=== PATIENT | male | born 1965 | race Caucasian/White ===

== ENCOUNTER 2022-03-09 11:46 | Emergency (ER) | payer OTHER, SELFPAY ==
[2022-03-09 12:13] VITALS: PULSE 97; RESP 16; TEMP 36.4; O2SAT 97; BMI 22.4
--- NOTE | 2022-03-09 12:18 | CRLHL7_ITS ---
For Patients: As a result of the Cures Act, medical imaging exams and procedure reports are released immediately into your electronic medical record. You may view this report before your referring provider. If you have questions, please contact your health care provider. Indication: Injury and pain Technique: Right wrist 3 view Comparison: None Impression: Subtle lucency through the scaphoid waist may represent nondisplaced fracture or artifact. Recommend correlation with direct tenderness and consider follow-up radiographs in 7-10 days to assess for fracture increased conspicuity if present. No other evidence of fracture or dislocation. Dictated by Hector Bush MD @ 03/09/2022 1:20:36 PM (Electronically Signed)
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
== END 2022-03-09 14:10 | disposition home or self-care (01) ==
PROVIDERS: Emergency Provider Family Medicine; PCP Family Medicine
DX: S63.501A Unspecified sprain of right wrist, initial encounter (principal); V19.9XXA Pedal cyclist (driver) (passenger) injured in unspecified traffic accident, initial encounter
CPT/HCPCS: 73110; 99283; 99284

== ENCOUNTER 2023-01-29 11:24 | Emergency (ER) | payer MEDICARE, SELFPAY ==
[2023-01-29 11:43] VITALS: BP 127/78; PULSE 90; RESP 18; TEMP 36.5; O2SAT 99; BMI 23.0
--- NOTE | 2023-01-29 12:09 | CRLHL7_ITS ---
For Patients: As a result of the Cures Act, medical imaging exams and procedure reports are released immediately into your electronic medical record. You may view this report before your referring provider. If you have questions, please contact your health care provider. INDICATION: Fell; hit right eye; hematoma above the right eye. TECHNIQUE: CT facial bones without intravenous contrast; coronal and sagittal reformats. FINDINGS: Comminuted fracture lateral wall right maxilla with fluid and hemorrhage identified within the right maxillary antrum. Nondisplaced fractures lateral wall right orbit. Undisplaced fracture right zygomatic arch. Fracture involving the anterior right maxilla. Nondisplaced fractures involving the nasal bones bilateral. IMPRESSION: Fractures involving the lateral and anterior wall of the right maxillary antrum, lateral wall of the right orbit and the right zygomatic arch with opacification right maxillary antrum. Please note that all CT scans at this facility use dose modulation, iterative reconstruction, and/or weight-based dosing when appropriate to reduce radiation dose to as low as reasonably achievable. Dictated by Anitha Kelly MD @ 01/29/2023 1:57:51 PM (Electronically Signed)
--- NOTE | 2023-01-29 12:10 | CRLHL7_ITS ---
For Patients: As a result of the Century Cures Act, medical imaging exams and procedure reports are released immediately into your electronic medical record. You may view this report before your referring provider. If you have questions, please contact your health care provider. INDICATION: Trauma. TECHNIQUE: CT head without intravenous contrast; coronal and sagittal reformats. FINDINGS: No evidence of intracranial hemorrhage. No mass lesions. No evidence of shift of the midline structures. Fractures involving the lateral wall of the right maxilla as well as the zygomatic arch and lateral wall of the right orbit with opacification of the right maxillary sinus. IMPRESSION: 1. No intracranial hemorrhage or mass lesions. 2. Fractures involving the right orbit, right maxilla and right zygomatic arch. Please note that all CT scans at this facility use dose modulation, iterative reconstruction, and/or weight-based dosing when appropriate to reduce radiation dose to as low as reasonably achievable. Dictated by Anitha Kelly MD @ 01/29/2023 1:49:52 PM (Electronically Signed)
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
[2023-01-29] MEDS: MORPHINE 4 MG/ML INJ IVP (13:17)
[2023-01-29 13:20] VITALS: BP 121/82
[2023-01-29 13:23] LABS: Basophils Absolute Auto 0.07 K/uL (0.00-0.30); Basophils Percent Auto 0.7 % (0.0-3.0); Eosinophils Absolute Auto 0.08 K/uL (0.00-0.50); Eosinophils Percent Auto 0.8 % (0.0-7.0); Hematocrit 36.2 % (37.0-53.0); Hemoglobin* 12.3 gm/dL (13.5-17.5); Immature Granulocytes Abs Auto 0.15 K/uL (0.00-0.30); Immature Granulocytes Pct Auto 1.6 %; Lymphocytes Percent Auto 15.3 % (20-44); Mean Corpuscular HGB Conc 34 gm/dL (32-36); Mean Corpuscular Hemoglobin 32 pg (26-34); Mean Corpuscular Volume 95 fL (80-100); Monocytes Percent Auto 6.5 % (0.0-11.0); Neutrophils Percent Auto 75.1 % (42.0-72.0); Platelet Count* 215 K/uL (140-440); RDW Coefficient of Variation % 13.8 % (11.5-15.5); Red Blood Count 3.83 m/uL (4.30-5.90); White Blood Count* 9.57 K/uL (4.50-11.00)
[2023-01-29 13:33] LABS: Slide Review Reflex No
[2023-01-29 13:36] LABS: Chloride* 100 mmol/L (96-114); Potassium* 4.6 mmol/L (3.6-5.1); Sodium* 134 mmol/L (135-149)
[2023-01-29 13:39] LABS: Anion Gap 7 mEq/L (7-15); Blood Urea Nitrogen* 2 mg/dL (7-30); Calcium* 8.9 mg/dL (8.4-10.6); Carbon Dioxide* 27 mmol/L (20-32); Creatinine* 0.6 mg/dL (0.5-1.5); Est. Creatinine Clearance* 139.44; Estimated Glomerular Filt Rate 113 ml/min; Glucose* 115 mg/dL (60-115)
[2023-01-29 13:40] LABS: Magnesium* 1.7 mg/dL (1.5-2.6)
--- NOTE | 2023-01-29 14:04 | ED.NURSE ---
Pt ambulated to the restroom independently.
[2023-01-29 14:50] VITALS: PULSE 99; O2SAT 97
[2023-01-29 15:41] VITALS: BP 132/88; PULSE 98; RESP 16; O2SAT 100
== END 2023-01-29 15:50 | disposition home or self-care (01) ==
PROVIDERS: Emergency Provider Student in an Organized Health Care Education/Training Program
DX: S01.111A Laceration without foreign body of right eyelid and periocular area, initial encounter (principal); S02.841A Fracture of lateral orbital wall, right side, initial encounter for closed fracture; S02.40EA Zygomatic fracture, right side, initial encounter for closed fracture
CPT/HCPCS: 12011; 36415; 70450; 70486; 72125; 80048; 81025; 83735; 85025; 93005; 96374; 99283; 99284; J2270

== ENCOUNTER 2023-05-18 15:57 | Emergency (ER) | payer MEDICARE, SELFPAY ==
[2023-05-18 16:21] VITALS: BP 130/80; PULSE 88; RESP 18; TEMP 36.2; O2SAT 100; BMI 17.2
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
--- NOTE | 2023-05-18 17:26 | CRLHL7_ITS ---
For Patients: As a result of the Century Cures Act, medical imaging exams and procedure reports are released immediately into your electronic medical record. You may view this report before your referring provider. If you have questions, please contact your health care provider. INDICATION: Bloating. Pain. TECHNIQUE: CT abdomen and pelvis acquired with 64 cc Isovue 370 IV contrast. COMPARISON: None. FINDINGS: Lower chest: Scattered atelectasis. Liver: Mild hepatomegaly. No suspicious masses. Gallbladder and bile ducts: Cholelithiasis. Pancreas: Unremarkable. No mass or inflammation. Spleen: Unremarkable. Normal in size. No masses. Adrenal glands: Unremarkable. No nodules. Kidneys: Focal 2.4 centimeter right superior pole heterogeneous lesion. Tiny hypodensities both kidneys, too small to characterize. No stones, or hydronephrosis. GI tract: Postsurgical changes about the GE junction. Mild proximal colonic wall thickening. Normal in caliber. No sign of mass or inflammation. Normal appendix. Vasculature: Abdominal aorta is normal in caliber. Mesenteric arteries are patent. Lymph nodes: No lymphadenopathy. Peritoneum/Abdominal Wall: Small volume ascites. No free intraperitoneal air. Pelvis: Unremarkable. Bones: Unremarkable for age. IMPRESSION: 1. Mild hepatomegaly. 2. Small volume ascites. 3. Mild colonic wall thickening, possibly colitis in the appropriate clinical setting. 4. Cholelithiasis without cholecystitis. 5. Indeterminate 2.4 centimeter right superior pole heterogeneous lesion. Recommend correlation with prior imaging if available. If not consider outpatient nonemergent MRI for further characterization. Please note that all CT scans at this facility use dose modulation, iterative reconstruction, and/or weight-based dosing when appropriate to reduce radiation dose to as low as reasonably achievable. Dictated by Jimi Vasquez MD @ 05/18/2023 7:59:56 PM (Electronically Signed)
[2023-05-18 18:02] LABS: Appearance Urine Clear (Clear); Bilirubin Urine Negative (Negative); Blood Urine Negative (Negative); Color Urine Yellow (Yellow); Glucose Urine Negative (Negative); Ketones Urine Negative (Negative); Leukocyte Esterase Urine Negative (Negative); Nitrite Urine Negative (Negative); Protein Urine Negative (Negative); Urobilinogen Urine 0.2 (0.2-1.0); pH Urine 6.5 (5.0-8.5)
[2023-05-18 18:05] LABS: Basophils Percent Auto 1.1 % (0.0-3.0); Eosinophils Percent Auto 1.6 % (0.0-7.0); Hematocrit 37.9 % (37.0-53.0); Hemoglobin* 12.4 gm/dL (13.5-17.5); Immature Granulocytes Pct Auto 0.3 %; Lymphocytes Percent Auto 29.6 % (20-44); Mean Corpuscular HGB Conc 33 gm/dL (32-36); Mean Corpuscular Hemoglobin 32 pg (26-34); Mean Corpuscular Volume 98 fL (80-100); Monocytes Percent Auto 8.9 % (0.0-11.0); Neutrophils Percent Auto 58.5 % (42.0-72.0); Platelet Count* 373 K/uL (140-440); RDW Coefficient of Variation % 13.3 % (11.5-15.5); Red Blood Count 3.86 m/uL (4.30-5.90); White Blood Count* 12.87 K/uL (4.50-11.00)
[2023-05-18 18:09] LABS: Slide Review Reflex No
[2023-05-18 18:10] LABS: RBC Urine 0-2 (0-2); Squamous Epithelial Cell Urine Few (None-Few); WBC Urine 0-2 (0-5)
[2023-05-18 18:21] LABS: INR 1.07 (0.91-1.10); Prothrombin Time 14.6 Seconds
[2023-05-18 18:22] LABS: Partial Thromboplastin Time* 33 Seconds (23-33)
[2023-05-18 18:30] LABS: Albumin* 4.1 g/dL (3.3-5.0); Chloride* 104 mmol/L (96-114)
[2023-05-18 18:31] LABS: Sodium* 136 mmol/L (135-149)
[2023-05-18 18:33] LABS: Creatinine* 0.5 mg/dL (0.5-1.5); Est. Creatinine Clearance* 134.31; Estimated Glomerular Filt Rate 118 ml/min
[2023-05-18 18:34] LABS: Alanine Aminotransferase* 32 U/L (4-50); Alkaline Phosphatase* 207 U/L (40-150); Anion Gap 9 mEq/L (7-15); Aspartate Amino Transferase* 82 U/L (12-35); Bilirubin Direct* 0.5 mg/dL (0.0-0.5); Bilirubin Total* 1.1 mg/dL (0.1-1.5); Calcium* 8.8 mg/dL (8.4-10.6); Carbon Dioxide* 23 mmol/L (20-32); Glucose* 73 mg/dL (60-115); Lipase* 147 U/L (23-300); Total Protein* 8.3 g/dL (6.0-8.3)
[2023-05-18 18:35] LABS: Ethanol* 0.07 % (0.01-0.03)
[2023-05-18 18:36] LABS: C Reactive Protein* 1.4 mg/dL (0.5-1.0)
[2023-05-18 18:37] LABS: Blood Urea Nitrogen* < 2 mg/dL (7-30)
[2023-05-18 20:04] VITALS: PULSE 88; O2SAT 99
== END 2023-05-18 21:25 | disposition home or self-care (01) ==
PROVIDERS: Emergency Provider Family Medicine
DX: K80.50 Calculus of bile duct without cholangitis or cholecystitis without obstruction (principal); D64.9 Anemia, unspecified; R18.8 Other ascites
CPT/HCPCS: 36415; 74177; 80053; 81001; 82077; 82140; 82248; 83690; 85025; 85610; 85730; 86140; 99284; Q9967

== ENCOUNTER 2023-06-07 11:39 | Outpatient (CLI) | payer OTHER, SELFPAY | END 2023-06-07 11:40 | disposition home or self-care (01) | LOC: NFLDREF 11:46 | PROVIDERS: PCP Internal Medicine; Visit Provider Internal Medicine | DX: K70.31 Alcoholic cirrhosis of liver with ascites (principal); F10.20 Alcohol dependence, uncomplicated | CPT/HCPCS: 80048 ==

== ENCOUNTER 2023-06-19 01:44 | Outpatient (CLI) | payer OTHER, SELFPAY | END 2023-06-19 01:45 | disposition home or self-care (01) | LOC: AMB 06-20 10:27 | PROVIDERS: PCP Internal Medicine; Visit Provider Family Medicine | DX: R06.09 Other forms of dyspnea (principal) | CPT/HCPCS: A0998 ==

== ENCOUNTER 2023-06-27 09:57 | Outpatient (CLI) | payer OTHER, SELFPAY | END 2023-06-27 09:58 | disposition home or self-care (01) | LOC: RAD 10:02 | PROVIDERS: PCP Internal Medicine; Visit Provider Internal Medicine | DX: R01.1 Cardiac murmur, unspecified (principal); I34.0 Nonrheumatic mitral (valve) insufficiency; I34.1 Nonrheumatic mitral (valve) prolapse | CPT/HCPCS: 93306 ==

== ENCOUNTER 2023-07-19 14:18 | Outpatient (CLI) | payer OTHER, SELFPAY | END 2023-07-19 14:19 | disposition home or self-care (01) | PROVIDERS: PCP Internal Medicine; Visit Provider Internal Medicine | DX: E78.5 Hyperlipidemia, unspecified (principal) | CPT/HCPCS: 80053 ==

== ENCOUNTER 2024-11-01 13:16 | Outpatient (CLI) | payer OTHER, SELFPAY | END 2024-11-01 13:17 | disposition home or self-care (01) | PROVIDERS: PCP Internal Medicine; Visit Provider Internal Medicine | DX: K70.31 Alcoholic cirrhosis of liver with ascites (principal); Z12.5 Encounter for screening for malignant neoplasm of prostate | CPT/HCPCS: 80053; 85610; G0103 ==

== ENCOUNTER 2024-12-28 13:14 | Outpatient (CLI) | payer OTHER, SELFPAY ==
--- NOTE | 2024-12-28 13:00 | CRLHL7_ITS ---
For Patients: As a result of the Century Cures Act, medical imaging exams and procedure reports are released immediately into your electronic medical record. You may view this report before your referring provider. If you have questions, please contact your health care provider. INDICATION: Renal lesion. COMPARISON: CT scan of the abdomen and pelvis dated 18 May 2023. TECHNIQUE: Abdominal MRI with T1 in- and out of phase, T2, diffusion weighted, and progressively delayed post-contrast images. Intravenous gadolinium administered. FINDINGS: Moderate nodular fatty infiltration of the liver. Nodularity of the representing cirrhosis. No focal abnormalities identified in the visualized portions of the liver, spleen, pancreas, and adrenal glands. 2.2 cm cyst containing hemorrhagic debris in the superior pole of the right kidney is unchanged. A few other small bilateral renal cysts. The kidneys are otherwise unremarkable. No hydronephrosis. Small amount of ascites. No adenopathy. Gallstones and sludge filling the gallbladder. No bile duct dilation. 1.4 cm enhancing lesion in the medial aspect of the right iliac bone best seen on image 64 of series 17. Impression : 1. 2.2 cm cyst containing hemorrhagic debris in the superior pole of the right kidney is unchanged. 2. No suspicious enhancing renal lesions. 3. Cirrhosis. Nodular fatty infiltration of the liver. 4. Gallstones and sludge filling the gallbladder. 5. Small amount of ascites. 6. 1.4 cm enhancing lesion in the medial aspect of the right iliac bone has nonspecific imaging characteristics but may represent a metastasis. Consider tissue diagnosis. Dictated by Glenn Banegas MD @ 12/31/2024 2:43:11 PM (Electronically Signed)
== END 2024-12-28 13:15 | disposition home or self-care (01) ==
PROVIDERS: PCP Internal Medicine; Visit Provider Internal Medicine
DX: N28.9 Disorder of kidney and ureter, unspecified (principal); N28.1 Cyst of kidney, acquired; K74.60 Unspecified cirrhosis of liver; K80.20 Calculus of gallbladder without cholecystitis without obstruction; R18.8 Other ascites; M89.9 Disorder of bone, unspecified
CPT/HCPCS: 74183; A9575

== ENCOUNTER 2025-01-05 01:05 | Outpatient (CLI) | payer OTHER, SELFPAY | END 2025-01-05 01:06 | disposition home or self-care (01) | LOC: AMB 01-07 12:52 | PROVIDERS: PCP Internal Medicine; Visit Provider Internal Medicine | DX: R19.7 Diarrhea, unspecified (principal) | CPT/HCPCS: A0425; A0427 ==

== ENCOUNTER 2025-01-05 01:52 | Emergency (ER) | payer OTHER, SELFPAY ==
[2025-01-05] VITALS (61 sets, daily range): BP systolic 68–120; BP diastolic 44–79; PULSE 98–130; RESP 10–34; TEMP 37.1–37.6; O2SAT 87–100; BMI 16.5
--- OUTSIDE RECORDS SUMMARY | 2025-01-05 01:54 | XMS_ITS | Clinical Summary ---
Author Organization [facility] Address [address] [place] [address] Care Team Providers Care Cnc Programmer Name Role Phone Gabe Zheng MD Primary Care Provider [phone] Source Comments You are receiving this document as you are listed as the primary care provider,follow-up provider, or the patient has been referred to you for consultation.This is in compliance with the Medicare and[facility] E[facility] Incentive Program,which states Providers who transition their patient to another setting of careor provider of care or refers their patient to another provider of care shouldprovide summary care record for each transition of care or referral. [employer] Allergies Active Allergy Reactions Criticality Noted Date Comments Penicillins Hives,Rash Medium 04/24/2008 Medications multivitamin (THERAGRAN) tablet Take 1 Tablet by mouth daily. Active omega-3 fatty acids (MAXEPA,FISHOIL ) 1000 MG capsule Take 1 Capsule (1,000 mg) by mouth daily. Active nicotine (NICOTROL) 10 MG inhaler 1 cartridge by freq cont puffing for about 20min.Use 6-16 cartridges/day for12 wks.Reduce gradually 12 more wks if needed. 168 Each 12 8 Active CREATINE OR as needed. Active Protein as needed. Active vortioxetine (TRINTELLIX) 5 MG tablet Take 5 mg by mouth daily. Active magnesium 250 MG oral tablet TK 1 TO 2 TS PO HS PRF KEYBOARD INSTRUMENT REPAIRER 3 9 Active Melatonin [address] 1 T UNDER THE TONGUE HS 3 9 Active nicotine (NICODERMCQ) 7 MG/24HR patch JOEY 1 PA EXT TO THE SKIN QD 6 9 Active thiamine 100 MG tablet Take 1 Tablet by mouth daily. 90 Tablet 3 9 Active metroNIDAZOLE (METROCREAM) 0.75 % cream APPLY TO AFFECTED AREA TWICE A DAY 45 g 12 1 Active mirtazapine (REMERON) 15 MG tablet Take 1 Tablet (15 mg) by mouth daily at bedtime. 90 Tablet 3 2 Active tiZANidine (ZANAFLEX) 4 MG tablet Take 1 Tablet (4 mg) by mouth every 8 hours as needed. 15 Tablet 3 Active ketorolac (ACULAR) 0.5 % eye drop solution PLACE ONE DROP IN BOTH EYES 3 TIMES PER DAY NEEDED 5 mL 1 5 Active gabapentin (NEURONTIN) 300 MG capsule Take 1 Capsule (300 mg) by mouth three times a day. Start with 1 po qhs for 3 days, then 1 po bid for 3 days, then 1 po tid. 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 Alcohol intoxication in alco holism with blood level over 0.3 11/08/2015 Elevated liver enzymes 11/08/2015 Underweight 06/06/2014 S/P exploratory laparotomy 05/30/2014 Overview (01/12/2017): S/P exploratory laparotomy, lysis of adhesions Small bowel obstruction 05/28/2014 Diverticulosis 04/03/2013 Tinnitus, bilateral 06/07/2012 Heart murmur 02/18/2012 Cirrhosis of liver 02/18/2012 Malnutrition of moderate degree 01/17/2012 Hepatitis 01/15/2012 Tobacco abuse 01/15/2012 Alcohol dependence, continuous 09/07/2008 Overview (01/12/2017): Alcohol Dependence Resolved Problems Problem Noted Date Diagnosed Date Resolved Date Pneumonia 11/05/2016 05/06/2017 Suicidal behavior 11/08/2015 11/11/2015 Acute alcohol intoxication 02/04/2015 0 11/08/2015 Clostridium difficile diarrhea 01/17/2012 04/07/2015 Ascites 01/15/2012 10/15/2014 Hypoalbuminemia 01/15/2012 07/31/2014 Encounters Date Type Department Care Team Description 12/20/2024 Telephone [facility] [address] Op[address]mology [address] [facility] [address] Trevon Troncoso MD Scheduling Question from Last 3 Months Immunizations Immunization Administration Dates Next Due Hdcv - Rabies Vaccine 03/21/2002, 002,02/26/2002,2001 HepB Adult (Engerix-B, 20+ y rs, 3 dose series) 06/27/2013,01/16/2013,12/08/2012 Influenza (Flucelvax), Prese rv Free QIV 02/20/2020 Influenza IIV4 (Quadrivalent ) 0.5mL (90601) 04/02/2021 Moderna Monovalent 12+ 12/12/2020,10/07/2020 TB Skin Test (PPD) 12/08/2012 TDAP (BOOSTRIX) 02/18/2012 Td 02/19/2002,12/24/1998 Td (7+ yrs) 03/15/2006 Family History Medical History Relation Name Comments Cerebrovascular Disease Father braglenn n aneurysm and deceaed at the age of 49 Coronary Artery Disease Paternal Grandfather Asthma Paternal Grandmother Diabetes Paternal Grandmother Diabetes, Type II Paternal Grandmother Heart Disease Paternal Grandmother High Blood Pressure Paternal Grandmother Hypertension Paternal Grandmother Cataract Negative Family History Glaucoma Negative Family History Macular Degeneration Negative Family History Retinal Detachment Negative Family History Relation Name Status Comments Father Paternal Grandfather Paternal Grandmother Social History Tobacco Use Types Packs/Day Years Used Date Smoking Tobacco: Every Day Cigarettes 1 43 Started: 12/26/1981 Smokeless Tobacco: Never Comments:Smoking History Pac ks/day: Alcohol Use Standard Drinks/Week Comments Yes 210 (1 standard drink = 0.6 oz p ure alcohol) 12 PACK A DAY PHQ-2 Answer Date Recorded PHQ-2 Score 4 12/05/2020 Sex and Gender Information Value Date Recorded Sex Assigned at Not on file Legal Sex Male 4:25 AM CDT Gender Identity Not on file Sexual Orientation Not on file Last Filed Vital Signs Vital Sign Reading Time Taken Comments Blood Pressure 127/78 12/03/2022 3:47 PM CDT Pulse 107 12/03/2022 3:47 PM CDT Temperature 36.8 C (98.2 F) 12/03/2022 3:47 PM CDT Respiratory Rate 16 11/05/2021 2:30 PM CDT Oxygen Saturation 99% 11/05/2021 2:30 PM CDT Inhaled Oxygen Concentration - - Weight 54.9 kg (121 lb) 12/18/2024 1:33 PM CDT Height 182.9 cm (6') 12/18/2024 1:33 PM CDT Body Mass Index 16.41 12/18/2024 1:33 PM CDT Plan of Treatment Scheduled Procedures Name Priority Associated Diagnoses Date/Ti me REPAIR ECTROPION 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, right Health Maintenance Due Date Last Done Comments HepA Vaccine (1 of 2 - Risk 2-dose series) 1984 Pneumococcal Vaccine 50+ Yrs (1 of 2 - PCV) 1984 Zoster/Shingles Vaccine (1 of 2) 2015 PSA Screening Discussion 09/26/2019 019, 12/26/2017, 02/18/2012 Colonoscopy 03/19/2023 03/19/2013 (Completed) Cholesterol 09/26/2023 09/25/2018, 12/2017, 12/26/2017, Additional history exists COVID-19 Vaccine ( season) 2024 06/07/2023, 12/12/2020, 10/07/2020 Medicare Annual Wellness Visit 05/23/2024 Influenza Vaccine (#1) 2025 4, 04/02/2021, 02/20/2020 DTaP/Tdap/Td Vaccine (3 - Tdap) 06/07/2033 06/07/2023, 02/18/2012, 02/18/2012 (Completed), Additional history exists HIV Screening (Preventive Services) Completed 05/08/2010, 03/15/2006 Hep C Screening (Preventive Services) Completed 05/08/2010, 03/15/2006 Hib Vaccine Aged Out No longer eligi ble based on patient's age to complete this topic IPV (Polio) Vaccine Aged Out No longe r eligible based on patient's age to complete this topic MCV4 Vaccine Aged Out No longer eligi ble based on patient's age to complete this topic Meningococcal B Vaccine Aged Out No l onger eligible based on patient's age to complete this topic Procedures Procedure Name Priority Date/Time Associated Diagnosis Comments PROSTATIC SPECIFIC ANTIGEN(SCREEN) Routine 09/25/2018 4:02 PM CDT Screening for prostate cancer LIPID PANEL & DIRECT LDL (IF NEEDED) Routine 09/25/2018 4:02 PM CDT Hyperlipidemia, unspecified hyperlipidemia type HIV ANTIBODY Routine 05/08/2010 11:35 AM RELAY SHOP SUPERVISOR HEPATITIS C ANTIBODY, WITH REFLEX (ANTI-HCV) Routine 05/08/2010 11:35 AM RELAY SHOP SUPERVISOR from Last 3 Months or Most Recently Relevant to Health Maintenance Results * Lipid Panel and Direct LDL(If Needed) (09/25/2018 4:02 PM CDT) Cholesterol 147 0 - 199 mg/dL 09/25/2018 4:34 PM CDT [facility] [address] [facility] Triglyceride 59 <=149 mg/dL 09/25/2018 4:34 PM CDT [facility] [facility] HDL Cholesterol 43 >=40 mg/dL 9 4:34 PM CDT [facility] [address] [facility] LDL, Calculated 92 <130 mg/dL 9 4:34 PM CDT [facility] [address] [facility] Non HDL Chol, Calculated 104 <=159 mg/dL 09/25/2018 4:34 PM CDT [facility] [facility] Cholesterol/HDL Ratio 3.4 09/25/2018 4:34 PM CDT [facility] [address] [facility] Blood Venipuncture / Unknown 09/25/2018 4:02 PM CDT 09/25/2018 4:02 PM CDT us Gabe Zheng MD LAB_1 Final Result Performing Organization Address [facility] de Phone Number [facility] [address] [facility] [place] [address], [facility] [phone] * Prostatic Specific Antigen (Screen) (09/25/2018 4:02 PM CDT) Prostatic Specific Antigen 0.3 0.0 - 4.0 ng/mL 09/25/2018 7:24 PM CDT [facility] Blood Venipuncture / Unknown 09/25/2018 4:02 PM CDT 09/25/2018 4:02 PM CDT Narrative [facility] - 09/25/2018 7:24 PM CDT The [employer] PSA Chemiluminescent immunoassay is used. Results obtained with different test methods or kits cannot be used interchangeably. us Gabe Zheng MD LAB_1 Final Result Performing Organization Address [facility] de Phone Number [facility] [address] [place], [place] [address] * HIV ANTIBODY (05/08/2010 11:35 AM RELAY SHOP SUPERVISOR) HIV 1/HIV 2 Non-React No normal range HP CONVERSION 05/08/2010 11:3 5 AM RELAY SHOP SUPERVISOR us Gabe Zheng MD LAB_1 Final Result Performing Organization Address [facility] de Phone Number HP CONVERSION * Hepatitis C Antibody, with Reflex (05/08/2010 11:35 AM RELAY SHOP SUPERVISOR) Hepatitis C Antibody Non-React No normal range HP CONVERSION 05/08/2010 11:3 5 AM RELAY SHOP SUPERVISOR Gabe Zheng MD LAB_1 Final Result HP CONVERSION from Last 3 Months or Most Recently Relevant to Health Maintenance Insurance [facility] [employer] [facility] MEDICARE Advance Directives * Full Code (Latest Code Status on File) Date Activated Date Inactivated Comments 11/05/2016 9:16 PM 11/08/2016 1:51 PM * Full Code Date Activated Date Inactivated Comments 11/08/2015 7:49 AM 11/08/2015 5:49 PM * Full Code Date Activated Date Inactivated Comments 04/07/2015 11:37 PM 04/08/2015 3:03 PM * Full Code Date Activated Date Inactivated Comments 2015 9:48 AM 2015 1:35 PM * Full Code Date Activated Date Inactivated Comments 02/05/2015 2:04 AM 02/06/2015 1:21 PM Care Teams Cnc Programmer Relationship Specialty Start Date End Date Gabe Zheng MD [address] [place] [address] PCP - General 01/28/12
--- OUTSIDE RECORDS SUMMARY | 2025-01-05 01:55 | XMS_ITS | Encounter Summary ---
Author Organization [facility] Address [address] [place] [address] Care Team Providers Care Hostel Parent Name Role Phone Gabe Zheng MD Primary Care Provider [phone] Reason for Visit * Reason Comments Scheduling Question Encounter Details Date Type Department Care Team (Late st Contact Info) Description 12/20/[address] [facility] [address] Ophthalmology [address] [facility] [place] [address] Trevon Troncoso MD [address] [place] [address] Scheduling Question Social History Tobacco Use Types Packs/Day Years [...] on file Sexual Orientation Not on file documented as of this encounter Nursing Notes * Feli Aguilar - 12/25/2024 1:[address] Troncoso is declining to reschedule surgery and would like to discharge pt in general from his clinic or any further appointments with him. * Feli Aguilar - 12/21/2024 8:09 AM CDT I called pt to let him know that was declining to reschedule his surgery due to him nos showing his surgery yesterday. Pt states his medical cab did not show up. He also reports he [facility] (around 750 am) that his cab did not show up. I told the pt I would talk with the call educational resource center teacher and have her look to see if we have a call recorded around this time as our calls are recorded, and if this is the case, I would let Dr. Troncoso know. Pt was fine with this. * Sadiq Gorman - 12/20/2024 4:31 PM CDT Sebastian calling to try to schedule surgery with Dr Troncoso. Sebastian states that his appointment this morning was cancelled and someone was supposed to call him back today. [facility] so I am forwarding this request to them. 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
--- OUTSIDE RECORDS SUMMARY | 2025-01-05 01:55 | XMS_ITS | Encounter Summary ---
Author Organization [facility] Address [address] [place] [address] Care Team Providers Care Freight Shipping Agent Name Role Phone Gabe Zheng MD Primary Care Provider [phone] Encounter Details Date Type Department Care Team (Late st Contact Info) Description 06/04/2013 [facility] [address] [place], [place] [id number] Kelvin Hayes MD PRE PLACEMENT EXAM Social History Tobacco Use Types Packs/Day Years Used Date Smoking Tobacco: Every Day Cigarettes 1 23 Alcohol Use Standard Drinks/Week Comments Yes 0 (1 standard drink = 0.6 oz pur e alcohol) daily Sex and Gender Information Value Date Recorded Sex Assigned at Not on file Legal Sex Male 4:25 AM CDT Gender Identity Not on file Sexual Orientation Not on file documented as of this encounter Plan of Treatment Scheduled Procedures Name Priority Associated Diagnoses Date/Ti me REPAIR ECTROPION 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
--- NOTE | 2025-01-05 01:57 | ED_ITS ---
HPI - General Adult General Chief complaint: Weakness Stated complaint: alcohol withdrawal Time Seen by Provider: 01/05/25 02:00 History of Present Illness HPI narrative: Patient is a 59-year-old gentleman with well-known history of alcoholism who presents 2:00 a.m. in the morning after being found in his apartment covered in stool unable to ambulate. It is not clear whether the patient had a fall. Patient speaks nonsense and appears to be confused. He had a friend called EMS EMS found him in the above-mentioned condition and brought him to the emergency room patient had also apparently been bleeding from his penis as a risk chance blood present in the patient's underwear upon arrival. The patient states his last drink was 7 days ago. He has had no fevers no chills no night sweats although very little further history is available. Per chart review patient has cirrhosis alcoholism nicotine dependence polyneuropathy and ascites. Related Data Home Medications ?Medication ?Instructions ?Recorded ?Confirmed gabapentin 300 mg capsule 600 mg PO QDAY PRN 06/07/23 01/05/25 magnesium citrate,mag oxide 60 mg PO DAILY 06/07/23 metronidazole topical DAILY 06/07/2311/01 Previous Rx's ?Medication ?Instructions ?Recorded tizanidine 4 mg tablet 4 mg PO 3XD PRN muscle cramp s #20 06/24/23 tabs Allergies Allergy/AdvReac Type Severity Reaction Status Date / Time Penicillins Allergy Mild Hives Verified 12/17/24 13:31 Review of Systems Status of ROS: Reports: unobtainable due to medical condition PFSH PFS Medical History History of facial fracture ?Z87.81 - Personal history of (healed) traumatic fracture (ICD-10) History of renal calculi ?Z87.442 - Personal history of urinary calculi (ICD-10) Surgical History History of eye surgery ?Z98.890 - Other specified postprocedural states (ICD-10) History of partial gastrectomy (1992) ?Z90.3 - Acquired absence of stomach [part of] (ICD-10) History of colonoscopy (03/19/13) ?Z98.890 - Other specified postprocedural states (ICD-10) History of resection of small bowel ?Z90.49 - Acquired absence of other specified parts of digestive tract (ICD- 10) Family History Grandmother Heart disease Diabetes Father Stroke, Onset Age: 49 Mother Breast cancer, Onset Age: 74 Uncle Diabetes Social History What is your current living situation?: I presently have a place to live Problems where you live: no known problems Problems where you live details: They haven't repairs yet In the past 12 months, utilities in danger of being shut off: no In past 12 months, lack of transportation kept you from medical appts, meetings, work, or getting things needed for daily living: yes In the past 12 mos, have been you worried that your food would run out before you had money to buy more?: never true In the past 12 mos, the food you bought just didn't last and you didn't have money to buy more?: never true Smoking Status: Current every day smoker What tobacco products do you use: cigarettes Smoking packs per day: 0.5 Smoking cigarettes per day: 10.0 Years smoked: 41 Smoking pack-years: 20.50 Do you use any of these nicotine containing products: None Second hand tobacco smoke exposure: No How often do you have a drink containing alcohol: 4 or more times a week How many standard drinks containing alcohol do you have on a typical day: 10 or more How often do you have six or more drinks on one occasion: Daily or almost daily AUDIT-C Alcohol total score: 12 Non-prescribed substance use: marijuana (any form) How often does anyone, including family, friends and others, physically hurt you : never How often does anyone, including family, friends and others, insult or talk down to you: frequently How often does anyone, including family, friends and others, threaten you with harm: never How often does anyone, including family, friends and others, scream or curse at you: sometimes Health Related Social Needs: transportation insecurity (Z59.82) and Other personal risk factors, not elsewhere classified (Z91.89) Exam Narrative: Exam Narrative: EXAM GENERAL: Patient appears disheveled and confused. EYES: No scleral icterus. Head no signs of recent trauma LYMPH: No supraclavicular or cervical lymphadenopathy. SKIN: Visible skin seen during exam normal or with benign process only. EXT: No dependent lower extremity pedal edema. HEART: Regular rate and rhythm with no murmurs, rubs, or gallops. LUNGS: Clear to auscultation bilaterally with no crackles or wheezes. ABD: Soft, non tender, non distended. PSYCH: Patient appears very confused. Const: Vital Signs, click to edit/add: Vital Signs - 24 hr 01/05/25 02:07 01/05/25 02:59 Temperature 99.3 F 99.6 F Pulse Rate [Pulse Oximeter] 130 H Respiratory Rate 18 Blood Pressure [Ri t Upper Arm] 87/64 L Pulse Oximetry 100 Oxygen Delivery Me thod Room Air Course Course ED Course: Patient seen examined. CT head neck CBC ETOH salicylate acetaminophen comprehensive metabolic panel urinary toxicology screen pending. Vital Signs Vital signs: Initial Vital Signs Temperature 99.3 F 01/05/25 02:07 Temperature Source Temporal Artery Scan 01/05/25 02:07 Pulse Rate 130 H 01/05/25 02:07 Respiratory Rate 18 01/05/25 02:07 Blood Pressure 87/64 L 01/05/25 02:07 Blood Pressure Mean 71 01/05/25 02:07 Blood Pressure Position Semi-Fowlers 01/05/25 02:07 Pulse Oximetry 100 01/05/25 02:07 Oxygen Delivery Method Room Air 01/05/25 02:07 Vital Signs Temperature 99.3 F 01/05/25 02:07 Pulse Rate 130 H 01/05/25 02:07 Respiratory Rate 18 01/05/25 02:07 Blood Pressure 87/64 L 01/05/25 02:07 Pulse Oximetry 100 01/05/25 02:07 Oxygen Delivery Method Room Air 01/05/25 02:07 Temperature 99.6 F 01/05/25 02:59 Pulse Rate 130 H 01/05/25 02:07 Respiratory Rate 18 01/05/25 02:07 Blood Pressure 87/64 L 01/05/25 02:07 Pulse Oximetry 100 01/05/25 02:07 Oxygen Delivery Method Room Air 01/05/25 02:07 Medications Administered Medications: Generic Name Dose Route Start Last Admin Trade Name Freq PRN Reason Stop Dose Admin Sodium Chloride 1,000 mls @ 1,000 mls/hr 01/05/25 02:24 01/05/25 02:16 0.9 % Sodium Chloride 1000 Ml IV 01/05/25 03:23 1,000 mls/hr .Q1H DAQUAN Administration Medical Decision Making MDM Narrative Medical decision making narrative: Patient is a 59-year-old gentleman who has history of alcohol abuse. He was found covered in stool and with his penis covered in blood tonight and his apartment. Patient states he has not had any alcohol for 7 days. I presents to the emergency room via EMS and a is afebrile but hypotensive and tachycardic. We did aggressively hydrate him. We collected appropriate labs and blood cultures. Urine shows obvious infection. IA I did do a head CT which showed no acute abnormalities. Lactate came back impressively elevated at 12. Again we did aggressively hydrate placed on broad-spectrum antibiotics. He is also noted to be hypoglycemic and was given an amp of D50. This time patient requires inpatient hospitalization. He was admitted to the hospitalist service for further evaluation and treatment. Lab Data Labs: Lab Results 01/05/25 01/05/25 01/05/25 Range/Units 01:56 02:53 02:57 WBC 5.61 (4.50-11.00) K/uL RBC 3.03 L (4.30-5.90) m/uL Hgb 9.8 L (13.5-17.5) gm/dL Hct 29.4 L (37.0-53.0) % MCV 97 (80-100) fL MCH 32 (26-34) pg MCHC 33 (32-36) gm/dL RDW Coeff of Lucian 17.0 H (11.5-15.5) % Plt Count 194 (140-440) K/uL Neut % (Auto) 93.5 H (42.0-72.0) % Lymph % (Auto) 3.7 L (20-44) % [place] % (Auto) 1.2 (0.0-11.0) % Eos % (Auto) 0.4 (0.0-7.0) % Baso % (Auto) 0.7 (0.0-3.0) % Neut # (Auto) 5.20 (1.7-7.0) K/uL Lymph # (Auto) 0.20 L (0.90-2.90) K/uL [place] # (Auto) 0.10 (0.00-0.90) K/UL Eos # (Auto) 0.02 (0.00-0.50) K/uL Baso # (Auto) 0.04 (0.00-0.30) K/uL Abs Immat Gran (auto) 0.03 (0.00-0.30) K/uL Imm/Tot Granulo (auto) 0.5 % Lactate 12.4 H* (0.5-1.9) mmol/L Urine Color Red A (Yellow) Urine Appearance Turbid A (Clear) Urine pH >= 9.0 H (5.0-8.5) Ur Specific [place] 1.010 (1.000-1.030) Urine Protein 3+ A (Negative) Urine Glucose (UA) Trace A (Negative) Urine Ketones 2+ A (Negative) Urine Blood 3+ A (Negative) Urine Nitrite Negative (Negative) Urine Bilirubin 3+ A (Negative) Urine Urobilinogen >=8.0 A (0.2-1.0) Ur Leukocyte Esterase 3+ A (Negative) Urine RBC >100 A (0-2) Urine WBC 50-100 A (0-5) Ur Squamous Epith Cells Moderate A (None-Few) Amorphous Sediment Moderate A (None) Urine Bacteria Many A (None) Fine Granular Casts Moderate A (None) Urine Opiates Screen Negative (Negative) Ur Buprenorphine Scrn Negative (Negative) Ur Oxycodone Screen Negative (Negative) Urine Methadone Screen Negative (Negative) Ur Barbiturates Screen Negative (Negative) U Tricyclic Antidepress Negative (Negative) Ur Phencyclidine Scrn Negative (Negative) Ur Amphetamines Screen Negative (Negative) U Methamphetamines Scrn Negative (Negative) U Benzodiazepines Scrn Negative (Negative) Urine Cocaine Screen Negative (Negative) U Marijuana (THC) Screen POSITIVE A (Negative) Ur Drug Screen Comment See Note Discharge Plan Discharge Clinical Impression: Acute UTI Activity Level: Other Discharge Diet: Other Prescriptions: No Action metronidazole topical DAILY gabapentin 300 mg capsule 600 mg PO QDAY PRN magnesium citrate,mag oxide 60 mg PO DAILY tizanidine 4 mg tablet 4 mg PO 3XD PRN (Reason: muscle cramps) Qty: 20 0RF Follow Up/Referrals: Maggie Fierro MD [Primary Care Provider, Internal Medicine]
--- NOTE | 2025-01-05 01:57 | CRLHL7_ITS ---
For Patients: As a result of the Century Cures Act, medical imaging exams and procedure reports are released immediately into your electronic medical record. You may view this report before your referring provider. If you have questions, please contact your health care provider. INDICATION: Fall and weakness. TECHNIQUE: CT head without contrast. COMPARISON: CT head 01/29/2023. FINDINGS: No acute intracranial hemorrhage. No CT evidence of acute territorial infarct. No hydrocephalus or midline shift. Stable parenchymal volume loss. Chronic microvascular ischemic disease, grossly unchanged. Visualized paranasal sinuses and mastoid air cells are well ventilated. No acute calvarial fracture. IMPRESSION: No acute intracranial abnormality. Please note that all CT scans at this facility use dose modulation, iterative reconstruction, and/or weight-based dosing when appropriate to reduce radiation dose to as low as reasonably achievable. Dictated by Yovanny Noland MD @ 01/05/2025 2:40:18 AM (Electronically Signed)
[2025-01-05 02:24] LABS: Appearance Urine Turbid (Clear)
[2025-01-05 02:31] LABS: Cannabinoid Screen Urine POSITIVE (Negative); Methamphetamines Screen Urine Negative (Negative); Tricyclic Antidepressant Urine Negative (Negative)
--- OUTSIDE RECORDS SUMMARY | 2025-01-05 02:54 | XMS_ITS | CCD ---
Author Organization Unknown Care Team Providers Care Spectacle Truer Name Role Phone Behavioral Geneticist, [place] Primary Care Provider Unava ilable Unavailable Chronic Care Management Unavaila ble Summary Purpose DataExchange Insurance Providers Payer name Policy type / Coverage type Covered libertarian ID Effective Begin Date Effective End Date [facility] Commercial Insurance [id number] Unknown Unkn own Family History Family History data not found Medication Administered No Medication Administered data Reason For Visit No Reason For Visit data
--- OUTSIDE RECORDS SUMMARY | 2025-01-05 02:55 | XMS_ITS | CCD ---
Author Organization Unknown Care Team Providers Care Pulmonologist Intensivist Name Role Phone Home Care Nurse, [place] Primary Care Provider Unava ilable Unavailable Chronic Care Management Unavaila ble Summary Purpose DataExchange Insurance Providers Payer name Policy type / Coverage type Covered republican ID Effective Begin Date Effective End Date [facility] Commercial Insurance [id number] Unknown Unkn own Family History Family History data not found Medication Administered No Medication Administered data Reason For Visit No Reason For Visit data
[2025-01-05 03:07] LABS: Hematocrit 29.4 % (37.0-53.0); Hemoglobin* 9.8 gm/dL (13.5-17.5); Immature Granulocytes Abs Auto 0.03 K/uL (0.00-0.30); Immature Granulocytes Pct Auto 0.5 %; Lymphocytes Absolute Auto 0.20 K/uL (0.90-2.90); Mean Corpuscular HGB Conc 33 gm/dL (32-36); Mean Corpuscular Hemoglobin 32 pg (26-34); Mean Corpuscular Volume 97 fL (80-100); RDW Coefficient of Variation % 17.0 % (11.5-15.5); Red Blood Count 3.03 m/uL (4.30-5.90); Slide Review Reflex Yes; White Blood Count* 5.61 K/uL (4.50-11.00)
[2025-01-05 03:10] LABS: Lactate Sepsis w/Reflex* 12.4 mmol/L (0.5-1.9)
[2025-01-05 03:20] LABS: Chloride* 96 mmol/L (96-114)
[2025-01-05] MEDS: DEXTROSE 50 % SYRINGE IVP (03:20)
--- NOTE | 2025-01-05 03:20 | CRLHL7_ITS ---
For Patients: As a result of the Cures Act, medical imaging exams and procedure reports are released immediately into your electronic medical record. You may view this report before your referring provider. If you have questions, please contact your health care provider. Indication: Sepsis. Technique: Chest 1 view. Comparison: None. Findings/Impression: The heart is not abnormally enlarged. Mediastinal contours are grossly within normal limits. Mild patchy left lower lung zone airspace opacification may reflect developing infectious process in the appropriate clinical context. No pleural effusion or pneumothorax. No acute osseous abnormality. Dictated by Yovanny Noland MD @ 01/05/2025 3:48:25 AM (Electronically Signed)
[2025-01-05 03:21] LABS: Albumin* 2.8 g/dL (3.3-5.0); Sodium* 126 mmol/L (135-149)
[2025-01-05 03:22] LABS: Potassium* 3.1 mmol/L (3.6-5.1)
--- NOTE | 2025-01-05 03:23 | CRLHL7_ITS ---
For Patients: As a result of the Century Cures Act, medical imaging exams and procedure reports are released immediately into your electronic medical record. You may view this report before your referring provider. If you have questions, please contact your health care provider. INDICATION: Sepsis. TECHNIQUE: CT abdomen and pelvis acquired with 62 cc Isovue 370 IV contrast. COMPARISON: CT abdomen and pelvis May 18, 2023. And MRI abdomen December 28, 2024 FINDINGS: Lower chest: Mild bibasilar atelectasis. Liver: Minimal surface nodularity of the liver with heterogeneous parenchyma, concerning for chronic hepatic disease/fibrosis. Hepatomegaly measuring 18.4 cm. Gallbladder and bile ducts: Cholelithiasis. Pancreas: No mass or inflammation. Spleen: Normal in size. No masses. Adrenal glands: No suspicious mass. Kidneys: Bilateral kidneys are normal in size and attenuation. Abnormal hypoattenuating lesion measuring 2.9 x 2.2 centimeter at the upper pole of right kidney similar to previous CT. Most likely complex cyst. Few other hypoattenuating foci too small to characterize. No hydronephrosis or nephrolithiasis. GI tract: Nonspecific mild edematous wall thickening of the small bowel loops. No abnormal distention.. Normal appendix. Postsurgical changes of bowel loops NG junction. Colonic diverticulosis. Vasculature: Abdominal aorta is normal in caliber. Moderate to advanced atherosclerosis. Lymph nodes: No lymphadenopathy. Peritoneum/Abdominal Wall: Small volume of free fluid in the pelvis. No free intraperitoneal air. Pelvis: Decompressed urinary bladder. Bones: Abnormal lesion involving the medial aspect of right ilium is better assessed on previous MRI. No aggressive or lytic bony lesion. Degenerative changes of the spine. IMPRESSION: 1. Hepatomegaly and cirrhotic liver morphology. Small volume of ascites. 2. Cholelithiasis. 3. Unchanged hypodense right upper pole renal lesion, similar to previous CT, likely complex cyst. 4. Nonspecific edematous wall thickening of the bowel loops, predominantly small bowel loops and proximal ascending colon, could relate to enterocolitis in the appropriate clinical setting. 5. Abnormal lesion involving medial aspect of right ilium, better assessed on previous MRI. Please note that all CT scans at this facility use dose modulation, iterative reconstruction, and/or weight-based dosing when appropriate to reduce radiation dose to as low as reasonably achievable. Dictated by Mamadou Liu MD @ 01/05/2025 4:42:19 AM (Electronically Signed)
[2025-01-05 03:24] LABS: Alanine Aminotransferase* 46 U/L (4-50); Alkaline Phosphatase* 213 U/L (40-150); Anion Gap 19 mEq/L (7-15); Bilirubin Total* 4.8 mg/dL (0.1-1.5); Blood Urea Nitrogen* 6 mg/dL (7-30); Calcium* 8.8 mg/dL (8.4-10.6); Carbon Dioxide* 11 mmol/L (20-32); Creatinine* 1.0 mg/dL (0.5-1.5); Est. Creatinine Clearance* 63.79; Estimated Glomerular Filt Rate 87 ml/min; Total Protein* 6.1 g/dL (6.0-8.3)
[2025-01-05] MEDS: PIPERACILLIN/TAZOBACTAM 3.375 GM in 0.9 % SODIUM CHLORIDE Mini-bag 100 ML IVPB (03:30)
--- NOTE | 2025-01-05 03:30 | ED.GENADULT ---
HPI - General Adult General Chief complaint: Weakness Stated complaint: alcohol withdrawal Time Seen by Provider: 01/05/25 02:00 Related Data Home Medications ?Medication ?Instructions ?Recorded ?Confirmed gabapentin 300 mg capsule 600 mg PO QDAY PRN 06/07/23 01/05/25 magnesium citrate,mag oxide 60 mg PO DAILY 06/07/23 11/01/24 metronidazole topical DAILY 06/07/23 11/01/24 Previous Rx's ?Medication ?Instructions ?Recorded tizanidine 4 mg tablet 4 mg PO 3XD PRN muscle cramps #20 06/24/23 tabs Allergies Allergy/AdvReac Type Severity Reaction Status Date / Time Penicillins Allergy Mild Hives Verified 01/05/25 04:17 [facility] Medical History History of facial fracture ?Z87.81 - Personal history of (healed) traumatic fracture (ICD-10) History of renal calculi ?Z87.442 - Personal history of urinary calculi (ICD-10) Surgical History History of eye surgery ?Z98.890 - Other specified postprocedural states (ICD-10) History of partial gastrectomy (1992) ?Z90.3 - Acquired absence of stomach [part of] (ICD-10) History of colonoscopy (03/19/13) ?Z98.890 - Other specified postprocedural states (ICD-10) History of resection of small bowel ?Z90.49 - Acquired absence of other specified parts of digestive tract (ICD-10) Family History Grandmother Heart disease Diabetes Father Stroke, Onset Age: 49 Mother Breast cancer, Onset Age: 74 Uncle Diabetes Social History What is your current living situation?: I presently have a place to live Problems where you live: no known problems Problems where you live details: They haven't repairs yet In the past 12 months, utilities in danger of being shut off: no In past 12 months, lack of transportation kept you from medical appts, meetings, work, or getting things needed for daily living: yes In the past 12 mos, have been you worried that your food would run out before you had money to buy more?: never true In the past 12 mos, the food you bought just didn't last and you didn't have money to buy more?: never true Smoking Status: Current every day smoker What tobacco products do you use: cigarettes Smoking packs per day: 0.5 Smoking cigarettes per day: 10.0 Years smoked: 41 Smoking pack-years: 20.50 Do you use any of these nicotine containing products: None Second hand tobacco smoke exposure: No How often do you have a drink containing alcohol: 4 or more times a week How many standard drinks containing alcohol do you have on a typical day: 10 or more How often do you have six or more drinks on one occasion: Daily or almost daily AUDIT-C Alcohol total score: 12 Non-prescribed substance use: marijuana (any form) How often does anyone, including family, friends and others, physically hurt you: never How often does anyone, including family, friends and others, insult or talk down to you: frequently How often does anyone, including family, friends and others, threaten you with harm: never How often does anyone, including family, friends and others, scream or curse at you: sometimes Health Related Social Needs: transportation insecurity (Z59.82) and Other personal risk factors, not elsewhere classified (Z91.89) Exam Const: Vital Signs, click to edit/add: Vital Signs - 24 hr 01/05/25 02:07 01/05/25 02:49 01/05/25 02:50 Temperature 99.3 F Pulse Rate 111 H Pulse Rate [Pulse Oximeter] 130 H Respiratory Rate 18 16 18 Blood Pressure Blood Pressure [Ri ght Upper Arm] 87/64 L Pulse Oximetry 100 100 99 Oxygen Delivery Me thod Room Air 01/05/25 02:54 01/05/25 02:59 01/05/25 03:00 Temperature 99.6 F Pulse Rate 111 H Pulse Rate [Pulse Oximeter] Respiratory Rate 18 18 Blood Pressure 81/61 L Blood Pressure [Ri ght Upper Arm] Pulse Oximetry 100 Oxygen Delivery Me thod 01/05/25 03:03 01/05/25 03:10 01/05/25 03:12 Temperature Pulse Rate 113 H 111 H Pulse Rate [Pulse Oximeter] Respiratory Rate 18 15 12 Blood Pressure 88/58 L 93/61 Blood Pressure [Ri ght Upper Arm] Pulse Oximetry 100 100 100 Oxygen Delivery Me thod 01/05/25 03:15 01/05/25 03:16 01/05/25 03:20 Temperature Pulse Rate 111 H 110 H Pulse Rate [Pulse Oximeter] Respiratory Rate 14 15 18 Blood Pressure 94/59 L Blood Pressure [Ri ght Upper Arm] Pulse Oximetry 100 100 100 Oxygen Delivery Me thod 01/05/25 03:30 01/05/25 03:31 01/05/25 03:32 Temperature Pulse Rate 111 H 112 H 110 H Pulse Rate [Pulse Oximeter] Respiratory Rate 16 18 20 Blood Pressure 97/64 Blood Pressure [Ri ght Upper Arm] Pulse Oximetry 100 98 99 Oxygen Delivery Wv thod 01/05/25 03:40 01/05/25 03:41 01/05/25 03:45 Temperature 98.8 F Pulse Rate 107 H Pulse Rate [Pulse Oximeter] Respiratory Rate 20 16 Blood Pressure Blood Pressure [Ri ght Upper Arm] Pulse Oximetry 96 Oxygen Delivery Wv thod 01/05/25 03:46 01/05/25 03:49 01/05/25 03:50 Temperature Pulse Rate Pulse Rate [Pulse Oximeter] Respiratory Rate 16 18 15 Blood Pressure Blood Pressure [Ri ght Upper Arm] Pulse Oximetry 98 100 100 Oxygen Delivery Wv thod 01/05/25 04:08 01/05/25 04:10 01/05/25 04:12 Temperature Pulse Rate Pulse Rate [Pulse Oximeter] Respiratory Rate 18 20 Blood Pressure Blood Pressure [Ri ght Upper Arm] Pulse Oximetry 100 100 100 Oxygen Delivery Wv thod 01/05/25 04:14 01/05/25 04:15 01/05/25 04:17 Temperature Pulse Rate 101 H Pulse Rate [Pulse Oximeter] Respiratory Rate 14 16 15 Blood Pressure Blood Pressure [Ri ght Upper Arm] Pulse Oximetry 96 97 96 Oxygen Delivery Wv thod 01/05/25 04:20 01/05/25 04:25 01/05/25 04:30 Temperature Pulse Rate Pulse Rate [Pulse Oximeter] Respiratory Rate 18 16 15 Blood Pressure Blood Pressure [Ri ght Upper Arm] Pulse Oximetry 97 99 98 Oxygen Delivery Wv thod 01/05/25 04:31 01/05/25 04:35 01/05/25 04:40 Temperature Pulse Rate Pulse Rate [Pulse Oximeter] Respiratory Rate 15 16 10 L Blood Pressure Blood Pressure [Ri ght Upper Arm] Pulse Oximetry 98 98 99 Oxygen Delivery Me thod 01/05/25 04:44 01/05/25 04:45 01/05/25 04:46 Temperature Pulse Rate 102 H 100 Pulse Rate [Pulse Oximeter] Respiratory Rate 20 16 10 L Blood Pressure 75/53 L Blood Pressure [Ri ght Upper Arm] Pulse Oximetry 95 100 100 Oxygen Delivery Wv thod 01/05/25 04:47 01/05/25 04:51 01/05/25 04:56 Temperature Pulse Rate 102 H 104 H 103 H Pulse Rate [Pulse Oximeter] Respiratory Rate 19 19 Blood Pressure 68/51 L 71/44 L Blood Pressure [Ri ght Upper Arm] Pulse Oximetry 98 100 92 Oxygen Delivery Wv thod 01/05/25 04:59 01/05/25 05:00 01/05/25 05:01 Temperature Pulse Rate 103 H 105 H Pulse Rate [Pulse Oximeter] Respiratory Rate 18 17 15 Blood Pressure 82/52 L 87/57 L 88/57 L Blood Pressure [Ri ght Upper Arm] Pulse Oximetry 100 100 Oxygen Delivery Wv thod 01/05/25 05:02 01/05/25 05:05 01/05/25 05:06 Temperature Pulse Rate 106 H 105 H 108 H Pulse Rate [Pulse Oximeter] Respiratory Rate 22 13 18 Blood Pressure 105/60 110/63 Blood Pressure [Ri ght Upper Arm] Pulse Oximetry 98 97 95 Oxygen Delivery Wv thod 01/05/25 05:07 01/05/25 05:11 01/05/25 05:15 Temperature Pulse Rate 116 H 103 H 106 H Pulse Rate [Pulse Oximeter] Respiratory Rate 15 18 18 Blood Pressure 108/57 L Blood Pressure [Ri ght Upper Arm] Pulse Oximetry 95 100 92 Oxygen Delivery Wv thod 01/05/25 05:16 01/05/25 05:21 01/05/25 05:26 Temperature Pulse Rate 108 H 115 H 109 H Pulse Rate [Pulse Oximeter] Respiratory Rate 17 34 H 17 Blood Pressure 118/60 120/60 85/49 L Blood Pressure [Ri ght Upper Arm] Pulse Oximetry 95 100 87 L Oxygen Delivery Wv thod 01/05/25 05:30 01/05/25 05:34 01/05/25 05:37 Temperature Pulse Rate 108 H 108 H 107 H Pulse Rate [Pulse Oximeter] Respiratory Rate 19 25 H 19 Blood Pressure 78/60 L 84/57 L Blood Pressure [Ri ght Upper Arm] Pulse Oximetry 97 100 100 Oxygen Delivery Me thod 01/05/25 05:41 01/05/25 05:45 01/05/25 05:46 Temperature Pulse Rate 108 H 103 H 102 H Pulse Rate [Pulse Oximeter] Respiratory Rate 17 20 20 Blood Pressure 80/62 L 88/63 L 93/70 Blood Pressure [Ri ght Upper Arm] Pulse Oximetry 95 100 100 Oxygen Delivery Me thod 01/05/25 05:47 01/05/25 05:48 01/05/25 05:49 Temperature Pulse Rate 100 98 100 Pulse Rate [Pulse Oximeter] Respiratory Rate 20 20 19 Blood Pressure 104/75 105/79 Blood Pressure [Ri ght Upper Arm] Pulse Oximetry 100 100 99 Oxygen Delivery Me thod 01/05/25 05:51 Temperature Pulse Rate 103 H Pulse Rate [Pulse Oximeter] Respiratory Rate 18 Blood Pressure 119/79 Blood Pressure [Ri ght Upper Arm] Pulse Oximetry 99 Oxygen Delivery Me thod Course Vital Signs Vital signs: Initial Vital Signs Temperature 99.3 F 01/05/25 02:07 Temperature Source Temporal Artery Scan 01/05/25 02:07 Pulse Rate 130 H 01/05/25 02:07 Respiratory Rate 18 01/05/25 02:07 Blood Pressure 87/64 L 01/05/25 02:07 Blood Pressure Mean 71 01/05/25 02:07 Blood Pressure Position Semi-Fowlers 01/05/25 02:07 Pulse Oximetry 100 01/05/25 02:07 Oxygen Delivery Method Room Air 01/05/25 02:07 Vital Signs Temperature 99.3 F 01/05/25 02:07 Pulse Rate 130 H 01/05/25 02:07 Respiratory Rate 18 01/05/25 02:07 Blood Pressure 87/64 L 01/05/25 02:07 Pulse Oximetry 100 01/05/25 02:07 Oxygen Delivery Method Room Air 01/05/25 02:07 Temperature 98.8 F 01/05/25 03:41 Pulse Rate 103 H 01/05/25 05:51 Respiratory Rate 18 01/05/25 05:51 Blood Pressure 119/79 01/05/25 05:51 Pulse Oximetry 99 01/05/25 05:51 Oxygen Delivery Method Room Air 01/05/25 02:07 Medications Administered Medications: Discontinued Medications Generic Name Dose Route Start Last Admin Trade Name Barby PRN Reason Stop Dose Admin Dextrose 25 gm 01/05/25 03:15 01/05/25 03:20 Dextrose 50 % Syringe IVP 01/05/25 03:16 25 gm ONCE ONE Administration Sodium Chloride 1,000 mls @ 1,000 mls/hr 01/05/25 02:24 01/05/25 03:21 0.9 % Sodium Chloride 1000 Ml IV 01/05/25 03:23 Infused .Q1H DAQUAN Infusion Piperacillin Sod/Tazobactam 100 mls @ 200 mls/hr 01/05/25 03:15 01/05/25 04:29 Sod 3.375 gm/ Sodium Chloride IVPB 01/05/25 03:16 Infused ONCE ONE Infusion Sodium Chloride 1,000 mls @ 1,000 mls/hr 01/05/25 03:16 01/05/25 04:30 0.9 % Sodium Chloride 1000 Ml IV 01/05/25 04:15 Infused .Q1H DAQUAN Infusion Sodium Chloride 1,000 mls @ 1,000 mls/hr 01/05/25 04:26 01/05/25 05:46 0.9 % Sodium Chloride 1000 Ml IV 01/05/25 05:25 Infused .Q1H DAQUAN Infusion Vancomycin/PEG/NADA/Lysine/Water 1.5 gm in 300 mls @ 200 mls/hr 01/05/25 04:45 01/05/25 05:31 Vancomycin 1.5 Gm/300 Ml IVPB 01/05/25 06:14 200 mls/hr ONCE ONE Administration Protocol Dopamine HCl/Dextrose 400 mg in 250 mls @ 10.631 mls/hr 01/05/25 04:50 01/05/25 05:18 Dopamine 1600 Mcg/Ml Infusion IVPB 0 mcg/kg/min .TITRATE DAQUAN 0 mls/hr 5 MCG/KG/MIN Infusion Norepinephrine/Dextrose 4,000 mcg in 250 mls @ 21.262 mls/hr 01/05/25 05:11 01/05/25 06:04 Norepinephrine Infusion IVPB 0.4 mcg/kg/min CONT DAQUAN 85.05 mls/hr Protocol Titration 0.1 MCG/KG/MIN Vasopressin 20 unit/ Sodium 101 mls @ 3 mls/hr 01/05/25 06:07 01/05/25 06:18 Chloride IVPB 3 mls/hr CONT DAQUAN Administration Protocol Medical Decision Making Lab Data Labs: Lab Results 01/05/25 01/05/25 01/05/25 Range/Units 01:56 02:53 02:57 WBC 5.61 (4.50-11.00) K/uL RBC 3.03 L (4.30-5.90) m/uL Hgb 9.8 L (13.5-17.5) gm/dL Hct 29.4 L (37.0-53.0) % MCV 97 (80-100) fL MCH 32 (26-34) pg MCHC 33 (32-36) gm/dL RDW Coeff of Lucian 17.0 H (11.5-15.5) % Plt Count 194 (140-440) K/uL Neut % (Auto) 93.5 H (42.0-72.0) % Lymph % (Auto) 3.7 L (20-44) % [place] % (Auto) 1.2 (0.0-11.0) % Eos % (Auto) 0.4 (0.0-7.0) % Baso % (Auto) 0.7 (0.0-3.0) % Neut # (Auto) 5.20 (1.7-7.0) K/uL Lymph # (Auto) 0.20 L (0.90-2.90) K/uL [place] # (Auto) 0.10 (0.00-0.90) K/UL Eos # (Auto) 0.02 (0.00-0.50) K/uL Baso # (Auto) 0.04 (0.00-0.30) K/uL Abs Immat Gran (auto) 0.03 (0.00-0.30) K/uL Imm/Tot Granulo (auto) 0.5 % Diff Slide Review Acceptable Review (Acceptable) Sodium 126 L (135-149) mmol/L Potassium 3.1 L (3.6-5.1) mmol/L Chloride 96 (96-114) mmol/L Carbon Dioxide 11 L (20-32) mmol/L Anion Gap 19 H (7-15) mEq/L BUN 6 L (7-30) mg/dL Creatinine 1.0 (0.5-1.5) mg/dL Estimated Creat Clear 63.79 Estimated GFR 87 ml/min Glucose 46 L* (60-115) mg/dL Lactate 12.4 H* (0.5-1.9) mmol/L Calcium 8.8 (8.4-10.6) mg/dL Magnesium 1.4 L (1.5-2.6) mg/dL Total Bilirubin 4.8 H (0.1-1.5) mg/dL AST 104 H (12-35) U/L ALT 46 (4-50) U/L Alkaline Phosphatase 213 H (40-150) U/L Troponin I (0.01-0.04) ng/mL Total Protein 6.1 (6.0-8.3) g/dL Albumin 2.8 L (3.3-5.0) g/dL Urine Color Red A (Yellow) Urine Appearance Turbid A (Clear) Urine pH >= 9.0 H (5.0-8.5) Ur Specific [place] 1.010 (1.000-1.030) Urine Protein 3+ A (Negative) Urine Glucose (UA) Trace A (Negative) Urine Ketones 2+ A (Negative) Urine Blood 3+ A (Negative) Urine Nitrite Negative (Negative) Urine Bilirubin 3+ A (Negative) Urine Urobilinogen >=8.0 A (0.2-1.0) Ur Leukocyte Esterase 3+ A (Negative) Urine RBC >100 A (0-2) Urine WBC 50-100 A (0-5) Ur Squamous Epith Cells Moderate A (None-Few) Amorphous Sediment Moderate A (None) Urine Bacteria Many A (None) Fine Granular Casts Moderate A (None) Salicylates < 1.0 L (1.0-10) mg/dL Urine Opiates Screen Negative (Negative) Ur Buprenorphine Scrn Negative (Negative) Ur Oxycodone Screen Negative (Negative) Urine Methadone Screen Negative (Negative) Acetaminophen < 10.0 (10.0-30.0) ug/mL Ur Barbiturates Screen Negative (Negative) U Tricyclic Antidepress Negative (Negative) Ur Phencyclidine Scrn Negative (Negative) Ur Amphetamines Screen Negative (Negative) U Methamphetamines Scrn Negative (Negative) U Benzodiazepines Scrn Negative (Negative) Urine Cocaine Screen Negative (Negative) U Marijuana (THC) Screen POSITIVE A (Negative) Ur Drug Screen Comment See Note Ethyl Alcohol < 0.01 (0.01-0.03) % 01/05/25 Range/Units 04:48 WBC (4.50-11.00) K/uL RBC (4.30-5.90) m/uL Hgb (13.5-17.5) gm/dL Hct (37.0-53.0) % MCV (80-100) fL MCH (26-34) pg MCHC (32-36) gm/dL RDW Coeff of Lucian (11.5-15.5) % Plt Count (140-440) K/uL Neut % (Auto) (42.0-72.0) % Lymph % (Auto) (20-44) % [place] % (Auto) (0.0-11.0) % Eos % (Auto) (0.0-7.0) % Baso % (Auto) (0.0-3.0) % Neut # (Auto) (1.7-7.0) K/uL Lymph # (Auto) (0.90-2.90) K/uL [place] # (Auto) (0.00-0.90) K/UL Eos # (Auto) (0.00-0.50) K/uL Baso # (Auto) (0.00-0.30) K/uL Abs Immat Gran (auto) (0.00-0.30) K/uL Imm/Tot Granulo (auto) % Diff Slide Review (Acceptable) Sodium (135-149) mmol/L Potassium (3.6-5.1) mmol/L Chloride (96-114) mmol/L Carbon Dioxide (20-32) mmol/L Anion Gap (7-15) mEq/L BUN (7-30) mg/dL Creatinine (0.5-1.5) mg/dL Estimated Creat Clear Estimated GFR ml/min Glucose (60-115) mg/dL Lactate 9.2 H* (0.5-1.9) mmol/L Calcium (8.4-10.6) mg/dL Magnesium (1.5-2.6) mg/dL Total Bilirubin (0.1-1.5) mg/dL AST (12-35) U/L ALT (4-50) U/L Alkaline Phosphatase (40-150) U/L Troponin I 0.02 (0.01-0.04) ng/mL Total Protein (6.0-8.3) g/dL Albumin (3.3-5.0) g/dL Urine Color (Yellow) Urine Appearance (Clear) Urine pH (5.0-8.5) Ur Specific [place] (1.000-1.030) Urine Protein (Negative) Urine Glucose (UA) (Negative) Urine Ketones (Negative) Urine Blood (Negative) Urine Nitrite (Negative) Urine Bilirubin (Negative) Urine Urobilinogen (0.2-1.0) Ur Leukocyte Esterase (Negative) Urine RBC (0-2) Urine WBC (0-5) Ur Squamous Epith Cells (None-Few) Amorphous Sediment (None) Urine Bacteria (None) Fine Granular Casts (None) Salicylates (1.0-10) mg/dL Urine Opiates Screen (Negative) Ur Buprenorphine Scrn (Negative) Ur Oxycodone Screen (Negative) Urine Methadone Screen (Negative) Acetaminophen (10.0-30.0) ug/mL Ur Barbiturates Screen (Negative) U Tricyclic Antidepress (Negative) Ur Phencyclidine Scrn (Negative) Ur Amphetamines Screen (Negative) U Methamphetamines Scrn (Negative) U Benzodiazepines Scrn (Negative) Urine Cocaine Screen (Negative) U Marijuana (THC) Screen (Negative) Ur Drug Screen Comment Ethyl Alcohol (0.01-0.03) % Discharge Plan Discharge Clinical Impression: Acute UTI Activity Level: Other Discharge Diet: Other Prescriptions: No Action metronidazole topical DAILY gabapentin 300 mg capsule 600 mg PO QDAY PRN magnesium citrate,mag oxide 60 mg PO DAILY tizanidine 4 mg tablet 4 mg PO 3XD PRN (Reason: muscle cramps) Qty: 20 0RF Follow Up/Referrals: Maggie Fierro MD [Primary Care Provider, Internal Medicine]
[2025-01-05 03:31] LABS: Aspartate Amino Transferase* 104 U/L (12-35)
[2025-01-05 03:33] LABS: Acetaminophen* < 10.0 ug/mL (10.0-30.0); Ethanol* < 0.01 % (0.01-0.03); Glucose* 46 mg/dL (60-115); Salicylate* < 1.0 mg/dL (1.0-10)
[2025-01-05 03:55] LABS: Slide Review Acceptable Review (Acceptable)
--- OUTSIDE RECORDS SUMMARY | 2025-01-05 04:08 | XMS_ITS | CCD ---
Author Organization Unknown Care Team Providers Care Tire Care Manager Name Role Phone Credit Officer, [place] Primary Care Provider Unava ilable Unavailable Chronic Care Management Unavaila ble Summary Purpose DataExchange Insurance Providers Payer name Policy type / Coverage type Covered constitution party ID Effective Begin Date Effective End Date [facility] Commercial Insurance [id number] Unknown Unkn own Family History Family History data not found Medication Administered No Medication Administered data Reason For Visit No Reason For Visit data
--- OUTSIDE RECORDS SUMMARY | 2025-01-05 04:08 | XMS_ITS | CCD ---
Author Organization Unknown Care Team Providers Care Card Maker Name Role Phone Magazine Editor, [place] Primary Care Provider Unava ilable Unavailable Chronic Care Management Unavaila ble Summary Purpose DataExchange Insurance Providers Payer name Policy type / Coverage type Covered libertarian ID Effective Begin Date Effective End Date [facility] Commercial Insurance [id number] Unknown Unkn own Family History Family History data not found Medication Administered No Medication Administered data Reason For Visit No Reason For Visit data
[2025-01-05] MEDS: DOPAMINE 1600 mcg/ml infusion 400 MG/250 ML SOLUTION 10.63 MG IVPB (04:50)
[2025-01-05 04:52] LABS: Lactate Sepsis 2 Hour 9.2 mmol/L (0.5-1.9)
[2025-01-05] MEDS: NORepinephrine INFUSION 4,000 MCG/250 ML PLAST..BAG 21.22 MCG IVPB (05:26)
[2025-01-05] MEDS: VANCOMYCIN 1.5 GM/300 ML 1.5 GM/300 ML PIGGYBACK IVPB (05:31)
[2025-01-05] MEDS: VASOPRESSIN IVPB (06:18)
[2025-01-05] MEDS: SODIUM CHLORIDE 0.9% IVPB (06:18)
== END 2025-01-05 06:22 | disposition short-term general hospital (02) ==
PROVIDERS: Emergency Provider Internal Medicine; PCP Internal Medicine
DX: N39.0 Urinary tract infection, site not specified (principal); A41.9 Sepsis, unspecified organism
CPT/HCPCS: 36415; 70450; 71045; 74177; 80053; 80143; 80179; 80306; 81001; 81003; 82077; 82962; 83605; 83735; 84484; 85025; 87040; 87086; 87186; 93005; 96365; 96366; 99284; 99291; 99292; J1265; J2543; J3375; J7030; Q9967

== ENCOUNTER 2025-01-05 06:05 | Outpatient (CLI) | payer OTHER, SELFPAY | END 2025-01-05 06:06 | disposition home or self-care (01) | LOC: AMB 01-07 12:58 | PROVIDERS: PCP Internal Medicine; Visit Provider Internal Medicine | DX: N39.0 Urinary tract infection, site not specified (principal) | CPT/HCPCS: A0425; A0434 ==

== ENCOUNTER 2025-01-17 02:22 | Outpatient (CLI) | payer OTHER, SELFPAY | END 2025-01-17 02:23 | disposition home or self-care (01) | LOC: AMB 01-22 10:07 | PROVIDERS: PCP Internal Medicine; Visit Provider Family Medicine | DX: M62.838 Other muscle spasm (principal) | CPT/HCPCS: A0998 ==

== ENCOUNTER 2025-01-23 13:41 | Emergency (ER) | payer MEDICARE, MEDICAID, SELFPAY ==
--- OUTSIDE RECORDS SUMMARY | 2025-01-21 23:30 | XMS_ITS | Continuity of Care Document ---
Author Organization [facility] Address [address] [address] [place] [address] Phone Care Team Providers Care Telegraph Installer Name Role Phone No Information Unavailable Unavailable Advance Directives Directive Yes / No Effective Date File Name No Information Encounters Encounter Description Practice Location Reason(s) For Visit Diagnoses Date Provider Providers Copied on Encounter [facility], [address] [address], [place], [place], [id number], [place] tel:[phone] No Information No Information Family History Family Member Type Diagnosis Age At Onset No Information Payers Payer name Insurance type Covered green party ID Authoriza tion(s) No Information Social History Type Description Quantity Date Captured Comments Sex Male Smoking Status No Information Chief Complaint And Reason For Visit No Information Reason For Referral Reason For Referral No Information History Of Present Illness Encounter Date Complaint History Of Prese nt Illness No Information Functional Status Date Functional Assessmen t No Information Instructions Date Instruction Additional Infor mation No Information Assessments Type Assessment Date No Information Patient Care Teams Name Effective Dates (start - stop) Status Members No Information
--- OUTSIDE RECORDS SUMMARY | 2025-01-23 13:43 | XMS_ITS | Encounter Summary ---
Author Organization [employer] Address [address] [place] [address] Care Team Providers Care Drill Press Operator Name Role Phone Gabe Zheng MD Primary Care Provider [phone] Encounter Details Date Type Department Care Team (Late st Contact Info) Description 06/04/2013 Correspondence [facility] [address] [place], [place] [address] Kelvin Hayes MD PRE PLACEMENT EXAM Social [...] on filedocumented in this encounter Care Teams Drill Press Operator Relationship Specialty Start Date End Date Gabe Zheng MD [address] [place] [address] PCP - General Family Practice 01/16/25 documented as of this encounter
--- OUTSIDE RECORDS SUMMARY | 2025-01-23 13:43 | XMS_ITS | Encounter Summary ---
Author Organization [employer] Address [address] [place] [address] Care Team Providers Care Windows Systems Administrator Name Role Phone Gabe Zheng MD Primary Care Provider [phone] Reason for Visit * Reason Comments UPDATE Encounter Details Date Type Department Care Team (Late st Contact Info) Description 01/14/2025 Telephone [place] [id number] Family Medicine [facility] [place] [address] Gabe Zheng MD [address] [place] [address] UPDATE Social History Tobacco Use Types Packs/Day Years Used Date Smoking Tobacco: Every Day Cigarettes 1 43.1 Started: [birth year]/26/1981 Smokeless Tobacco: Never Comments:Smoking History [...] as of this encounter Nursing Notes * Lianna Fabian RN - 01/17/2025 11:16 AM CDT Diane special needs child caregiver calling back [phone]. Patient does not need a f/u with Norm, he is seeing Dr Fierro at [facility] for follow up. * Kala Baxter RN - 01/17/2025 10:10 AM CDT Attempted to reach Diane. Left message to call back at [phone] (Need more clarity- does patient have discharge appt scheduled with [facility] or should one be scheduled with Dr Zheng?) * Meri Merida RN - 01/16/2025 9:19 AM CDT Left message with Diane special needs child caregiver again- is pt having a discharge appointment with [facility] or does he need one with Dr. Zheng? * Aileen Clay RN - 01/16/2025 8:55 AM CDT Diane, special needs child caregiver with [facility] calling back. Diane confirms that the patient is enrolled with [facility]. Contact information for Diane: [phone] * Aileen Hancock RN - 01/15/2025 5:01 PM CDT Called Diane. Left message to call back to [phone]. Please inquire if patient is enrolled with [facility]. * Anne Serrano RN - 01/14/2025 4:30 PM CDT Attempted to call Diane- care coordination with [facility], no answer, generic voicemail left to call back nurse line [phone] * Shannon Farrell - 01/14/2025 4:26 PM CDT Other Questions/Concerns/FYI Is this a symptom? No What is your question or concern? Would like pcp to now pt has been discharged from [facility] 01/13/25 Have you recently been seen for this? No Preferred communication method: Phone Call. Is it okay to leave a detailed message on your voicemail? Yes Is there anything else I can help you with today? 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
--- OUTSIDE RECORDS SUMMARY | 2025-01-23 13:43 | XMS_ITS | Encounter Summary ---
Author Organization [employer] Address [address] [place] [address] Care Team Providers Care Plasma Center Technician Name Role Phone Gabe Zheng MD Primary Care Provider [phone] Reason for Visit * Reason Comments Scheduling Question Encounter Details Date Type Department Care Team (Late st Contact Info) Description 12/20/2024 Telephone [facility] [address] [facility] [address] [facility] [place] [address] Trevon Troncoso MD [address] [place] [address] Scheduling Question Social History Tobacco [...] pt I would talk with the call family centered specialist and have her look to see if [...] today. [facility] so I am forwarding this request to them. 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
--- OUTSIDE RECORDS SUMMARY | 2025-01-23 13:43 | XMS_ITS | Clinical Summary ---
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 01/31/20 21 Active tiZANidine (ZANAFLEX) 4 mg tablet Take 4 mg by mouth every 8 hours if needed. 09/29/19 21 Active ondansetron (ZOFRAN ODT) 4 mg disintegrating tabletIndications :Vomiting, intractability of vomiting not specified, presence of nausea not specified, unspecified vomiting type Place 1 tablet (4 mg) on the tongue every 8 hours if needed for Nausea/Vomit ing. 30 Tablet 1 2:42 PM STORE KEEPER 04/02/20 21 Active pantoprazole (PROTONIX) 40 mg delayed-release tablet Take 40 mg by mouth once daily if needed for GI Upset. Active fish oil-omega-3 fatty acids (Fish OiL) 1,200-360 mg cap Take 1 Capsule by mouth once daily. One capsule is 1200 mg-360 mg Active MAGNESIUM ORAL Take 1 Tablet by mouth once daily. Active folic acid 1 mg tabletIndications :Alcohol abuse Take 1 Tablet (1 mg) by mouth once daily. 30 Tablet 5 2:22 PM CDT 01/15/20 25 Active multivitamin,ther and minerals (multivitamin with minerals) tabletIndications :Malnutrition of moderate degree (HC) Take 1 Tablet by mouth once daily. 30 Tablet 5 2:22 PM CDT 01/15/20 25 Active thiamine (VITAMIN B1) 100 mg tabletIndications :Alcohol abuse Take 1 Tablet (100 mg) by mouth once daily. 30 Tablet 5 2:22 PM CDT 01/15/20 25 Active furosemide (LASIX) 20 mg tabletIndications :Cirrhosis of liver with ascites, unspecified hepatic cirrhosis type (HC) Take 1 Tablet (20 mg) by mouth once daily in the morning. 30 Tablet 5 2:22 PM CDT 01/15/20 25 Active spironolactone (ALDACTONE) 50 mg tabletIndications :Cirrhosis of liver with ascites, unspecified hepatic cirrhosis type (HC) Take 1 Tablet (50 mg) by mouth once daily in the morning. 30 Tablet 5 2:22 PM CDT 01/15/20 25 Active WalkerIndications :Cirrhosis of liver with ascites, unspecified hepatic cirrhosis type (HC),Bacteremia due to Enterococcus Walker with front wheels for home use. 1 Each 01/14/20 25 Active ondansetron (ZOFRAN ODT) 8 mg disintegrating tabletIndications :Vomiting, intractability of vomiting not specified, presence of nausea not specified, unspecified vomiting type Place 1 Tablet (8 mg) on the tongue 2 times daily. 15 Tablet 04/01/20 21 2024 Discontinued(P harmacist change per medication history (E-cancel not sent)) mirtazapine (REMERON) 15 mg tablet Take 15 mg by mouth at bedtime if needed. 2024 Discontinued(P harmacist change per medication history (E-cancel not sent)) multivitamin folic acid 0.4 mgIndications:Alc ohol withdrawal syndrome with complication (HC) Take 1 tablet by mouth once daily. 30 Tablet 1 2:42 PM STORE KEEPER 04/03/20 21 2024 Discontinued(P harmacist change per medication history (E-cancel not sent)) thiamine mononitrate, vit B1, (VITAMIN B1) 100 mg tabletIndications :Alcohol withdrawal syndrome with complication (HC) Take 1 tablet (100 mg) by mouth once daily. 30 Tablet 1 2:42 PM STORE KEEPER 04/03/20 21 2024 Discontinued(P harmacist change per medication history (E-cancel not sent)) pantoprazole (PROTONIX) 40 mg delayed-release tabletIndications :Vomiting, intractability of vomiting not specified, presence of nausea not specified, unspecified vomiting type Take 1 tablet (40 mg) by mouth once daily. May use formulary equivalent. 60 Tablet 1 2:42 PM STORE KEEPER 04/02/20 21 2024 Discontinued(P harmacist change per medication history (E-cancel not sent)) amoxicillin 500 mg capsuleIndication s:urinary tract infection Take 2 Capsules (1,000 mg) by mouth three times daily for 22 doses. 44 Capsule 5 2:22 PM CDT 01/14/20 25 2024 WalkerIndications :Cirrhosis of liver with ascites, unspecified hepatic cirrhosis type (HC),Bacteremia due to Enterococcus Walker with front wheels for home use. 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 S/P exploratory laparotomy 05/30/2014 Overview (01/06/2025): S/P exploratory laparotomy, lysis of adhesions Cirrhosis of liver 02/18/2012 Malnutrition of moderate degree 01/17/2012 Hepatitis 01/15/2012 Resolved Problems Problem Noted Date Diagnosed Date Resolved Date Septic shock 01/06/2025 01/06/2025 Small bowel obstruction 05/28/201412/21 Encounters Date Type Department Care Team Description 01/22/2025 Home Care Visit [facility] [address] [place] [address] Bev Sherman, SARAN CARE COORDINATION 01/21/2025 Plan of Care Documentation [facility] [address] [place] [address] 01/19/2025 12:00 PM CDT Home Care Visit [facility] [address] [place] [address], [place] [address] Bev Sherman, SARAN SN - OASIS START OF CARE 01/18/2025 Home Care Visit [facility] [address] [place] [address], [place] [address] Heide Lowery RN CARE COORDINATION 01/15/2025 Home Care Visit [facility] [address] [place] [address], [place] [phone] Meg Stack RN CARE COORDINATION 01/10/2025 Travel 01/05/2025 7:26 AM CDT - 01/13/2025 4:23 PM CDT Hospital Encounter [facility] [address] [place] [address] Abiodun Cummins MD [place], Dinorah Cardona MD Residents, [facility], Dick De La Fuente MD [facility], [facility] Hospitalists Sony, MD Rosalinda Powell Rajesh Babu, MBBS [facility], Danica Davis MD Alcohol abuse (Primary Dx); Malnutrition of moderate degree (HC); Hepatic cirrhosis, unspecified hepatic cirrhosis type, unspecified whether ascites present (HC); Cirrhosis of liver with ascites, unspecified hepatic cirrhosis type (HC); Bacteremia due to Enterococcus Discharge Disposition: Home Health from Last 3 Months Immunizations Immunization Administration Dates Next Due Influenza, IIV4 04/02/2021 Social History Tobacco Use Types Packs/Day Years Used Date Smoking Tobacco: Every Day Cigarettes 1 24 Alcohol Use Standard Drinks/Week Comments Yes 0 (1 standard drink = 0.6 oz pur e alcohol) alot of everything Social Connections Answer Date Recorded Do you often feel lonely or isolated from those around you? 4 01/10/2025 Financial Resource Strain Answer Date R ecorded Difficulty of Paying Living Expenses 3 01/10/2025 Difficulty of Paying Living Expenses Not on file 01/10/2025 Food Insecurity Answer Date Recorded Do you worry your food will run out before you are able to buy more? 1 01/10/2025 Transportation Needs Answer Date Record ed Does lack of transportation keep you from medica l appointments? 1 01/10/2025 Does lack of transportation keep you from work, meetings or getting things that you need? 1 01/10/2025 Housing Stability Answer Date Recorded What is your housing situation today? 1 01/10/2025 Interpersonal Safety Answer Date Record ed Are you being hit, kicked, p ushed or yelled at (see row info)? No 01/10/2025 Interpersonal Safety Abuse 12 - 18 Not on file 01/10/2025 Interpersonal Safety Ambulatory Vulnerability No t on file 01/10/2025 Utilities Answer Date Recorded Do you have trouble paying f or utilities (for example, heat, electricity, water, phone)? 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 KEEPER Gender Identity Not on file Sexual Orientation Not on file Obstetrics History Last Filed Vital Signs Vital Sign Reading Time Taken Comments Blood Pressure 114/73 01/19/2025 1:13 PM CDT Pulse 98 01/19/2025 1:11 PM CDT Temperature 36.3 C (97.4 F) 01/19/2025 1:11 PM CDT Respiratory Rate 16 01/19/2025 1:11 PM CDT Oxygen Saturation 99% 01/19/2025 1:11 PM CDT Inhaled Oxygen Concentration - - Weight 64.4 kg (141 lb 15.6 oz) 01/08/2025 4:00 AM CDT Height 185.4 cm (6' 1) 01/05/2025 7:34 AM CDT Body Mass Index 18.73 01/05/2025 7:34 AM CDT Plan of Treatment Health Maintenance Due Date Last Done Comments Tetanus booster 1976 Depression screening for age 12+ 1977 HIV for age 15-65 1980 BMI (ht and wt on same day) for age 18+ 1983 Hepatitis B series for 19+ ( 1 of 3 - 19+ 3-dose series) 1984 Pneumococcal series for age 50+ (1 of 2 - PCV) 1984 Colonoscopy through age 75 2010 Lipids for age 45-75 2010 Zoster (shingles) series for age 50+ (1 of 2) 2015 Influenza Vaccine (#1) 2025 04/02/2021 RSV vaccine for adults or (1 - 1-dose 75+ series) 2040 COVID-19 vaccine series Completed 11/02/19, 06/07/2023, 12/12/2020, Additional history exists Hepatitis C screening for ag e - Completed 01/11/2025 Procedures Procedure Name Priority Date/Time Associated Diagnosis Comments POTASSIUM Early AM 01/13/2025 10:04 AM CDT SODIUM Early AM 01/13/2025 5:51 AM CDT CREATININE Early AM 01/13/2025 5:51 AM CDT PROTIME-INR Early AM 01/12/2025 5:52 AM CDT HEPATIC FUNCTION PANEL Early AM 5:52 AM CDT SODIUM Early AM 01/12/2025 5:52 AM CDT CREATININE Early AM 01/12/2025 5:52 AM CDT POTASSIUM Early AM 01/12/2025 5:52 AM CDT MAGNESIUM Early AM 01/12/2025 5:52 AM CDT MAGNESIUM Timed 01/11/2025 5:37 AM CDT ANTI HCV Early AM 01/11/2025 5:37 AM CDT HBSAG (HBS) Early AM 01/11/2025 5:37 AM CDT POTASSIUM Early AM 01/11/2025 5:37 AM CDT SCAN CORRESP-EKG RESULTS 01/10/2025 12:26 PM CDT SCAN CORRESP-LABORATORY RESULTS 01/10/2025 12:[address] ABDOMEN PELVIS UROGRAM WWO Routine 01/10/2025 9:43 AM CDT POTASSIUM Early AM 01/10/2025 7:04 AM CDT MAGNESIUM Early AM 01/10/2025 7:04 AM CDT BLOOD CULTURE Today 01/10/2025 7:04 AM CDT US THORACENTESIS RIGHT Routine 1:49 PM CDT XR CHEST 1 VIEW PA OR AP STAT 01/09/2025 1:44 PM CDT AMYLASE,BODY FLUID Today 01/09/2025 1: 18 PM CDT PH,BODY FLUID Today 01/09/2025 1:18 PM CDT LD,BODY FLUID Today 01/09/2025 1:18 PM CDT PROTEIN,BODY FLUID Today 01/09/2025 1: 18 PM CDT GLUCOSE,BODY FLUID Today 01/09/2025 1: 18 PM CDT ANAEROBIC CULTURE Today 01/09/2025 1:1 8 PM CDT BODY FLUID CULTURE,STAIN (AEROBIC) Today 01/09/2025 1:18 PM CDT BODY FLUID CELL COUNT/DIF Today 01/09/2025 1:18 PM CDT MAGNESIUM Early AM 01/09/2025 6:38 AM CDT PHOSPHORUS Early AM 01/09/2025 6:38 AM CDT CBC W PLT NO DIFF Early AM 01/09/2025 6:3 8 AM CDT BASIC METABOLIC PANEL Early AM 01/09/2025 6:38 AM CDT BLOOD CULTURE Today 01/09/2025 5:02 AM CDT ECHO TTE COMPLETE WO CONTRAST SHANIA 01/08/2025 3:07 PM CDT BLOOD CULTURE Today 01/08/2025 1:18 PM CDT LD,TOTAL Add On 01/08/2025 5:10 AM CDT PROTIME-INR Early AM 01/08/2025 5:10 AM CDT HEPATIC FUNCTION PANEL Early AM 5:10 AM CDT HEMOGLOBIN A1C Early AM 01/08/2025 5:10 AM CDT TSH Early AM 01/08/2025 5:10 AM CDT PHOSPHORUS Timed 01/08/2025 5:10 AM CDT VITAMIN B12 Early AM 01/08/2025 5:10 AM CDT MAGNESIUM Early AM 01/08/2025 5:10 AM CDT CBC W PLT NO DIFF Early AM 01/08/2025 5:1 0 AM CDT BASIC METABOLIC PANEL Early AM 01/08/2025 5:10 AM CDT PHOSPHORUS Timed 01/07/2025 11:31 PM CDT GLUCOSE METER Timed 01/07/2025 9:32 PM CDT SCAN-CARDIAC STRIP 01/07/2025 7: 15 PM CDT RESPIRATORY PANEL MULTIPLEX PCR Today 01/07/2025 5:22 PM CDT PHOSPHORUS Timed 01/07/2025 5:22 PM CDT GLUCOSE METER Timed 01/07/2025 2:57 PM CDT US PARACENTESIS WITH IMAGING Routine 01/07/2025 12:30 PM CDT ANAEROBIC CULTURE Today 01/07/2025 12: 17 PM CDT LD,BODY FLUID Today 01/07/2025 12:17 PM CDT GLUCOSE,BODY FLUID Today 01/07/2025 12 :17 PM CDT BODY FLUID CULTURE,STAIN (AEROBIC) Today 01/07/2025 12:17 PM CDT ALBUMIN BODY FLUID Today 01/07/2025 12 :17 PM CDT PROTEIN,BODY FLUID Today 01/07/2025 12 :17 PM CDT BODY FLUID CELL COUNT/DIF Today 01/07/2025 12:17 PM CDT PHOSPHORUS Timed 01/07/2025 11:36 AM CDT POTASSIUM Timed 01/07/2025 11:36 AM CDT GLUCOSE METER Timed 01/07/2025 10:41 AM CDT GLUCOSE METER Timed 01/07/2025 3:52 AM CDT PHOSPHORUS Early AM 01/07/2025 3:52 AM CDT LACTATE ARTERIAL Early AM 01/07/2025 3:52 AM CDT PROTIME-INR Early AM 01/07/2025 3:52 AM CDT HEPATIC FUNCTION PANEL Early AM 3:52 AM CDT CBC W PLT NO DIFF Early AM 01/07/2025 3:5 2 AM CDT BASIC METABOLIC PANEL Early AM 01/07/2025 3:52 AM CDT MAGNESIUM Early AM 01/07/2025 3:52 AM CDT CALCIUM IONIZED HOSPITAL DRAW ONLY Early AM 01/07/2025 3:52 AM CDT VANCOMYCIN Early AM 01/07/2025 3:52 AM CDT SCAN-CARDIAC STRIP 01/06/2025 11 :25 PM CDT GLUCOSE METER Timed 01/06/2025 9:08 PM CDT LACTATE VENOUS Timed 01/06/2025 9:[address] CHEST ABDOMEN PELVIS WO Routine 01/06/2025 6:43 PM CDT PANCREATIC ELASTASE FECAL Today 01/06/2025 4:40 PM CDT GLUCOSE METER Timed 01/06/2025 4:21 PM CDT LACTATE VENOUS Timed 01/06/2025 2:14 PM CDT XR CHEST 1 VIEW PORTABLE Routine 01/06/2025 1:45 PM CDT GLUCOSE METER Timed 01/06/2025 12:25 PM CDT ALBUMIN Today 01/06/2025 11:52 AM CDT LD,TOTAL Today 01/06/2025 11:52 AM CDT PROTIME-INR Today 01/06/2025 11:52 AM CDT CBC W PLT NO DIFF Today 01/06/2025 11: 52 AM CDT LACTATE VENOUS Timed 01/06/2025 11:52 AM CDT GLUCOSE METER Timed 01/06/2025 8:45 AM CDT SCAN-CARDIAC STRIP 01/06/2025 8: 00 AM CDT LACTATE VENOUS Timed 01/06/2025 7:45 AM CDT CREATININE SHANIA 01/06/2025 5:29 AM CDT SODIUM SHANIA 01/06/2025 5:29 AM CDT PHOSPHORUS SHANIA 01/06/2025 5:29 AM CDT POTASSIUM Early AM 01/06/2025 5:29 AM CDT [facility]ED [facility] DRAW ONLY Timed 01/06/2025 5:29 AM CDT MAGNESIUM Early AM 01/06/2025 5:29 AM CDT GLUCOSE METER Timed 01/06/2025 5:28 AM CDT LACTATE VENOUS Timed 01/06/2025 2:21 AM CDT POTASSIUM Timed 01/06/2025 2:21 AM CDT LACTATE VENOUS Timed 01/06/2025 12:16 AM CDT GLUCOSE METER Timed 01/06/2025 12:10 AM CDT SODIUM SHANIA 01/05/2025 7:41 PM CDT MAGNESIUM Timed 01/05/2025 7:41 PM CDT LACTATE VENOUS Timed 01/05/2025 7:41 PM CDT [facility] DRAW ONLY SHANIA 01/05/2025 7:41 PM CDT SCAN-CARDIAC STRIP 01/05/2025 7: 15 PM CDT GLUCOSE METER Timed 01/05/2025 6:53 PM CDT LACTATE VENOUS Timed 01/05/2025 4:45 PM CDT MAGNESIUM Timed 01/05/2025 4:44 PM CDT POTASSIUM Today 01/05/2025 4:44 PM CDT LACTATE VENOUS Timed 01/05/2025 2:40 PM CDT LACTATE VENOUS Timed 01/05/2025 10:54 AM CDT BLOOD CULTURE SHANIA 01/05/2025 9:15 AM CDT RETICULOCYTES STAT 01/05/2025 9:02 AM CDT LACTATE VENOUS Timed 01/05/2025 9:02 AM CDT BLOOD GAS,VENOUS STAT 01/05/2025 9:02 AM CDT BLOOD CULTURE MULTIPLEX PCR SHANIA 01/05/2025 9:01 AM CDT CBC WITH AUTO DIFFERENTIAL STAT 01/05/2025 9:01 AM CDT MAGNESIUM STAT 01/05/2025 9:01 AM CDT CK TOTAL STAT 01/05/2025 9:01 AM CDT FERRITIN STAT 01/05/2025 9:01 AM CDT IRON PLUS IRON BINDING CAP STAT 01/05/2025 9:01 AM CDT BLOOD CULTURE SHANIA 01/05/2025 9:01 AM CDT PROTIME-INR STAT 01/05/2025 9:01 AM CDT TROPONIN T (HS) ONE TIME STAT 01/05/2025 9:01 AM CDT HEPATIC FUNCTION PANEL STAT 9:01 AM CDT BASIC METABOLIC PANEL STAT 01/05/2025 9:01 AM CDT CBC WITH AUTO DIFFERENTIAL STAT 01/05/2025 9:01 AM CDT GLUCOSE METER Timed 01/05/2025 8:05 AM CDT SCAN-CARDIAC STRIP 01/05/2025 8: 04 AM CDT EKG 12 LEAD STAT 01/05/2025 7:52 AM CDT URINALYSIS MICROSCOPIC Timed 7:48 AM CDT MRSA/SA PCR Today 01/05/2025 7:48 AM CDT UA W/ SEDIMENT EXAM REFLEXED PER CRITERIA Today 01/05/2025 7:48 AM CDT DRUG SCREEN RAPID URINE INHOUSE Today 01/05/2025 7:48 AM CDT from Last 3 Months Results * POTASSIUM (01/13/2025 10:04 AM CDT) Only the most recent of8 resultswithin the time period is included. POTASSIUM 4.4 3.5 - 5.1 mmol/L 01/13/2025 11:30 AM CDT [facility] Blood BLOOD SPECIMEN / Unknown Venipuncture / Unknown 01/13/2025 10:04 AM CDT 01/13/2025 10:18 AM CDT Danica Cornejo MD CHEMISTRY F inal Result Performing Organization Address City/[facility]/ZIP Co de Phone Number [facility] [address] [place] [address], * (ABNORMAL) SODIUM (01/13/2025 5:51 AM CDT) Only the most recent of4 resultswithin the time period is included. SODIUM 128(L) 136 - 145 mmol/L 01/13/2025 6:32 AM CDT [facility] Blood BLOOD SPECIMEN / Unknown Butterfly / Unknown 01/13/2025 5:51 AM CDT 01/13/2025 6:08 AM CDT Danica Cornejo MD CHEMISTRY F inal Result Performing Organization Address City/[facility] Co de Phone Number [facility] [address] [place] [address], [place] * CREATININE (01/13/2025 5:51 AM CDT) Only the most recent of3 resultswithin the time period is included. eGFR >90 >90 mL/min/1.7 3m2 01/13/2025 6:31 AM CDT [facility] Comment:As of 2021, eG FR is calculated by the CKD-EPI creatinine equation without race adjustment. eGFR can be influenced by muscle mass, exercise, and diet. The reported eGFR is an estimation only and is only applicable if the renal function is stable. CREATININE 0.74 0.70 - 1.20 mg/dL 01/13/2025 6:31 AM CDT [facility] Blood BLOOD SPECIMEN / Unknown Butterfly / Unknown 01/13/2025 5:51 AM CDT 01/13/2025 6:08 AM CDT Danica Cornejo MD CHEMISTRY F inal Result Performing Organization Address [facility] de Phone Number [facility] [address] [place] [address], [place] * (ABNORMAL) INR AM (01/12/2025 5:52 AM CDT) Only the most recent of5 resultswithin the time period is included. INR 1.3(H) <1.3 01/12/2025 6:21 AM CDT [facility] PROTIME 14.5(H) 10.6 - 12.4 sec 01/12/2025 6:21 AM CDT [facility] Blood BLOOD SPECIMEN / Unknown Venipuncture / Unknown 01/12/2025 5:52 AM CDT 01/12/2025 6:09 AM CDT Narrative [facility] - 01/12/2025 6:21 AM CDT Therapeutic Range 2.0-3.0 for most anticoagulated patients 2.5-3.5 or 4.0 for high risk patients The INR is only used for patients on stable oral anticoagulant therapy. It makes no significant contribution to the diagnosis or treatment of patients whose Protime is prolonged for other reasons. INR results are increased when heparin levels exceed 1.0 U/mL, which corresponds to an aPTT >125 seconds if the patient is on UFH. Danica Cornejo MD HEMATOLOGY F inal Result Performing Organization Address [facility] Co de Phone Number [facility] [address] [place] [address], [place] * MAGNESIUM (01/12/2025 5:52 AM CDT) Only the most recent of10 resultswithin the time period is included. MAGNESIUM 1.6 1.6 - 2.6 mg/dL 01/12/2025 6:34 AM CDT [facility] Blood BLOOD SPECIMEN / Unknown Venipuncture / Unknown 01/12/2025 5:52 AM CDT 01/12/2025 6:09 AM CDT Doni ORELLANA CHEMISTRY Shanna l Result [facility] [address] [place] [address], [place] * (ABNORMAL) Hepatic function panel AM (01/12/2025 5:52 AM CDT) Only the most recent of4 resultswithin the time period is included. ALBUMIN 2.5(L) 4.0 - 4.9 g/dL 01/12/2025 6:34 AM CDT [facility] PROTEIN,TOTAL 5.5(L) 6.0 - 8.0 g/dL 01/12/2025 6:34 AM CDT [facility] BILIRUBIN,TOTAL 1.9(H) 0.0 - 1.2 mg/dL 01/12/2025 6:34 AM CDT [facility] BILIRUBIN,DIRECT 1.3(H) 0.0 - 0.2 mg/dL 01/12/2025 6:34 AM CDT [facility] BILIRUBIN,INDIRE CT 0.6 0.2 - 0.8 mg/dL 01/12/2025 6:34 AM CDT [facility] ALK PHOSPHATASE 286(H) 40 - 129 IU/L 01/12/2025 6:34 AM CDT [facility] ALT (SGPT) 42 10 - 50 IU/L 01/12/2025 6:34 AM CDT [facility] AST (SGOT) 85(H) 10 - 50 IU/L 01/12/2025 6:34 AM CDT [facility] Blood BLOOD SPECIMEN / Unknown Venipuncture / Unknown 01/12/2025 5:52 AM CDT 01/12/2025 6:09 AM CDT Danica Cornejo MD CHEMISTRY F inal Result Performing Organization Address City/[facility]/ZIP Co de Phone Number [facility] [address] [place] [address], [place] * HBSAG (HBS) (01/11/2025 5:37 AM CDT) Pathologist [facility] HBSAG Nonreactive Nonreactive 01/11/2025 6:26 AM CDT [facility] Blood BLOOD SPECIMEN / Unknown Venipuncture / Unknown 01/11/2025 5:37 AM CDT 01/11/2025 5:52 AM CDT Kirill Pandya MD SEND OUTS Final Result Performing Organization Address [facility] Phone Number [facility] [address] [place] [address], [place] * ANTI HCV (01/11/2025 5:37 AM CDT) Pathologist [facility] HEPATITIS C ANTIBODY Non-Reacti ve Non-React dylan 01/11/2025 6:32 AM CDT [facility] Comment:Please note, per www .CDC.gov: If a patient is known to be at high risk of HCV infection, or is symptomatic, and the physician's suspicion of HCV infection is high, HCV RNA testing is often employed and is of diagnostic value, even after an initial negative anti-HCV test result. Blood BLOOD SPECIMEN / Unknown Venipuncture / Unknown 01/11/2025 5:37 AM CDT 01/11/2025 5:52 AM CDT Kirill Pandya MD SEND OUTS Final Result Performing Organization Address City/[facility] Co de Phone Number [facility] [address] [place] [id number], [place] * SCAN CORRESP-LABORATORY RESULTS (01/10/2025 12:26 PM CDT) Narrative 01/10/2025 12:26 PM CDT Ordered by an unspecified provider. Other Clinical Staff OTHER Final Resul t * SCAN CORRESP-EKG RESULTS (01/10/2025 12:26 PM CDT) Narrative 01/10/2025 12:26 PM CDT Ordered by an unspecified provider. us Other Clinical Staff OTHER Final Resul t * CT ABDOMEN PELVIS UROGRAM WWO (01/10/2025 9:43 AM CDT) Anatomical Region Laterality Modality Abdomen, Pelvis, KIDNEYS, BLADDER Computed Tomography 01/10/2025 10:0 0 AM CDT Impressions 01/10/2025 10:00 AM CDT 1. Bibasilar atelectasis, [id number]-right. Patchy opacities anterior to the atelectasis probably inflammatory. Effusions, [id number]-right. The right effusion has improved since the prior study. 2. Mildly enlarged heterogeneous liver without focal mass or biliary ductal dilation. 3. Cholelithiasis. No definite acute cholecystitis or common duct obstruction. Fluid around the gallbladder is probably due to ascites rather than cholecystitis. Focal thickening of the gallbladder fundus probably due to the focal form of gallbladder adenomyosis. 4. Hyperdense nonenhancing lesion right kidney likely a hyperdense cyst. No findings suspicious for a solid right renal cortical mass. No filling defects identified within the upper tracts, ureters or bladder as opacified. 5. Bladder wall thickening which could be due to cystitis. Correlate with urinalysis. No focal mass the bladder is not entirely opacified. 6. Moderate diffuse ascites unchanged. Please note that all CT scans at this facility use dose modulation, iterative reconstruction, and/or weight-based dosing when appropriate to reduce radiation dose to as low as reasonably achievable. Dictated by Sebastian Onofre MD @ 01/10/2025 10:00:21 AM (Electronically Signed) Narrative 01/10/2025 10:00 AM CDT For Patients: As a result of the Cures Act, medical imaging exams and procedure reports are released immediately into your electronic medical record. You may view this report before your referring provider. If you have questions, please contact your health care provider. INDICATION: Gross hematuria COMPARISON: January 06, 2025 TECHNIQUE: CT examination of the abdomen and pelvis was performed before and after the uneventful intravenous administration of 100 cc of Omnipaque 350. Thin section axial images were obtained from the lung bases through the pubic symphysis. Oral contrast was not administered. The study was performed as per urogram protocol. Noncontrast study was performed as well as the delayed series. Please note that all CT scans at this facility use dose modulation, iterative reconstruction, and/or weight-based dosing when appropriate to reduce radiation dose to as low as reasonably achievable. FINDINGS: LUNG BASES: The heart size is top-normal at the lung bases. Small hiatal hernia. Bilateral effusions, left greater than right. The left effusion appears similar to the prior study. The right effusion is smaller.Bibasilar opacities probably partly due to atelectasis though there is airspace disease that could be inflammatory more anterior to the effusions. LIVER/BILIARY SYSTEM:Mildly enlarged heterogeneous liver. No focal mass. No intra or extrahepatic biliary ductal dilation. There is cholelithiasis. There is fluid around the gallbladder though this is probably due to ascites. Mild wall thickening of the fundus of the gallbladder focally probably the focal form of adenomyosis. No visible choledocholithiasis. ADRENALS: Normal KIDNEYS, URETERS and BLADDER:No calcified calculus. Right midpole hyperdense lesion, nonenhancing measuring 2.6 centimeters consistent with a hyperdense cyst. No significant renal cortical mass. No hydronephrosis or hydroureter. The bladder is only partially opacified with contrast. As visualized, there are no discrete filling defects. There is bladder wall thickening diffusely which may be due to cystitis. Correlate with urinalysis and follow-up clinically. SPLEEN:Normal appearance. PANCREAS: Appears normal. RETROPERITONEUM and MESENTERY: There is no mass, adenopathy or aortic aneurysm. GASTROINTESTINAL SYSTEM: There is no evidence of diverticulitis, colitis, mechanical obstruction, or appendicitis. The small bowel as visualized appears normal.Fecal retention. Diverticulosis PELVIS: No visible mass or adenopathy. OSSEOUS STRUCTURES and ABDOMINAL WALL: There is an age-appropriate appearance of the osseous structures.No significant abdominal wall defect. OTHER: Moderate diffuse ascites Procedure Note Sebastian Onofre MD - 01/10/2025 For Patients: As a result of the 21st Century Cures Act, medical imagingexams and procedure reports are released immediately into your electronicmedical record. You may view this report before your referring provider.If you have questions, please contact your health care provider. INDICATION: Gross hematuria COMPARISON: January 06, 2025 TECHNIQUE: CT examination of the abdomen and pelvis was performed before and afterthe uneventful intravenous administration of 100 cc of Omnipaque 350. Thinsection axial images were obtained from the lung bases through the pubicsymphysis. Oral contrast was not administered. The study was performed asper urogram protocol. Noncontrast study was performed as well as thedelayed series. Please note that all CT scans at this facility use dose modulation,iterative reconstruction, and/or weight-based dosing when appropriate toreduce radiation dose to as low as reasonably achievable. FINDINGS: LUNG BASES: The heart size is top-normal at the lung bases. Small hiatalhernia. Bilateral effusions, left greater than right. The left effusionappears similar to the prior study. The right effusion issmaller.Bibasilar opacities probably partly due to atelectasis thoughthere is airspace disease that could be inflammatory more anterior to theeffusions. LIVER/BILIARY SYSTEM:Mildly enlarged heterogeneous liver. No focal mass.No intra or extrahepatic biliary ductal dilation. There is cholelithiasis.There is fluid around the gallbladder though this is probably due toascites. Mild wall thickening of the fundus of the gallbladder focallyprobably the focal form of adenomyosis. No visible choledocholithiasis. ADRENALS: Normal KIDNEYS, URETERS and BLADDER:No calcified calculus. Right midpolehyperdense lesion, nonenhancing measuring 2.6 centimeters consistent witha hyperdense cyst. No significant renal cortical mass. No hydronephrosisor hydroureter. The bladder is only partially opacified with contrast. Asvisualized, there are no discrete filling defects. There is bladder wallthickening diffusely which may be due to cystitis. Correlate withurinalysis and follow-up clinically. SPLEEN:Normal appearance. PANCREAS: Appears normal. RETROPERITONEUM and MESENTERY: There is no mass, adenopathy or aorticaneurysm. GASTROINTESTINAL SYSTEM: There is no evidence of diverticulitis, colitis,mechanical obstruction, or appendicitis. The small bowel as visualizedappears normal.Fecal retention. Diverticulosis PELVIS: No visible mass or adenopathy. OSSEOUS STRUCTURES and ABDOMINAL WALL: There is an age-appropriateappearance of the osseous structures.No significant abdominal walldefect. OTHER: Moderate diffuse ascites IMPRESSION: 1. Bibasilar atelectasis, [id number]-[id number]-right. Patchy opacitiesanterior to the atelectasis probably inflammatory. Effusions,kemp-[id number]-[id number]-right. The right effusion has improved since the priorstudy. 2. Mildly enlarged heterogeneous liver without focal mass or biliaryductal dilation. 3. Cholelithiasis. No definite acute cholecystitis or common ductobstruction. Fluid around the gallbladder is probably due to ascitesrather than cholecystitis. Focal thickening of the gallbladder fundusprobably due to the focal form of gallbladder adenomyosis. 4. Hyperdense nonenhancing lesion right kidney likely a hyperdense cyst.No findings suspicious for a solid right renal cortical mass. No fillingdefects identified within the upper tracts, ureters or bladder asopacified. 5. Bladder wall thickening which could be due to cystitis. Correlate withurinalysis. No focal mass the bladder is not entirely opacified. 6. Moderate diffuse ascites unchanged. Please note that all CT scans at this facility use dose modulation,iterative reconstruction, and/or weight-based dosing when appropriate toreduce radiation dose to as low as reasonably achievable. Dictated by Sebastian Onofre MD @ 01/10/2025 10:00:21 AM (Electronically Signed) Ilana LI CT Fi nal Result * Blood culture DAILY (01/10/2025 7:04 AM CDT) Only the most recent of3 resultswithin the time period is included. CULTURE No Growth. 01/15/2025 8:11 AM CDT [facility] Blood BLOOD SPECIMEN / Unknown Butterfly / Unknown 01/10/2025 7:04 AM CDT 01/10/2025 7:12 AM CDT [facility] - 01/15/2025 8:11 AM CDT Low volume blood culture received; possible false negative culture. us Maurisio Arreola MD MICROBIOLOGY Final Result [facility] [address] [place] [address], [place] * US THORACENTESIS INCl IMAGE GUIDE RIGHT (01/09/2025 1:49 PM CDT) Anatomical Region Laterality Modality CHEST, THORAX Ultrasound Impressions 01/09/2025 2:17 PM CDT Successful ultrasound guided therapeutic and diagnostic thoracentesis, with removal of 990 mLs of fluid from the Right pleural space. Shannon Barragan PA-C [facility] Interventional Radiology Ben Bolt Protocol A. Pre-procedure verification complete yes 1-relevant information / documentation available, reviewed and properly matched to the patient; 2-consent accurate and complete, 3-equipment and supplies available B. Site marking complete Yes Site marked if not in continuous attendance with patient C. TIME OUT completed yes Time Out was conducted just prior to starting procedure to verify the eight required elements: 1-patient identity, 2-consent accurate and complete, 3-position, 4-correct side/site marked (if applicable), 5-procedure, 6-relevant images / results properly labeled and displayed (if applicable), 7-antibiotics / irrigation fluids (if applicable), 8-safety precautions. Narrative 01/09/2025 2:17 PM CDT RADIOLOGY IMMEDIATE POST PROCEDURE NOTE 01/09/2025 Sebastiankobe Howell Quan [id number] INFORMED CONSENT: In my discussion, prior to the signing of the consent, I reviewed the procedure, benefits, risks, and how the procedure will meet the treatment goal with the patient and/or family. The patient was given ample time to ask questions. All questions were answered. PROCEDURE: Ultrasound-guided Thoracentesis of the Right chest INDICATION: Pleural effusion COMPARISON: None PROCEDURALIST: Shannon Barragan PA-C FINDINGS: Informed consent with risks, benefits, and alternatives was discussed and signed with patient. A focused ultrasound examination was performed of the posterior Right chest demonstrating a pleural effusion and a lower intercostal space was chosen for access. 1% lidocaine was used to anesthetize the subcutaneous soft tissues. Then, a 5-portuguese Yueh needle with a one-way valve was advanced into the pleural space. 990 mLs of serous pleural fluid was removed. Fluid sample was sent to the lab for analysis. No immediate complications. Patient tolerated the procedure well. Doni Tellez [facility] Shanna gonzáles Result * XR CHEST 1 VIEW PA OR AP (01/09/2025 1:44 PM CDT) Anatomical Region Laterality Modality CHEST, THORAX, Lung, HEART Digit al Radiography 01/09/2025 1:58 PM CDT Impressions 01/09/2025 1:58 PM CDT 1. Slight increase in a small left pleural effusion with atelectasis compared to 01/06/2025. 2. No significant residual right pleural effusion. No pneumothorax is seen. 3. Central airspace opacities correspond to ground-glass seen on CT. Please refer to the prior CT report. Dictated by Clark Calhoun MD @ 01/09/2025 1:58:25 PM (Electronically Signed) Narrative 01/09/2025 1:58 PM CDT For Patients: As a result of the Cures Act, medical imaging exams and procedure reports are released immediately into your electronic medical record. You may view this report before your referring provider. If you have questions, please contact your health care provider. INDICATION: Status post right thoracentesis TECHNIQUE: Chest 1 views. COMPARISON: 01/06/2025. FINDINGS: No significant right pleural effusion. Slight increase in a small left pleural effusion with atelectasis. Mild central airspace and interstitial opacities are seen and better evaluated on CT. No pneumothorax. Heart size and mediastinum are stable. Procedure Note Clark Calhoun MD - 01/09/2025 For Patients: As a result of the Cures Act, medical imagingexams and procedure reports are released immediately into your electronicmedical record. You may view this report before your referring provider.If you have questions, please contact your health care provider. INDICATION: Status post right thoracentesis TECHNIQUE: Chest 1 views. COMPARISON: 01/06/2025. FINDINGS: No significant right pleural effusion. Slight increase in a small leftpleural effusion with atelectasis. Mild central airspace and interstitialopacities are seen and better evaluated on CT. No pneumothorax. Heart size and mediastinum are stable. IMPRESSION: 1. Slight increase in a small left pleural effusion with atelectasiscompared to 01/06/2025. 2. No significant residual right pleural effusion. No pneumothorax isseen. 3. Central airspace opacities correspond to ground-glass seen on CT.Please refer to the prior CT report. Dictated by Clark Calhoun MD @ 01/09/2025 1:58:25 PM (Electronically Signed) Doni [facility] Shanna l Result * BODY FLUID CULTURE, STAIN (01/09/2025 1:18 PM CDT) Only the most recent of2 resultswithin the time period is included. CULTURE No Growth. 01/15/2025 10:30 AM CDT [facility] GRAM STAIN No Epithelial cells 01/15/2025 10:30 AM CDT [facility] GRAM STAIN No RBCs 01/15/2025 10:30 AM CDT [facility] GRAM STAIN No PMNs 01/15/2025 10:30 AM CDT [facility] GRAM STAIN No organisms seen 01/15/2025 10:30 AM CDT [facility] Body Fluid (Pleural) Non-Blood / Unknown 01/09/2025 1:18 PM CDT 01/09/2025 1:44 PM CDT Dnoi ORELLANA MICROBIOLOGY Shanna l Result [facility] [address] [place] [address], * BODY FLUID CELL COUNT/DIF (01/09/2025 1:18 PM CDT) Only the most recent of2 resultswithin the time period is included. BODY FLUID SOURCE Pleural Fluid 01/09/2025 5:32 PM CDT [facility] Comment:Right BODY FLUID COLOR Yellow 01/09/2025 5:32 PM CDT [facility] BODY FLUID CLARITY Clear 01/09/2025 5:32 PM CDT [facility] TOTAL NUCLEATED CELLS, BF 219 /cu mm 01/09/2025 5:32 PM CDT [facility] RED BLOOD COUNT, BODY FLUID <2,000 /cu mm 01/09/2025 5:32 PM CDT [facility] % NEUTROPHILS, BODY FLUID 85 % 01/09/2025 5:32 PM CDT [facility] % LYMPHOCYTES, BODY FLUID 11 % 01/09/2025 5:32 PM CDT [facility] % MONO/MACRO, BODY FLUID 3 % 01/09/2025 5:32 PM CDT [facility] % MESOTHELIAL CELLS, BODY FLUID 1 % 01/09/2025 5:32 PM CDT [facility] Body Fluid PLEURAL FLUID SPECIMEN / Unknown Non-Blood / Unknown 01/09/2025 1:18 PM CDT 01/09/2025 1:44 PM CDT us Doni NOELBS BODY FLUID Shanna l Result [facility] [address] [place] [address], [place] * PROTEIN,BODY FLUID (01/09/2025 1:18 PM CDT) Only the most recent of2 resultswithin the time period is included. SPECIMEN SOURCE Right Pleural Fluid 01/09/2025 3:16 PM CDT [facility] PROTEIN,BODY FLUID 1.6 g/dL 01/09/2025 3:16 PM CDT [facility] Comment:No Reference Range D efined. Body Fluid PLEURAL FLUID SPECIMEN / Unknown Non-Blood / Unknown 01/09/2025 1:18 PM CDT 01/09/2025 1:44 PM CDT Narrative [facility] - 01/09/2025 3:16 PM CDT Pleural: Pleural fluid transudate total protein to serum total protein ratio typically </=0.5. Pleural fluid exudate total protein to serum total protein ratio typically >0.5. Peritoneal: Ascitic fluid total protein is a reflection of serum protein concentration. May be useful in differentiating secondary bacterial peritonitis from spontaneous bacterial peritonitis when at least two of the three criteria are met in ascetic fluid: Total Protein > 1.0 g/dL Glucose < 50 mg/dL LDH > Upper reference limit for serum Ascitic fluid total protein may be elevated > 2.5 g/dL in patients with high albumin gradient ascites caused by heart failure. Test developed & performance characteristics determined by [place] consistent with CLIA requirements. Not cleared or approved by [place] FDA. [facility] Elizabeth Tellez [facility] [place] Shanna l Result Performing Organization Address City/[facility]/ZIP Co de Phone Number [facility] [address] [place] [id number], [place] * PH,BODY FLUID (01/09/2025 1:18 PM CDT) PH,BODY FLUID 7.57 01/09/2025 3:20 PM CDT [facility]SpotF[facility] Specimen Source Pleural 01/09/2025 3:20 PM CDT [facility] Natanael [facility] Body Fluid PLEURAL FLUID SPECIMEN / Unknown Non-Blood / Unknown 01/09/2025 1:18 PM CDT 01/09/2025 1:44 PM CDT [facility] Elizabeth Tellez [facility] [place]UID Shanna l Result [facility]est[facility]12 [facility] [address] [place] [address], [place] * LD,BODY FLUID (01/09/2025 1:18 PM CDT) Only the most recent of2 resultswithin the time period is included. SPECIMEN SOURCE Right Pleural Fluid 01/09/2025 3:29 PM CDT [facility]SpotFodo[facility] LD,BODY FLUID 128 IU/L 01/09/2025 3:29 PM CDT [facility] Body Fluid PLEURAL FLUID SPECIMEN / Unknown Non-Blood / Unknown 01/09/2025 1:18 PM CDT 01/09/2025 1:44 PM CDT Narrative [facility] - 01/09/2025 3:29 PM CDT Pleural: Pleural fluid LDH to serum LDH ratio <= 0.6 or less than 2/3 the upper limit of normal serum LDH consistent with transudative effusions, while pleural fluid LDH to serum LDH ratio > 0.6 is consistent with exudative effusions. Peritoneal: Ascitic fluid LDH may be useful in differentiating secondary bacterial peritonitis from spontaneous bacterial peritonitis when at least two of the three criteria are met in ascites Fluid: Total protein >1.0 g/dL Glucose <50 mg/dL LDH > upper reference limit for serum Test developed & performance characteristics determined by [place], [place] consistent with CLIA requirements. Not cleared or approved by [place] FDA. Doni NOEL BODY FLUID Shanna l Result [facility] [address] [place] [address], [place] * GLUCOSE,BODY FLUID (01/09/2025 1:18 PM CDT) Only the most recent of2 resultswithin the time period is included. SPECIMEN SOURCE Right Pleural Fluid 01/09/2025 3:16 PM CDT [facility] GLUCOSE,BODY FLUID 90 mg/dL 01/09/2025 3:16 PM CDT [facility] Comment:No Reference Range D efined. Body Fluid PLEURAL FLUID SPECIMEN / Unknown Non-Blood / Unknown 01/09/2025 1:18 PM CDT 01/09/2025 1:44 PM CDT Narrative [facility] - 01/09/2025 3:16 PM CDT Pleural: Transudative pleural fluid glucose concentrations similar to serum glucose concentrations, while exudates have glucose concentrations less than serum glucose Glucose <60 mg/dL typically associated with low fluid pH Pericardial: Pericardial fluid glucose to serum glucose ratio <1.0 may be useful in differentiating exudate from transudate and infective from parainfective effusions Test developed & performance characteristics determined by [place] consistent with CLIA requirements. Not cleared or approved by [place] FDA. Doni Delgadoy [facility] [place] Shanna l Result Performing Organization Address [facility]/ZIP Co de Phone Number [facility] [address] [place] [phone], [place] * AMYLASE,BODY FLUID (01/09/2025 1:18 PM CDT) SPECIMEN SOURCE Right Pleural Fluid 01/09/2025 3:16 PM CDT [facility] D[facility] AMYLASE,BODY FLUID 34 IU/L 01/09/2025 3:16 PM CDT [facility] D[facility] Comment:No Reference Range D efined. Body Fluid PLEURAL FLUID SPECIMEN / Unknown Non-Blood / Unknown 01/09/2025 1:18 PM CDT 01/09/2025 1:44 PM CDT Narrative [facility] - 01/09/2025 3:16 PM CDT Peritoneal: Amylase activity in non-pancreatic peritoneal fluid is approximately equal to the serum amylase activity. Ascites associated with pancreatitis typically has amylase activity at least 5- fold greater than serum. Pleural: Amylase activity in pleural fluid is typically less than the upper limit of normal serumm amylase with fluid to serum amylase ratio <1.0 Test developed & performance characteristics determined by [place] consistent with CLIA requirements. Not cleared or approved by [place] FDA. Doni Ramirezddy [facility] [place]UID Shanna l Result Performing Organization Address City/[facility]/ZIP Co de Phone Number [facility]ITALSmartestK12 [facility] [address] [place] [id number], [place] * ANAEROBIC CULTURE (01/09/2025 1:18 PM CDT) Only the most recent of2 resultswithin the time period is included. CULTURE No anaerobes isolated 01/14/2025 11:43 AM CDT [facility] Other PLEURAL FLUID SPECIMEN / Unknown Non-Blood / Unknown 01/09/2025 1:18 PM CDT 01/09/2025 1:44 PM CDT us Doni ORELLANA MICROBIOLOGY Shanna l Result [facility] [address] [place] [address], [place] * (ABNORMAL) CBC no diff AM (01/09/2025 6:38 AM CDT) Only the most recent of4 resultswithin the time period is included. WHITE BLOOD COUNT 10.3 4.5 - 11.0 thou/cu mm 01/09/2025 7:08 AM CDT [facility] RED BLOOD COUNT 2.92(L) 4.30 - 5.90 mil/cu mm 01/09/2025 7:08 AM CDT [facility] HEMOGLOBIN 9.2(L) 13.5 - 17.5 g/dL 01/09/2025 7:08 AM T [facility] HEMATOCRIT 27.8(L) 37.0 - 53.0 % 01/09/2025 7:08 AM CDT [facility] MCV 95 80 - 100 fL 01/09/2025 7:08 AM CDT [facility] MCH 31.5 26.0 - 34.0 pg 01/09/2025 7:08 AM CDT [facility] MCHC 33.1 32.0 - 36.0 g/dL 01/09/2025 7:08 AM T [facility] RDW 17.1(H) 11.5 - 15.5 % 01/09/2025 7:08 AM T [facility] PLATELET COUNT 270 140 - 440 thou/cu mm 01/09/2025 7:08 AM T [facility] MPV 11.1(H) 6.5 - 11.0 fL 01/09/2025 7:08 AM CDT [facility] NRBC 0.0 % 01/09/2025 7:08 AM CDT [facility] ABS NRBC 0.0 thou /cu mm 01/09/2025 7:08 AM CDT [facility] Blood BLOOD SPECIMEN / Unknown Venipuncture / Unknown 01/09/2025 6:38 AM CDT 01/09/2025 6:46 AM CDT us Rafi Gallegos MD HEMATOLOGY Final Result Performing Organization Address City/[facility]/ZIP Co de Phone Number [facility] [address] [place] [address], * (ABNORMAL) PHOSPHORUS (01/09/2025 6:38 AM CDT) Only the most recent of7 resultswithin the time period is included. PHOSPHORUS 2.2(L) 2.5 - 4.5 mg/dL 01/09/2025 7:19 AM CDT [facility] Blood BLOOD SPECIMEN / Unknown Venipuncture / Unknown 01/09/2025 6:38 AM CDT 01/09/2025 6:46 AM CDT Stormy Aguilar MD CHEMISTRY Final Resu lt Performing Organization Address City/[facility]/ZIP Co de Phone Number [facility] [address] [place] [address], [place] * (ABNORMAL) Basic metabolic panel TODAY (01/09/2025 6:38 AM CDT) Only the most recent of4 resultswithin the time period is included. SODIUM 135(L) 136 - 145 mmol/L 01/09/2025 7:19 AM CDT [facility] POTASSIUM 3.3(L) 3.5 - 5.1 mmol/L 01/09/2025 7:19 AM CDT [facility] CHLORIDE 105 98 - 107 mmol/L 01/09/2025 7:19 AM CDT [facility] CO2,TOTAL 19(L) 22 - 29 mmol/L 01/09/2025 7:19 AM CDT [facility] ANION GAP 11 5 - 18 01/09/2025 7:19 AM CDT [facility] GLUCOSE 87 70 - 99 mg/dL 01/09/2025 7:19 AM CDT [facility] CALCIUM 8.0(L) 8.8 - 10.4 mg/dL 01/09/2025 7:19 AM CDT [facility] Comment: Reference ranges for this test were updated on 2024 to reflect our healthy population more accurately. Reference range changes are not retroactively applied to results, but previous results using the same methodology can be interpreted in the context of the new reference range. BUN 6 6 - 20 mg/dL 01/09/2025 7:19 AM CDT [facility] CREATININE 0.59(L) 0.70 - 1.20 mg/dL 01/09/2025 7:19 AM CDT [facility] BUN/CREAT RATIO 10 10 - 20 7:19 AM CDT [facility] eGFR >90 >90 mL/min/1. 73m2 01/09/2025 7:19 AM CDT [facility] Comment:As of 2021, eG FR is calculated by the CKD-EPI creatinine equation without race adjustment. eGFR can be influenced by muscle mass, exercise, and diet. The reported eGFR is an estimation only and is only applicable if the renal function is stable. Blood BLOOD SPECIMEN / Unknown Venipuncture / Unknown 01/09/2025 6:38 AM CDT 01/09/2025 6:46 AM CDT us Rafi Gallegos MD CHEMISTRY Final Result [facility] [address] [place] [address], [place] * ECHO TTE COMPLETE WO CONTRAST (01/08/2025 3:07 PM CDT) AORTIC VALVE MEAN PG 2 mmHg EJECTION FRACTION 48 % LVEDD 5.1 cm EJECTION FRACTION 50 - 55% Anatomical Region Laterality Modality Ultrasound 01/08/2025 1:34 PM CDT Narrative 01/08/2025 4:17 PM CDT ECHOCARDIOGRAM SEBASTIAN GLASS : 1965 59 years Study Date: 01/08/2025 1:34:35 PM Gender: M BP: 109/71 mmHg Height: 185.00 cm BSA: 1.85 m Weight: 64.00 kg Tech: MBL/ARG Referring MD: MAURISIO ARREOLA Site: [facility] Reading Location: [facility]W Patient Location: Inpatient. Procedure: 2D, Color Doppler and Spectral Doppler. Indication for study: Endocarditis Cardiac Rhythm: Normal sinus.Study quality: Fair. Final Impressions: 1. Normal LV size, normal wall thickness, low normal global systolic function with an estimated EF of 50 - 55%. 2. Right ventricular cavity size is normal, global systolic RV function is normal. 3. The aortic valve is trileaflet and sclerotic, no stenosis and no regurgitation. Focal calcification at the posterior annular area. 4. The mitral valve is myxomatous, moderate to severe mitral regurgitation, with a centrally-directed jet of turbulent color flow. 5. Mild to moderate holosystolic posterior mitral valve prolapse. 6. No definite valvular vegetations are suggested on this transthoracic echocardiogram. Chamber Sizes and Function Normal left ventricular size, normal wall thickness, low normal global systolic function with an estimated EF of 50 - 55%. LV ejection fraction by 3D calculation is 48 %. No resting regional wall motion abnormality visualized. Left atrial size is normal. Left atrial pressure is normal. Right ventricular cavity size is normal, global systolic RV function is normal. RV wall thickness is normal. The right atrium is normal. Right atrial volume index is 27 ml/m . Right atrial area is 17 cm . The pulmonary artery is of normal size and origin. The sinus of Valsalva is normal sized. The ascending aorta is normal sized. Valves, RV Pressures and Diastolic Function The aortic valve is trileaflet and sclerotic, no stenosis and no regurgitation. The mitral valve is myxomatous, moderate to severe mitral regurgitation, with a centrally-directed jet of turbulent color flow. There is mild holosystolic prolapse of posterior leaflet of the mitral valve. Normal diastolic function for age. The tricuspid valve is normal in structure, trace tricuspid regurgitation. Unable to assess right ventricular systolic pressure. The pulmonic valve is normal. Trace pulmonary regurgitation. Pulmonary veins show a normal flow pattern. Masses, Effusion, Shunts There is no pericardial effusion. The inferior vena cava is normal sized, respiratory size variation greater than 50%. No left to right shunting was detected by limited color flow Doppler interrogation of the interatrial septum. MEASUREMENTS AND CALCULATIONS 2-D Measurements and LV Function: LVID (d) 5.1 cm 3D EF 48 % LVID (s) 3.9 cm LV FS% (2D) 24 % IVS (d) 0.9 cm LVOT diameter 2.3 cm LVPW (d) 0.8 cm HR 79 bpm Ao Sinus 3.5 cm LA Vol index 25 ml/m2 Ao Sinus ULN 4.0 cm RA Vol index 27 ml/m2 Asc Ao 3.2 cm RA area 17 cm Asc Ao ULN 4.0 cm RV Basal Diam 3.6 cm Diastology: Mitral Tissue Doppler E Peak 0.4 m/s e', Septum 0.08 m/s A Peak 0.3 m/s e', Lateral 0.11 m/s E/A 1.1 E/e' Average 3.86 DT 229 msec Aortic Valve: Vmax 1.1 m/s ALYX (V) 3.45 cm VTI 0.21 m ALYX (I) 3.30 cm LVOT V max 0.9 m/s Max PG 4 mmHg LVOT VTI 0.17 m Mean PG 2 mmHg SV 69 ml Dim Index 0.79 SV index 37 ml/m CO 5.4 l/min CI 2.9 l/min/m Mitral Valve: MVA 3.3 cm MV P 1/2 66 msec Tricuspid Valve and estimated PA pressures: TAPSE 2.2 cm . This study was interpreted by an [facility] accredited facility. Final Procedure Note Deann Coon MD - 01/08/2025 ECHOCARDIOGRAM SEBASTIAN GLASS : 1965 59 years Study Date: 01/08/2025 1:34:35 PM Gender: M BP: 109/71 mmHg Height: 185.00 cm BSA: 1.85 m Weight: 64.00 kg Tech: MBL/ARG Referring MD: MAURISIO ARREOLA Site: [facility] Reading Location: ANW IP Patient Location: Inpatient. Procedure: 2D, Color Doppler and Spectral Doppler. Indication for study: Endocarditis Cardiac Rhythm: Normal sinus.Study quality: Fair. Final Impressions: 1. Normal LV size, normal wall thickness, low normal global systolicfunction with an estimated EF of 50 - 55%. 2. Right ventricular cavity size is normal, global systolic RV functionis normal. 3. The aortic valve is trileaflet and sclerotic, no stenosis and noregurgitation. Focal calcification at the posterior annular area. 4. The mitral valve is myxomatous, moderate to severe mitralregurgitation, with a centrally-directed jet of turbulent color flow. 5. Mild to moderate holosystolic posterior mitral valve prolapse. 6. No definite valvular vegetations are suggested on this transthoracicechocardiogram. Chamber Sizes and Function Normal left ventricular size, normal wall thickness, low normal globalsystolic function with an estimated EF of 50 - 55%. LV ejection fractionby 3D calculation is 48 %. No resting regional wall motion abnormalityvisualized. Left atrial size is normal. Left atrial pressure is normal.Right ventricular cavity size is normal, global systolic RV function isnormal. RV wall thickness is normal. The right atrium is normal. Rightatrial volume index is 27 ml/m . Right atrial area is 17 cm . Thepulmonary artery is of normal size and origin. The sinus of Valsalva isnormal sized. The ascending aorta is normal sized. Valves, RV Pressures and Diastolic Function The aortic valve is trileaflet and sclerotic, no stenosis and noregurgitation. The mitral valve is myxomatous, moderate to severe mitralregurgitation, with a centrally-directed jet of turbulent color flow.There is mild holosystolic prolapse of posterior leaflet of the mitralvalve. Normal diastolic function for age. The tricuspid valve is normal instructure, trace tricuspid regurgitation. Unable to assess rightventricular systolic pressure. The pulmonic valve is normal. Tracepulmonary regurgitation. Pulmonary veins show a normal flow pattern. Masses, Effusion, Shunts There is no pericardial effusion. The inferior vena cava is normal sized,respiratory size variation greater than 50%. No left to right shunting wasdetected by limited color flow Doppler interrogation of the interatrialseptum. MEASUREMENTS AND CALCULATIONS 2-D Measurements and LV Function: LVID (d) 5.1 cm 3D EF 48 % LVID (s) 3.9 cm LV FS% (2D) 24 % IVS (d) 0.9 cm LVOT diameter 2.3 cm LVPW (d) 0.8 cm HR 79 bpm Ao Sinus 3.5 cm LA Vol index 25 ml/m2 Ao Sinus ULN 4.0 cm RA Vol index 27 ml/m2 Asc Ao 3.2 cm RA area 17 cm Asc Ao ULN 4.0 cm RV Basal Diam 3.6 cm Diastology: Mitral Tissue Doppler E Peak 0.4 m/s e', Septum 0.08 m/s A Peak 0.3 m/s e', Lateral 0.11 m/s E/A 1.1 E/e' Average 3.86 DT 229 msec Aortic Valve: Vmax 1.1 m/s ALYX (V) 3.45 cm VTI 0.21 m ALYX (I) 3.30 cm LVOT V max 0.9 m/s Max PG 4 mmHg LVOT VTI 0.17 m Mean PG 2 mmHg SV 69 ml Dim Index 0.79 SV index 37 ml/m CO 5.4 l/min CI 2.9 l/min/m Mitral Valve: MVA 3.3 cm MV P 1/2 66 msec Tricuspid Valve and estimated PA pressures: TAPSE 2.2 cm . This study was interpreted by an [facility] accredited facility. Final us Maurisio Arreola MD ECHO ORD Final Result * HEMOGLOBIN A1C (01/08/2025 5:10 AM CDT) HEMOGLOBIN A1C SCREENING <4.0 <=6.4 % 01/08/2025 7:13 PM CDT [facility] Blood BLOOD SPECIMEN / Unknown Non-Lab Venipuncture / Unknown 01/08/2025 5:10 AM CDT 01/08/2025 5:29 AM CDT Narrative [facility] - 01/08/2025 7:13 PM CDT (<5.7%) Normal (5.7% to 6.4%) Indicates prediabetes (>=6.5%) Confirms diabetes Falsely low levels may be seen with: Recent Transfusion, Recent Significant Blood Loss, Hemolytic Diseases, or Falsely elevated levels may be seen with: Untreated Anemias, Splenectomy Stormy Cardoza MD CHEMISTRY Final Result [facility] [address] [place] [id number], [place] * TSH AM (01/08/2025 5:10 AM CDT) TSH 2.73 0.27 - 4.20 uIU/mL 01/08/2025 6:04 AM CDT [facility] Blood BLOOD SPECIMEN / Unknown Non-Lab Venipuncture / Unknown 01/08/2025 5:10 AM CDT 01/08/2025 5:29 AM CDT Narrative [facility] - 01/08/2025 6:04 AM CDT In Adults, TSH values between 5.00 and 10.00 uIU/ml do not necessarily indicate the presence of Hypothyroidism. Correlation with clinical findings such as presence of goiter and/or Thyroperoxidase (TPO) Antibody may be helpful. For more information please refer to CALIN 2004; 291: 228-238. Stormy Cardoza MD CHEMISTRY Final Result [facility] [address] [place] [id number], [place] * LD serum (ADD ON) (01/08/2025 5:10 AM CDT) Only the most recent of2 resultswithin the time period is included. LD,TOTAL 195 135 - 225 IU/L 01/10/2025 7:41 PM CDT [facility] Blood BLOOD SPECIMEN / Unknown Non-Lab Venipuncture / Unknown 01/08/2025 5:10 AM CDT 01/08/2025 5:29 AM CDT Doni NOEL CHEMISTRY Shanna l Result Performing Organization Address [facility]/ZIP Co de Phone Number [facility] [address] [address], [place] * Vitamin B12 level AM (01/08/2025 5:10 AM CDT) VITAMIN B12 470 232 - 1,245 pg/mL 01/08/2025 6:34 AM CDT [facility] Blood BLOOD SPECIMEN / Unknown Non-Lab Venipuncture / Unknown 01/08/2025 5:10 AM CDT 01/08/2025 5:29 AM CDT Narrative [facility] - 01/08/2025 6:34 AM CDT Biotin supplements may cause clinically significant interference for this test assay. If interference is suspected, it is strongly recommended that biotin is discontinued for at least one week prior to retesting. Stormy Cardoza MD CHEMISTRY Final Result Performing Organization Address [facility] Co de Phone Number [facility] [address] [address], [place] * GLUCOSE METER (01/07/2025 9:32 PM CDT) Only the most recent of12 resultswithin the time period is included. GLUCOSE METER 82 65 - 100 mg/dL 01/07/2025 11:11 PM CDT [facility] Blood BLOOD SPECIMEN / Unknown 01/07/2025 9:32 PM CDT 01/07/2025 11:11 PM CDT Dick Romero MD CHEMISTRY Final Result Performing Organization Address City/[facility]/ZIP Co de Phone Number [facility] [address] [place] [address], [place] * SCAN-CARDIAC STRIP (01/07/2025 7:15 PM CDT) us Scanner OTHER Final Result * RESPIRATORY PANEL MULTIPLEX PCR (01/07/2025 5:22 PM CDT) Adenovirus NOT Detected 01/07/2025 6:[address] [facility] Coronavirus 229E NOT Detected 01/07/2025 6:40 PM CDT [facility] Coronavirus HKU1 NOT Detected 01/07/2025 6:40 PM CDT [facility] Coronavirus NL63 NOT Detected 01/07/2025 6:40 PM CDT [facility] Coronavirus OC43 NOT Detected 01/07/2025 6:40 PM CDT [facility] Human Metapneumovirus NOT Detected 01/07/2025 6:[address] [facility] Human Rhinovirus/Enterovi gary NOT Detected 01/07/2025 6:[address] [facility] Influenza A NOT Detected 01/07/2025 6:[address] [facility] Influenza B NOT Detected 01/07/2025 6:40 PM CDT [facility] Parainfluenza Virus 1 NOT Detected 01/07/2025 6:[address] [facility] Parainfluenza Virus 2 NOT Detected 01/07/2025 6:[address] [facility] Parainfluenza Virus 3 NOT Detected 01/07/2025 6:40 PM CDT [facility] Parainfluenza Virus 4 NOT Detected 01/07/2025 6:40 PM CDT [facility] Respiratory Syncytial Virus NOT Detected 01/07/2025 6:40 PM CDT [facility] SARS-Cov-2 NOT Detected 01/07/2025 6:40 PM CDT [facility] Bordetella pertussis NOT Detected 01/07/2025 6:40 PM CDT [facility] Bordetella Parapertussis NOT Detected 01/07/2025 6:40 PM CDT [facility] Chlamydophila pneumoniae NOT Detected 01/07/2025 6:40 PM CDT [facility] Mycoplasma pneumoniae NOT Detected 01/07/2025 6:40 PM CDT [facility] Nasopharyngeal NASOPHARYNGEAL SWAB / Unknown Non-Blood / Unknown 01/07/2025 5:22 PM CDT 01/07/2025 5:33 PM CDT Narrative [facility] - 01/07/2025 6:40 PM CDT All PCR tests are subject to false negative results due to variability in viral/bacterial load and collection technique. This test does NOT detect MERS ( Respiratory Syndrome) or SARS-1 (Severe Acute Respiratory Syndrome). Rafi Gallegos MD MICROBIOLOGY Final Result [facility] [address] [place] [address], [place] * US PARACENTESIS W IMAGING (01/07/2025 12:30 PM CDT) Anatomical Region Laterality Modality CHEST, Lung, THORAX Ultrasound Narrative 01/07/2025 12:38 PM CDT RADIOLOGY IMMEDIATE POST PROCEDURE NOTE 01/07/2025 Sebastian Glass [id number] 1965 INFORMED CONSENT: In my discussion, prior to the signing of the consent, I reviewed the procedure, benefits, risks, and how the procedure will meet the treatment goal with the patient and/or family. The patient was given ample time to ask questions. All questions were answered. Procedure: Paracentesis with ultrasound guidance. Indication: Ascites Comparison: None Proceduralist: Jami Perdue PA-C Findings: Focused ultrasound was completed, location for safe access into ascites was chosen and marked. Site was prepped with Chloraprep and covered with a sterile drape. Soft tissues were anesthetized with 1% lidocaine. A 5-Kyrgyz Yueh needle was placed into the ascites under ultrasound guidance in the Right abdomen. 200 mLs of serous fluid was removed. Sample was sent to lab for analysis. No immediate complications. Estimated blood loss none. Patient tolerated the procedure well. Impression: Successful diagnostic ultrasound guided paracentesis with removal of 200 mLs of fluid. Jami Perdue PA-C [facility] Interventional Radiology [place]olt Protocol A. Pre-procedure verification complete yes 1-relevant information / documentation available, reviewed and properly matched to the patient; 2-consent accurate and complete, 3-equipment and supplies available B. Site marking complete Yes Site marked if not in continuous attendance with patient C. TIME OUT completed yes Time Out was conducted just prior to starting procedure to verify the eight required elements: 1-patient identity, 2-consent accurate and complete, 3-position, 4-correct side/site marked (if applicable), 5-procedure, 6-relevant images / results properly labeled and displayed (if applicable), 7-antibiotics / irrigation fluids (if applicable), 8-safety precautions. Rafi Gallegos MD US Final Result * Albumin ascitic fluid (01/07/2025 12:17 PM CDT) SPECIMEN SOURCE ascites 01/07/2025 1:50 PM CDT [facility] ALBUMIN,BODY FLUID 0.6 g/dL 01/07/2025 1:50 PM CDT [facility] Comment:No Reference Range D efined. Body Fluid ASCITIC FLUID SPECIMEN / Unknown Non-Blood / Unknown 01/07/2025 12:17 PM CDT 01/07/2025 12:35 PM CDT Narrative [facility] - 01/07/2025 1:50 PM CDT Peritoneal: SAAG >/= 1.1 g/dL indicates portal Hypertension. Pleural: SEAG > 1.2 g/dL is consistent with a transudative process and may be more accurate in patients receiving diuretic therapy. Test developed & performance characteristics determined by [employer], [place], [place] consistent with CLIA requirements. Not cleared or approved by [place] FDA. Rafi Gallegos MD BODY FLUID Final Result [facility] [address] [place] [address], [place] * (ABNORMAL) LACTATE ARTERIAL (01/07/2025 3:52 AM CDT) LACTATE,ARTERI AL 2.2(HH) 0.5 - 1.6 mmol/L 01/07/2025 4:19 AM CDT [facility] Blood BLOOD SPECIMEN / Unknown Non-Lab Venipuncture / Unknown 01/07/2025 3:52 AM CDT 01/07/2025 3:59 AM CDT Abiodun Cummins MD CHEMISTRY Final Resu lt Performing Organization Address [facility] de Phone Number [facility] [address] [place] [address], [place] * VANCOMYCIN (01/07/2025 3:52 AM CDT) Pathologist [facility] VANCOMYCIN 16.3 ug/mL 01/07/2025 4:24 AM CDT [facility] Comment:No Reference Range D efined. DATE OF LAST DOSE,RANDOM 01/06/2025 01/07/2025 4:24 AM CDT [facility] TIME OF LAST DOSE,RANDOM 5:26 PM 01/07/2025 4:24 AM CDT [facility] Blood BLOOD SPECIMEN / Unknown Non-Lab Venipuncture / Unknown 01/07/2025 3:52 AM CDT 01/07/2025 3:59 AM CDT Dinorah Raymundo MD CHEMISTRY F inal Result Performing Organization Address [facility] Co de Phone Number [facility] [address] [place] [address], [place] * CALCIUM IONIZED HOSPITAL DRAW ONLY (01/07/2025 3:52 AM CDT) Only the most recent of3 resultswithin the time period is included. Pathologist [facility] CALCIUM,IONIZE D 1.23 1.15 - 1.27 mmol/L 01/07/2025 4:05 AM CDT [facility] Blood BLOOD SPECIMEN / Unknown Non-Lab Venipuncture / Unknown 01/07/2025 3:52 AM CDT 01/07/2025 4:00 AM CDT Abiodun Cummins MD CHEMISTRY Final Resu lt Performing Organization Address [facility] Co de Phone Number [facility] [address] [place] [address], [place] * SCAN-CARDIAC STRIP (01/06/2025 11:25 PM CDT) Scanner OTHER Final Result * LACTATE VENOUS (01/06/2025 9:06 PM CDT) Only the most recent of11 resultswithin the time period is included. LACTATE,VENOUS 2.0 0.5 - 2.0 mmol/L 01/06/2025 9:50 PM CDT [facility] Blood BLOOD SPECIMEN / Unknown Line/Port / Unknown 01/06/2025 9:06 PM CDT 01/06/2025 9:23 PM CDT Abiodun Cummins MD CHEMISTRY Final Resu lt Performing Organization Address [facility] Co de Phone Number [facility] [address] [place] [address], [place] * CT CHEST ABDOMEN PELVIS WO (01/06/2025 6:43 PM CDT) Anatomical Region Laterality Modality Abdomen, Pelvis, AORTA, LIVER, SPLEEN, CHEST Computed Tomography 01/07/2025 9:24 AM CDT Impressions 01/07/2025 9:24 AM CDT 1. Moderate to large bilateral pleural effusions with associated passive atelectasis for which superimposed infection is considered in the differential. Perihilar ground-glass airspace opacities. Constellation of findings may reflect pulmonary edema. Recommend unenhanced chest CT in 3 months to document resolution and assess underlying malignant potential. 2. Moderate volume free fluid in the pelvis. 3. No obstruction. Colonic diverticulosis without diverticulitis. Cholelithiasis without imaging findings of acute cholecystitis. Please note that all CT scans at this facility use dose modulation, iterative reconstruction, and/or weight-based dosing when appropriate to reduce radiation dose to as low as reasonably achievable. Dictated by Nav oCyne MD @ 01/07/2025 9:24:12 AM (Electronically Signed) Narrative 01/07/2025 9:24 AM CDT For Patients: As a result of the Cures Act, medical imaging exams and procedure reports are released immediately into your electronic medical record. You may view this report before your referring provider. If you have questions, please contact your health care provider. INDICATION: Sepsis TECHNIQUE: CT chest, abdomen and pelvis acquired without contrast. COMPARISON: None. FINDINGS: CHEST: Lungs and Airways: Bilateral dependent passive atelectasis. Emphysema. Central/perihilar ground-glass opacities.. No endoluminal lesion. Heart and Mediastinum: The visualized portions of the thyroid are normal. No axillary or supraclavicular lymphadenopathy. No mediastinal, hilar or retrocrural lymphadenopathy. Normal heart size. Normal caliber aorta. Atherosclerotic and coronary artery calcifications. Pleura: Moderate to large bilateral pleural effusions. ABDOMEN: Liver: Normal attenuation. Gallbladder and biliary: Cholelithiasis. Normal caliber bile ducts. Spleen: Normal size and attenuation. Pancreas: Normal attenuation without peripancreatic inflammatory changes or ductal dilatation. Adrenal glands: Normal adrenal glands. Kidneys and ureters: Punctate nonobstructing right renal stone. Upper pole right renal high attenuation nodular focus measuring 2.6 cm. Favoring a proteinaceous/hemorrhagic cyst however incompletely characterized on this exam. Solid versus cystic nature could be confirmed with nonemergent renal ultrasound. No hydroureteronephrosis. GI tract: Surgical clips at the gastroesophageal junction. Stomach is relatively decompressed. Changes partial small bowel resections and anastomosis. Normal caliber small and large bowel loops. Appendix is not definitively visualized. Colonic diverticulosis without diverticulitis. Vascular structures: Normal caliber aorta with atherosclerotic calcifications. Lymph nodes: No lymphadenopathy in the abdomen or pelvis by size criteria. Peritoneum: Moderate volume free fluid. No free air. PELVIS: Genitourinary system: Urinary bladder is relatively decompressed. SKELETAL STRUCTURES AND SOFT TISSUES: Lumbar spondylosis. Thoracic spondylosis. Procedure Note Nav Coyne MD - 01/07/2025 For Patients: As a result of the 21st Century Cures Act, medical imagingexams and procedure reports are released immediately into your electronicmedical record. You may view this report before your referring provider.If you have questions, please contact your health care provider. INDICATION: Sepsis TECHNIQUE: CT chest, abdomen and pelvis acquired without contrast. COMPARISON: None. FINDINGS: CHEST: Lungs and Airways: Bilateral dependent passive atelectasis. Emphysema.Central/perihilar ground-glass opacities.. No endoluminal lesion. Heart and Mediastinum: The visualized portions of the thyroid are normal.No axillary or supraclavicular lymphadenopathy. No mediastinal, hilar orretrocrural lymphadenopathy. Normal heart size. Normal caliber aorta.Atherosclerotic and coronary artery calcifications. Pleura: Moderate to large bilateral pleural effusions. ABDOMEN: Liver: Normal attenuation. Gallbladder and biliary: Cholelithiasis. Normal caliber bile ducts. Spleen: Normal size and attenuation. Pancreas: Normal attenuation without peripancreatic inflammatory changesor ductal dilatation. Adrenal glands: Normal adrenal glands. Kidneys and ureters: Punctate nonobstructing right renal stone. Upper poleright renal high attenuation nodular focus measuring 2.6 cm. Favoring aproteinaceous/hemorrhagic cyst however incompletely characterized on thisexam. Solid versus cystic nature could be confirmed with nonemergent renalultrasound. No hydroureteronephrosis. GI tract: Surgical clips at the gastroesophageal junction. Stomach isrelatively decompressed. Changes partial small bowel resections andanastomosis. Normal caliber small and large bowel loops. Appendix is notdefinitively visualized. Colonic diverticulosis without diverticulitis. Vascular structures: Normal caliber aorta with atheroscleroticcalcifications. Lymph nodes: No lymphadenopathy in the abdomen or pelvis by sizecriteria. Peritoneum: Moderate volume free fluid. No free air. PELVIS: Genitourinary system: Urinary bladder is relatively decompressed. SKELETAL STRUCTURES AND SOFT TISSUES: Lumbar spondylosis. Thoracicspondylosis. IMPRESSION: 1. Moderate to large bilateral pleural effusions with associated passiveatelectasis for which superimposed infection is considered in thedifferential. Perihilar ground-glass airspace opacities. Constellation offindings may reflect pulmonary edema. Recommend unenhanced chest CT in 3months to document resolution and assess underlying malignant potential. 2. Moderate volume free fluid in the pelvis. 3. No obstruction. Colonic diverticulosis without diverticulitis.Cholelithiasis without imaging findings of acute cholecystitis. Please note that all CT scans at this facility use dose modulation,iterative reconstruction, and/or weight-based dosing when appropriate toreduce radiation dose to as low as reasonably achievable. Dictated by Nav Coyne MD @ 01/07/2025 9:24:12 AM (Electronically Signed) us Rafi Gallegos MD CT Final Result * PANCREATIC ELASTASE FECAL (01/06/2025 4:40 PM CDT) Pancreatic Elast Fecal 222 >200 ug Elast./g 01/09/2025 2:07 AM CDT [facility] ([facility]) Comment: Severe Pancreatic Insufficiency: <100 Moderate Pancreatic Insufficiency: 100 - 200 Normal: >200 Stool STOOL SPECIMEN / Unknown Non-Blood / Unknown 01/06/2025 4:40 PM CDT 01/06/2025 4:48 PM CDT Narrative [facility] ([facility]) - 01/09/2025 2:07 AM CDT Performed at: [facility] [employer] [address] [id number] Ambulance Officer: Tashi Vigil MD, Phone: [phone] us Rafi Gallegos MD MICROBIOLOGY Final Result [facility] ([facility]) [address] [place] [id number], * XR Chest 1 view portable (01/06/2025 1:45 PM CDT) Anatomical Region Laterality Modality HEART, THORAX, CHEST Digital Rad iography Narrative 01/06/2025 3:47 PM CDT Indication: Shortness of breath. Findings: 2 rotated portable chest x-rays show normal cardiac silhouette. The lungs show mild atelectasis in the mid and lower lungs. No pneumothorax. Impression: Mild atelectasis in the mid and lower lungs. No pneumothorax. us Rafi Gallegos MD GENERAL IMAGING Final Result * (ABNORMAL) Albumin AM (01/06/2025 11:52 AM CDT) ALBUMIN 3.0(L) 4.0 - 4.9 g/dL 01/06/2025 12:33 PM CDT [facility] Blood BLOOD SPECIMEN / Unknown Non-Lab Venipuncture / Unknown 01/06/2025 11:52 AM CDT 01/06/2025 11:59 AM CDT Rafi Gallegos MD CHEMISTRY Final Result Performing Organization Address [facility] Co de Phone Number [facility] [address] [place] [id number], [place] * SCAN-CARDIAC STRIP (01/06/2025 8:00 AM CDT) us Scanner OTHER Final Result * SCAN-CARDIAC STRIP (01/05/2025 7:15 PM CDT) us Scanner OTHER Final Result * (ABNORMAL) BLOOD CULTURE (01/05/2025 9:15 AM CDT) Only the most recent of2 resultswithin the time period is included. CULTURE RESULT(AA) 01/10/2025 12:[address] [facility] ENTRAL LABORATORY CULTURE Aerobic Bottle growing Enterococcus faecalis 01/10/2025 12:[address] [facility]-C ENTRAL LABORATORY Comment:See susceptibility o n other culture. Blood BLOOD SPECIMEN / Unknown Venipuncture / Unknown 01/05/2025 9:15 AM CDT 01/05/2025 9:24 AM CDT Abiodun Cummins MD MICROBIOLOGY Final Resu lt Performing Organization Address City/[facility]/ZIP Co de Phone Number [facility] [address] [place] [id number], [place] * (ABNORMAL) BLOOD GAS,VENOUS (01/05/2025 9:02 AM CDT) PH, VENOUS 7.32 7.32 - 7.43 01/05/2025 9:13 AM CDT [facility] PCO2, VENOUS 29(L) 41 - 51 mmHg 01/05/2025 9:13 AM CDT [facility] PO2, VENOUS 36 35 - 40 mmHg 01/05/2025 9:13 AM CDT [facility] HCO3,VENOUS 15(L) 22 - 29 mmol/L 01/05/2025 9:13 AM CDT [facility] BASE EXCESS, VENOUS, POCT -9.8(L) -2.0 - 3.0 01/05/2025 9:13 AM CDT [facility] O2 SATURATION, VENOUS 59(L) 70 - 75 % 01/05/2025 9:13 AM CDT [facility] PATIENT TEMPERATURE 37.0 Degrees C 01/05/2025 9:13 AM T [facility] Blood VENOUS BLOOD SPECIMEN / Unknown Venipuncture / Unknown 01/05/2025 9:02 AM CDT 01/05/2025 9:10 AM CDT us Abiodun Cummins MD CHEMISTRY Final Resu lt [facility] [address] [place] [id number], [place] * (ABNORMAL) RETICULOCYTES (01/05/2025 9:02 AM CDT) RETIC% 5.9(H) 0.5 - 1.5 % 01/05/2025 9:20 AM CDT [facility] RETIC (ABSOLUTE) 0.16(H) 0.03 - 0.08 mil/cu mm 01/05/2025 9:20 AM CDT [facility] Blood BLOOD SPECIMEN / Unknown Venipuncture / Unknown 01/05/2025 9:02 AM CDT 01/05/2025 9:10 AM CDT us Abiodun Cummins MD HEMATOLOGY Final Resu lt [facility] [address] [place] [address], * (ABNORMAL) BLOOD CULTURE MULTIPLEX PCR (01/05/2025 9:01 AM CDT) Organism(s) Detected Enterococcus faecalis(AA) No organism targets detected., Invalid 01/07/2025 5:33 AM CDT [facility] Resistance Gene(s) None detected None detected 01/07/2025 5:33 AM CDT [facility] CTX-M (ESBL-resistance gene) N/A 01/07/2025 5:33 AM CDT [facility] IMP (carbapenem-resistan ce gene) N/A NOT Detected, N/A 01/07/2025 5:33 AM CDT [facility] KPC (carbapenem-resistan ce gene) N/A NOT Detected, N/A 01/07/2025 5:33 AM CDT [facility] mcr-1 (colistin-resistance gene) N/A 01/07/2025 5:33 AM CDT [facility] mecA/C (methicillin-resista nce gene) N/A 01/07/2025 5:33 AM CDT [facility] mecA/C and MREJ (methicillin-resista nce gene) N/A 01/07/2025 5:33 AM CDT [facility] NDM (carbapenem-resistan ce gene) N/A NOT Detected, N/A 01/07/2025 5:33 AM CDT [facility] OXA-48 like (carbapenem-resistan ce gene) N/A NOT Detected, N/A 01/07/2025 5:33 AM CDT [facility] van A/B (vancomycin-resistan ce genes) NOT Detected 01/07/2025 5:33 AM CDT [facility] VIM (carbapenem-resistan ce gene) N/A NOT Detected, N/A 01/07/2025 5:33 AM CDT [facility] Enterococcus faecalis Detected 01/07/2025 5:33 AM CDT [facility] Enterococcus faecium NOT Detected 5:33 AM CDT [facility] Listeria monocytogenes NOT Detected 01/07/2025 5:33 AM CDT [facility] Staphylococcus NOT Detected 01/08/20 5:33 AM CDT [facility] Staphlococcus aureus NOT Detected 5:33 AM CDT [facility] Staphylococcus epidermidis NOT Detected 01/07/2025 5:33 AM CDT [facility] Staphylococcus lugdunensis NOT Detected 01/07/2025 5:33 AM CDT [facility] Streptococcus NOT Detected 5:33 AM CDT [facility] Streptococcus agalactiae (Group B) NOT Detected 01/07/2025 5:33 AM CDT [facility] Streptococcus pneumoniae NOT Detected 01/07/2025 5:33 AM CDT [facility] Streptococcus pyogenes (Group A) NOT Detected 01/07/2025 5:33 AM CDT [facility] Acinetobacter calcoaceticus-mayra jasmina complex NOT Detected 01/07/2025 5:33 AM CDT [facility] Enterobacteriaceae NOT Detected 12/21 5:33 AM CDT [facility] Enterobacter cloacae complex NOT Detected 01/07/2025 5:33 AM CDT [facility] Escherichia coli NOT Detected 2024 5:33 AM CDT [facility] Klebsiella oxytoca NOT Detected 12/21 5:33 AM CDT [facility] Klebsiella pneumoniae group NOT Detected 01/07/2025 5:33 AM CDT [facility] Proteus NOT Detected 01/07/2025 5:33 AM CDT [facility] Serratia marcescens NOT Detected 5:33 AM CDT [facility] Haemophilus influenzae NOT Detected 01/07/2025 5:33 AM CDT [facility] Neisseria meningitidis NOT Detected 01/07/2025 5:33 AM CDT [facility] Pseudomonas aeruginosa NOT Detected 01/07/2025 5:33 AM CDT [facility] Melinda albicans NOT Detected 2024 5:33 AM CDT [facility] Melinda glabrata NOT Detected 2024 5:33 AM CDT [facility] Melinda krusei NOT Detected 01/08/20 5:33 AM CDT [facility] Melinda parapsilosis NOT Detected 5:33 AM CDT [facility] Melinda tropicalis NOT Detected 12/21 5:33 AM CDT [facility] Bacteroides fragilis group NOT Detected 01/07/2025 5:33 AM CDT [facility] Klebsiella aerogenes NOT Detected 5:33 AM CDT [facility] Salmonella NOT Detected 01/07/2025 5:33 AM CDT [facility] Stenotrophomonas maltophilia NOT Detected 01/07/2025 5:33 AM CDT [facility] Melinda auris NOT Detected 5:33 AM CDT [facility] Cryptococcus neoformans/gattii NOT Detected 01/07/2025 5:33 AM CDT [facility] Blood BLOOD SPECIMEN / Unknown Venipuncture / Unknown 01/05/2025 9:01 AM CDT 01/05/2025 9:24 AM CDT [facility] - 01/07/2025 5:33 AM CDT Note: Antimicrobial resistance can occur via multiple mechanisms. A Not Detected result for antimicrobial resistance gene(s) does not indicate antimicrobial susceptibility. Subculturing is required for species identification and susceptibility testing of isolates. Note: All BIOFIRE BCID2 Panel results are intended to be interpreted in conjunction with Gram stain results. In some cases, the Gram stain result and the BIOFIRE BCID2 Panel result may be discrepant. In these cases, the BIOFIRE BCID2 Panel results should be confirmed, e.g., by culture or other laboratory, epidemiological, or clinical findings. Blood culture media may contain non-viable organisms and/or nucleic acids that may lead to false positive BIOFIRE BCID2 Panel results. Typically, these false positives present with more than one positive result from the BIOFIRE BCID2 Panel. Abiodun Cummins MD MICROBIOLOGY Final Resu lt [facility] [address] [place] [address], [place] * (ABNORMAL) TROPONIN T (HS) ONE TIME (01/05/2025 9:01 AM CDT) Pathologist [facility] TROPONIN T HS 22(H) 6-15 ng/L ng/L 01/05/2025 9:55 AM CDT [facility] Blood BLOOD SPECIMEN / Unknown Venipuncture / Unknown 01/05/2025 9:01 AM CDT 01/05/2025 9:11 AM CDT Narrative [facility] - 01/05/2025 9:55 AM CDT hs-cTnT (Elecsys Troponin T Gen 5) concentration (s) above the sex-specific 99th percentile (16 ng/L or greater for males or 11 ng/L or greater for females) are indicative of myocardial injury. If initial hs-cTnT <=100 ng/L at presentation, a 0h/2h ABSOLUTE (ng/L) delta change (rising or falling) of >=10 ng/L suggests a significant change, whereas a 0h/2h delta change <=3 ng/L suggests no significant change. If initial hs-cTnT >100 ng/L at presentation, a 0h/2h/ RELATIVE (percent, %) delta change of 20% is suggested to distinguish patients with acute vs. chronic myocardial injury. There are multiple etiologies that can cause hs-cTnT increases above the 99th percentile (myocardial injury) other than acute myocardial infarction. Clinical context and careful clinical evaluation are critical for diagnosis and risk-stratification. The diagnosis of acute myocardial infarction requires a rising and/or falling pattern in hs-cTnT concentrations with at least one value above the sex-specific 99th percentile PLUS at least one of the following clinical criteria: ischemic symptoms, new or presumed new significant ST-T wave changes or new LBBB, development of pathological Q waves, imaging evidence of new loss of viable myocardium or new regional wall motion abnormality, or identification of intracoronary atherothrombosis or an acute angiographic culprit on coronary angiography. In appropriate low-risk patients with a non-ischemic electrocardiogram without active chest pain with a symptom onset >3-hours without recurrence, a single initial hs-cTnT<6 ng/L identifies patient with a very low risk in emergency department patient population. us Abiodun Cummins MD CHEMISTRY Final Resu lt [facility] [address] [place] [address], * (ABNORMAL) CBC WITH AUTO DIFFERENTIAL (01/05/2025 9:01 AM CDT) Pathologist [facility] WHITE BLOOD COUNT 26.8(H) 4.5 - 11.0 thou/cu mm 01/05/2025 9:21 AM CDT [facility] RED BLOOD COUNT 2.82(L) 4.30 - 5.90 mil/cu mm 01/05/2025 9:21 AM CDT [facility] HEMOGLOBIN 8.9(L) 13.5 - 17.5 g/dL 01/05/2025 9:21 AM T [facility] HEMATOCRIT 27.3(L) 37.0 - 53.0 % 01/05/2025 9:21 AM CDT [facility] MCV 97 80 - 100 fL 01/05/2025 9:21 AM CDT [facility] MCH 31.6 26.0 - 34.0 pg 01/05/2025 9:21 AM CDT [facility] MCHC 32.6 32.0 - 36.0 g/dL 01/05/2025 9:21 AM T [facility] RDW 17.4(H) 11.5 - 15.5 % 01/05/2025 9:21 AM [facility] PLATELET COUNT 173 140 - 440 thou/cu mm 01/05/2025 9:21 AM [facility] MPV 10.6 6.5 - 11.0 fL 01/05/2025 9:21 AM [facility] NRBC 0.0 % 01/05/2025 9:21 AM [facility] ABS NRBC 0.0 thou /cu mm 01/05/2025 9:21 AM [facility] % NEUT 90.8 % 01/05/2025 9:21 AM [facility] % LYMPH 1.9 % 01/05/2025 9:21 AM [facility] % MONO 5.1 % 01/05/2025 9:21 AM [facility] % EOS 0.3 % 01/05/2025 9:21 AM [facility] % BASO 0.3 % 01/05/2025 9:21 AM [facility] % IMMATURE GRAN (METAS,MYELOS,CO OS) 1.6 % 01/05/2025 9:21 AM [facility] ABSOLUTE NEUTROPHILS 24.3(H) 1.7 - 7.0 thou/cu mm 01/05/2025 9:21 AM [facility] ABSOLUTE LYMPHOCYTES 0.5(L) 0.9 - 2.9 thou/cu mm 01/05/2025 9:21 AM [facility] ABSOLUTE MONOCYTES 1.4(H) <0.9 thou/cu mm 01/05/2025 9:21 AM [facility] ABSOLUTE EOSINOPHILS 0.1 <0.5 thou/cu mm 01/05/2025 9:21 AM [facility] ABSOLUTE BASOPHILS 0.1 <0.3 thou/cu mm 01/05/2025 9:21 AM CDT [facility] ABSOLUTE IMMATURE GRANULOCYTES(MET ,MYELOS,PROS) 0.4(H) <0.3 thou/cu mm 01/05/2025 9:21 AM CDT [facility] Blood BLOOD SPECIMEN / Unknown Venipuncture / Unknown 01/05/2025 9:01 AM CDT 01/05/2025 9:10 AM CDT Abiodun Cummins MD HEMATOLOGY Final Resu lt [facility] [address] [place], [place] [id number], [place] * (ABNORMAL) IRON PLUS IRON BINDING CAP (01/05/2025 9:01 AM CDT) IRON 61 61 - 157 ug/dL 01/05/2025 9:49 AM CDT [facility] UIBC (UNSATURATED) 54(L) 112 - 347 ug/dL 01/05/2025 9:49 AM CDT [facility] IRON BINDING CAPACITY 115(L) 250 - 400 ug/dL 01/05/2025 9:49 AM CDT [facility] IRON,% SATURATION 53(H) 14 - 50 % 01/05/2025 9:49 AM CDT [facility] Blood BLOOD SPECIMEN / Unknown Venipuncture / Unknown 01/05/2025 9:01 AM CDT 01/05/2025 9:11 AM CDT Abiodun Cummins MD CHEMISTRY Final Resu lt [facility] [address] [place] [id number], [place] * FERRITIN (01/05/2025 9:01 AM CDT) FERRITIN 264.0 30.0 - 400.0 ng/mL 01/05/2025 11:51 AM CDT [facility] Blood BLOOD SPECIMEN / Unknown Venipuncture / Unknown 01/05/2025 9:01 AM CDT 01/05/2025 9:11 AM CDT Abiodun Cummins MD CHEMISTRY Final Resu lt Performing Organization Address [facility]/ZIP Co de Phone Number [facility] [address] [place] [address], * (ABNORMAL) CK TOTAL (01/05/2025 9:01 AM CDT) Pathologist [facility] CK,TOTAL 389(H) 39 - 308 IU/L 01/05/2025 9:55 AM CDT [facility] Blood BLOOD SPECIMEN / Unknown Venipuncture / Unknown 01/05/2025 9:01 AM CDT 01/05/2025 9:11 AM CDT Abiodun Cummins MD CHEMISTRY Final Resu Performing Organization Address [facility] Co de Phone Number [facility] [address] [place] [address], * SCAN-CARDIAC STRIP (01/05/2025 8:04 AM CDT) Scanner OTHER Final Result * EKG 12 LEAD (01/05/2025 7:52 AM CDT) [facility] Interpretation Sinus rhythm with 1st degree A-V block Left axis deviation ST & T wave abnormality, consider inferior ischemia ST & T wave abnormality, consider anterolateral ischemia Abnormal ECG When compared with ECG of 01-Apr-2021 13:54, Significant changes have occurred BEYOND NOW Ventricular Rate 97 BPM BEYOND NOW Atrial Rate 97 BPM BEYOND NOW P-R Interval 270 ms BEYOND NOW QRS Duration 88 ms BEYOND NOW QT 338 ms BEYOND NOW QTc 429 ms BEYOND NOW P [place] 37 degrees BEYOND NOW R [place] -32 degrees BEYOND NOW T [place] 202 degrees BEYOND NOW 01/05/2025 7:52 AM CDT 01/06/2025 2:28 PM CDT Abiodun Cummins MD EKG ORD Final Resu lt BEYOND NOW [place] * MRSA/SA PCR (01/05/2025 7:48 AM CDT) MRSA DNA PCR Negative Negative 01/05/2025 11:10 AM CDT [facility] STAPHYLOCOCCUS AUREUS PCR Negative Negative 01/05/2025 11:10 AM CDT [facility] Other SPECIMEN FROM INTERNAL NOSE / Unknown Non-Blood / Unknown 01/05/2025 7:48 AM CDT 01/05/2025 7:55 AM CDT Narrative [facility] - 01/05/2025 11:10 AM CDT Test result does not preclude MRSA or SA nasal colonization. Abiodun Cummins MD MICROBIOLOGY Final Resu lt Performing Organization Address City/[facility]/ZIP Co de Phone Number [facility] [address] [place] [address], * (ABNORMAL) DRUG SCREEN RAPID URINE INHOUSE (01/05/2025 7:48 AM CDT) THC METABOLITES,FLACO L Non-negative , consider further testing if indicated(A) Not Detected 01/05/2025 8:14 AM CDT [facility] PCP,QUAL Not Detected Not Detected 01/05/2025 8:14 AM CDT [facility] COCAINE,QUAL Not Detected Not Detected 01/05/2025 8:14 AM CDT [facility] METHAMPHETAMINE , QUALITATIVE Not Detected Not Detected 01/05/2025 8:14 AM CDT [facility] OPIATES,QUAL Not Detected Not Detected 01/05/2025 8:14 AM CDT [facility] AMPHETAMINE, QUALITATIVE Not Detected Not Detected 01/05/2025 8:14 AM CDT [facility] BENZODIAZEPINES ,QUAL Not Detected Not Detected 01/05/2025 8:14 AM CDT [facility] TRICYCLICS,QUAL Not Detected Not Detected 01/05/2025 8:14 AM CDT [facility] METHADONE, QUALITATIVE Not Detected Not Detected 01/05/2025 8:14 AM CDT [facility] BARBITURATES,QU AL Not Detected Not Detected 01/05/2025 8:14 AM CDT [facility] OXYCODONE, QUALITATIVE Not Detected Not Detected 01/05/2025 8:14 AM CDT [facility] BUPRENORPHINE, QUALITATIVE Not Detected Not Detected 01/05/2025 8:14 AM CDT [facility] Urine URINE SPECIMEN / Unknown Non-Blood / Unknown 01/05/2025 7:48 AM CDT 01/05/2025 7:55 AM CDT Narrative [facility] - 01/05/2025 8:14 AM CDT Please Note: This is a screening test only, all results are unconfirmed and should be used for medical purposes only. Unconfirmed results must not be used for non-medical purposes (e.g., employment testing, legal testing). Suggest analyte specific confirmation for all non-negative results. Specimens will be held for 24 hours if additional testing is needed. The following threshold concentrations are used for this analysis: Drug Screening Threshold Buprenorphine 10 ng/mL PCP 25 ng/mL THC Metabolites 50 ng/mL *Opiates 100 ng/mL Oxycodone 100 ng/mL Cocaine 150 ng/mL Benzodiazepines 150 ng/mL Methadone 200 ng/mL Barbiturates 200 ng/mL Tricyclic Antidepressants 300 ng/mL Amphetamines 500 ng/mL Methamphetamines 500 ng/mL *Includes related compounds: Codeine 50 ng/mL Heroin 100 ng/mL Morphine 100 ng/mL Hydrocodone 400 ng/mL Hydromorphone 800 ng/mL Venlafaxine (Effexor) is a known cross reactant in the PCP assay. If clinically indicated, order PCP confirmation. us Abiodun Cummins MD URINE Final Resu lt [facility] [address] [place] [address], [place] * (ABNORMAL) URINALYSIS MICROSCOPIC (01/05/2025 7:48 AM CDT) RBC >100(A) 0-2, None Seen /HPF 01/05/2025 8:05 AM CDT [facility] WBC 11-25(A) 0-2, 3-5, None Seen /HPF 01/05/2025 8:05 AM CDT [facility] BACTERIA None Seen None Seen, Rare, Few Bacteria/ HPF 01/05/2025 8:05 AM CDT [facility] EPITHELIAL CELLS None Seen None Seen, Few Epi/HPF 01/05/2025 8:05 AM CDT [facility] HYALINE CASTS 0-2 0-2, 3-5 /LPF 01/05/2025 8:05 AM CDT [facility] Urine URINE SPECIMEN / Unknown Non-Blood / Unknown 01/05/2025 7:48 AM CDT 01/05/2025 7:55 AM CDT us Abiodun Cummins MD URINE Final Resu lt [facility] [address] [place] [address], [place] * (ABNORMAL) UA W/ SEDIMENT EXAM REFLEXED PER CRITERIA (01/05/2025 7:48 AM CDT) COLOR Yellow Yellow Color 01/05/2025 8:05 AM CDT [facility] CLARITY Clear Clear Clarity 01/05/2025 8:05 AM CDT [facility] SPECIFIC GRAVITY,URINE >=1.030(A) 1.010, 1.015, 1.020, 1.025 01/05/2025 8:05 AM CDT [facility] PH,URINE 5.5 6.0, 7.0, 8.0, 5.5, 6.5, 7.5, 8.5 01/05/2025 8:05 AM CDT [facility] UROBILINOGEN,QU ALITATIVE Normal Normal EU/dl 01/05/2025 8:05 AM CDT [facility] PROTEIN, URINE 30(A) Negative mg/dL 01/05/2025 8:05 AM CDT [facility] GLUCOSE, URINE Negative Negative mg/dL 01/05/2025 8:05 AM CDT [facility] KETONES,URINE Negative Negative mg/dL 01/05/2025 8:05 AM CDT [facility] BILIRUBIN,URINE Abnormal(A) Negative 01/06/20 25 8:05 AM CDT [facility] Comment:A variety of metabol ites and/or medications may result in a positive bilirubin result. Clinical correlation is recommended. OCCULT BLOOD,URINE Large(A) Negative 01/05/2025 8:05 AM CDT [facility] NITRITE Negative Negative 01/05/2025 8:05 AM CDT [facility] LEUKOCYTE ESTERASE Moderate(A) Negative 01/05/2025 8:05 AM CDT [facility] Urine URINE SPECIMEN / Unknown Non-Blood / Unknown 01/05/2025 7:48 AM CDT 01/05/2025 7:55 AM CDT us Abiodun Cummins MD URINE Final Resu lt [facility] [address] [place] [address], from Last 3 Months Insurance [facility] MEDICARE PART A HB ONLY HC MEDICARE PPS [facility] HC UCARE MEDICARE PDGM Advance Directives * Full Code (Latest Code Status on File) Date Activated Date Inactivated Comments 01/06/2025 12:35 PM 01/13/2025 6:34 PM reviewed w/ patient 01/06 Question Answer Comments Code Status Discussion: Reviewed Preferences * Full Code Date Activated Date Inactivated Comments 01/05/2025 7:25 AM 01/06/2025 12:35 PM Question Answer Comments Code Status Discussion: Unable to Assess Preferences, Provider to review later * Full Code Date Activated Date Inactivated Comments 04/01/2021 7:43 PM 04/02/2021 5:19 PM Question Answer Comments Code Status Discussion: Other Care Teams Warehouse Shift Supervisor Relationship Specialty Start Date End Date Maggie Fierro MD [address] [place] [id number] PCP - General Internal Medicine 01/08/[address] [address] 01/13/25 Becki Santos(?) AXIS Care Coord [facility] Connect+ 01/01/25
--- OUTSIDE RECORDS SUMMARY | 2025-01-23 13:43 | XMS_ITS | Clinical Summary ---
Author Organization [facility] Address [address] [place] [address] Care Team Providers Care Grade Foreman Name Role Phone Gabe Zheng MD Primary Care Provider [phone] Source Comments You are receiving this document as you are listed as the primary care provider,follow-up provider, or the patient has been referred to you for consultation.This is in compliance with the Medicare and[facility] EHR Incentive Program,which states Providers who transition their patient to another setting of careor provider of care or refers their patient to another provider of care shouldprovide summary care record for each transition of care or referral. 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 [address] Gabe Zheng MD UPDATE 12/20/2024 Telephone [facility] [address] Ophthalmology [address] [place] [address] Trevon Troncoso MD Scheduling Question from Last 3 Months Immunizations Immunization Administration Dates Next Due Hdcv - Rabies Vaccine 03/21/2002, 002,02/26/2002,2001 HepB Adult (Engerix-B, 20+ y rs, 3 dose series) 06/27/2013,01/16/2013,12/08/2012 Influenza (Flucelvax), Prese rv Free QIV 02/20/2020 Influenza IIV4 (Quadrivalent ) 0.5mL (00474) 04/02/2021 Moderna Monovalent 12+ 12/12/2020,10/07/2020 TB Skin [...] Colonoscopy 03/19/2023 03/19/2013 (Completed) Cholesterol 09/26/2023 09/25/2018, 1012/2017, 12/26/2017, Additional history exists Medicare Annual Wellness Visit 05/23/2024 COVID-19 Vaccine ( season) 2025 06/07/2023, 12/12/2020, 10/07/2020 Influenza Vaccine (#1) 2025 , 04/02/2021, 02/20/2020 DTaP/Tdap/Td Vaccine (3 - Tdap) [...] type HIV ANTIBODY Routine 05/08/2010 11:35 AM MICROARRAY SPECIALIST HEPATITIS C ANTIBODY, WITH REFLEX (ANTI-HCV) Routine 05/08/2010 11:35 AM MICROARRAY SPECIALIST from Last 3 Months or Most Recently Relevant to Health Maintenance Results * Lipid Panel and Direct LDL(If Needed) (09/25/2018 4:02 PM CDT) Cholesterol 147 0 - 199 mg/dL 09/25/2018 4:34 PM CDT [facility] 3850 LABORATORY Triglyceride 59 <=149 mg/dL 09/25/2018 4:34 PM CDT [facility] 3850 LABORATORY HDL Cholesterol 43 >=40 mg/dL 9 4:34 PM CDT [facility] 3850 LABORATORY LDL, Calculated 92 <130 mg/dL 9 4:34 PM CDT [place] [address] LABORATORY Non HDL Chol, Calculated 104 <=159 mg/dL 09/25/2018 4:34 PM CDT [place] [address] [facility]ORY Cholesterol/HDL Ratio 3.4 09/25/2018 4:34 PM CDT [facility] 385 LABORATORY Blood Venipuncture / Unknown 09/25/2018 4:02 PM CDT 09/25/2018 4:02 PM CDT Gabe Zheng MD LAB_1 Final Result Performing Organization Address [facility] de Phone Number [place] [address] LABORATORY [address] [place] [address], [facility] [phone] * Prostatic Specific Antigen (Screen) (09/25/2018 4:02 PM CDT) Prostatic Specific Antigen 0.3 0.0 - 4.0 ng/mL 09/25/2018 7:24 PM CDT [facility] Blood Venipuncture / Unknown 09/25/2018 4:02 PM CDT 09/25/2018 4:02 PM CDT Narrative [facility] - 09/25/2018 7:24 PM CDT The Ruiz PSA Chemiluminescent immunoassay is used. Results obtained with different test methods or kits cannot be used interchangeably. Gabe Zheng MD LAB_1 Final Result Performing Organization Address [facility] de Phone Number [facility] [address] [place], [place] [address] * HIV ANTIBODY (05/08/2010 11:35 AM MICROARRAY SPECIALIST) HIV 1/HIV 2 Non-React No normal range HP CONVERSION 05/08/2010 11:3 5 AM MICROARRAY SPECIALIST us Gabe Zheng MD LAB_1 Final Result Performing Organization Address [facility] de Phone Number HP CONVERSION * Hepatitis C Antibody, with Reflex (05/08/2010 11:35 AM MICROARRAY SPECIALIST) Hepatitis C Antibody Non-React No normal range HP CONVERSION 05/08/2010 11:3 5 AM MICROARRAY SPECIALIST Gabe Zheng MD LAB_1 Final Result HP CONVERSION from Last 3 Months or Most Recently Relevant to Health Maintenance Insurance [facility] MEDICARE Advance Directives * Full Code (Latest [...] 2:04 AM 02/06/2015 1:21 PM Care Teams Grade Foreman Relationship Specialty Start Date End Date Gabe Zheng MD [address] [place] [address] PCP - General Family Practice 01/16/25
[2025-01-23 13:45] VITALS: BP 113/78; PULSE 108; RESP 16; TEMP 36.5; O2SAT 100; BMI 17.9
--- OUTSIDE RECORDS SUMMARY | 2025-01-23 14:43 | XMS_ITS | CCD ---
Author Organization Unknown Care Team Providers Care Crime Scene Analyst Name Role Phone Assignment Agent, [place] Primary Care Provider Unava ilable Unavailable Chronic Care Management Unavaila ble Summary Purpose DataExchange Insurance Providers Payer name Policy type / Coverage type Covered libertarian ID Effective Begin Date Effective End Date [facility] Commercial Insurance [id number] Unknown Unkn own Family History Family History data not found Medication Administered No Medication Administered data Reason For Visit No Reason For Visit data
[2025-01-23 15:30] LABS: Hematocrit* 30.6 % (37.0-53.0); Hemoglobin* 10.3 gm/dL (13.5-17.5); Immature Granulocytes Pct Auto 0.7 %; Mean Corpuscular HGB Conc 34 gm/dL (32-36); Mean Corpuscular Hemoglobin 32 pg (26-34); Mean Corpuscular Volume 95 fL (80-100); RDW Coefficient of Variation % 15.3 % (11.5-15.5); Red Blood Count* 3.21 m/uL (4.30-5.90); White Blood Count* 12.84 K/uL (4.50-11.00)
[2025-01-23 15:33] LABS: Immature Granulocytes Abs Auto 0.10 K/uL (0.00-0.30); Lymphocytes Absolute Auto 1.90 K/uL (0.90-2.90); Slide Review Reflex No
[2025-01-23 15:36] LABS: Chloride* 99 mmol/L (96-114); Potassium* 4.0 mmol/L (3.6-5.1); Sodium* 132 mmol/L (135-149)
[2025-01-23 15:39] LABS: Anion Gap 6 mEq/L (7-15); Blood Urea Nitrogen* 7 mg/dL (7-30); Calcium* 8.4 mg/dL (8.4-10.6); Carbon Dioxide* 27 mmol/L (20-32); Creatinine* 0.8 mg/dL (0.5-1.5); Est. Creatinine Clearance* 86.75; Estimated Glomerular Filt Rate 102 ml/min; Glucose* 108 mg/dL (60-115)
[2025-01-23 15:49] VITALS: BP 120/85; PULSE 96; RESP 18; O2SAT 96
--- NOTE | 2025-01-23 15:53 | ED.GENADULT ---
HPI - General Adult General Date Seen: 01/23/25 Chief complaint: Extremity Pain/Injury, Lower Stated complaint: infection on legs Time Seen by Provider: 01/23/25 13:42 Source: patient Mode of arrival: ambulatory Limitations: no limitations History of Present Illness HPI narrative: Patient is a 59-year-old male presenting to the emergency department for wounds on his lower extremities. He states he was hospitalized at [place] in discharged 01/13 for septic shock from a UTI. In the hospital he required pressor support and was started on antibiotics. He was growing Enterococcus and eventually discharged on amoxicillin. States he had swollen legs after that and was started on spur lactose to help with his fluid overload. While he was having the swollen legs though he would wear tight jeans and his legs would rub against the addendum causing blisters to form. States he had multiple blisters worse on his left than the right. Swelling has gone down significantly since then but states his home health nurse evaluated his legs today and told him to come in for possible cellulitis. There is erythema noted to the left leg that is tender to palpation. Right leg has a couple blisters that have broken open but the left leg has 4 to 5 larger ones. Denies fevers, chills, lightheadedness, weakness, dizziness, numbness, abdominal pain, headache, vision changes. No other concerns noted at this time. Related Data Home Medications ?Medication ?Instructions ?Recorded ?Confirmed magnesium citrate,mag oxide 60 mg PO DAILY 06/07/23 11/01/24 metronidazole topical DAILY 06/07/23 11/01/24 folic acid 1 mg tablet 1 mg PO QDAY 01/22/25 furosemide 20 mg tablet 20 mg PO QDAY 01/22/25 gabapentin 300 mg capsule 300 mg PO TID 01/22/25 [id number]-omj-psnlp acid 0.4 1 tab PO QDAY 01/22/25 mg-lycopene 300 mcg-lutein 250 mcg tablet (CertaVite Senior) ondansetron 4 mg disintegrating 4 mg PO Q8H PRN 01/22/25 tablet pantoprazole 40 mg tablet,delayed 40 mg PO QDAY 01/22/25 release spironolactone 50 mg tablet 50 mg PO QDAY 01/22/25 thiamine HCl (vitamin B1) 100 mg 100 mg PO QDAY 01/22/25 tablet amoxicillin .ROUTE 01/23/25 Previous Rx's ?Medication ?Instructions ?Recorded tizanidine 4 mg tablet 4 mg PO 3XD PRN muscle cramps #20 06/24/23 tabs clindamycin HCl 150 mg capsule 450 mg (3 x 150 mg) PO TID 5 days 01/23/25 #45 caps Allergies Allergy/AdvReac Type Severity Reaction Status Date / Time No Known Drug Allergies Allergy Verified 01/14/25 13:08 Review of Systems Status of ROS: Reports: 10 or more systems reviewed and unremarkable except as noted in History and below [facility] Medical History History of facial fracture ?Z87.81 - Personal history of (healed) traumatic fracture (ICD-10) History of renal calculi ?Z87.442 - Personal history of urinary calculi (ICD-10) Surgical History History of eye surgery ?Z98.890 - Other specified postprocedural states (ICD-10) History of partial gastrectomy (1992) ?Z90.3 - Acquired absence of stomach [part of] (ICD-10) History of colonoscopy (03/19/13) ?Z98.890 - Other specified postprocedural states (ICD-10) History of resection of small bowel ?Z90.49 - Acquired absence of other specified parts of digestive tract (ICD-10) Family History Grandmother Heart disease Diabetes Father Stroke, Onset Age: 49 Mother Breast cancer, Onset Age: 74 Uncle Diabetes Social History What is your current living situation?: I presently have a place to live Problems where you live: no known problems Problems where you live details: They haven't repairs yet In the past 12 months, utilities in danger of being shut off: no In past 12 months, lack of transportation kept you from medical appts, meetings, work, or getting things needed for daily living: yes In the past 12 mos, have been you worried that your food would run out before you had money to buy more?: never true In the past 12 mos, the food you bought just didn't last and you didn't have money to buy more?: never true Smoking Status: Former smoker What tobacco products do you use: cigarettes Smoking packs per day: 0.5 Smoking cigarettes per day: 10.0 Years smoked: 41 Smoking pack-years: 20.50 Do you use any of these nicotine containing products: None Second hand tobacco smoke exposure: No How often do you have a drink containing alcohol: never How many standard drinks containing alcohol do you have on a typical day: 10 or more How often do you have six or more drinks on one occasion: Never AUDIT-C Alcohol total score: 4 Non-prescribed substance use: marijuana (any form) How often does anyone, including family, friends and others, physically hurt you: never How often does anyone, including family, friends and others, insult or talk down to you: frequently How often does anyone, including family, friends and others, threaten you with harm: never How often does anyone, including family, friends and others, scream or curse at you: sometimes Health Related Social Needs: transportation insecurity (Z59.82) and Other personal risk factors, not elsewhere classified (Z91.89) Exam Narrative: Exam Narrative: Const: Well-nourished, Well-developed, in mild distress Eyes: PERRL, no conjunctival injection, and symmetrical lids HENT: Atraumatic external nose and ears. Moist mucous membranes. Neck: Symmetric, trachea midline, No thyromegaly. CVS: RRR, No murmurs or gallops. Peripheral pulses 2+ and equal in all extremities, +1 edema noted in the ankles bilaterally RESP: Unlabored respiratory effort. Clear to auscultation bilaterally. GI: Nontender/Nondistended, No rebound or guarding. MSK:Extremities w/o deformity, Normal Active ROM Skin: Warm, Dry. Multiple open blisters on his legs with a couple on the anterior portion of the right leg measuring about 2 cm and multiple on the left leg anterior portion measuring 4-5 cm. There is erythema tenderness palpation noted to the left lower extremity around these blisters Neuro: Normal Muscle tone, No focal neurological deficits. Psych: Awake, Alert, & Oriented x3. Appropriate mood and affect. Const: Vital Signs, click to edit/add: Vital Signs - 24 hr 01/23/25 13:45 01/23/25 15:49 Temperature 97.7 F Pulse Rate [Pulse Oximeter] 108 H 96 Respiratory Rate 16 18 Blood Pressure [Ri t Upper Arm] 113/78 120/85 Pulse Oximetry 100 96 Oxygen Delivery Me thod Room Air Course Vital Signs Vital signs: Initial Vital Signs Temperature 97.7 F 01/23/25 13:45 Temperature Source Temporal Artery Scan 01/23/25 13:45 Pulse Rate 108 H 01/23/25 13:45 Respiratory Rate 16 01/23/25 13:45 Blood Pressure 113/78 01/23/25 13:45 Blood Pressure Mean 89 01/23/25 13:45 Blood Pressure Position Sitting 01/23/25 13:45 Pulse Oximetry 100 01/23/25 13:45 Oxygen Delivery Method Room Air 01/23/25 13:45 Vital Signs Temperature 97.7 F 01/23/25 13:45 Pulse Rate 108 H 01/23/25 13:45 Respiratory Rate 16 01/23/25 13:45 Blood Pressure 113/78 01/23/25 13:45 Pulse Oximetry 100 01/23/25 13:45 Oxygen Delivery Method Room Air 01/23/25 13:45 Temperature 97.7 F 01/23/25 13:45 Pulse Rate 96 01/23/25 15:49 Respiratory Rate 18 01/23/25 15:49 Blood Pressure 120/85 01/23/25 15:49 Pulse Oximetry 96 01/23/25 15:49 Oxygen Delivery Method Room Air 01/23/25 13:45 Medical Decision Making [facility] Narrative Medical decision making narrative: Patient is a 59-year-old male concern for infection of his left lower extremity. The left lower extremity does have some mild warmth and obvious erythema and tenderness noted around the multiple open blisters. The right leg has a couple small blisters but no signs of cellulitis. With his recent history I do want to repeat his CBC and BMP. CBC came back elevated at 12.84. When he was discharged from the hospital 2 weeks ago it was around 10 per [facility] chart review. He does meet SIRS criteria so will do a lactate. His heart rate did improved to 96 and he is not hypotensive. Does not appear to be in septic shock. Lactate will and blood cultures were ordered. Lactate got delayed due to issues with the machine but eventually returned and was 1.7. He is not appear to be septic at this time and I do not believe fluids are necessary. I will add clindamycin to his antibiotics along with the current amoxicillin he is taking. I will also refer him for wound care. He is agreeable to this plan. Lab Data Labs: Lab Results 01/23/25 01/23/25 Range/Units 14:45 16:45 WBC 12.84 H (4.50-11.00) K/uL RBC 3.21 L (4.30-5.90) m/uL Hgb 10.3 L (13.5-17.5) gm/dL Hct 30.6 L (37.0-53.0) % MCV 95 (80-100) fL MCH 32 (26-34) pg MCHC 34 (32-36) gm/dL RDW Coeff of Lucian 15.3 (11.5-15.5) % Plt Count 462 H (140-440) K/uL Neut % (Auto) 72.1 H (42.0-72.0) % Lymph % (Auto) 14.7 L (20-44) % Fleming % (Auto) 10.5 (0.0-11.0) % Eos % (Auto) 1.5 (0.0-7.0) % Baso % (Auto) 0.5 (0.0-3.0) % Neut # (Auto) 9.30 H (1.7-7.0) K/uL Lymph # (Auto) 1.90 (0.90-2.90) K/uL Fleming # (Auto) 1.30 H (0.00-0.90) K/UL Eos # (Auto) 0.20 (0.00-0.50) K/uL Baso # (Auto) 0.10 (0.00-0.30) K/uL Abs Immat Gran (auto) 0.10 (0.00-0.30) K/uL Imm/Tot Granulo (auto) 0.7 % Sodium 132 L (135-149) mmol/L Potassium 4.0 (3.6-5.1) mmol/L Chloride 99 (96-114) mmol/L Carbon Dioxide 27 (20-32) mmol/L Anion Gap 6 L (7-15) mEq/L BUN 7 (7-30) mg/dL Creatinine 0.8 (0.5-1.5) mg/dL Estimated Creat Clear 86.75 Estimated GFR 102 ml/min Glucose 108 (60-115) mg/dL Lactate 1.7 (0.5-1.9) mmol/L Calcium 8.4 (8.4-10.6) mg/dL Discharge Plan Discharge Clinical Impression: Cellulitis Qualifiers: Site of cellulitis: extremity Site of cellulitis of extremity: lower extremity Laterality: left Qualified Code(s): L03.116 - Cellulitis of left lower limb Patient Disposition: Home, Self-Care Condition: Stable Instructions: Cellulitis (ED) Additional Instructions: You will receive a call by early next week to schedule an appointment with the wound center. If you haven't received a call, please call [phone]. Continue taking your amoxicillin but also start taking the prescribed clindamycin. Return for new or worsening symptoms. Please follow up with your primary care provider. Prescriptions: New clindamycin HCl 150 mg capsule 450 mg PO TID 5 Days Qty: 45 0RF No Action metronidazole topical DAILY magnesium citrate,mag oxide 60 mg PO DAILY amoxicillin .ROUTE tizanidine 4 mg tablet 4 mg PO 3XD PRN (Reason: muscle cramps) Qty: 20 0RF furosemide 20 mg tablet 20 mg PO QDAY folic acid 1 mg tablet 1 mg PO QDAY CertaVite Senior 0.4 mg-300 mcg- 250 mcg tablet 1 tab PO QDAY thiamine HCl (vitamin B1) 100 mg tablet 100 mg PO QDAY pantoprazole 40 mg tablet,delayed release (DR/EC) 40 mg PO QDAY spironolactone 50 mg tablet 50 mg PO QDAY gabapentin 300 mg capsule 300 mg PO TID ondansetron 4 mg tablet,disintegrating 4 mg PO Q8H PRN Follow Up/Referrals: Maggie Fierro MD [Primary Care Provider, Internal Medicine] Stand Alone Forms: [employer] Info Instructions
--- OUTSIDE RECORDS SUMMARY | 2025-01-23 16:28 | XMS_ITS | CCD ---
Author Organization Unknown Care Team Providers Care R D Internship Name Role Phone [place], [place] Primary Care Provider Unava ilable Unavailable Chronic Care Management Unavaila ble Summary Purpose DataExchange Insurance Providers Payer name Policy type / Coverage type Covered green party ID Effective Begin Date Effective End Date [facility] Commercial Insurance [id number] Unknown Unkn own Family History Family History data not found Medication Administered No Medication Administered data Reason For Visit No Reason For Visit data
--- OUTSIDE RECORDS SUMMARY | 2025-01-23 16:28 | XMS_ITS | CCD ---
Author Organization Unknown Care Team Providers Care Senior Java Data Architect Name Role Phone Grid Inspector, [place] Primary Care Provider Unava ilable Unavailable Chronic Care Management Unavaila ble Summary Purpose DataExchange Insurance Providers Payer name Policy type / Coverage type Covered republican ID Effective Begin Date Effective End Date [facility] Commercial Insurance [id number] Unknown Unkn own Family History Family History data not found Medication Administered No Medication Administered data Reason For Visit No Reason For Visit data
[2025-01-23 18:15] LABS: Lactate Sepsis w/Reflex* 1.7 mmol/L (0.5-1.9)
== END 2025-01-23 18:32 | disposition home or self-care (01) ==
PROVIDERS: Emergency Provider Student in an Organized Health Care Education/Training Program; PCP Internal Medicine
DX: L03.116 Cellulitis of left lower limb (principal)
CPT/HCPCS: 36415; 80048; 83605; 85025; 87040; 99283; 99284

== ENCOUNTER 2025-01-28 12:43 | Outpatient (CLI) | payer MEDICARE, SELFPAY | END 2025-01-28 12:44 | disposition home or self-care (01) | LOC: WOUND 13:18 | PROVIDERS: PCP Internal Medicine; Visit Provider Physician Assistant Surgical | DX: S80.821A Blister (nonthermal), right lower leg, initial encounter (principal); S80.822A Blister (nonthermal), left lower leg, initial encounter; I34.0 Nonrheumatic mitral (valve) insufficiency; K70.31 Alcoholic cirrhosis of liver with ascites; F17.200 Nicotine dependence, unspecified, uncomplicated; F10.20 Alcohol dependence, uncomplicated | CPT/HCPCS: G0463 ==

== ENCOUNTER 2025-01-28 14:15 | Emergency (ER) | payer MEDICARE, MEDICAID, SELFPAY ==
--- OUTSIDE RECORDS SUMMARY | 2025-01-28 14:18 | XMS_ITS | Clinical Summary ---
Author Organization [facility] Address [facility] [place] [address] Care Team Providers Care Director Of Maintenance Name Role Phone Maggie Fierro MD Primary Care Provider [phone] [facility], [place] Unavailable Allergies No known active allergies Medications [...] Nausea/Vomit ing. 30 Tablet 1 2:42 PM EDI COORDINATOR 04/02/20 21 Active pantoprazole (PROTONIX) 40 mg [...] once daily. 30 Tablet 1 2:42 PM EDI COORDINATOR 04/03/20 21 2024 Discontinued(P harmacist change per medication history (E-cancel not sent)) thiamine mononitrate, vit B1, (VITAMIN B1) 100 mg tabletIndications :Alcohol withdrawal syndrome with complication (HC) Take 1 tablet (100 mg) by mouth once daily. 30 Tablet 1 2:42 PM EDI COORDINATOR 04/03/20 21 2024 Discontinued(P harmacist change per medication history (E-cancel not sent)) pantoprazole (PROTONIX) 40 mg delayed-release tabletIndications :Vomiting, intractability of vomiting not specified, presence of nausea not specified, unspecified vomiting type Take 1 tablet (40 mg) by mouth once daily. May use formulary equivalent. 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 S/P exploratory laparotomy 05/30/2014 Overview (01/06/2025): S/P exploratory laparotomy, lysis of adhesions Cirrhosis of liver 02/18/2012 Malnutrition of moderate degree 01/17/2012 Hepatitis 01/15/2012 Resolved Problems Problem Noted Date Diagnosed Date Resolved Date Septic shock 01/06/2025 01/06/2025 Small bowel obstruction 05/28/201412/21 Encounters Date Type Department Care Team Description 01/24/2025 12:30 PM CDT Home Care Visit [facility] [address] [place] [address], [place] [phone] Nav Amin, PT PT - INITIAL ASSESSMENT 01/23/2025 11:00 AM CDT Home Care Visit [facility] [address] [place] [address], [place] [address] Vania Castillo, SARAN SN - HOME VISIT 01/22/2025 Home Care Visit [facility] [address] [place] [address], [place] [address] Bev Sherman, SARAN CARE COORDINATION 01/21/2025 Plan of Care Documentation [address] [place] [address] 01/19/2025 12:00 PM CDT Home Care Visit [facility] [address] [place] [address], [place] [address] Bev Sherman, SARAN SN - OASIS START OF CARE 01/18/2025 Home Care Visit [facility] [address] [place] [address], [place] [address] Heide Lowery, RN CARE COORDINATION 01/15/2025 Home Care Visit [facility] [address] [place] [phone] Meg Stack, SARAN CARE COORDINATION 01/10/2025 Travel 01/05/2025 7:26 AM CDT - 01/13/2025 4:23 PM CDT Hospital Encounter [facility] [address] [place] [address] Abiodun Cummins MD [place], Dinorah Cardona MD Residents, [facility], Dick De La Fuente MD [facility], [facility], MD Rosalinda Powell, ESTEBAN [facility], Danica Davis MD Alcohol abuse (Primary Dx); [...] on file Legal Sex Male 6:42 AM EDI COORDINATOR Gender Identity Not on file Sexual Orientation Not on file Obstetrics History Last Filed Vital Signs Vital Sign Reading Time Taken Comments Blood Pressure 94/68 01/24/2025 12:50 PM CDT Pulse 62 01/24/2025 12:50 PM CDT Temperature 36.2 C (97.1 F) 01/24/2025 12:50 PM CDT Respiratory Rate 16 01/24/2025 12:5 0 PM CDT Oxygen Saturation 100% 01/24/2025 12: 50 PM CDT Inhaled Oxygen Concentration - - Weight 64.4 kg (141 lb 15.6 oz) 01/08/2025 4:00 AM CDT Height 185.4 cm (6' 1) 01/05/2025 7:34 AM CDT Body Mass Index 18.73 01/05/2025 7:34 AM CDT Plan of Treatment Upcoming Encounters Date Type Department Care Team (Late st Contact Info) Description 01/30/2025 1:30 PM CDT Home Care Visit [address] [place] [address] Meg Stack RN 02/05/2025 4:00 AM CDT Home Care Visit [address] [place] [address] Meg Stack, SARAN 02/12/2025 4:00 AM CDT Home Care Visit [address] [place] [address] Meg Stack, SARAN 02/19/2025 4:00 AM CDT Home Care Visit [address] [place] [address] Meg Stack, SARAN 02/26/2025 4:00 AM CDT Home Care Visit [address] [place] [address] Meg Stack, SARAN 03/05/2025 4:00 AM CDT Home Care Visit [address] [place] [address] Meg Stack, SARAN 03/12/2025 4:00 AM CDT Appointment [address] [place] [address] Meg Stack, RN Health Maintenance Due Date Last Done Comments [...] exists Hepatitis C screening for ag e 18-79 Completed 01/11/2025 Procedures Procedure Name Priority Date/Time [...] of8 resultswithin the time period is included. Pathologist [facility] POTASSIUM 4.4 3.5 - 5.1 mmol/L 01/13/2025 11:30 AM CDT [facility] Blood BLOOD SPECIMEN / Unknown Venipuncture / Unknown 01/13/2025 10:04 AM CDT 01/13/2025 10:18 AM CDT Danica Cornejo MD CHEMISTRY F inal Result Performing Organization Address City/[facility]/ZIP Co de Phone Number [facility] [address] [place] [address], [place] * (ABNORMAL) SODIUM (01/13/2025 5:51 AM CDT) Only the most recent of4 resultswithin the time period is included. SODIUM 128(L) 136 - 145 mmol/L 01/13/2025 6:32 AM CDT [facility] Blood BLOOD SPECIMEN / Unknown Butterfly / Unknown 01/13/2025 5:51 AM CDT 01/13/2025 6:08 AM CDT Danica Cornejo MD CHEMISTRY F inal Result Performing Organization Address City/[facility] Co de Phone Number [facility] [address] [place] [address], [place] * CREATININE (01/13/2025 5:51 AM CDT) Only the most recent of3 resultswithin the time period is included. eGFR >90 >90 mL/min/1.7 3m2 01/13/2025 6:31 AM CDT [facility] Comment:As of 2021, eG FR is calculated by the CKD-EPI creatinine equation without race adjustment. eGFR can be influenced by muscle mass, exercise, and diet. The reported eGFR is an estimation only and is only applicable if the renal function is stable. CREATININE 0.74 0.70 - 1.20 mg/dL 01/13/2025 6:31 AM CDT [facility] Blood BLOOD SPECIMEN / Unknown Butterfly / Unknown 01/13/2025 5:51 AM CDT 01/13/2025 6:08 AM CDT Danica Cornejo MD CHEMISTRY F inal Result Performing Organization Address [facility] de Phone Number [facility] [address] [place] [address], * (ABNORMAL) INR AM (01/12/2025 5:52 AM CDT) Only the most recent of5 resultswithin the time period is included. INR 1.3(H) <1.3 01/12/2025 6:21 AM CDT [facility] PROTIME 14.5(H) 10.6 - 12.4 sec 01/12/2025 6:21 AM CDT [facility] Blood BLOOD SPECIMEN / Unknown Venipuncture / Unknown 01/12/2025 5:52 AM CDT 01/12/2025 6:09 AM CDT Narrative [facility] - 01/12/2025 6:21 AM CDT Therapeutic [...] HEMATOLOGY F inal Result Performing Organization Address [facility] de Phone Number [facility] [address] [place] [address], [place] * MAGNESIUM (01/12/2025 5:52 AM CDT) Only the most recent of10 resultswithin the time period is included. MAGNESIUM 1.6 1.6 - 2.6 mg/dL 01/12/2025 6:34 AM CDT [facility] Blood BLOOD SPECIMEN / Unknown Venipuncture / Unknown 01/12/2025 5:52 AM CDT 01/12/2025 6:09 AM CDT us oDni NOEL CHEMISTRY Shanna l Result [facility] [address] [place] [address], [place] * (ABNORMAL) Hepatic function panel AM (01/12/2025 5:52 AM CDT) Only the most recent of4 resultswithin the time period is included. ALBUMIN 2.5(L) 4.0 - 4.9 g/dL 01/12/2025 6:34 AM CDT [facility] PROTEIN,TOTAL 5.5(L) 6.0 - 8.0 g/dL 01/12/2025 6:34 AM CDT [facility] BILIRUBIN,TOTAL 1.9(H) 0.0 - 1.2 mg/dL 01/12/2025 6:34 AM CDT [facility] BILIRUBIN,DIRECT 1.3(H) 0.0 - 0.2 mg/dL 01/12/2025 6:34 AM CDT [facility] BILIRUBIN,INDIRE CT 0.6 0.2 - 0.8 mg/dL 01/12/2025 6:34 AM CDT [facility] ALK PHOSPHATASE 286(H) 40 - 129 IU/L 01/12/2025 6:34 AM CDT [facility] ALT (SGPT) 42 10 - 50 IU/L 01/12/2025 6:34 AM CDT [facility] AST (SGOT) 85(H) 10 - 50 IU/L 01/12/2025 6:34 AM CDT [facility] Blood BLOOD SPECIMEN / Unknown Venipuncture / Unknown 01/12/2025 5:52 AM CDT 01/12/2025 6:09 AM CDT us Danica Cornejo MD CHEMISTRY F inal Result [facility] [address] [address], [place] * HBSAG (HBS) (01/11/2025 5:37 AM CDT) Pathologist [facility] HBSAG Nonreactive Nonreactive 01/11/2025 6:26 AM CDT [facility] Blood BLOOD SPECIMEN / Unknown Venipuncture / Unknown 01/11/2025 5:37 AM CDT 01/11/2025 5:52 AM CDT Kirill Panyda MD SEND OUTS Final Result Performing Organization Address [facility] Co de Phone Number [facility] [address] [address], [place] * ANTI HCV (01/11/2025 5:37 AM CDT) Pathologist [facility] HEPATITIS C ANTIBODY Non-Reacti ve Non-React dylan 01/11/2025 6:32 AM CDT [facility] Comment:Please note, per www .CDC.gov: [...] SEND OUTS Final Result Performing Organization Address City/[facility] Co de Phone Number [facility] [address] [place] [address], [place] * SCAN CORRESP-LABORATORY RESULTS (01/10/2025 12:26 [...] 01/10/2025 10:00 AM CDT 1. Bibasilar atelectasis, [id number]-[id number]-jpsv-right. Patchy opacities anterior to the atelectasis probably inflammatory. Effusions, akgq-hwnphde-yssq-right. The right effusion has improved since the [...] of the 21st Century Cures Act, medical imaging exams and procedure [...] Moderate diffuse ascites IMPRESSION: 1. Bibasilar atelectasis, olnb-gracbdg-zcfj-right. Patchy opacitiesanterior to the atelectasis probably inflammatory. Effusions,ilmp-qdymtbw-edxl-right. The right effusion has improved since the [...] CULTURE No Growth. 01/15/2025 8:11 AM CDT [facility] Blood BLOOD SPECIMEN / Unknown Butterfly / Unknown 01/10/2025 7:04 AM CDT 01/10/2025 7:12 AM CDT Narrative [facility] - 01/15/2025 8:11 AM CDT Low volume blood culture received; possible false negative culture. Maurisio Arreola MD MICROBIOLOGY Final Result [facility] [address] [place] [address], [place] * US THORACENTESIS INCl IMAGE GUIDE RIGHT (01/09/2025 1:49 PM CDT) Anatomical Region Laterality Modality CHEST, THORAX Ultrasound Impressions 01/09/2025 2:17 PM CDT Successful ultrasound guided therapeutic and diagnostic thoracentesis, with removal of 990 mLs of fluid from the Right pleural space. Shannon Barragan PA-C [facility] Interventional Radiology [place] Protocol A. Pre-procedure verification complete yes 1-relevant [...] POST PROCEDURE NOTE 01/09/2025 Sebastiankobe Howell Quan [id number] 1965 INFORMED CONSENT: In my discussion, prior [...] anesthetize the subcutaneous soft tissues. Then, a 5-botswanan Yueh needle with a one-way valve was advanced into the pleural space. 990 mLs of serous pleural fluid was removed. Fluid sample was sent to the lab for analysis. No immediate complications. Patient tolerated the procedure well. us Doni gonzáles Result * XR CHEST 1 VIEW [...] @ 01/09/2025 1:58:25 PM (Electronically Signed) Doni [facility] Shanna l Result * BODY FLUID CULTURE, STAIN (01/09/2025 1:18 PM CDT) Only the most recent of2 resultswithin the time period is included. CULTURE No Growth. 01/15/2025 10:30 AM CDT [facility] GRAM STAIN No Epithelial cells 01/15/2025 10:30 AM CDT [facility] GRAM STAIN No RBCs 01/15/2025 10:30 AM CDT [facility] GRAM STAIN No PMNs 01/15/2025 10:30 AM CDT [facility] GRAM STAIN No organisms seen 01/15/2025 10:30 AM CDT [facility] Body Fluid (Pleural) Non-Blood / Unknown 01/09/2025 1:18 PM CDT 01/09/2025 1:44 PM CDT Doni ORELLANA MICROBIOLOGY Shanna l Result [facility] [address] [place] [address], [place] * BODY FLUID CELL COUNT/DIF (01/09/2025 1:18 PM CDT) Only the most recent of2 resultswithin the time period is included. BODY FLUID SOURCE Pleural Fluid 01/09/2025 5:32 PM CDT [facility] Comment:Right BODY FLUID COLOR Yellow 01/09/2025 5:32 PM CDT [facility] BODY FLUID CLARITY Clear 01/09/2025 5:32 PM CDT [facility] TOTAL NUCLEATED CELLS, BF 219 /cu mm 01/09/2025 5:32 PM CDT [facility] RED BLOOD COUNT, BODY FLUID <2,000 /cu mm 01/09/2025 5:32 PM CDT [facility] % NEUTROPHILS, BODY FLUID 85 % 01/09/2025 5:32 PM CDT [facility] % LYMPHOCYTES, BODY FLUID 11 % 01/09/2025 5:32 PM CDT [facility] % MONO/MACRO, BODY FLUID 3 % 01/09/2025 5:32 PM CDT [facility] % MESOTHELIAL CELLS, BODY FLUID 1 % 01/09/2025 5:32 PM CDT [facility] Body Fluid PLEURAL FLUID SPECIMEN / Unknown Non-Blood / Unknown 01/09/2025 1:18 PM CDT 01/09/2025 1:44 PM CDT Doni NOEL BODY FLUID Shanna l Result [facility] [address] [place] [address], [place] * PROTEIN,BODY FLUID (01/09/2025 1:18 PM CDT) Only the most recent of2 resultswithin the time period is included. SPECIMEN SOURCE Right Pleural Fluid 01/09/2025 3:16 PM CDT [facility] PROTEIN,BODY FLUID 1.6 g/dL 01/09/2025 3:16 PM CDT [facility] Comment:No Reference Range D efined. Body Fluid PLEURAL FLUID SPECIMEN / Unknown Non-Blood / Unknown 01/09/2025 1:18 PM CDT 01/09/2025 1:44 PM CDT Narrative [facility] - 01/09/2025 3:16 PM CDT Pleural: Pleural [...] Test developed & performance characteristics determined by [facility] [place], [place] consistent with CLIA requirements. Not cleared or approved by [place] FDA. Doni Tellez [facility] BODY FLUID Shanna l Result [facility] [address] [address], [place] * PH,BODY FLUID (01/09/2025 1:18 PM CDT) PH,BODY FLUID 7.57 01/09/2025 3:20 PM CDT [facility] Specimen Source Pleural 01/09/2025 3:20 PM CDT [facility] Mojiva [facility] Body Fluid PLEURAL FLUID SPECIMEN / Unknown Non-Blood / Unknown 01/09/2025 1:18 PM CDT 01/09/2025 1:44 PM CDT Doni Tellez [facility] BODY FLUID Shanna l Result Performing Organization Address City/[facility]/ZIP Co de Phone Number [facility] [address] [address], [place] * LD,BODY FLUID (01/09/2025 1:18 PM CDT) Only the most recent of2 resultswithin the time period is included. SPECIMEN SOURCE Right Pleural Fluid 01/09/2025 3:29 PM CDT [facility] LD,BODY FLUID 128 IU/L 01/09/2025 3:29 PM CDT [facility] Mojiva [facility] Body Fluid PLEURAL FLUID SPECIMEN / Unknown Non-Blood / Unknown 01/09/2025 1:18 PM CDT 01/09/2025 1:44 PM CDT Narrative [facility] - 01/09/2025 3:29 PM CDT Pleural: [...] Test developed & performance characteristics determined by [facility] [employer] [place], [place] consistent with CLIA requirements. Not cleared or approved by [place] FDA. Doni Tellez [facility] BODY FLUID Shanna l Result [facility] [address] [place] [address], [place] * GLUCOSE,BODY FLUID (01/09/2025 1:18 PM CDT) Only the most recent of2 resultswithin the time period is included. SPECIMEN SOURCE Right Pleural Fluid 01/09/2025 3:16 PM CDT [facility] GLUCOSE,BODY FLUID 90 mg/dL 01/09/2025 3:16 PM CDT [facility] Comment:No Reference Range D efined. Body Fluid PLEURAL FLUID SPECIMEN / Unknown Non-Blood / Unknown 01/09/2025 1:18 PM CDT 01/09/2025 1:44 PM CDT Narrative [facility] - 01/09/2025 3:16 PM CDT Pleural: [...] Test developed & performance characteristics determined by [facility] [place], [place] consistent with CLIA requirements. Not cleared or approved by [place] [facility]. Doni Tellez [facility] BODY FLUID Shanna l Result Performing Organization Address [facility] de Phone Number [facility] [address] [place] [phone], [place] * AMYLASE,BODY FLUID (01/09/2025 1:18 PM CDT) SPECIMEN SOURCE Right Pleural Fluid 01/09/2025 3:16 PM CDT [facility] AMYLASE,BODY FLUID 34 IU/L 01/09/2025 3:16 PM CDT [facility] Comment:No Reference Range D efined. Body Fluid PLEURAL FLUID SPECIMEN / Unknown Non-Blood / Unknown 01/09/2025 1:18 PM CDT 01/09/2025 1:44 PM CDT Narrative [facility] - 01/09/2025 3:16 PM CDT Peritoneal: [...] Test developed & performance characteristics determined by [facility] [place] consistent with CLIA requirements. Not cleared or approved by [place] [facility]. Dnoi Tellez [facility] BODY FLUID Shanna l Result Performing Organization Address [facility] de Phone Number [facility] [address] [address], [place] * ANAEROBIC CULTURE (01/09/2025 1:18 PM CDT) Only the most recent of2 resultswithin the time period is included. CULTURE No anaerobes isolated 01/14/2025 11:43 AM CDT [facility] Other PLEURAL FLUID SPECIMEN / Unknown Non-Blood / Unknown 01/09/2025 1:18 PM CDT 01/09/2025 1:44 PM CDT us Doni ORELLANA MICROBIOLOGY Shanna l Result [facility] [address] [place] [address], * (ABNORMAL) CBC no diff AM (01/09/2025 6:38 AM CDT) Only the most recent of4 resultswithin the time period is included. Pathologist [facility] WHITE BLOOD COUNT 10.3 4.5 - 11.0 thou/cu mm 01/09/2025 7:08 AM CDT [facility] RED BLOOD COUNT 2.92(L) 4.30 - 5.90 mil/cu mm 01/09/2025 7:08 AM CDT [facility] HEMOGLOBIN 9.2(L) 13.5 - 17.5 g/dL 01/09/2025 7:08 AM T [facility] HEMATOCRIT 27.8(L) 37.0 - 53.0 % 01/09/2025 7:08 AM CDT [facility] MCV 95 80 - 100 fL 01/09/2025 7:08 AM CDT [facility] MCH 31.5 26.0 - 34.0 pg 01/09/2025 7:08 AM CDT [facility] MCHC 33.1 32.0 - 36.0 g/dL 01/09/2025 7:08 AM T [facility] RDW 17.1(H) 11.5 - 15.5 % 01/09/2025 7:08 AM CDT [facility] PLATELET COUNT 270 140 - 440 thou/cu mm 01/09/2025 7:08 AM CDT [facility] MPV 11.1(H) 6.5 - 11.0 fL 01/09/2025 7:08 AM CDT [facility] NRBC 0.0 % 01/09/2025 7:08 AM CDT [facility] ABS NRBC 0.0 thou /cu mm 01/09/2025 7:08 AM CDT [facility] Blood BLOOD SPECIMEN / Unknown Venipuncture / Unknown 01/09/2025 6:38 AM CDT 01/09/2025 6:46 AM CDT Rafi Gallegos MD HEMATOLOGY Final Result Performing Organization Address [facility] Co de Phone Number [facility] [address] [place] [address], * (ABNORMAL) PHOSPHORUS (01/09/2025 6:38 AM CDT) Only the most recent of7 resultswithin the time period is included. PHOSPHORUS 2.2(L) 2.5 - 4.5 mg/dL 01/09/2025 7:19 AM CDT [facility] Blood BLOOD SPECIMEN / Unknown Venipuncture / Unknown 01/09/2025 6:38 AM CDT 01/09/2025 6:46 AM CDT Stormy Aguilar MD CHEMISTRY Final Resu lt Performing Organization Address [facility] Co de Phone Number [facility] [address] [place] [address], * (ABNORMAL) Basic metabolic panel TODAY (01/09/2025 6:38 AM CDT) Only the most recent of4 resultswithin the time period is included. SODIUM 135(L) 136 - 145 mmol/L 01/09/2025 7:19 AM CDT [facility] POTASSIUM 3.3(L) 3.5 - 5.1 mmol/L 01/09/2025 7:19 AM CDT [facility] CHLORIDE 105 98 - 107 mmol/L 01/09/2025 7:19 AM CDT [facility] CO2,TOTAL 19(L) 22 - 29 mmol/L 01/09/2025 7:19 AM CDT [facility] ANION GAP 11 5 - 18 01/09/2025 7:19 AM CDT [facility] GLUCOSE 87 70 - 99 mg/dL 01/09/2025 7:19 AM T [facility] CALCIUM 8.0(L) 8.8 - 10.4 mg/dL 01/09/2025 7:19 AM T [facility] Comment: Reference ranges for this test were updated on 2024 to reflect our healthy population more accurately. Reference range changes are not retroactively applied to results, but previous results using the same methodology can be interpreted in the context of the new reference range. BUN 6 6 - 20 mg/dL 01/09/2025 7:19 AM T [facility] CREATININE 0.59(L) 0.70 - 1.20 mg/dL 01/09/2025 7:19 AM T [facility] BUN/CREAT RATIO 10 10 - 20 7:19 AM T [facility] eGFR >90 >90 mL/min/1. 73m2 01/09/2025 7:19 AM T [facility] Comment:As of 2021, eG FR [...] us Rafi Gallegos MD CHEMISTRY Final Result [facility] [address] [place] [address], * ECHO TTE COMPLETE WO CONTRAST (01/08/2025 [...] Tech: MBL/ARG Referring MD: MAURISIO ARREOLA Site: [facility] Reading Location: ANW IP Patient Location: [...] . This study was interpreted by an [facility] accredited facility. Final Procedure Note Deann Coon MD - 01/08/2025 ECHOCARDIOGRAM SEBASTIAN GLASS : 1965 59 years Study Date: 01/08/2025 1:34:35 PM Gender: M BP: 109/71 mmHg Height: 185.00 cm BSA: 1.85 m Weight: 64.00 kg Tech: MBL/ARG Referring MD: MAURISIO ARREOLA Site: [facility] Reading Location: [facility] Patient Location: Inpatient. Procedure: 2D, Color Doppler [...] . This study was interpreted by an [facility] accredited facility. Final us Maurisio Arreola MD ECHO ORD Final Result * HEMOGLOBIN A1C (01/08/2025 5:10 AM CDT) HEMOGLOBIN A1C SCREENING <4.0 <=6.4 % 01/08/2025 7:13 PM CDT [facility] Blood BLOOD SPECIMEN / Unknown Non-Lab Venipuncture / Unknown 01/08/2025 5:10 AM CDT 01/08/2025 5:29 AM CDT [facility] [facility] LABORATORY - 01/08/2025 7:13 PM CDT (<5.7%) Normal (5.7% to 6.4%) Indicates prediabetes (>=6.5%) Confirms diabetes Falsely low levels may be seen with: Recent Transfusion, Recent Significant Blood Loss, Hemolytic Diseases, or Falsely elevated levels may be seen with: Untreated Anemias, Splenectomy Stormy Cardoza MD CHEMISTRY Final Result Performing Organization Address [facility] de Phone Number [facility] [address] [place] [phone], [place] * TSH AM (01/08/2025 5:10 AM CDT) Pathologist [facility] TSH 2.73 0.27 - 4.20 uIU/mL 01/08/2025 6:04 AM CDT [facility] Blood BLOOD SPECIMEN / Unknown Non-Lab Venipuncture / Unknown 01/08/2025 5:10 AM CDT 01/08/2025 5:29 AM CDT [facility] LABORATORY - 01/08/2025 6:04 AM CDT In Adults, TSH values between 5.00 and 10.00 uIU/ml do not necessarily indicate the presence of Hypothyroidism. Correlation with clinical findings such as presence of goiter and/or Thyroperoxidase (TPO) Antibody may be helpful. For more information please refer to CALIN 2004; 291: 228-238. Stormy Cardoza MD CHEMISTRY Final Result Performing Organization Address [facility] de Phone Number [facility] [address] [address], [place] * LD serum (ADD ON) (01/08/2025 5:10 AM CDT) Only the most recent of2 resultswithin the time period is included. Pathologist [facility] LD,TOTAL 195 135 - 225 IU/L 01/10/2025 7:41 PM CDT [facility] Blood BLOOD SPECIMEN / Unknown Non-Lab Venipuncture / Unknown 01/08/2025 5:10 AM CDT 01/08/2025 5:29 AM CDT Doni ORELLANA CHEMISTRY Shanna l Result Performing Organization Address City/[facility]/ZIP Co de Phone Number [facility] [address] [place] [phone], [place] * Vitamin B12 level AM (01/08/2025 5:10 AM CDT) VITAMIN B12 470 232 - 1,245 pg/mL 01/08/2025 6:34 AM CDT [facility] Blood BLOOD SPECIMEN / Unknown Non-Lab Venipuncture / Unknown 01/08/2025 5:10 AM CDT 01/08/2025 5:29 AM CDT Narrative [facility] - 01/08/2025 6:34 AM CDT Biotin supplements may cause clinically significant interference for this test assay. If interference is suspected, it is strongly recommended that biotin is discontinued for at least one week prior to retesting. Stormy Cardoza MD CHEMISTRY Final Result Performing Organization Address [facility] Co de Phone Number [facility] [address] [address], [place] * GLUCOSE METER (01/07/2025 9:32 PM CDT) Only the most recent of12 resultswithin the time period is included. GLUCOSE METER 82 65 - 100 mg/dL 01/07/2025 11:11 PM CDT [facility] Blood BLOOD SPECIMEN / Unknown 01/07/2025 9:32 PM CDT 01/07/2025 11:11 PM CDT Dick Romero MD CHEMISTRY Final Result Performing Organization Address City/[facility]/ZIP Co de Phone Number [facility] [address] [place] [phone], [place] * SCAN-CARDIAC STRIP (01/07/2025 7:15 PM CDT) us Scanner OTHER Final Result * RESPIRATORY PANEL MULTIPLEX PCR (01/07/2025 5:22 PM CDT) Pathologist [facility] Adenovirus NOT Detected 01/07/2025 6:40 PM CDT [facility]- [facility] Coronavirus 229E NOT Detected 01/07/2025 6:40 PM CDT [facility] [place] Coronavirus HKU1 NOT Detected 01/07/2025 6:40 PM CDT [facility] Coronavirus NL63 NOT Detected 01/07/2025 6:40 PM CDT [facility] Coronavirus OC43 NOT Detected 01/07/2025 6:40 PM CDT [facility] Human Metapneumovirus NOT Detected 01/07/2025 6:40 PM CDT [facility] Human Rhinovirus/Enterovi gary NOT Detected 01/07/2025 6:40 PM CDT [facility] [place] Influenza A NOT Detected 01/07/2025 6:40 PM CDT [facility] Influenza B NOT Detected 01/07/2025 6:40 PM CDT [facility] Parainfluenza Virus 1 NOT Detected 01/07/2025 6:40 PM CDT [facility] Parainfluenza Virus 2 NOT Detected 01/07/2025 6:40 PM CDT [facility] Parainfluenza Virus 3 NOT Detected 01/07/2025 6:40 PM CDT [facility] [place] Parainfluenza Virus 4 NOT Detected 01/07/2025 6:40 PM CDT [facility] Respiratory Syncytial Virus NOT Detected 01/07/2025 6:40 PM CDT [facility] SARS-Cov-2 NOT Detected 01/07/2025 6:40 PM CDT [facility] Bordetella pertussis NOT Detected 01/07/2025 6:40 PM CDT [facility] Bordetella Parapertussis NOT Detected 01/07/2025 6:40 PM CDT [facility] Chlamydophila pneumoniae NOT Detected 01/07/2025 6:40 PM CDT [facility] Mycoplasma pneumoniae NOT Detected 01/07/2025 6:40 PM CDT [facility] Nasopharyngeal NASOPHARYNGEAL SWAB / Unknown Non-Blood / Unknown 01/07/2025 5:22 PM CDT 01/07/2025 5:33 PM CDT Narrative [facility] - 01/07/2025 6:40 PM CDT All PCR tests are subject to false negative results due to variability in viral/bacterial load and collection technique. This test does NOT detect MERS ( Respiratory Syndrome) or SARS-1 (Severe Acute Respiratory Syndrome). us Rafi Gallegos MD MICROBIOLOGY Final Result [facility] [address] [place] [address], [place] * US PARACENTESIS W IMAGING (01/07/2025 12:30 PM CDT) Anatomical Region Laterality Modality CHEST, Lung, THORAX Ultrasound Narrative 01/07/2025 12:38 PM CDT RADIOLOGY IMMEDIATE POST PROCEDURE NOTE 01/07/2025 Sebastian Dante Quan [id number] INFORMED CONSENT: In my discussion, prior [...] tissues were anesthetized with 1% lidocaine. A 5-Bulgarian Yueh needle was placed into the ascites under ultrasound guidance in the Right abdomen. 200 mLs of serous fluid was removed. Sample was sent to lab for analysis. No immediate complications. Estimated blood loss none. Patient tolerated the procedure well. Impression: Successful diagnostic ultrasound guided paracentesis with removal of 200 mLs of fluid. Jami Perdue PA-C [facility] [place] Interventional Radiology [place] Protocol A. Pre-procedure verification complete yes 1-relevant [...] / irrigation fluids (if applicable), 8-safety precautions. us Rafi Gallegos MD US Final Result * Albumin ascitic fluid (01/07/2025 12:17 PM CDT) SPECIMEN SOURCE ascites 01/07/2025 1:50 PM CDT [facility] TRAL LABORATORY ALBUMIN,BODY FLUID 0.6 g/dL 01/07/2025 1:50 PM CDT [facility] Comment:No Reference Range D efined. Body Fluid ASCITIC FLUID SPECIMEN / Unknown Non-Blood / Unknown 01/07/2025 12:17 PM CDT 01/07/2025 12:35 PM CDT Narrative [facility] - 01/07/2025 1:50 PM CDT Peritoneal: SAAG >/= 1.1 g/dL indicates portal Hypertension. Pleural: SEAG > 1.2 g/dL is consistent with a transudative process and may be more accurate in patients receiving diuretic therapy. Test developed & performance characteristics determined by [facility] [place], [place] consistent with CLIA requirements. Not cleared or approved by [place] FDA. us Rafi Gallegos MD BODY FLUID Final Result [facility] [address] [place] [address], [place] * (ABNORMAL) LACTATE ARTERIAL (01/07/2025 3:52 AM CDT) LACTATE,ARTERI AL 2.2(HH) 0.5 - 1.6 mmol/L 01/07/2025 4:19 AM CDT [facility] [employer] TRAL LABORATORY Blood BLOOD SPECIMEN / Unknown Non-Lab Venipuncture / Unknown 01/07/2025 3:52 AM CDT 01/07/2025 3:59 AM CDT Abiodun Cummins MD CHEMISTRY Final Resu lt Performing Organization Address [facility] Co de Phone Number [facility] [address] [address], [place] * VANCOMYCIN (01/07/2025 3:52 AM CDT) Pathologist [facility] VANCOMYCIN 16.3 ug/mL 01/07/2025 4:24 AM CDT [facility] [employer] TRAL LABORATORY Comment:No Reference Range D efined. DATE OF LAST DOSE,RANDOM 01/06/2025 01/07/2025 4:24 AM CDT [facility] [employer] TRAL LABORATORY TIME OF LAST DOSE,RANDOM 5:26 PM 01/07/2025 4:24 AM CDT [facility] [employer] Blood BLOOD SPECIMEN / Unknown Non-Lab Venipuncture / Unknown 01/07/2025 3:52 AM CDT 01/07/2025 3:59 AM CDT Dinorah Raymundo MD CHEMISTRY F inal Result Performing Organization Address City/[facility]/ZIP Co de Phone Number [facility] [employer] [address] [place] [address], [place] * [facility]UM IONIZED HOSPITAL DRAW ONLY (01/07/2025 3:52 AM CDT) Only the most recent of3 resultswithin the time period is included. Pathologist [facility] CALCIUM,IONIZE D 1.23 1.15 - 1.27 mmol/L 01/07/2025 4:05 AM CDT [facility] Blood BLOOD SPECIMEN / Unknown Non-Lab Venipuncture / Unknown 01/07/2025 3:52 AM CDT 01/07/2025 4:00 AM CDT Abiodun Cummins MD CHEMISTRY Final Resu lt Performing Organization Address City/[facility]/ZIP Co de Phone Number [facility] [address] [place] [address], * SCAN-CARDIAC STRIP (01/06/2025 11:25 PM CDT) Scanner OTHER Final Result * LACTATE VENOUS (01/06/2025 9:06 PM CDT) Only the most recent of11 resultswithin the time period is included. LACTATE,VENOUS 2.0 0.5 - 2.0 mmol/L 01/06/2025 9:50 PM CDT [facility] Blood BLOOD SPECIMEN / Unknown Line/Port / Unknown 01/06/2025 9:06 PM CDT 01/06/2025 9:23 PM CDT Abiodun Cummins MD CHEMISTRY Final Resu lt Performing Organization Address City/[facility]/ZIP Co de Phone Number [facility] LABORATORY [address] [place] [address], * CT CHEST ABDOMEN PELVIS WO (01/06/2025 [...] >200 ug Elast./g 01/09/2025 2:07 AM CDT [facility] ([facility]) Comment: Severe Pancreatic Insufficiency: <100 Moderate Pancreatic Insufficiency: 100 - 200 Normal: >200 Stool STOOL SPECIMEN / Unknown Non-Blood / Unknown 01/06/2025 4:40 PM CDT 01/06/2025 4:48 PM CDT Narrative [facility] ([facility]) - 01/09/2025 2:07 AM CDT Performed at: - [email or web address] [id number] Student Development Dean: Tashi Vigil MD, Phone: [phone] us Rafi Gallegos MD MICROBIOLOGY Final Result [facility] ([facility]) [address] [place] [id number], * XR Chest 1 view portable (01/06/2025 [...] - 4.9 g/dL 01/06/2025 12:33 PM CDT [facility] Blood BLOOD SPECIMEN / Unknown Non-Lab Venipuncture / Unknown 01/06/2025 11:52 AM CDT 01/06/2025 11:59 AM CDT Rafi Gallegos MD CHEMISTRY Final Result Performing Organization Address City/[facility]/ZIP Co de Phone Number [facility] [address] [place] [address], * SCAN-CARDIAC STRIP (01/06/2025 8:00 AM CDT) us Scanner OTHER Final Result * SCAN-CARDIAC STRIP (01/05/2025 7:15 PM CDT) us Scanner OTHER Final Result * (ABNORMAL) BLOOD CULTURE (01/05/2025 9:15 AM CDT) Only the most recent of2 resultswithin the time period is included. CULTURE RESULT(AA) 01/10/2025 12:02 PM CDT [facility] CULTURE Aerobic Bottle growing Enterococcus faecalis 01/10/2025 12:02 PM CDT [facility] Comment:See susceptibility o n other culture. Blood BLOOD SPECIMEN / Unknown Venipuncture / Unknown 01/05/2025 9:15 AM CDT 01/05/2025 9:24 AM CDT Aibodun Cummins MD MICROBIOLOGY Final Resu lt [facility] [address] [place] [address], * (ABNORMAL) BLOOD GAS,VENOUS (01/05/2025 9:02 AM CDT) PH, VENOUS 7.32 7.32 - 7.43 01/05/2025 9:13 AM CDT [facility] TRA LABORATORY PCO2, VENOUS 29(L) 41 - 51 mmHg 01/05/2025 9:13 AM CDT [facility] PO2, VENOUS 36 35 - 40 mmHg 01/05/2025 9:13 AM CDT [facility] HCO3,VENOUS 15(L) 22 - 29 mmol/L 01/05/2025 9:13 AM CDT [facility] BASE EXCESS, VENOUS, POCT -9.8(L) -2.0 - 3.0 01/05/2025 9:13 AM T [facility] O2 SATURATION, VENOUS 59(L) 70 - 75 % 01/05/2025 9:13 AM CDT [facility] PATIENT TEMPERATURE 37.0 Degrees C 01/05/2025 9:13 AM T [facility] Blood VENOUS BLOOD SPECIMEN / Unknown Venipuncture / Unknown 01/05/2025 9:02 AM CDT 01/05/2025 9:10 AM CDT us Abiodun Cummins MD CHEMISTRY Final Resu lt [facility] [address] [place] [address], [place] * (ABNORMAL) RETICULOCYTES (01/05/2025 9:02 AM CDT) Pathologist [facility] RETIC% 5.9(H) 0.5 - 1.5 % 01/05/2025 9:20 AM CDT [facility] RETIC (ABSOLUTE) 0.16(H) 0.03 - 0.08 mil/cu mm 01/05/2025 9:20 AM CDT [facility] Blood BLOOD SPECIMEN / Unknown Venipuncture / Unknown 01/05/2025 9:02 AM CDT 01/05/2025 9:10 AM CDT us Abiodun Cummins MD HEMATOLOGY Final Resu lt [facility] [address] [place] [address], * (ABNORMAL) BLOOD CULTURE MULTIPLEX PCR (01/05/2025 9:01 AM CDT) Organism(s) Detected Enterococcus faecalis(AA) No organism targets detected., Invalid 01/07/2025 5:33 AM CDT [facility] Resistance Gene(s) None detected None detected 01/07/2025 5:33 AM CDT [facility] CTX-M (ESBL-resistance gene) N/A 01/07/2025 5:33 AM CDT [facility] IMP (carbapenem-resistan ce gene) N/A NOT Detected, N/A 01/07/2025 5:33 AM CDT [facility] KPC (carbapenem-resistan ce gene) N/A NOT Detected, N/A 01/07/2025 5:33 AM CDT [facility] mcr-1 (colistin-resistance gene) N/A 01/07/2025 5:33 AM CDT [facility] mecA/C (methicillin-resista nce gene) N/A 01/07/2025 5:33 AM CDT [facility] mecA/C and MREJ (methicillin-resista nce gene) N/A 01/07/2025 5:33 AM CDT [facility] NDM (carbapenem-resistan ce gene) N/A NOT Detected, N/A 01/07/2025 5:33 AM CDT [facility] OXA-48 like (carbapenem-resistan ce gene) N/A NOT Detected, N/A 01/07/2025 5:33 AM CDT [facility] van A/B (vancomycin-resistan ce genes) NOT Detected 01/07/2025 5:33 AM CDT [facility] VIM (carbapenem-resistan ce gene) N/A NOT Detected, N/A 01/07/2025 5:33 AM CDT [facility]- CENTRAL LABORATORY Enterococcus faecalis Detected 01/07/2025 5:33 AM CDT [facility] C[facility]TRAL LABORATORY Enterococcus faecium NOT Detected 5:33 AM CDT [facility] Listeria monocytogenes NOT Detected 01/07/2025 5:33 AM CDT [facility] Staphylococcus NOT Detected 01/08/20 5:33 AM CDT [facility] Staphlococcus aureus NOT Detected 5:33 AM CDT [facility] Staphylococcus epidermidis NOT Detected 01/07/2025 5:33 AM CDT [facility] Staphylococcus lugdunensis NOT Detected 01/07/2025 5:33 AM CDT [facility] Streptococcus NOT Detected 5:33 AM CDT [facility] Streptococcus agalactiae (Group B) NOT Detected 01/07/2025 5:33 AM CDT [facility] Streptococcus pneumoniae NOT Detected 01/07/2025 5:33 AM CDT [facility] Streptococcus pyogenes (Group A) NOT Detected 01/07/2025 5:33 AM CDT [facility] Acinetobacter calcoaceticus-mayra jasmina complex NOT Detected 01/07/2025 5:33 AM CDT [facility] Enterobacteriaceae NOT Detected 12/21 5:33 AM CDT [facility] Enterobacter cloacae complex NOT Detected 01/07/2025 5:33 AM CDT [facility]AL LAB[facility] Escherichia coli NOT Detected 2024 5:33 AM CDT [facility] Klebsiella oxytoca NOT Detected 12/21 5:33 AM CDT [facility] Klebsiella pneumoniae group NOT Detected 01/07/2025 5:33 AM CDT [facility] Proteus NOT Detected 01/07/2025 5:33 AM CDT [facility] Serratia marcescens NOT Detected 5:33 AM CDT [facility] Haemophilus influenzae NOT Detected 01/07/2025 5:33 AM CDT [facility] Neisseria meningitidis NOT Detected 01/07/2025 5:33 AM CDT [facility] Pseudomonas aeruginosa NOT Detected 01/07/2025 5:33 AM CDT [facility] Melinda albicans NOT Detected 2024 5:33 AM CDT [facility] Melinda glabrata NOT Detected 2024 5:33 AM CDT [facility] Melinda krusei NOT Detected 01/08/20 5:33 AM CDT [facility] Melinda parapsilosis NOT Detected 5:33 AM CDT [facility] Melinda tropicalis NOT Detected 12/21 5:33 AM CDT [facility] Bacteroides fragilis group NOT Detected 01/07/2025 5:33 AM CDT [facility] Klebsiella aerogenes NOT Detected 5:33 AM CDT [facility] Salmonella NOT Detected 01/07/2025 5:33 AM CDT [facility] Stenotrophomonas maltophilia NOT Detected 01/07/2025 5:33 AM CDT [facility] Melinda auris NOT Detected 5:33 AM CDT [facility] Cryptococcus neoformans/gattii NOT Detected 01/07/2025 5:33 AM CDT [facility] Blood BLOOD SPECIMEN / Unknown Venipuncture / Unknown 01/05/2025 9:01 AM CDT 01/05/2025 9:24 AM CDT [facility] LABORATORY - 01/07/2025 5:33 AM CDT [...] Abiodun Cummins MD MICROBIOLOGY Final Resu lt [facility] [address] [place] [address], [place] * (ABNORMAL) TROPONIN T (HS) ONE TIME (01/05/2025 9:01 AM CDT) [facility] TROPONIN T HS 22(H) 6-15 ng/L ng/L 01/05/2025 9:55 AM CDT [facility] Blood BLOOD SPECIMEN / Unknown Venipuncture / Unknown 01/05/2025 9:01 AM CDT 01/05/2025 9:11 AM CDT [facility] LABORATORY - 01/05/2025 9:55 AM CDT hs-cTnT [...] low risk in emergency department patient population. Abiodun Cummins MD CHEMISTRY Final Resu lt [facility] [address] [place] [address], [place] * (ABNORMAL) CBC WITH AUTO DIFFERENTIAL (01/05/2025 9:01 AM CDT) WHITE BLOOD COUNT 26.8(H) 4.5 - 11.0 thou/cu mm 01/05/2025 9:21 AM CDT [facility] TRAL LABORATORY RED BLOOD COUNT 2.82(L) 4.30 - 5.90 mil/cu mm 01/05/2025 9:21 AM T [facility] TRAL LABORATORY HEMOGLOBIN 8.9(L) 13.5 - 17.5 g/dL 01/05/2025 9:21 AM T [facility] TRAL LABOR[facility]ORY HEMATOCRIT 27.3(L) 37.0 - 53.0 % 01/05/2025 9:21 AM T [facility] TRAL LABOR[facility]ORY MCV 97 80 - 100 fL 01/05/2025 9:21 AM T [facility] MCH 31.6 26.0 - 34.0 pg 01/05/2025 9:21 AM T [facility] TRAL [facility] MCHC 32.6 32.0 - 36.0 g/dL 01/05/2025 9:21 AM T [facility] TRAL LAB[facility] RDW 17.4(H) 11.5 - 15.5 % 01/05/2025 9:21 AM T [facility] TRAL LABORATORY PLATELET COUNT 173 140 - 440 thou/cu mm 01/05/2025 9:21 AM [facility] TRAL LABORATORY MPV 10.6 6.5 - 11.0 fL 01/05/2025 9:21 AM [facility] TRAL LABORATORY NRBC 0.0 % 01/05/2025 9:21 AM [facility] TRAL LAB[facility] ABS NRBC 0.0 thou /cu mm 01/05/2025 9:21 AM [facility] TRAL LAB[facility] % NEUT 90.8 % 01/05/2025 9:21 AM [facility] TRAL [facility] % LYMPH 1.9 % 01/05/2025 9:21 AM [facility] TRAL LAB[facility] % MONO 5.1 % 01/05/2025 9:21 AM [facility] TRAL [facility] % EOS 0.3 % 01/05/2025 9:21 AM [facility] % BASO 0.3 % 01/05/2025 9:21 AM [facility] TRAL [facility] % IMMATURE GRAN (METAS,MYELOS,IL OS) 1.6 % 01/05/2025 9:21 AM [facility] TRAL LABORATORY ABSOLUTE NEUTROPHILS 24.3(H) 1.7 - 7.0 thou/cu mm 01/05/2025 9:21 AM [facility] TRAL LABOR[facility] ABSOLUTE LYMPHOCYTES 0.5(L) 0.9 - 2.9 thou/cu mm 01/05/2025 9:21 AM [facility] TRAL LAB[facility] ABSOLUTE MONOCYTES 1.4(H) <0.9 thou/cu mm 01/05/2025 9:21 AM [facility] TRAL LAB[facility] ABSOLUTE EOSINOPHILS 0.1 <0.5 thou/cu mm 01/05/2025 9:21 AM [facility] TRAL LAB[facility] ABSOLUTE BASOPHILS 0.1 <0.3 thou/cu mm 01/05/2025 9:21 AM [facility] TRAL LABORATORY ABSOLUTE IMMATURE GRANULOCYTES(MET ,MYELOS,PROS) 0.4(H) <0.3 thou/cu mm 01/05/2025 9:21 AM CDT [facility] Blood BLOOD SPECIMEN / Unknown Venipuncture / Unknown 01/05/2025 9:01 AM CDT 01/05/2025 9:10 AM CDT Abiodun Cummins MD HEMATOLOGY Final Resu lt Performing Organization Address City/[facility]/ZIP Co de Phone Number [facility] [address] [place] [address], [place] * (ABNORMAL) IRON PLUS IRON BINDING CAP (01/05/2025 9:01 AM CDT) IRON 61 61 - 157 ug/dL 01/05/2025 9:49 AM CDT [facility] UIBC (UNSATURATED) 54(L) 112 - 347 ug/dL 01/05/2025 9:49 AM CDT [facility] IRON BINDING CAPACITY 115(L) 250 - 400 ug/dL 01/05/2025 9:49 AM CDT [facility] IRON,% SATURATION 53(H) 14 - 50 % 01/05/2025 9:49 AM CDT [facility] Blood BLOOD SPECIMEN / Unknown Venipuncture / Unknown 01/05/2025 9:01 AM CDT 01/05/2025 9:11 AM CDT Abiodun Cummins MD CHEMISTRY Final Resu lt Performing Organization Address City/[facility]/ZIP Co de Phone Number [facility] [address] [place] [address], [place] * FERRITIN (01/05/2025 9:01 AM CDT) FERRITIN 264.0 30.0 - 400.0 ng/mL 01/05/2025 11:51 AM CDT [facility] Blood BLOOD SPECIMEN / Unknown Venipuncture / Unknown 01/05/2025 9:01 AM CDT 01/05/2025 9:11 AM CDT us Abiodun Cummins MD CHEMISTRY Final Resu lt [facility] [address] [place] [id number], [place] * (ABNORMAL) CK TOTAL (01/05/2025 9:01 AM CDT) Pathologist [facility] CK,TOTAL 389(H) 39 - 308 IU/L 01/05/2025 9:55 AM CDT [facility] Blood BLOOD SPECIMEN / Unknown Venipuncture / Unknown 01/05/2025 9:01 AM CDT 01/05/2025 9:11 AM CDT Abiodun Cummins MD CHEMISTRY Final Resu lt Performing Organization Address [facility] Co de Phone Number [facility] [address] [place] [address], [place] * SCAN-CARDIAC STRIP (01/05/2025 8:04 AM CDT) Scanner OTHER Final Result * EKG 12 LEAD (01/05/2025 7:52 AM CDT) [facility] Interpretation Sinus rhythm with 1st degree A-V [...] NOW QTc 429 ms BEYOND NOW P Sherborn 37 degrees BEYOND NOW R Sherborn -32 degrees BEYOND NOW T Sherborn 202 degrees BEYOND NOW 01/05/2025 7:52 AM CDT 01/06/2025 2:28 PM CDT Abiodun Cummins MD EKG ORD Final Resu lt Performing Organization Address City/[facility]/ZIP Co de Phone Number BEYOND NOW [place], [place] * MRSA/SA PCR (01/05/2025 7:48 AM CDT) Pathologist [facility] MRSA DNA PCR Negative Negative 01/05/2025 11:10 AM CDT [facility] STAPHYLOCOCCUS AUREUS PCR Negative Negative 01/05/2025 11:10 AM CDT [facility] Other SPECIMEN FROM INTERNAL NOSE / Unknown Non-Blood / Unknown 01/05/2025 7:48 AM CDT 01/05/2025 7:55 AM CDT [facility] - 01/05/2025 11:10 AM CDT Test result does not preclude MRSA or SA nasal colonization. us Abiodun Cummins MD MICROBIOLOGY Final Resu lt [facility] [address] [place] [address], * (ABNORMAL) DRUG SCREEN RAPID URINE INHOUSE (01/05/2025 7:48 AM CDT) Pathologist [facility] THC METABOLITES,FLACO L Non-negative , consider further testing if indicated(A) Not Detected 01/05/2025 8:14 AM CDT [facility] PCP,QUAL Not Detected Not Detected 01/05/2025 8:14 AM CDT [facility] COCAINE,QUAL Not Detected Not Detected 01/05/2025 8:14 AM CDT [facility] METHAMPHETAMINE , QUALITATIVE Not Detected Not Detected 01/05/2025 8:14 AM CDT [facility] OPIATES,QUAL Not Detected Not Detected 01/05/2025 8:14 AM CDT [facility] AMPHETAMINE, QUALITATIVE Not Detected Not Detected 01/05/2025 8:14 AM CDT [facility] BENZODIAZEPINES ,QUAL Not Detected Not Detected 01/05/2025 8:14 AM CDT [facility] TRICYCLICS,QUAL Not Detected Not Detected 01/05/2025 8:14 AM CDT [facility] METHADONE, QUALITATIVE Not Detected Not Detected 01/05/2025 8:14 AM CDT [facility] BARBITURATES,QU AL Not Detected Not Detected 01/05/2025 8:14 AM CDT [facility] OXYCODONE, QUALITATIVE Not Detected Not Detected 01/05/2025 8:14 AM CDT [facility] BUPRENORPHINE, QUALITATIVE Not Detected Not Detected 01/05/2025 8:14 AM CDT [facility] Urine URINE SPECIMEN / Unknown Non-Blood / Unknown 01/05/2025 7:48 AM CDT 01/05/2025 7:55 AM CDT Narrative [facility] - 01/05/2025 8:14 AM CDT Please Note: [...] Abiodun Cummins MD URINE Final Resu lt [facility] [address] [place] [address], * (ABNORMAL) URINALYSIS MICROSCOPIC (01/05/2025 7:48 AM CDT) RBC >100(A) 0-2, None Seen /HPF 01/05/2025 8:05 AM CDT [facility] WBC 11-25(A) 0-2, 3-5, None Seen /HPF 01/05/2025 8:05 AM CDT [facility] BACTERIA None Seen None Seen, Rare, Few Bacteria/ HPF 01/05/2025 8:05 AM CDT [facility] EPITHELIAL CELLS None Seen None Seen, Few Epi/HPF 01/05/2025 8:05 AM CDT [facility] HYALINE CASTS 0-2 0-2, 3-5 /LPF 01/05/2025 8:05 AM CDT [facility] Urine URINE SPECIMEN / Unknown Non-Blood / Unknown 01/05/2025 7:48 AM CDT 01/05/2025 7:55 AM CDT us Abiodun Cummins MD URINE Final Resu lt [facility] [address] [place] [phone], [place] * (ABNORMAL) UA W/ SEDIMENT EXAM REFLEXED PER CRITERIA (01/05/2025 7:48 AM CDT) COLOR Yellow Yellow Color 01/05/2025 8:05 AM [facility] CLARITY Clear Clear Clarity 01/05/2025 8:05 AM [facility] SPECIFIC GRAVITY,URINE >=1.030(A) 1.010, 1.015, 1.020, 1.025 01/05/2025 8:05 AM CDT [facility] PH,URINE 5.5 6.0, 7.0, 8.0, 5.5, 6.5, 7.5, 8.5 01/05/2025 8:05 AM [facility] UROBILINOGEN,QU ALITATIVE Normal Normal EU/dl 01/05/2025 8:05 AM [facility] PROTEIN, URINE 30(A) Negative mg/dL 01/05/2025 8:05 AM CDT [facility]AL LAB[facility]ATORY GLUCOSE, URINE Negative Negative mg/dL 01/05/2025 8:05 AM CDT [facility] KETONES,URINE Negative Negative mg/dL 01/05/2025 8:05 AM CDT [facility] BILIRUBIN,URINE Abnormal(A) Negative 01/06/20 25 8:05 AM CDT [facility] Comment:A variety of metabol ites and/or medications may result in a positive bilirubin result. Clinical correlation is recommended. OCCULT BLOOD,URINE Large(A) Negative 01/05/2025 8:05 AM CDT [facility]- NTRAL LABORATORY NITRITE Negative Negative 01/05/2025 8:05 AM CDT [facility] LEUKOCYTE ESTERASE Moderate(A) Negative 01/05/2025 8:05 AM CDT [facility] Urine URINE SPECIMEN / Unknown Non-Blood / Unknown 01/05/2025 7:48 AM CDT 01/05/2025 7:55 AM CDT us Abiodun Cummins MD URINE Final Resu lt [facility] [address] [place] [phone], from Last 3 Months Insurance [facility] MEDICARE PART A HB ONLY HC MEDICARE PPS [facility] HC UCARE MEDICARE PDGM Advance Directives * [...] Comments Code Status Discussion: Other Care Teams Director Of Maintenance Relationship Specialty Start Date End Date Maggie Fierro MD [address] [place] [id number] PCP - General Internal Medicine 01/08/25 [place] [id number] [address] 01/13/25 Becki Santos(?) AXIS Care Coord are Connect+ 01/01/25
--- OUTSIDE RECORDS SUMMARY | 2025-01-28 14:18 | XMS_ITS | Clinical Summary ---
Author Organization [employer] [facility] [facility] Address [address] [place] [address] Care Team Providers Care Home Attendant Name Role Phone Gabe Zheng MD Primary Care Provider [phone] Source Comments You are receiving this document as you are listed as the primary care provider,follow-up provider, or the patient has been referred to you for consultation.This is in compliance with the Medicare and[facility] Hospital[facility] EHR Incentive Program,which states Providers who transition their patient to another setting of careor provider of care or refers their patient to another provider of care shouldprovide summary care record for each transition of care or referral. 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 [address] Gabe Zheng MD UPDATE 12/20/2024 Telephone [facility] [address] Ophthalmology [address] [facility] [place] [address] Trevon Troncoso MD Scheduling Question from Last 3 Months Immunizations Immunization Administration Dates Next Due Hdcv - Rabies Vaccine 03/21/2002, 002,02/26/2002,2001 HepB Adult (Engerix-B, 20+ y rs, 3 dose series) 06/27/2013,01/16/2013,12/08/2012 Influenza (Flucelvax), Prese rv Free QIV 02/20/2020 Influenza IIV4 (Quadrivalent ) 0.5mL (95112) 04/02/2021 Moderna Monovalent 12+ 12/12/2020,10/07/2020 TB Skin [...] type HIV ANTIBODY Routine 05/08/2010 11:35 AM WAREHOUSE LEAD HEPATITIS C ANTIBODY, WITH REFLEX (ANTI-HCV) Routine 05/08/2010 11:35 AM WAREHOUSE LEAD from Last 3 Months or Most Recently Relevant to Health Maintenance Results * Lipid Panel and Direct LDL(If Needed) (09/25/2018 4:02 PM CDT) Cholesterol 147 0 - 199 mg/dL 09/25/2018 4:34 PM CDT [facility] 3850 LABORATORY Triglyceride 59 <=149 mg/dL 09/25/2018 4:34 PM CDT [facility] 3850 LABORATORY HDL Cholesterol 43 >=40 mg/dL 9 4:34 PM CDT [facility] 3850 LABORATORY LDL, Calculated 92 <130 mg/dL 9 4:34 PM CDT [place] [address] LABORATORY Non HDL Chol, Calculated 104 <=159 mg/dL 09/25/2018 4:34 PM CDT [place] [address] LABORATORY Cholesterol/HDL Ratio 3.4 09/25/2018 4:34 PM CDT [facility] 385 LABORATORY Blood Venipuncture / Unknown 09/25/2018 4:02 PM CDT 09/25/2018 4:02 PM CDT Gabe Zheng MD LAB_1 Final Result Performing Organization Address [facility] de Phone Number [place] [address] LABORATORY [address] [place] [address], [facility] [phone] * Prostatic Specific Antigen (Screen) (09/25/2018 4:02 PM CDT) Prostatic Specific Antigen 0.3 0.0 - 4.0 ng/mL 09/25/2018 7:24 PM CDT [facility] Blood Venipuncture / Unknown 09/25/2018 4:02 PM CDT 09/25/2018 4:02 PM CDT Narrative [facility] - 09/25/2018 7:24 PM CDT The [employer] PSA Chemiluminescent immunoassay is used. Results obtained with different test methods or kits cannot be used interchangeably. Gabe Zheng MD LAB_1 Final Result Performing Organization Address [facility] de Phone Number [facility] [address] [place], [place] [address] * HIV ANTIBODY (05/08/2010 11:35 AM WAREHOUSE LEAD) HIV 1/HIV 2 Non-React No normal range HP CONVERSION 05/08/2010 11:3 5 AM WAREHOUSE LEAD us Gabe Zheng MD LAB_1 Final Result Performing Organization Address [facility] de Phone Number HP CONVERSION * Hepatitis C Antibody, with Reflex (05/08/2010 11:35 AM WAREHOUSE LEAD) Hepatitis C Antibody Non-React No normal range HP CONVERSION 05/08/2010 11:3 5 AM WAREHOUSE LEAD Gabe Zheng MD LAB_1 Final Result HP CONVERSION from Last 3 Months or Most Recently Relevant to Health Maintenance Insurance [facility] MEDICARE Advance Directives * Full Code (Latest [...] 2:04 AM 02/06/2015 1:21 PM Care Teams Home Attendant Relationship Specialty Start Date End Date Gabe Zheng MD [address] [place] [address] PCP - General Family Practice 01/16/25
--- OUTSIDE RECORDS SUMMARY | 2025-01-28 14:19 | XMS_ITS | Encounter Summary ---
Author Organization [employer] Address [address] [place] [address] Care Team Providers Care Manager Hair Name Role Phone Gabe Zheng MD Primary Care Provider [phone] Reason for Visit * Reason Comments Scheduling Question Encounter Details Date Type Department Care Team (Late st Contact Info) Description 12/20/2024 Telephone [facility] [address] Ophthalmology [address] [facility] [place] [address] Trevon Troncoso MD [address] [place] [address] Scheduling Question Social History Tobacco [...] pt I would talk with the call retail center receptionist and have her look to see if [...] today. [facility] so I am forwarding this request to them. 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
--- OUTSIDE RECORDS SUMMARY | 2025-01-28 14:19 | XMS_ITS | Encounter Summary ---
Author Organization [employer] Address [address] [place] [address] Care Team Providers Care Manager Quantitative Name Role Phone Gabe Zheng MD Primary Care Provider [phone] Reason for Visit * Reason Comments UPDATE Encounter Details Date Type Department Care Team (Late st Contact Info) Description 01/14/2025 Telephone [place] [id number] Family Medicine [facility] [address] Gabe Zheng MD [address] [place] [address] UPDATE Social History Tobacco Use [...] RN - 01/17/2025 11:16 AM CDT Diane respite care provider calling back [phone]. Patient does not need a f/u with Norm, he is seeing Dr Fierro at [facility] for follow up. * Kala Baxter RN - 01/17/2025 10:10 AM CDT Attempted to reach Diane. Left message to call back at [phone] (Need more clarity- does patient have discharge appt scheduled with [facility] physician or should one be scheduled with Dr Zheng?) * Meri Merida RN - 01/16/2025 9:19 AM CDT Left message with Diane respite care provider again- is pt having a discharge appointment with [facility] or does he need one with Dr. Zheng? * Aileen Clay RN - 01/16/2025 8:55 AM CDT Diane, respite care provider with [facility] calling back. Diane confirms that the patient is enrolled with [facility]. Contact information for Diane: [phone] * Aileen Hancock RN - 01/15/2025 5:01 PM CDT Called Diane. Left message to call back to [phone]. Please inquire if patient is enrolled with [facility]. * Anne Serrano RN - 01/14/2025 4:30 PM CDT Attempted to call Diane- care coordination with [facility], no answer, generic voicemail left to call back nurse line [phone] * Shannon Farrell - 01/14/2025 4:26 PM CDT Other Questions/Concerns/FYI Is this a symptom? No What is your question or concern? Would like pcp to now pt has been discharged from [facility] 01/13/25 Have you recently been seen for [...] filedocumented in this encounter Care Teams Manager Quantitative Relationship Specialty Start Date End Date Gabe Zheng MD [address] [place] [address] PCP - General Family Practice 01/16/25 documented as of this encounter
--- OUTSIDE RECORDS SUMMARY | 2025-01-28 14:19 | XMS_ITS | Encounter Summary ---
Author Organization [employer] Address [address] [place] [address] Care Team Providers Care Client Service Professional Name Role Phone Gabe Zheng MD Primary Care Provider [phone] Encounter Details Date Type Department Care Team (Late st Contact Info) Description 06/04/2013 Correspondence [facility] [address] [place], [place] [address] Kelvin Hayes MD PRE PLACEMENT EXAM Social [...] on filedocumented in this encounter Care Teams Client Service Professional Relationship Specialty Start Date End Date Gabe Zheng MD [address] [place] [address] PCP - General Family Practice 01/16/25 documented as of this encounter
[2025-01-28 14:30] VITALS: BP 109/75; PULSE 94; RESP 16; TEMP 36.2; O2SAT 99
--- OUTSIDE RECORDS SUMMARY | 2025-01-28 15:18 | XMS_ITS | CCD ---
Author Organization Unknown Care Team Providers Care Core Shaper Sides Name Role Phone [employer] [place], [place] Primary Care Provider Unava ilable Unavailable Chronic Care Management Unavaila ble Summary Purpose DataExchange Insurance Providers Payer name Policy type / Coverage type Covered green party ID Effective Begin Date Effective End Date [facility] Commercial Insurance [id number] Unknown Unkn own Family History Family History data not found Medication Administered No Medication Administered data Reason For Visit No Reason For Visit data
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
--- NOTE | 2025-01-28 16:12 | CRLHL7_ITS ---
For Patients: As a result of the Century Cures Act, medical imaging exams and procedure reports are released immediately into your electronic medical record. You may view this report before your referring provider. If you have questions, please contact your health care provider. INDICATION: Right flank pain, history of bowel obstruction TECHNIQUE: CT abdomen and pelvis without contrast. COMPARISON: CT abdomen and pelvis 01/05/2025 and 05/18/2023, abdominal MRI 12/28/2024 FINDINGS: Lower chest: New small bilateral pleural effusions. Bibasal atelectasis. Liver: Nodular hepatic contour. Gallbladder and bile ducts: Cholelithiasis. No biliary dilatation. Pancreas: Unremarkable. No mass or inflammation. Spleen: Normal in size. No masses. Adrenal glands: Normal in size. No nodules. Kidneys: Largely unchanged hyperattenuating right upper pole renal cyst measuring 2.7 cm, previously 2.5 cm, with peripheral rim calcification. This is better evaluated on recent prior MRI. No renal calculi or hydronephrosis. GI tract: Surgical changes of the bowel in the left lower quadrant. Normal in caliber. No sign of mass or inflammation. The appendix is not well seen on this exam due to adjacent fluid Vasculature: Abdominal aorta is normal in caliber. Lymph nodes: No lymphadenopathy. Peritoneum/Abdominal Wall: New moderate volume ascites. No sign of mass or infiltration. No free air or significant free fluid. Pelvis: Unremarkable. No pelvic masses. Bones: Right ileal lesion is better appreciated on prior MRI. Healed left posterior rib fractures IMPRESSION: 1. New moderate ascites and small bilateral pleural effusions. 2. Similar nodular hepatic contour suggestive of cirrhosis. Please note that all CT scans at this facility use dose modulation, iterative reconstruction, and/or weight-based dosing when appropriate to reduce radiation dose to as low as reasonably achievable. Dictated by Tonya Donald MD @ 01/28/2025 4:58:33 PM (Electronically Signed)
[2025-01-28 16:28] LABS: Appearance Urine Clear (Clear)
[2025-01-28] MEDS: CYCLOBENZAPRINE HCL 10 MG TABLET 5 MG PO (17:10)
[2025-01-28 17:14] VITALS: BP 109/68; PULSE 84; RESP 20; O2SAT 100
[2025-01-28 17:15] LABS: Hematocrit* 29.0 % (37.0-53.0); Hemoglobin* 9.9 gm/dL (13.5-17.5); Immature Granulocytes Pct Auto 0.8 %; Mean Corpuscular HGB Conc 34 gm/dL (32-36); Mean Corpuscular Hemoglobin 32 pg (26-34); Mean Corpuscular Volume 93 fL (80-100); RDW Coefficient of Variation % 14.5 % (11.5-15.5); Red Blood Count* 3.11 m/uL (4.30-5.90); White Blood Count* 17.02 K/uL (4.50-11.00)
[2025-01-28 17:18] LABS: Immature Granulocytes Abs Auto 0.10 K/uL (0.00-0.30); Lymphocytes Absolute Auto 3.00 K/uL (0.90-2.90); Slide Review Reflex No
[2025-01-28 17:27] LABS: Chloride* 102 mmol/L (96-114); Potassium* 4.2 mmol/L (3.6-5.1); Sodium* 131 mmol/L (135-149)
[2025-01-28 17:30] LABS: Anion Gap 7 mEq/L (7-15); Blood Urea Nitrogen* 8 mg/dL (7-30); Calcium* 8.4 mg/dL (8.4-10.6); Carbon Dioxide* 22 mmol/L (20-32); Creatinine* 0.8 mg/dL (0.5-1.5); Estimated Glomerular Filt Rate 102 ml/min; Glucose* 112 mg/dL (60-115)
--- OUTSIDE RECORDS SUMMARY | 2025-01-28 17:31 | XMS_ITS | CCD ---
Author Organization Unknown Care Team Providers Care Natural Resources Specialist Name Role Phone [place], [place] Primary Care Provider Unava ilable Unavailable Chronic Care Management Unavaila ble Summary Purpose DataExchange Insurance Providers Payer name Policy type / Coverage type Covered alliance party ID Effective Begin Date Effective End Date [facility] Commercial Insurance [id number] Unknown Unkn own Family History Family History data not found Medication Administered No Medication Administered data Reason For Visit No Reason For Visit data
== END 2025-01-28 18:07 | disposition home or self-care (01) ==
PROVIDERS: Emergency Provider Family Medicine; PCP Internal Medicine
DX: K70.31 Alcoholic cirrhosis of liver with ascites (principal); D72.829 Elevated white blood cell count, unspecified; R10.9 Unspecified abdominal pain
CPT/HCPCS: 36415; 74176; 80048; 81001; 83735; 85025; 99284; 99285; A9270

== ENCOUNTER 2025-02-04 15:26 | Outpatient (CLI) | payer MEDICARE, SELFPAY | END 2025-02-04 15:27 | disposition home or self-care (01) | LOC: WOUND 15:27 | PROVIDERS: PCP Internal Medicine; Visit Provider Physician Assistant Surgical | DX: S80.821A Blister (nonthermal), right lower leg, initial encounter (principal); S80.822A Blister (nonthermal), left lower leg, initial encounter; I34.0 Nonrheumatic mitral (valve) insufficiency; K70.31 Alcoholic cirrhosis of liver with ascites; F17.200 Nicotine dependence, unspecified, uncomplicated; F10.20 Alcohol dependence, uncomplicated | CPT/HCPCS: G0463 ==

== ENCOUNTER 2025-02-05 10:53 | Outpatient (CLI) | payer MEDICARE, MEDICAID, SELFPAY ==
[2025-02-05 11:15] VITALS: BP 122/79; PULSE 117; RESP 16; O2SAT 99
[2025-02-05 12:09] VITALS: BP 115/73
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
[2025-02-05 12:48] LABS: Total Protein* 6.7 g/dL (6.0-8.3)
[2025-02-05 13:03] LABS: Mononuclear WBC Body Fluid* 63 %; Polynuclear WBC Body Fluid* 37 %; RBC, Body Fluid* 0 Cells/uL; WBC, Body Fluid* 91 Cells/uL
[2025-02-05 13:33] LABS: BF Clarity* Clear; BF Total Volume* 2000
[2025-02-05 13:34] LABS: Body Fluid Total Protein* < 2.0 gm/dL
[2025-02-05 14:05] LABS: Albumin Body Fluid* < 1.0 gm/dL; Glucose Body Fluid* 107 mg/dL; LDH Body Fluid* 66 U/L
[2025-02-05 14:06] LABS: Amylase Body Fluid* < 30 U/L
== END 2025-02-05 12:29 | disposition home or self-care (01) ==
PROVIDERS: PCP Internal Medicine; Visit Provider Surgery
DX: K70.30 Alcoholic cirrhosis of liver without ascites (principal)
CPT/HCPCS: 36415; 49083; 82042; 82150; 82945; 83615; 84155; 84157; 87070; 87205; 88112; 88305; 89051

== ENCOUNTER 2025-02-11 15:14 | Outpatient (CLI) | payer MEDICARE, SELFPAY | END 2025-02-11 15:15 | disposition home or self-care (01) | LOC: WOUND 15:14 | PROVIDERS: PCP Internal Medicine; Visit Provider Physician Assistant Surgical | DX: S80.821A Blister (nonthermal), right lower leg, initial encounter (principal); S80.822A Blister (nonthermal), left lower leg, initial encounter; L08.9 Local infection of the skin and subcutaneous tissue, unspecified; I34.0 Nonrheumatic mitral (valve) insufficiency; K70.31 Alcoholic cirrhosis of liver with ascites; F10.20 Alcohol dependence, uncomplicated; F17.200 Nicotine dependence, unspecified, uncomplicated | CPT/HCPCS: 11042 ==

== ENCOUNTER 2025-02-18 15:16 | Outpatient (CLI) | payer MEDICARE, SELFPAY | END 2025-02-18 15:17 | disposition home or self-care (01) | LOC: WOUND 15:17 | PROVIDERS: PCP Internal Medicine; Visit Provider Physician Assistant Surgical | DX: S80.821A Blister (nonthermal), right lower leg, initial encounter (principal); I34.0 Nonrheumatic mitral (valve) insufficiency; K70.31 Alcoholic cirrhosis of liver with ascites; F17.200 Nicotine dependence, unspecified, uncomplicated; F10.20 Alcohol dependence, uncomplicated; L08.9 Local infection of the skin and subcutaneous tissue, unspecified | CPT/HCPCS: 11042 ==

== ENCOUNTER 2025-02-21 11:04 | Outpatient (CLI) | payer MEDICARE, SELFPAY ==
[2025-02-21 11:24] VITALS: BP 115/83; PULSE 100; RESP 16; O2SAT 100
[2025-02-21 12:03] VITALS: BP 117/79; PULSE 99; RESP 16; O2SAT 100
--- NOTE | 2025-02-21 12:14 | W.PM.PARA ---
Paracentesis Date Date: 02/21/25 Procedure Note Procedure: Paracentesis with Ultrasound Guidance Type of paracentesis: Therapeutic Initial or Repeat?: Repeat Surgeon: Jocelynn Resendez Indications: 59-year-old male with history of alcoholic cirrhosis presents with abdominal discomfort and increase protuberance of the abdomen due to fluid. Patient has not been able to schedule an appointment with liver specialist because he does not have a ride. I discussed with the patient that he is continue taking his medications and see a liver specialist. Therapeutic paracentesis will not be effective it is not combined with other management of ascites. The procedure was discussed in detail. The risks associated procedure including infection, bleeding, and injury to intra-abdominal organs were discussed with the patient, and he wanted to proceed do with this paracentesis today. Labs and Cytology Sent:: No Albumin infused: No Procedure Note:: Prior to the procedure, the risks and benefits of the procedure were discussed and an informed consent was obtained. Patient identification was confirmed and TIME OUT was performed. An ultrasound was brought onto the field and an easily accessible pocket of ascites was identified that was away from intraabdominal organs. The patient's abdomen in the right mid abdomen was prepped and draped in the usual sterile fashion. 1% Lidocaine was used to anesthetize the skin, soft tissues and peritoneum over the proposed needle insertion site. A skin incision was made with a scalpel just large enough to fit the needle. The needle with the paracentesis catheter was advanced into the abdomen and clear yellow fluid was aspirated into syringe. The needle was then withdrawn and the catheter was left in place. The catheter was then connected to the drainage tubing. 2 Liters of straw colored fluid was drained. Since patient had this procedure 2 weeks ago, the fluid was not sent to lab and pathology again. Post procedure ultrasound revealed still presence of residual ascitic fluid but patient had a couple episodes of sharp pain in the abdomen, and the catheter was withdrawn. The skin was closed with Dermabond. Patient tolerated procedure well and there were no immediate complications. Patient's vital signs were stable throughout the procedure and no albumin was infused. Recomendation: Discharge to home (ambulatory) and return to normal activities tomorrow. Follow up with referring provider as needed.
== END 2025-02-21 12:23 | disposition home or self-care (01) ==
LOC: US 11:05
PROVIDERS: PCP Internal Medicine; Visit Provider Surgery
DX: K70.31 Alcoholic cirrhosis of liver with ascites (principal)
CPT/HCPCS: 49083

== ENCOUNTER 2025-02-21 17:44 | Emergency (ER) | payer MEDICARE, SELFPAY ==
[2025-02-21 17:51] VITALS: BP 114/67; PULSE 72; RESP 18; TEMP 36.6; O2SAT 98; BMI 16.5
--- OUTSIDE RECORDS SUMMARY | 2025-02-21 18:14 | XMS_ITS | Clinical Summary ---
Author Organization [employer] [facility] Address [facility] [place] [address] Care Team Providers Care [place] Name Role Phone Maggie Fierro MD Primary Care Provider [phone] Allergies No known active allergies Medications gabapentin (NEURONTIN) 300 mg capsule Take 300 mg by mouth 3 times daily if needed. 1 Active tiZANidine (ZANAFLEX) 4 mg tablet Take 4 mg by mouth every 8 hours if needed. 1 Active ondansetron (ZOFRAN ODT) 4 mg disintegrating tabletIndications:V omiting, intractability of vomiting not specified, presence of nausea not specified, unspecified vomiting type Place 1 tablet (4 mg) on the tongue every 8 hours if needed for Nausea/Vomit ing. 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 Active fish oil-omega-3 fatty acids (Fish OiL) 1,200-360 mg cap Take 1 Capsule by mouth once daily. One capsule is 1200 mg-360 mg Active MAGNESIUM ORAL Take 1 Tablet by mouth once daily. Active folic acid 1 mg tabletIndications:A lcohol abuse Take 1 Tablet (1 mg) by mouth once daily. 30 Tablet 01/13/2025 2:22 PM CDT 5 Active multivitamin,ther and minerals (multivitamin with minerals) tabletIndications:M alnutrition of moderate degree (HC) Take 1 Tablet by mouth once daily. 30 Tablet 01/13/2025 2:22 PM CDT 5 Active thiamine (VITAMIN B1) 100 mg tabletIndications:A lcohol abuse Take 1 Tablet (100 mg) by mouth once daily. 30 Tablet 01/13/2025 2:22 PM CDT 5 Active furosemide (LASIX) 20 mg tabletIndications:C irrhosis of liver with ascites, unspecified hepatic cirrhosis type (HC) Take 1 Tablet (20 mg) by mouth once daily in the morning. 30 Tablet 01/13/2025 2:22 PM CDT 5 Active spironolactone (ALDACTONE) 50 mg tabletIndications:C irrhosis of liver with ascites, unspecified hepatic cirrhosis type (HC) Take 1 Tablet (50 mg) by mouth once daily in the morning. 30 Tablet 01/13/2025 2:22 PM CDT 5 Active WalkerIndications:C irrhosis of liver with ascites, unspecified hepatic cirrhosis type (HC),Bacteremia due to Enterococcus Walker with front wheels for home use. 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 S/P exploratory laparotomy 05/30/2014 Overview (01/06/2025): S/P exploratory laparotomy, lysis of adhesions Cirrhosis of liver 02/18/2012 Malnutrition of moderate degree 01/17/2012 Hepatitis 01/15/2012 Resolved Problems Problem Noted Date Diagnosed Date Resolved Date Septic shock 01/06/2025 01/06/2025 Small bowel obstruction 05/28/201412/21 Encounters Date Type Department Care Team Description 02/07/2025 Home Care Visit [facility] [address] [place] [address], [place] [address] Nav Amin, PT PT - OASIS DISCHARGE 02/07/2025 Home Care Visit [facility] [address] [place] [address], [place] [phone] Meg Stack RN CARE COORDINATION 02/07/2025 Lab Requisition [facility] [phone] Jocelynn Resendez MD 02/06/2025 Lab Requisition [facility] [phone] Jocelynn Resendez MD 01/30/2025 Home Care Visit [facility] [address] [place] [address], [place] [address] Meg Stack, SARAN CARE COORDINATION 01/28/2025 Home Care Visit [facility] [address] [place] [address], [place] [address] Meg Stack, FLOWER CHENILLER NOTE 01/24/2025 12:30 PM CDT Home Care Visit [facility] [address] [place] [address], [place] [address] Nav Amin, PT PT - INITIAL ASSESSMENT 01/23/2025 11:00 AM CDT Home Care Visit [place] [id number] [place] [address], [place] [address] Vania Castillo, SARAN SN - HOME VISIT 01/22/2025 Home Care Visit [facility] [address] [place] [address], [place] [address] Bev Sherman, SARAN CARE COORDINATION 01/21/2025 Plan of Care Documentation [address] [place] [address] 01/19/2025 12:00 PM CDT Home Care Visit [place] [id number] [place] [address], [place] [address] Bev Sherman, RN SN - OASIS START OF CARE 01/18/2025 Home Care Visit [facility] [address] [place] [address] Heide Lowery, RN CARE COORDINATION 01/15/2025 Home Care Visit [facility] [address] [place] [address] Meg Stack, SARAN CARE COORDINATION 01/10/2025 Travel 01/05/2025 7:26 AM CDT - 01/13/2025 4:23 PM CDT Hospital Encounter [facility] [address] [place] [address] Abiodun Cummins MD Stephenson, Dinorah Cardona MD Residents, [facility], Dick De La Fuente MD [facility] [employer] Hospitalists Sony, MD Rosalinda Powell, ESTEBAN [facility], Danica Davis MD Alcohol abuse (Primary Dx); [...] on file 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 [place] [address], [place] * PATH NON HOSE TUBING BACKER CYTOLOGY [[id number]] (02/05/2025 12:12 PM CDT) Case Report Medical Cytology Report Case: [id number] Authorizing Provider: Jocelynn Resendez MD Collected: 02/05/2025 1212 Ordering Location: [facility] Received: 02/07/2025 0929 Pathologist: Cherie Mays MD Specimen: Peritoneal Fluid 02/07/2025 4:48 PM CDT [facility] Final Diagnosis PERITONEAL FLUID, CYTOLOGIC MATERIAL: 1. Mild acute inflammation 2. Negative for malignancy in this sample 02/07/2025 4:48 PM CDT [facility] at 1648 CDT Clinical Information Ascites 02/07/2025 4:48 PM CDT [facility] Gross Description A) SOURCE: Peritoneal Fluid The specimen consists of 400 cc of yellow hazy fluid from which the following is prepared: -1 Air-dried slide for DiffQuik stain -1 ThinPrep slide for Papanicolaou Stain -1 Cell block slide A2: Cell block material was placed in formalin at 1700 on 02/06/25 and fixed in formalin at least 6 hours and no more than 72 hours. 02/07/2025 4:48 PM CDT [facility] Microscopic Description Specimen adequacy: Adequate for interpretation. All slides were reviewed. The microscopic appearance substantiates the diagnosis. 02/07/2025 4:48 PM CDT [facility] Additional Information Cytology is screened at [facility] - [address], [place] [address] [address] [facility] - [address], [place] [address] and [facility] - [address] [facility] [place] [address] Interpreted at [facility] - [address], [place] [address] 02/07/2025 4:48 PM CDT [facility] Body Fluid PERITONEAL FLUID SPECIMEN / Unknown 02/05/2025 12:12 PM CDT 02/07/2025 9:29 AM CDT Jocelynn Resendez MD PATHOLOGY/CYTOLOGY Final R esult Performing Organization Address [facility] Co de Phone Number [facility] [address] [address], [place] * POTASSIUM (01/13/2025 10:04 AM CDT) Only the most recent of8 resultswithin the time period is included. Pathologist [facility] POTASSIUM 4.4 3.5 - 5.1 mmol/L 01/13/2025 11:30 AM CDT [facility] Blood BLOOD SPECIMEN / Unknown Venipuncture / Unknown 01/13/2025 10:04 AM CDT 01/13/2025 10:18 AM CDT Danica Cornejo MD CHEMISTRY F inal Result Performing Organization Address [facility] de Phone Number [facility] [address] [address], [place] * (ABNORMAL) SODIUM (01/13/2025 5:51 AM CDT) Only the most recent of4 resultswithin the time period is included. Pathologist [facility] SODIUM 128(L) 136 - 145 mmol/L 01/13/2025 6:32 AM CDT [facility] Blood BLOOD SPECIMEN / Unknown Butterfly / Unknown 01/13/2025 5:51 AM CDT 01/13/2025 6:08 AM CDT Danica Cornejo MD CHEMISTRY F inal Result Performing Organization Address [facility] Co de Phone Number [facility] [address] [address], [place] * CREATININE (01/13/2025 5:51 AM CDT) Only the most recent of3 resultswithin the time period is included. Pathologist [facility] eGFR >90 >90 mL/min/1.7 3m2 01/13/2025 6:31 AM CDT [facility] Comment:As of 2021, eG FR is calculated by the CKD-EPI creatinine equation without race adjustment. eGFR can be influenced by muscle mass, exercise, and diet. The reported eGFR is an estimation only and is only applicable if the renal function is stable. CREATININE 0.74 0.70 - 1.20 mg/dL 01/13/2025 6:31 AM CDT [facility] Blood BLOOD SPECIMEN / Unknown Butterfly / Unknown 01/13/2025 5:51 AM CDT 01/13/2025 6:08 AM CDT Danica Cornejo MD CHEMISTRY F inal Result [facility] [address] [place] [address], * (ABNORMAL) INR AM (01/12/2025 5:52 AM CDT) Only the most recent of5 resultswithin the time period is included. INR 1.3(H) <1.3 01/12/2025 6:21 AM CDT [facility] PROTIME 14.5(H) 10.6 - 12.4 sec 01/12/2025 6:21 AM CDT [facility] Blood BLOOD SPECIMEN / Unknown Venipuncture / Unknown 01/12/2025 5:52 AM CDT 01/12/2025 6:09 AM CDT Narrative [facility] - 01/12/2025 6:21 AM CDT [...] HEMATOLOGY F inal Result Performing Organization Address City/[facility]/ZIP Co de Phone Number [facility] [address] [place] [address], * MAGNESIUM (01/12/2025 5:52 AM CDT) Only the most recent of10 resultswithin the time period is included. MAGNESIUM 1.6 1.6 - 2.6 mg/dL 01/12/2025 6:34 AM CDT [facility] Blood BLOOD SPECIMEN / Unknown Venipuncture / Unknown 01/12/2025 5:52 AM CDT 01/12/2025 6:09 AM CDT Doni NOEL CHEMISTRY Shanna l Result Performing Organization Address [facility] Co de Phone Number [facility] [address] [place] [address], [place] * (ABNORMAL) Hepatic function panel AM (01/12/2025 5:52 AM CDT) Only the most recent of4 resultswithin the time period is included. ALBUMIN 2.5(L) 4.0 - 4.9 g/dL 01/12/2025 6:34 AM CDT [facility] PROTEIN,TOTAL 5.5(L) 6.0 - 8.0 g/dL 01/12/2025 6:34 AM CDT [facility] BILIRUBIN,TOTAL 1.9(H) 0.0 - 1.2 mg/dL 01/12/2025 6:34 AM CDT [facility] BILIRUBIN,DIRECT 1.3(H) 0.0 - 0.2 mg/dL 01/12/2025 6:34 AM CDT [facility] BILIRUBIN,INDIRE CT 0.6 0.2 - 0.8 mg/dL 01/12/2025 6:34 AM CDT [facility] ALK PHOSPHATASE 286(H) 40 - 129 IU/L 01/12/2025 6:34 AM CDT [facility] ALT (SGPT) 42 10 - 50 IU/L 01/12/2025 6:34 AM CDT [facility] AST (SGOT) 85(H) 10 - 50 IU/L 01/12/2025 6:34 AM CDT [facility] Blood BLOOD SPECIMEN / Unknown Venipuncture / Unknown 01/12/2025 5:52 AM CDT 01/12/2025 6:09 AM CDT us Danica Cornejo MD CHEMISTRY F inal Result Performing Organization Address City/[facility]/ZIP Co de Phone Number [facility] [address] [place] [address], [place] * HBSAG (HBS) (01/11/2025 5:37 AM CDT) HBSAG Nonreactive Nonreactive 01/11/2025 6:26 AM CDT [facility] Blood BLOOD SPECIMEN / Unknown Venipuncture / Unknown 01/11/2025 5:37 AM CDT 01/11/2025 5:52 AM CDT us Kirill Pandya MD SEND OUTS Final Result Performing Organization Address [facility]/ZIP Co de Phone Number [facility] [address] [place] [address], [place] * ANTI HCV (01/11/2025 5:37 AM CDT) HEPATITIS C ANTIBODY Non-Reacti ve Non-React dylan 01/11/2025 6:32 AM CDT [facility] Comment:Please note, per www .CDC.gov: [...] Kirill Pandya MD SEND OUTS Final Result [facility] [address] [place] [address], [place] * SCAN CORRESP-LABORATORY RESULTS (01/10/2025 12:26 [...] 01/10/2025 10:00 AM CDT 1. Bibasilar atelectasis, epww-wnebpsg-jyat-right. Patchy opacities anterior to the atelectasis probably inflammatory. Effusions, jqoz-mecsklr-bhlj-right. The right effusion has improved since the [...] Moderate diffuse ascites IMPRESSION: 1. Bibasilar atelectasis, owrz-czayutb-agzs-right. Patchy opacitiesanterior to the atelectasis probably inflammatory. Effusions,sjtl-gvcfzjt-oeff-right. The right effusion has improved since the [...] MD @ 01/10/2025 10:00:21 AM (Electronically Signed) us Ilana LI CT Fi nal Result * Blood culture DAILY (01/10/2025 7:04 AM CDT) Only the most recent of3 resultswithin the time period is included. CULTURE No Growth. 01/15/2025 8:11 AM CDT [facility] Blood BLOOD SPECIMEN / Unknown Butterfly / Unknown 01/10/2025 7:04 AM CDT 01/10/2025 7:12 AM CDT Narrative [facility] - 01/15/2025 8:11 AM CDT Low volume blood culture received; possible false negative culture. Maurisio Arreola MD MICROBIOLOGY Final Result [facility] [address] [place] [address], [place] * US THORACENTESIS INCl IMAGE GUIDE RIGHT (01/09/2025 1:49 PM CDT) Anatomical Region Laterality Modality CHEST, THORAX Ultrasound Impressions 01/09/2025 2:17 PM CDT Successful ultrasound guided therapeutic and diagnostic thoracentesis, with removal of 990 mLs of fluid from the Right pleural space. Shannon Barragan PA-C [facility] Interventional Radiology [place] Protocol A. Pre-procedure verification complete yes 1-relevant [...] CDT RADIOLOGY IMMEDIATE POST PROCEDURE NOTE 01/09/2025 Sebastian Glass [phone] [id number] INFORMED CONSENT: In my discussion, prior [...] anesthetize the subcutaneous soft tissues. Then, a 5-turkmen Yueh needle with a one-way valve was advanced into the pleural space. 990 mLs of serous pleural fluid was removed. Fluid sample was sent to the lab for analysis. No immediate complications. Patient tolerated the procedure well. us Doni ORELLANA US Shanna gonzáles Result * XR CHEST 1 [...] For Patients: As a result of the Century Cures Act, medical imaging exams and [...] CULTURE No Growth. 01/15/2025 10:30 AM CDT [facility] GRAM STAIN No Epithelial cells 01/15/2025 10:30 AM CDT [facility] GRAM STAIN No RBCs 01/15/2025 10:30 AM CDT [facility] GRAM STAIN No PMNs 01/15/2025 10:30 AM CDT [facility] GRAM STAIN No organisms seen 01/15/2025 10:30 AM CDT [facility] Body Fluid (Pleural) Non-Blood / Unknown 01/09/2025 1:18 PM CDT 01/09/2025 1:44 PM CDT Doni Tellez MBBS MICROBIOLOGY Shanna l Result [facility] [address] [place] [address], [place] * BODY FLUID CELL COUNT/DIF (01/09/2025 1:18 PM CDT) Only the most recent of2 resultswithin the time period is included. BODY FLUID SOURCE Pleural Fluid 01/09/2025 5:32 PM CDT [facility] Comment:Right BODY FLUID COLOR Yellow 01/09/2025 5:32 PM CDT [facility] BODY FLUID CLARITY Clear 01/09/2025 5:32 PM CDT [facility] TOTAL NUCLEATED CELLS, BF 219 /cu mm 01/09/2025 5:32 PM CDT [facility] RED BLOOD COUNT, BODY FLUID <2,000 /cu mm 01/09/2025 5:32 PM CDT [facility] % NEUTROPHILS, BODY FLUID 85 % 01/09/2025 5:32 PM CDT [facility] % LYMPHOCYTES, BODY FLUID 11 % 01/09/2025 5:32 PM CDT [facility] % MONO/MACRO, BODY FLUID 3 % 01/09/2025 5:32 PM CDT [facility] % MESOTHELIAL CELLS, BODY FLUID 1 % 01/09/2025 5:32 PM CDT [facility] Body Fluid PLEURAL FLUID SPECIMEN / Unknown Non-Blood / Unknown 01/09/2025 1:18 PM CDT 01/09/2025 1:44 PM CDT Doni ORELLANA BODY FLUID Shanna l Result [facility] [address] [place] [address], [place] * PROTEIN,BODY FLUID (01/09/2025 1:18 PM CDT) Only the most recent of2 resultswithin the time period is included. SPECIMEN SOURCE Right Pleural Fluid 01/09/2025 3:16 PM CDT [facility] PROTEIN,BODY FLUID 1.6 g/dL 01/09/2025 3:16 PM CDT [facility] Comment:No Reference Range D efined. Body Fluid PLEURAL FLUID SPECIMEN / Unknown Non-Blood / Unknown 01/09/2025 1:18 PM CDT 01/09/2025 1:44 PM CDT Narrative [facility] - 01/09/2025 3:16 PM CDT [...] Test developed & performance characteristics determined by [facility], [place], [place] consistent with CLIA requirements. Not cleared or approved by [place] FDA. Doni ORELLANA BODY FLUID Shanna l Result [facility] [address] [place] [address], [place] * PH,BODY FLUID (01/09/2025 1:18 PM CDT) PH,BODY FLUID 7.57 01/09/2025 3:20 PM CDT [facility] Specimen Source Pleural 01/09/2025 3:20 PM CDT [facility] Body Fluid PLEURAL FLUID SPECIMEN / Unknown Non-Blood / Unknown 01/09/2025 1:18 PM CDT 01/09/2025 1:44 PM CDT Doni NOEL BODY FLUID Shanna l Result Performing Organization Address [facility] Co de Phone Number [facility] [address] [place] [address], [place] * LD,BODY FLUID (01/09/2025 1:18 PM CDT) Only the most recent of2 resultswithin the time period is included. SPECIMEN SOURCE Right Pleural Fluid 01/09/2025 3:29 PM CDT [facility] LD,BODY FLUID 128 IU/L 01/09/2025 3:29 PM CDT [facility] Body Fluid PLEURAL FLUID SPECIMEN / Unknown Non-Blood / Unknown 01/09/2025 1:18 PM CDT 01/09/2025 1:44 PM CDT [facility] - 01/09/2025 3:29 PM CDT Pleural: [...] Test developed & performance characteristics determined by [facility] [place], [place] consistent with CLIA requirements. Not cleared or approved by [place] FDA. Doni Evangelistayesica Tellez [facility] BODY FLUID Shanna l Result Performing Organization Address City/[facility] Co de Phone Number [facility] [address] [place] [address], [place] * GLUCOSE,BODY FLUID (01/09/2025 1:18 PM CDT) Only the most recent of2 resultswithin the time period is included. SPECIMEN SOURCE Right Pleural Fluid 01/09/2025 3:16 PM CDT [facility] GLUCOSE,BODY FLUID 90 mg/dL 01/09/2025 3:16 PM CDT [facility] Comment:No Reference Range D efined. Body Fluid PLEURAL FLUID SPECIMEN / Unknown Non-Blood / Unknown 01/09/2025 1:18 PM CDT 01/09/2025 1:44 PM CDT Narrative [facility] - 01/09/2025 3:16 PM CDT [...] Test developed & performance characteristics determined by [facility] [employer] [place], [place] consistent with CLIA requirements. Not cleared or approved by [place] FDA. Doni NOEL BODY FLUID Shanna l Result [facility] [address] [place] [address], * AMYLASE,BODY FLUID (01/09/2025 1:18 PM CDT) SPECIMEN SOURCE Right Pleural Fluid 01/09/2025 3:16 PM CDT [facility] AMYLASE,BODY FLUID 34 IU/L 01/09/2025 3:16 PM CDT [facility] Comment:No Reference Range D efined. Body Fluid PLEURAL FLUID SPECIMEN / Unknown Non-Blood / Unknown 01/09/2025 1:18 PM CDT 01/09/2025 1:44 PM CDT Narrative [facility] - 01/09/2025 3:16 PM CDT [...] Test developed & performance characteristics determined by [employer], [place] consistent with CLIA requirements. Not cleared or approved by [place] FDA. Doni Ramirezerasmopanchito [facility] BODY FLUID Shanna l Result Performing Organization Address City/[facility]/ZIP Co de Phone Number [facility] [address] [place] [address], * ANAEROBIC CULTURE (01/09/2025 1:18 PM CDT) Only the most recent of2 resultswithin the time period is included. Pathologist [facility] CULTURE No anaerobes isolated 01/14/2025 11:43 AM CDT [facility] Other PLEURAL FLUID SPECIMEN / Unknown Non-Blood / Unknown 01/09/2025 1:18 PM CDT 01/09/2025 1:44 PM CDT [facility] Ramirezerasmopanchito [facility] MICROBIOLOGY Shanna l Result Performing Organization Address [facility] de Phone Number [facility] [address] [place] [address], * (ABNORMAL) CBC no diff AM (01/09/2025 6:38 AM CDT) Only the most recent of4 resultswithin the time period is included. WHITE BLOOD COUNT 10.3 4.5 - 11.0 thou/cu mm 01/09/2025 7:08 AM CDT [facility] RED BLOOD COUNT 2.92(L) 4.30 - 5.90 mil/cu mm 01/09/2025 7:08 AM CDT [facility] HEMOGLOBIN 9.2(L) 13.5 - 17.5 g/dL 01/09/2025 7:08 AM T [facility] HEMATOCRIT 27.8(L) 37.0 - 53.0 % 01/09/2025 7:08 AM CDT [facility] MCV 95 80 - 100 fL 01/09/2025 7:08 AM CDT [facility] MCH 31.5 26.0 - 34.0 pg 01/09/2025 7:08 AM CDT [facility] MCHC 33.1 32.0 - 36.0 g/dL 01/09/2025 7:08 AM CDT [facility] RDW 17.1(H) 11.5 - 15.5 % 01/09/2025 7:08 AM CDT [facility] PLATELET COUNT 270 140 - 440 thou/cu mm 01/09/2025 7:08 AM CDT [facility] MPV 11.1(H) 6.5 - 11.0 fL 01/09/2025 7:08 AM CDT [facility] NRBC 0.0 % 01/09/2025 7:08 AM CDT [facility] ABS NRBC 0.0 thou /cu mm 01/09/2025 7:08 AM CDT [facility] Blood BLOOD SPECIMEN / Unknown Venipuncture / Unknown 01/09/2025 6:38 AM CDT 01/09/2025 6:46 AM CDT us Rafi Gallegos MD HEMATOLOGY Final Result Performing Organization Address City/[facility]/ZIP Co de Phone Number [facility] [address] [place] [address], * (ABNORMAL) PHOSPHORUS (01/09/2025 6:38 AM CDT) Only the most recent of7 resultswithin the time period is included. PHOSPHORUS 2.2(L) 2.5 - 4.5 mg/dL 01/09/2025 7:19 AM CDT [facility] Blood BLOOD SPECIMEN / Unknown Venipuncture / Unknown 01/09/2025 6:38 AM CDT 01/09/2025 6:46 AM CDT Stormy Aguilar MD CHEMISTRY Final Resu lt Performing Organization Address City/[facility]/ZIP Co de Phone Number [facility] [address] [address], [place] * (ABNORMAL) Basic metabolic panel TODAY (01/09/2025 6:38 AM CDT) Only the most recent of4 resultswithin the time period is included. SODIUM 135(L) 136 - 145 mmol/L 01/09/2025 7:19 AM T [facility] POTASSIUM 3.3(L) 3.5 - 5.1 mmol/L 01/09/2025 7:19 AM T [facility] CHLORIDE 105 98 - 107 mmol/L 01/09/2025 7:19 AM T [facility] CO2,TOTAL 19(L) 22 - 29 mmol/L 01/09/2025 7:19 AM T [facility] ANION GAP 11 5 - 18 01/09/2025 7:19 AM T [facility] GLUCOSE 87 70 - 99 mg/dL 01/09/2025 7:19 AM T [facility] CALCIUM 8.0(L) 8.8 - 10.4 mg/dL 01/09/2025 7:19 AM T [facility] Comment: Reference ranges for this test were updated on 2024 to reflect our healthy population more accurately. Reference range changes are not retroactively applied to results, but previous results using the same methodology can be interpreted in the context of the new reference range. BUN 6 6 - 20 mg/dL 01/09/2025 7:19 AM T [facility] CREATININE 0.59(L) 0.70 - 1.20 mg/dL 01/09/2025 7:19 AM T [facility] BUN/CREAT RATIO 10 10 - 20 7:19 AM T [facility] eGFR >90 >90 mL/min/1. 73m2 01/09/2025 7:19 AM T [facility] Comment:As of 2021, eG FR [...] us Rafi Gallegos MD CHEMISTRY Final Result [facility] [address] [place] [address], [place] * ECHO TTE COMPLETE WO CONTRAST [...] Tech: MBL/ARG Referring MD: MAURISIO ARREOLA Site: [facility] Reading Location: [facility] Patient Location: Inpatient. Procedure: 2D, [...] . This study was interpreted by an [facility] accredited facility. Final Procedure Note Deann Coon MD - 01/08/2025 ECHOCARDIOGRAM SEBASTIAN GLASS : 1965 59 years Study Date: 01/08/2025 1:34:35 PM Gender: M BP: 109/71 mmHg Height: 185.00 cm BSA: 1.85 m Weight: 64.00 kg Tech: MBL/ARG Referring MD: MAURISIO ARREOLA Site: [facility] Reading Location: [facility] Patient Location: Inpatient. [...] interpreted by an [facility] accredited facility. Final Maurisio Arreola MD ECHO ORD Final Result * HEMOGLOBIN A1C (01/08/2025 5:10 AM CDT) HEMOGLOBIN A1C SCREENING <4.0 <=6.4 % 01/08/2025 7:13 PM CDT [facility] Blood BLOOD SPECIMEN / Unknown Non-Lab Venipuncture / Unknown 01/08/2025 5:10 AM CDT 01/08/2025 5:29 AM CDT Narrative [facility] - 01/08/2025 7:13 PM CDT (<5.7%) Normal (5.7% to 6.4%) Indicates prediabetes (>=6.5%) Confirms diabetes Falsely low levels may be seen with: Recent Transfusion, Recent Significant Blood Loss, Hemolytic Diseases, or Falsely elevated levels may be seen with: Untreated Anemias, Splenectomy us Stormy Cardoza MD CHEMISTRY Final Result [facility] [address] [place] [address], * TSH AM (01/08/2025 5:10 AM CDT) TSH 2.73 0.27 - 4.20 uIU/mL 01/08/2025 6:04 AM CDT [facility] Blood BLOOD SPECIMEN / Unknown Non-Lab Venipuncture / Unknown 01/08/2025 5:10 AM CDT 01/08/2025 5:29 AM CDT Narrative [facility] - 01/08/2025 6:04 AM CDT In Adults, TSH values between 5.00 and 10.00 uIU/ml do not necessarily indicate the presence of Hypothyroidism. Correlation with clinical findings such as presence of goiter and/or Thyroperoxidase (TPO) Antibody may be helpful. For more information please refer to CALIN 2004; 291: 228-238. Stormy Cardoza MD CHEMISTRY Final Result Performing Organization Address City/[facility]/ZIP Co de Phone Number [facility] [address] [address], [place] * LD serum (ADD ON) (01/08/2025 5:10 AM CDT) Only the most recent of2 resultswithin the time period is included. LD,TOTAL 195 135 - 225 IU/L 01/10/2025 7:41 PM CDT [facility] Blood BLOOD SPECIMEN / Unknown Non-Lab Venipuncture / Unknown 01/08/2025 5:10 AM CDT 01/08/2025 5:29 AM CDT Doni NOELBS CHEMISTRY Shanna l Result Performing Organization Address [facility] Co de Phone Number [facility] [address] [place] [address], [place] * Vitamin B12 level AM (01/08/2025 5:10 AM CDT) Pathologist [facility] VITAMIN B12 470 232 - 1,245 pg/mL 01/08/2025 6:34 AM CDT [facility] Blood BLOOD SPECIMEN / Unknown Non-Lab Venipuncture / Unknown 01/08/2025 5:10 AM CDT 01/08/2025 5:29 AM CDT Narrative [facility] - 01/08/2025 6:34 AM CDT Biotin supplements may cause clinically significant interference for this test assay. If interference is suspected, it is strongly recommended that biotin is discontinued for at least one week prior to retesting. Stormy Cardoza MD CHEMISTRY Final Result Performing Organization Address City/[facility]/ZIP Co de Phone Number [facility] [address] [place] [address], [place] * GLUCOSE METER (01/07/2025 9:32 PM CDT) Only the most recent of12 resultswithin the time period is included. GLUCOSE METER 82 65 - 100 mg/dL 01/07/2025 11:11 PM CDT [facility] Blood BLOOD SPECIMEN / Unknown 01/07/2025 9:32 PM CDT 01/07/2025 11:11 PM CDT us Dick Romero MD CHEMISTRY Final Result [facility] [address] [place] [address], * SCAN-CARDIAC STRIP (01/07/2025 7:15 PM CDT) us Scanner OTHER Final Result * RESPIRATORY PANEL MULTIPLEX PCR (01/07/2025 5:22 PM CDT) Pathologist [facility] Adenovirus NOT Detected 01/07/2025 6:40 PM CDT [facility] Coronavirus 229E NOT Detected 01/07/2025 6:40 PM CDT [facility] Coronavirus HKU1 NOT Detected 01/07/2025 6:40 PM CDT [facility] Coronavirus NL63 NOT Detected 01/07/2025 6:40 PM CDT [facility] Coronavirus OC43 NOT Detected 01/07/2025 6:40 PM CDT [facility] Human Metapneumovirus NOT Detected 01/07/2025 6:40 PM CDT [facility] Human Rhinovirus/Enterovi gary NOT Detected 01/07/2025 6:40 PM CDT [facility] Influenza A NOT Detected 01/07/2025 6:40 PM CDT [facility] Influenza B NOT Detected 01/07/2025 6:40 PM CDT [facility] Parainfluenza Virus 1 NOT Detected 01/07/2025 6:40 PM CDT [facility] Parainfluenza Virus 2 NOT Detected 01/07/2025 6:40 PM CDT [facility] Parainfluenza Virus 3 NOT Detected 01/07/2025 6:40 PM CDT [facility] Parainfluenza Virus 4 NOT Detected 01/07/2025 6:40 PM CDT [facility] Respiratory Syncytial Virus NOT Detected 01/07/2025 6:40 PM CDT [facility] SARS-Cov-2 NOT Detected 01/07/2025 6:40 PM CDT [facility] Bordetella pertussis NOT Detected 01/07/2025 6:40 PM CDT [facility] Bordetella Parapertussis NOT Detected 01/07/2025 6:40 PM CDT [facility] Chlamydophila pneumoniae NOT Detected 01/07/2025 6:40 PM CDT [facility] Mycoplasma pneumoniae NOT Detected 01/07/2025 6:40 PM CDT [facility] Nasopharyngeal NASOPHARYNGEAL SWAB / Unknown Non-Blood / Unknown 01/07/2025 5:22 PM CDT 01/07/2025 5:33 PM CDT Narrative [facility] - 01/07/2025 6:40 PM CDT All PCR tests are subject to false negative results due to variability in viral/bacterial load and collection technique. This test does NOT detect MERS ( Respiratory Syndrome) or SARS-1 (Severe Acute Respiratory Syndrome). Rafi Gallegos MD MICROBIOLOGY Final Result [facility] [address] [place] [address], * US PARACENTESIS W IMAGING (01/07/2025 12:30 PM CDT) Anatomical Region Laterality Modality CHEST, Lung, THORAX Ultrasound Narrative 01/07/2025 12:38 PM CDT RADIOLOGY IMMEDIATE POST PROCEDURE NOTE 01/07/2025 Sebastian Glass [id number] 1965 INFORMED CONSENT: In my discussion, prior [...] tissues were anesthetized with 1% lidocaine. A 5-Hungarian Yueh needle was placed into the ascites under ultrasound guidance in the Right abdomen. 200 mLs of serous fluid was removed. Sample was sent to lab for analysis. No immediate complications. Estimated blood loss none. Patient tolerated the procedure well. Impression: Successful diagnostic ultrasound guided paracentesis with removal of 200 mLs of fluid. Jami Perdue PA-C [facility] Interventional Radiology [place] Protocol A. Pre-procedure verification complete yes 1-relevant [...] SPECIMEN SOURCE ascites 01/07/2025 1:50 PM CDT [facility] ALBUMIN,BODY FLUID 0.6 g/dL 01/07/2025 1:50 PM CDT [facility] Comment:No Reference Range D efined. Body Fluid ASCITIC FLUID SPECIMEN / Unknown Non-Blood / Unknown 01/07/2025 12:17 PM CDT 01/07/2025 12:35 PM CDT Narrative [facility] - 01/07/2025 1:50 PM CDT Peritoneal: SAAG >/= 1.1 g/dL indicates portal Hypertension. Pleural: SEAG > 1.2 g/dL is consistent with a transudative process and may be more accurate in patients receiving diuretic therapy. Test developed & performance characteristics determined by [place], [place] consistent with CLIA requirements. Not cleared or approved by [place] FDA. Rafi Gallegos MD BODY FLUID Final Result Performing Organization Address City/[facility] Co de Phone Number [facility] [address] [place] [address], * (ABNORMAL) LACTATE ARTERIAL (01/07/2025 3:52 AM CDT) LACTATE,ARTERI AL 2.2(HH) 0.5 - 1.6 mmol/L 01/07/2025 4:19 AM CDT [facility] Blood BLOOD SPECIMEN / Unknown Non-Lab Venipuncture / Unknown 01/07/2025 3:52 AM CDT 01/07/2025 3:59 AM CDT Abiodun Cummins MD CHEMISTRY Final Resu lt Performing Organization Address [facility] Co de Phone Number [facility] [address] [place] [address], * VANCOMYCIN (01/07/2025 3:52 AM CDT) VANCOMYCIN 16.3 ug/mL 01/07/2025 4:24 AM CDT [facility] Comment:No Reference Range D efined. DATE OF LAST DOSE,RANDOM 01/06/2025 01/07/2025 4:24 AM CDT [facility] TIME OF LAST DOSE,RANDOM 5:26 PM 01/07/2025 4:24 AM CDT [facility] Blood BLOOD SPECIMEN / Unknown Non-Lab Venipuncture / Unknown 01/07/2025 3:52 AM CDT 01/07/2025 3:59 AM CDT Dinorah Raymundo MD CHEMISTRY F inal Result Performing Organization Address City/[facility]/ZIP Co de Phone Number [facility] [address] [address], [place] * [facility]ONIZ[facility] DRAW ONLY (01/07/2025 3:52 AM CDT) Only the most recent of3 resultswithin the time period is included. CALCIUM,IONIZE D 1.23 1.15 - 1.27 mmol/L 01/07/2025 4:05 AM CDT [facility] Blood BLOOD SPECIMEN / Unknown Non-Lab Venipuncture / Unknown 01/07/2025 3:52 AM CDT 01/07/2025 4:00 AM CDT Abiodun Cummins MD CHEMISTRY Final Resu lt Performing Organization Address [facility] Co de Phone Number [facility] [address] [place] [address], [place] * SCAN-CARDIAC STRIP (01/06/2025 11:25 PM CDT) Scanner OTHER Final Result * LACTATE VENOUS (01/06/2025 9:06 PM CDT) Only the most recent of11 resultswithin the time period is included. LACTATE,VENOUS 2.0 0.5 - 2.0 mmol/L 01/06/2025 9:50 PM CDT [facility] Blood BLOOD SPECIMEN / Unknown Line/Port / Unknown 01/06/2025 9:06 PM CDT 01/06/2025 9:23 PM CDT Abiodun Cummins MD CHEMISTRY Final Resu lt Performing Organization Address [facility] Co de Phone Number [facility] [address] [address], [place] * CT CHEST ABDOMEN PELVIS WO [...] >200 ug Elast./g 01/09/2025 2:07 AM CDT [facility] ([facility]) Comment: Severe Pancreatic Insufficiency: <100 Moderate Pancreatic Insufficiency: 100 - 200 Normal: >200 Stool STOOL SPECIMEN / Unknown Non-Blood / Unknown 01/06/2025 4:40 PM CDT 01/06/2025 4:48 PM CDT Narrative [facility] ([facility]) - 01/09/2025 2:07 AM CDT Performed at: [facility] [employer] [id number] Enrolled Agent: Tashi Vigil MD, Phone: [phone] us Rafi Gallegos MD MICROBIOLOGY Final Result [facility] ([facility]) [address] [place] [address], [place] * XR Chest 1 view portable (01/06/2025 [...] - 4.9 g/dL 01/06/2025 12:33 PM CDT [facility] Blood BLOOD SPECIMEN / Unknown Non-Lab Venipuncture / Unknown 01/06/2025 11:52 AM CDT 01/06/2025 11:59 AM CDT us Rafi Gallegos MD CHEMISTRY Final Result [facility] [address] [place] [address], [place] * SCAN-CARDIAC STRIP (01/06/2025 8:00 AM CDT) us Scanner OTHER Final Result * SCAN-CARDIAC STRIP (01/05/2025 7:15 PM CDT) us Scanner OTHER Final Result * (ABNORMAL) BLOOD CULTURE (01/05/2025 9:15 AM CDT) Only the most recent of2 resultswithin the time period is included. CULTURE RESULT(AA) 01/10/2025 12:02 PM CDT [facility] CULTURE Aerobic Bottle growing Enterococcus faecalis 01/10/2025 12:02 PM CDT [facility] Comment:See susceptibility o n other culture. Blood BLOOD SPECIMEN / Unknown Venipuncture / Unknown 01/05/2025 9:15 AM CDT 01/05/2025 9:24 AM CDT us Abiodun Cummins MD MICROBIOLOGY Final Resu lt Performing Organization Address [facility] Co de Phone Number [facility] [address] [place] [address], [place] * (ABNORMAL) BLOOD GAS,VENOUS (01/05/2025 9:02 AM CDT) PH, VENOUS 7.32 7.32 - 7.43 01/05/2025 9:13 AM CDT [facility] PCO2, VENOUS 29(L) 41 - 51 mmHg 01/05/2025 9:13 AM CDT [facility] PO2, VENOUS 36 35 - 40 mmHg 01/05/2025 9:13 AM CDT [facility] HCO3,VENOUS 15(L) 22 - 29 mmol/L 01/05/2025 9:13 AM CDT [facility] BASE EXCESS, VENOUS, POCT -9.8(L) -2.0 - 3.0 01/05/2025 9:13 AM CDT [facility] O2 SATURATION, VENOUS 59(L) 70 - 75 % 01/05/2025 9:13 AM CDT [facility] PATIENT TEMPERATURE 37.0 Degrees C 01/05/2025 9:13 AM CDT [facility] Blood VENOUS BLOOD SPECIMEN / Unknown Venipuncture / Unknown 01/05/2025 9:02 AM CDT 01/05/2025 9:10 AM CDT us Abiodun Cummins MD CHEMISTRY Final Resu lt Performing Organization Address [facility]/ZIP Co de Phone Number [facility] [address] [place] [address], * (ABNORMAL) RETICULOCYTES (01/05/2025 9:02 AM CDT) Pathologist [facility] RETIC% 5.9(H) 0.5 - 1.5 % 01/05/2025 9:20 AM CDT [facility] RETIC (ABSOLUTE) 0.16(H) 0.03 - 0.08 mil/cu mm 01/05/2025 9:20 AM CDT [facility] Blood BLOOD SPECIMEN / Unknown Venipuncture / Unknown 01/05/2025 9:02 AM CDT 01/05/2025 9:10 AM CDT us Abiodun Cummins MD HEMATOLOGY Final Resu lt [facility] [address] [place] [address], * (ABNORMAL) BLOOD CULTURE MULTIPLEX PCR (01/05/2025 9:01 AM CDT) Pathologist [facility] Organism(s) Detected Enterococcus faecalis(AA) No organism targets detected., Invalid 01/07/2025 5:[address] [facility] Resistance Gene(s) None detected None detected 01/07/2025 5:[address] [facility] CTX-M (ESBL-resistance gene) N/A 01/07/2025 5:[address] [facility] IMP (carbapenem-resistan ce gene) N/A NOT Detected, N/A 01/07/2025 5:[address] [facility] KPC (carbapenem-resistan ce gene) N/A NOT Detected, N/A 01/07/2025 5:[address] [facility] mcr-1 (colistin-resistance gene) N/A 01/07/2025 5:[address] [facility] mecA/C (methicillin-resista nce gene) N/A 01/07/2025 5:[address] [facility] mecA/C and MREJ (methicillin-resista nce gene) N/A 01/07/2025 5:[address] [facility] NDM (carbapenem-resistan ce gene) N/A NOT Detected, N/A 01/07/2025 5:[address] [facility] OXA-48 like (carbapenem-resistan ce gene) N/A NOT Detected, N/A 01/07/2025 5:[address] [facility] van A/B (vancomycin-resistan ce genes) NOT Detected 01/07/2025 5:[address] [facility] VIM (carbapenem-resistan ce gene) N/A NOT Detected, N/A 01/07/2025 5:[address] [facility] Enterococcus faecalis Detected 01/07/2025 5:[address] [facility] Enterococcus faecium NOT Detected 5:[address] [facility] Listeria monocytogenes NOT Detected 01/07/2025 5:[address] [facility] Staphylococcus NOT Detected 01/08/20 5:[address] [facility] Staphlococcus aureus NOT Detected 5:[address] [facility] Staphylococcus epidermidis NOT Detected 01/07/2025 5:[address] [facility] Staphylococcus lugdunensis NOT Detected 01/07/2025 5:[address] [facility] Streptococcus NOT Detected 5:[address] [facility] Streptococcus agalactiae (Group B) NOT Detected 01/07/2025 5:[address] [facility] Streptococcus pneumoniae NOT Detected 01/07/2025 5:[address] [facility] Streptococcus pyogenes (Group A) NOT Detected 01/07/2025 5:[address] [facility] Acinetobacter calcoaceticus-mayra jasmina complex NOT Detected 01/07/2025 5:[address] [facility] Enterobacteriaceae NOT Detected 12/21 5:33 AM CDT [facility] Enterobacter cloacae complex NOT Detected 01/07/2025 5:[address] [facility] Escherichia coli NOT Detected 2024 5:33 AM CDT [facility] Klebsiella oxytoca NOT Detected 12/21 5:[address] [facility] Klebsiella pneumoniae group NOT Detected 01/07/2025 5:[address] [facility] Proteus NOT Detected 01/07/2025 5:[address] [facility] Serratia marcescens NOT Detected 5:[address] [facility] Haemophilus influenzae NOT Detected 01/07/2025 5:[address] [facility] Neisseria meningitidis NOT Detected 01/07/2025 5:[address] [facility] Pseudomonas aeruginosa NOT Detected 01/07/2025 5:[address] [facility] Melinda albicans NOT Detected 2024 5:[address] [facility] Melinda glabrata NOT Detected 2024 5:[address] [facility] Melinda krusei NOT Detected 01/08/20 5:[address] [facility] Melinda parapsilosis NOT Detected 5:[address] [facility] Melinda tropicalis NOT Detected 12/21 5:[address] [facility] Bacteroides fragilis group NOT Detected 01/07/2025 5:[address] [facility] Klebsiella aerogenes NOT Detected 5:[address] [facility] Salmonella NOT Detected 01/07/2025 5:[address] [facility] Stenotrophomonas maltophilia NOT Detected 01/07/2025 5:[address] [facility] Melinda auris NOT Detected 5:[address] [facility] Cryptococcus neoformans/gattii NOT Detected 01/07/2025 5:[address] [facility] Blood BLOOD SPECIMEN / Unknown Venipuncture / Unknown 01/05/2025 9:01 AM CDT 01/05/2025 9:24 AM CDT Narrative [facility] - 01/07/2025 5:33 AM CDT Note: [...] Abiodun Cummins MD MICROBIOLOGY Final Resu lt [facility] [address] [place] [address], * (ABNORMAL) TROPONIN T (HS) ONE TIME (01/05/2025 9:01 AM CDT) Pathologist [facility] TROPONIN T HS 22(H) 6-15 ng/L ng/L 01/05/2025 9:55 AM CDT [facility] Blood BLOOD SPECIMEN / Unknown Venipuncture / Unknown 01/05/2025 9:01 AM CDT 01/05/2025 9:11 AM CDT Narrative [facility] - 01/05/2025 9:55 AM CDT [...] Abiodun Cummins MD CHEMISTRY Final Resu lt [facility] [address] [place] [address], [place] * (ABNORMAL) CBC WITH AUTO DIFFERENTIAL (01/05/2025 9:01 AM CDT) [facility] WHITE BLOOD COUNT 26.8(H) 4.5 - 11.0 thou/cu mm 01/05/2025 9:21 AM CDT [facility] RED BLOOD COUNT 2.82(L) 4.30 - 5.90 mil/cu mm 01/05/2025 9:21 AM CDT [facility] HEMOGLOBIN 8.9(L) 13.5 - 17.5 g/dL 01/05/2025 9:21 AM CDT [facility] HEMATOCRIT 27.3(L) 37.0 - 53.0 % 01/05/2025 9:21 AM [facility] MCV 97 80 - 100 fL 01/05/2025 9:21 AM [facility] MCH 31.6 26.0 - 34.0 pg 01/05/2025 9:21 AM [facility] MCHC 32.6 32.0 - 36.0 g/dL 01/05/2025 9:21 AM [facility] RDW 17.4(H) 11.5 - 15.5 % 01/05/2025 9:21 AM [facility] PLATELET COUNT 173 140 - 440 thou/cu mm 01/05/2025 9:21 AM [facility] MPV 10.6 6.5 - 11.0 fL 01/05/2025 9:21 AM [facility] NRBC 0.0 % 01/05/2025 9:21 AM [facility] ABS NRBC 0.0 thou /cu mm 01/05/2025 9:21 AM [facility] % NEUT 90.8 % 01/05/2025 9:21 AM [facility] % LYMPH 1.9 % 01/05/2025 9:21 AM [facility] % MONO 5.1 % 01/05/2025 9:21 AM [facility] % EOS 0.3 % 01/05/2025 9:21 AM [facility] % BASO 0.3 % 01/05/2025 9:21 AM [facility] % IMMATURE GRAN (METAS,MYELOS,MA OS) 1.6 % 01/05/2025 9:21 AM [facility] ABSOLUTE NEUTROPHILS 24.3(H) 1.7 - 7.0 thou/cu mm 01/05/2025 9:21 AM [facility] ABSOLUTE LYMPHOCYTES 0.5(L) 0.9 - 2.9 thou/cu mm 01/05/2025 9:21 AM [facility] ABSOLUTE MONOCYTES 1.4(H) <0.9 thou/cu mm 01/05/2025 9:21 AM [facility] ABSOLUTE EOSINOPHILS 0.1 <0.5 thou/cu mm 01/05/2025 9:21 AM CDT [facility] ABSOLUTE BASOPHILS 0.1 <0.3 thou/cu mm 01/05/2025 9:21 AM CDT [facility] ABSOLUTE IMMATURE GRANULOCYTES(MET ,MYELOS,PROS) 0.4(H) <0.3 thou/cu mm 01/05/2025 9:21 AM CDT [facility] Blood BLOOD SPECIMEN / Unknown Venipuncture / Unknown 01/05/2025 9:01 AM CDT 01/05/2025 9:10 AM CDT us Abiodun Cummins MD HEMATOLOGY Final Resu lt [facility] [address] [place] [address], * (ABNORMAL) IRON PLUS IRON BINDING CAP (01/05/2025 9:01 AM CDT) IRON 61 61 - 157 ug/dL 01/05/2025 9:49 AM CDT [facility] UIBC (UNSATURATED) 54(L) 112 - 347 ug/dL 01/05/2025 9:49 AM CDT [facility] IRON BINDING CAPACITY 115(L) 250 - 400 ug/dL 01/05/2025 9:49 AM CDT [facility] IRON,% SATURATION 53(H) 14 - 50 % 01/05/2025 9:49 AM CDT [facility] Blood BLOOD SPECIMEN / Unknown Venipuncture / Unknown 01/05/2025 9:01 AM CDT 01/05/2025 9:11 AM CDT Abiodun Cummins MD CHEMISTRY Final Resu lt Performing Organization Address City/[facility]/ZIP Co de Phone Number [facility] [address] [place] [address], [place] * FERRITIN (01/05/2025 9:01 AM CDT) [facility] FERRITIN 264.0 30.0 - 400.0 ng/mL 01/05/2025 11:51 AM CDT [facility] Blood BLOOD SPECIMEN / Unknown Venipuncture / Unknown 01/05/2025 9:01 AM CDT 01/05/2025 9:11 AM CDT Abiodun Cummins MD CHEMISTRY Final Resu lt Performing Organization Address [facility] Co de Phone Number [facility] [address] [place] [address], [place] * (ABNORMAL) CK TOTAL (01/05/2025 9:01 AM CDT) [facility] CK,TOTAL 389(H) 39 - 308 IU/L 01/05/2025 9:55 AM CDT [facility] Blood BLOOD SPECIMEN / Unknown Venipuncture / Unknown 01/05/2025 9:01 AM CDT 01/05/2025 9:11 AM CDT Abiodun Cummins MD CHEMISTRY Final Resu lt Performing Organization Address City/[facility]/ZIP Co de Phone Number [facility] [address] [place] [address], [place] * SCAN-CARDIAC STRIP (01/05/2025 8:04 AM CDT) Scanner OTHER Final Result * EKG 12 LEAD (01/05/2025 7:52 AM CDT) [facility] Interpretation Sinus rhythm with 1st degree A-V [...] NOW QTc 429 ms BEYOND NOW P Boyd 37 degrees BEYOND NOW R Boyd -32 degrees BEYOND NOW T Boyd 202 degrees BEYOND NOW 01/05/2025 7:52 AM CDT 01/06/2025 2:28 PM CDT Abiodun Cummins MD EKG ORD Final Resu lt Performing Organization Address City/[facility]/ZIP Co de Phone Number [place] NOW [place], [place] * MRSA/SA PCR (01/05/2025 7:48 AM CDT) MRSA DNA PCR Negative Negative 01/05/2025 11:10 AM CDT [facility] STAPHYLOCOCCUS AUREUS PCR Negative Negative 01/05/2025 11:10 AM CDT [facility] Other SPECIMEN FROM INTERNAL NOSE / Unknown Non-Blood / Unknown 01/05/2025 7:48 AM CDT 01/05/2025 7:55 AM CDT Narrative [facility] - 01/05/2025 11:10 AM CDT Test result does not preclude MRSA or SA nasal colonization. Abiodun Cummins MD MICROBIOLOGY Final Resu lt Performing Organization Address City/[facility]/ZIP Co de Phone Number [facility] [address] [place] [address], * (ABNORMAL) DRUG SCREEN RAPID URINE INHOUSE (01/05/2025 7:48 AM CDT) [facility] METABOLITES,FLACO L Non-negative , consider further testing if indicated(A) Not Detected 01/05/2025 8:14 AM CDT [facility] PCP,QUAL Not Detected Not Detected 01/05/2025 8:14 AM CDT [facility] COCAINE,QUAL Not Detected Not Detected 01/05/2025 8:14 AM CDT [facility] METHAMPHETAMINE , QUALITATIVE Not Detected Not Detected 01/05/2025 8:14 AM CDT [facility] OPIATES,QUAL Not Detected Not Detected 01/05/2025 8:14 AM CDT [facility] AMPHETAMINE, QUALITATIVE Not Detected Not Detected 01/05/2025 8:14 AM CDT [facility] BENZODIAZEPINES ,QUAL Not Detected Not Detected 01/05/2025 8:14 AM CDT [facility] TRICYCLICS,QUAL Not Detected Not Detected 01/05/2025 8:14 AM CDT [facility] METHADONE, QUALITATIVE Not Detected Not Detected 01/05/2025 8:14 AM CDT [facility] BARBITURATES,QU AL Not Detected Not Detected 01/05/2025 8:14 AM CDT [facility] OXYCODONE, QUALITATIVE Not Detected Not Detected 01/05/2025 8:14 AM CDT [facility] BUPRENORPHINE, QUALITATIVE Not Detected Not Detected 01/05/2025 8:14 AM CDT [facility] Urine URINE SPECIMEN / Unknown Non-Blood / Unknown 01/05/2025 7:48 AM CDT 01/05/2025 7:55 AM CDT [facility] - 01/05/2025 8:14 AM CDT Please Note: [...] assay. If clinically indicated, order PCP confirmation. Abiodun Cummins MD URINE Final Resu lt Performing Organization Address [facility] Co de Phone Number [facility] [address] [place] [address], [place] * (ABNORMAL) URINALYSIS MICROSCOPIC (01/05/2025 7:48 AM CDT) RBC >100(A) 0-2, None Seen /HPF 01/05/2025 8:05 AM CDT [facility] WBC 11-25(A) 0-2, 3-5, None Seen /HPF 01/05/2025 8:05 AM CDT [facility] BACTERIA None Seen None Seen, Rare, Few Bacteria/ HPF 01/05/2025 8:05 AM CDT [facility] EPITHELIAL CELLS None Seen None Seen, Few Epi/HPF 01/05/2025 8:05 AM CDT [facility] HYALINE CASTS 0-2 0-2, 3-5 /LPF 01/05/2025 8:05 AM CDT [facility] Urine URINE SPECIMEN / Unknown Non-Blood / Unknown 01/05/2025 7:48 AM CDT 01/05/2025 7:55 AM CDT Abiodun Cummins MD URINE Final Resu lt Performing Organization Address [facility]/ZIP Co de Phone Number [facility] [address] [place] [address], [place] * (ABNORMAL) UA W/ SEDIMENT EXAM REFLEXED PER CRITERIA (01/05/2025 7:48 AM CDT) COLOR Yellow Yellow Color 01/05/2025 8:05 AM CDT [facility] CLARITY Clear Clear Clarity 01/05/2025 8:05 AM CDT [facility] SPECIFIC GRAVITY,URINE >=1.030(A) 1.010, 1.015, 1.020, 1.025 01/05/2025 8:05 AM T [facility] PH,URINE 5.5 6.0, 7.0, 8.0, 5.5, 6.5, 7.5, 8.5 01/05/2025 8:05 AM T [facility] UROBILINOGEN,QU ALITATIVE Normal Normal EU/dl 01/05/2025 8:05 AM T [facility] PROTEIN, URINE 30(A) Negative mg/dL 01/05/2025 8:05 AM T [facility] GLUCOSE, URINE Negative Negative mg/dL 01/05/2025 8:05 AM T [facility] KETONES,URINE Negative Negative mg/dL 01/05/2025 8:05 AM T [facility] BILIRUBIN,URINE Abnormal(A) Negative 01/06/20 8:05 AM [facility] Comment:A variety of metabol ites and/or medications may result in a positive bilirubin result. Clinical correlation is recommended. OCCULT BLOOD,URINE Large(A) Negative 01/05/2025 8:05 AM T [facility] NITRITE Negative Negative 01/05/2025 8:05 AM [facility] LEUKOCYTE ESTERASE Moderate(A) Negative 01/05/2025 8:05 AM T [facility] Urine URINE SPECIMEN / Unknown Non-Blood / Unknown 01/05/2025 7:48 AM CDT 01/05/2025 7:55 AM CDT us Abiodun Cummins MD URINE Final Resu lt [facility] [address] [place] [address], [place] from Last 3 Months Insurance [facility] MEDICARE PART A HB ONLY HC MEDICARE PPS [facility] HC UCARE MEDICARE PDGM Advance Directives * [...] Comments Code Status Discussion: Other Care Teams Cook Camp Relationship Specialty Start Date End Date Maggie Fierro MD [address] [place] [address] PCP - General Internal Medicine 01/08/25 Becki Santos(?) AXIS Care Coord [facility]+ 01/01/25
--- OUTSIDE RECORDS SUMMARY | 2025-02-21 18:14 | XMS_ITS | Clinical Summary ---
Author Organization [facility] Address [address] [place] [address] Care Team Providers Care Complementary Health Therapists Name Role Phone Gabe Zheng MD Primary Care Provider [phone] Source Comments You are receiving this document as you are listed as the primary care provider,follow-up provider, or the patient has been referred to you for consultation.This is in compliance with the Medicare and[facility] EHR Incentive Program,which states Providers who transition their patient to another setting of careor provider of care or refers their patient to another provider of care shouldprovide summary care record for each transition of care or referral. 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 [address] Gabe Zheng MD UPDATE 12/20/2024 Telephone [facility] 3900 Ophthalmology [address] [place] [facility] [place] [address] Trevon Troncoso MD Scheduling Question from Last 3 Months Immunizations Immunization Administration Dates Next Due Hdcv - Rabies Vaccine 03/21/2002, 002,02/26/2002,2001 HepB Adult (Engerix-B, 20+ y rs, 3 dose series) 06/27/2013,01/16/2013,12/08/2012 Influenza (Flucelvax), Prese rv Free QIV 02/20/2020 Influenza IIV4 (Quadrivalent ) 0.5mL (73699) 04/02/2021 Moderna Monovalent 12+ 12/12/2020,10/07/2020 TB Skin [...] Date Smoking Tobacco: Every Day Cigarettes 1 43.2 Started: 12/26/1981 Smokeless Tobacco: Never Comments:Smoking History [...] Procedures Name Priority Associated Diagnoses Date/Ti me REPAIR, ECTROPION, EYELID 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, right Health Maintenance Due Date Last Done Comments HepA Vaccine (1 of 2 - Risk 2-dose series) 1984 Pneumococcal Vaccine 50+ Yrs (1 of 2 - PCV) 1984 Zoster/Shingles Vaccine (1 of 2) 2015 PSA Screening Discussion 09/26/2019 019, 12/26/2017, 02/18/2012 Colonoscopy 03/19/2023 03/19/2013 (Completed) Cholesterol 09/26/2023 09/25/2018, 10/0 12/2017, 12/26/2017, Additional history exists Medicare Annual Wellness Visit 05/23/2024 COVID-19 Vaccine (4 - season) 2025 06/07/2023, 12/12/2020, 10/07/2020 Influenza Vaccine (#1) 2025 4, 04/02/2021, 02/20/2020 [...] type HIV ANTIBODY Routine 05/08/2010 11:35 AM GUITAR MAKER HEPATITIS C ANTIBODY, WITH REFLEX (ANTI-HCV) Routine 05/08/2010 11:35 AM GUITAR MAKER from Last 3 Months or Most Recently Relevant to Health Maintenance Results * Lipid Panel and Direct LDL(If Needed) (09/25/2018 4:02 PM CDT) Cholesterol 147 0 - 199 mg/dL 09/25/2018 4:34 PM CDT [facility] 3850 LAB[facility]ATORY Triglyceride 59 <=149 mg/dL 09/25/2018 4:34 PM CDT [facility] 3850 LABORATORY HDL Cholesterol 43 >=40 mg/dL 9 4:34 PM CDT [facility] [address] [facility] LDL, Calculated 92 <130 mg/dL 9 4:34 PM CDT [place] [address] [facility] Non HDL Chol, Calculated 104 <=159 mg/dL 09/25/2018 4:34 PM CDT [place] [address] [facility] Cholesterol/HDL Ratio 3.4 09/25/2018 4:34 PM CDT [place] [address] [facility] Blood Venipuncture / Unknown 09/25/2018 4:02 PM CDT 09/25/2018 4:02 PM CDT Gabe Zheng MD LAB_1 Final Result Performing Organization Address [facility] de Phone Number [place] [address] [facility] [address] [place] [address], [facility] [phone] * Prostatic Specific Antigen (Screen) (09/25/2018 4:02 PM CDT) Prostatic Specific Antigen 0.3 0.0 - 4.0 ng/mL 09/25/2018 7:24 PM CDT [facility] Blood Venipuncture / Unknown 09/25/2018 4:02 PM CDT 09/25/2018 4:02 PM CDT Narrative [facility] - 09/25/2018 7:24 PM CDT The [employer] PSA Chemiluminescent immunoassay is used. Results obtained with different test methods or kits cannot be used interchangeably. Gabe Zheng MD LAB_1 Final Result Performing Organization Address [facility] Co de Phone Number [facility] [address] [place], [place] [address] * HIV ANTIBODY (05/08/2010 11:35 AM GUITAR MAKER) HIV 1/HIV 2 Non-React No normal range HP CONVERSION 05/08/2010 11:3 5 AM GUITAR MAKER Gabe Zheng MD LAB_1 Final Result Performing Organization Address [facility] Co de Phone Number HP CONVERSION * Hepatitis C Antibody, with Reflex (05/08/2010 11:35 AM GUITAR MAKER) Hepatitis C Antibody Non-React No normal range HP CONVERSION 05/08/2010 11:3 5 AM GUITAR MAKER Gabe Zheng MD LAB_1 Final Result HP CONVERSION from Last 3 Months or Most Recently Relevant to Health Maintenance Insurance [facility] MEDIC[facility] Advance Directives * Full [...] 2:04 AM 02/06/2015 1:21 PM Care Teams Complementary Health Therapists Relationship Specialty Start Date End Date Gabe Zheng MD [address] [place] [address] PCP - General Family Practice 01/16/25
--- OUTSIDE RECORDS SUMMARY | 2025-02-21 18:14 | XMS_ITS | Encounter Summary ---
Author Organization [employer] Address [address] [place] [address] Care Team Providers Care Expansion Envelope Maker Hand Name Role Phone Gabe Zheng MD Primary Care Provider [phone] Reason for Visit * Reason Comments Scheduling Question Encounter Details Date Type Department Care Team (Late st Contact Info) Description 12/20/2024 Telephone [facility] 3900 Ophthalmology [address] [facility] [place] [address] Trevon Troncoso MD [address] [place] [address] Scheduling Question Social History Tobacco [...] pt I would talk with the call collision center manager and have her look to see if [...] [facility] so I am forwarding this request to them. 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
--- OUTSIDE RECORDS SUMMARY | 2025-02-21 18:14 | XMS_ITS | Encounter Summary ---
Author Organization [employer] Address [address] [place] [address] Care Team Providers Care Special Librarian Name Role Phone Gabe Zheng MD Primary Care Provider [phone] Reason for Visit * Reason Comments UPDATE Encounter Details Date Type Department Care Team (Late st Contact Info) Description 01/14/2025 Telephone [place] [id number] Family Medicine [facility] [place] [address] Gabe Zheng MD [address] [place] [address] UPDATE Social History Tobacco Use [...] RN - 01/17/2025 11:16 AM CDT Diane child care giver calling back [phone]. Patient does not need a f/u with Norm, he is seeing Dr Fierro at [facility] for follow up. * Kala Baxter RN - 01/17/2025 10:10 AM CDT Attempted to reach Diane. Left message to call back at [phone] (Need more clarity- does patient have discharge appt scheduled with [facility] physician or should one be scheduled with Dr Zheng?) * Meri Merida RN - 01/16/2025 9:19 AM CDT Left message with Diane child care giver again- is pt having a discharge appointment with [facility] or does he need one with Dr. Zheng? * Aileen Clay RN - 01/16/2025 8:55 AM CDT Diane, child care giver with [facility] calling back. Diane confirms that the patient is enrolled with [facility]. Contact information for Diane: [phone] * Aileen Hancock RN - 01/15/2025 5:01 PM CDT Called Diane. Left message to call back to [phone]. Please inquire if patient is enrolled with [facility]. * Anne Serrano RN - 01/14/2025 4:30 PM CDT Attempted to call Diane- care coordination with [facility], no answer, generic voicemail left to call back nurse line [phone] * Shannon Farrell - 01/14/2025 4:26 PM CDT Other Questions/Concerns/FYI Is this a symptom? No What is your question or concern? Would like pcp to now pt has been discharged from [facility] 01/13/25 Have you recently been seen [...] on filedocumented in this encounter Care Teams Special Librarian Relationship Specialty Start Date End Date Gabe Zheng MD [address] [place] [address] PCP - General Family Practice 01/16/25 documented as of this encounter
--- OUTSIDE RECORDS SUMMARY | 2025-02-21 18:14 | XMS_ITS | Encounter Summary ---
Author Organization [employer] Address [address] [place] [address] Care Team Providers Care Material Loader Name Role Phone Gabe Zheng MD Primary Care Provider [phone] Encounter Details Date Type Department Care Team (Late st Contact Info) Description 06/04/2013 Correspondence [facility] [address] [place], [place] [address] Kelvin Hayes MD PRE PLACEMENT EXAM Social [...] on filedocumented in this encounter Care Teams Material Loader Relationship Specialty Start Date End Date Gabe Zheng MD [address] [place] [address] PCP - General Family Practice 01/16/25 documented as of this encounter
--- NOTE | 2025-02-21 18:38 | ED.GENADULT ---
HPI - General Adult General Chief complaint: Unspecified Complaint, Adult Stated complaint: glue from surgery wound leaking Time Seen by Provider: 02/21/25 17:47 History of Present Illness HPI narrative: This 59-year-old male comes in because of persistent drainage of fluid from his abdomen where a paracentesis was done earlier today. He has a long history of liver disease and ascites due to alcoholic cirrhosis. He had 2 L of fluid drawn from his abdomen this morning and the access site was covered with Dermabond. He comes in because he continues to ascites fluid at the access site. Related Data Home Medications ?Medication ?Instructions ?Recorded ?Confirmed metronidazole topical DAILY 06/07/23 02/04/25 folic acid 1 mg tablet 1 mg PO QDAY 01/22/25 02/04/25 furosemide 20 mg tablet 20 mg PO QDAY 01/22/25 02/04/25 gabapentin 300 mg capsule 300 mg PO TID 01/22/25 02/04/25 ziviberz-fwv-aamuc acid 0.4 1 tab PO QDAY 01/22/25 02/04/25 mg-lycopene 300 mcg-lutein 250 mcg tablet (CertaVite Senior) ondansetron 4 mg disintegrating 4 mg PO Q8H PRN 01/22/25 02/04/25 tablet pantoprazole 40 mg tablet,delayed 40 mg PO QDAY 01/22/25 02/04/25 release spironolactone 50 mg tablet 50 mg PO QDAY 01/22/25 02/04/25 thiamine HCl (vitamin B1) 100 mg 100 mg PO QDAY 01/22/25 02/04/25 tablet Previous Rx's ?Medication ?Instructions ?Recorded tizanidine 4 mg tablet 4 mg PO 3XD PRN muscle cramps #20 06/24/23 tabs amoxicillin 875 mg-potassium 1 tab PO BID #14 tabs 01/28/25 clavulanate 125 mg tablet cyclobenzaprine 5 mg tablet 5 mg PO TID PRN muscle spasm #14 01/28/25 tabs Allergies Allergy/AdvReac Type Severity Reaction Status Date / Time No Known Drug Allergies Allergy Verified 02/04/25 14:45 Review of Systems Status of ROS: Reports: 10 or more systems reviewed and unremarkable except as noted in History and below Narrative: Constitutional: No fevers, no weight gain or loss. Eyes: No discharge. No vision changes. HENT: No congestion, no sore throat, no ear pain. Cardiovascular: No chest pain, no palpitations. Respiratory: No shortness of breath, no wheezes, no cough. Gastrointestinal: No abdominal pain, no vomiting, no diarrhea. Genitourinary: No dysuria, no hematuria. Musculoskeletal: Normal range of motion. Skin: No rashes, no pruritis. Neurological: No dizziness, weakness, sensory change, speech change. Endo/Heme/Allergies: No bruising or bleeding. No polydipsia. Pysch: no suicidality, no anxiety, no insomnia. All other systems reviewed and are negative. [facility] Medical History History of facial fracture ?Z87.81 - Personal history of (healed) traumatic fracture (ICD-10) History of renal calculi ?Z87.442 - Personal history of urinary calculi (ICD-10) Surgical History History of eye surgery ?Z98.890 - Other specified postprocedural states (ICD-10) History of partial gastrectomy (1992) ?Z90.3 - Acquired absence of stomach [part of] (ICD-10) History of colonoscopy (03/19/13) ?Z98.890 - Other specified postprocedural states (ICD-10) History of resection of small bowel ?Z90.49 - Acquired absence of other specified parts of digestive tract (ICD-10) Family History Grandmother Heart disease Diabetes Father Stroke, Onset Age: 49 Mother Breast cancer, Onset Age: 74 Uncle Diabetes Social History (Updated 01/28/25 @ 17:58 by Partha Kam MD) What is your current living situation?: I presently have a place to live Problems where you live: no known problems Problems where you live details: They haven't repairs yet In the past 12 months, utilities in danger of being shut off: no In past 12 months, lack of transportation kept you from medical appts, meetings, work, or getting things needed for daily living: yes In the past 12 mos, have been you worried that your food would run out before you had money to buy more?: never true In the past 12 mos, the food you bought just didn't last and you didn't have money to buy more?: never true Smoking Status: Former smoker What tobacco products do you use: cigarettes Smoking packs per day: 0.5 Smoking cigarettes per day: 10.0 Years smoked: 41 Smoking pack-years: 20.50 Smoking quit date/years: <= 15 years ago Do you use any of these nicotine containing products: None Second hand tobacco smoke exposure: No How often do you have a drink containing alcohol: never How many standard drinks containing alcohol do you have on a typical day: 10 or more How often do you have six or more drinks on one occasion: Never AUDIT-C Alcohol total score: 4 Non-prescribed substance use: marijuana (any form) How often does anyone, including family, friends and others, physically hurt you: never How often does anyone, including family, friends and others, insult or talk down to you: frequently How often does anyone, including family, friends and others, threaten you with harm: never How often does anyone, including family, friends and others, scream or curse at you: sometimes Health Related Social Needs: transportation insecurity (Z59.82) and Other personal risk factors, not elsewhere classified (Z91.89) Exam Narrative: Exam Narrative: Constitutional: Well-developed, well-nourished, no acute distress. HEENT: Normocephalic, atraumatic. Neck: Normal range of motion. Nontender. Supple. Heart: Intact distal pulses. Lungs: No chest discomfort. No wheezes, rhonchi, or rales. Abdomen: Distended abdomen due to ascites. Access site in the right abdomen continues to drain clear fluid. Back: Normal range of motion. Extremities: Normal range of motion. No injury. Skin: Intact. No rash. Warm. No erythema or pallor. Neurologic: No altered sensation. No weakness. Alert and oriented. Psychiatric: No suicidality. No anxiety or depression. No insomnia. Nursing notes and vitals signs are reviewed. Const: Vital Signs, click to edit/add: Vital Signs - 24 hr 02/21/25 17:51 Temperature 97.8 F Pulse Rate [Pulse Oximeter] 72 Respiratory Rate 18 Blood Pressure [Ri ght Upper Arm] 114/67 Pulse Oximetry 98 Oxygen Delivery Me thod Room Air Course Vital Signs Vital signs: Initial Vital Signs Temperature 97.8 F 02/21/25 17:51 Temperature Source Temporal Artery Scan 02/21/25 17:51 Pulse Rate 72 02/21/25 17:51 Pulse Rhythm Regular 02/21/25 17:51 Respiratory Rate 18 02/21/25 17:51 Blood Pressure 114/67 02/21/25 17:51 Blood Pressure Mean 82 02/21/25 17:51 Blood Pressure Position Sitting 02/21/25 17:51 Pulse Oximetry 98 02/21/25 17:51 Oxygen Delivery Method Room Air 02/21/25 17:51 Vital Signs Temperature 97.8 F 02/21/25 17:51 Pulse Rate 72 02/21/25 17:51 Respiratory Rate 18 02/21/25 17:51 Blood Pressure 114/67 02/21/25 17:51 Pulse Oximetry 98 02/21/25 17:51 Oxygen Delivery Method Room Air 02/21/25 17:51 Temperature 97.8 F 02/21/25 17:51 Pulse Rate 72 02/21/25 17:51 Respiratory Rate 18 02/21/25 17:51 Blood Pressure 114/67 02/21/25 17:51 Pulse Oximetry 98 02/21/25 17:51 Oxygen Delivery Method Room Air 02/21/25 17:51 Medical Decision Making MDM Narrative Medical decision making narrative: This patient has ascites and had a paracentesis done earlier today. The wound of the access site was repaired with Dermabond but he is leaking clear fluid significantly through this access site. I recommended suture closure and the patient is agreeable to this. After cleaning the area with an alcohol swab I injected bupivacaine 0.25%. I placed a [id number]-qhuul suture which did not completely stop the drainage. A 2nd suture was placed in interrupted fashion and this arrested the drainage. 4.0 Ethilon suture was used for this. I did consult with Dr. Barnard who recommended leaving the sutures in for a couple weeks as these are notorious for draining. Discharge Plan Discharge Clinical Impression: Ascites due to alcoholic cirrhosis Patient Disposition: Home, Self-Care Condition: Improved Additional Instructions: Follow-up with primary physician in clinic for suture removal in 2 weeks. Follow up with GI specialist for ongoing management of liver disease. Prescriptions: No Action metronidazole topical DAILY amoxicillin-pot clavulanate 875-125 mg tablet 1 tab PO BID Qty: 14 0RF cyclobenzaprine 5 mg tablet 5 mg PO TID PRN (Reason: muscle spasm) Qty: 14 0RF tizanidine 4 mg tablet 4 mg PO 3XD PRN (Reason: muscle cramps) Qty: 20 0RF furosemide 20 mg tablet 20 mg PO QDAY folic acid 1 mg tablet 1 mg PO QDAY CertaVite Senior 0.4 mg-300 mcg- 250 mcg tablet 1 tab PO QDAY thiamine HCl (vitamin B1) 100 mg tablet 100 mg PO QDAY pantoprazole 40 mg tablet,delayed release (DR/EC) 40 mg PO QDAY spironolactone 50 mg tablet 50 mg PO QDAY gabapentin 300 mg capsule 300 mg PO TID ondansetron 4 mg tablet,disintegrating 4 mg PO Q8H PRN Follow Up/Referrals: Maggie Fierro MD [Primary Care Provider, Internal Medicine] Stand Alone Forms: [facility] Info Instructions
--- OUTSIDE RECORDS SUMMARY | 2025-02-21 19:14 | XMS_ITS | CCD ---
Author Organization Unknown Care Team Providers Care Media Services Director Name Role Phone Supervisor [place], [place] Primary Care Provider Unava ilable Unavailable Chronic Care Management Unavaila ble Summary Purpose DataExchange Insurance Providers Payer name Policy type / Coverage type Covered libertarian ID Effective Begin Date Effective End Date [facility] Commercial Insurance [id number] Unknown Unkn own Family History Family History data not found Medication Administered No Medication Administered data Reason For Visit No Reason For Visit data
--- OUTSIDE RECORDS SUMMARY | 2025-02-21 19:14 | XMS_ITS | CCD ---
Author Organization Unknown Care Team Providers Care Seo Manager Name Role Phone [employer]bmethod[employer] Consultant, [place] Primary Care Provider Unava ilable Unavailable Chronic Care Management Unavaila ble Summary Purpose DataExchange Insurance Providers Payer name Policy type / Coverage type Covered democrat ID Effective Begin Date Effective End Date [facility] Commercial Insurance [id number] Unknown Unkn own Family History Family History data not found Medication Administered No Medication Administered data Reason For Visit No Reason For Visit data
== END 2025-02-21 19:07 | disposition home or self-care (01) ==
PROVIDERS: Emergency Provider Emergency Medicine Emergency Medical Services; PCP Internal Medicine
DX: T81.89XA Other complications of procedures, not elsewhere classified, initial encounter (principal); K70.31 Alcoholic cirrhosis of liver with ascites
CPT/HCPCS: 12001; 99283; 99284

== ENCOUNTER 2025-02-22 18:51 | Emergency (ER) | payer MEDICARE, MEDICAID, SELFPAY ==
--- OUTSIDE RECORDS SUMMARY | 2025-02-21 11:11 | XMS_ITS | Continuity of Care Document ---
Author Organization [facility] Address [address] [address] [place] [address] Phone Care Team Providers Care Studio Operator Name Role Phone Sebastian Cloud MD Procedures Procedure Date Inpt Cons Moderate Advance Directives Directive Yes / No Effective Date File Name No Information Encounters Encounter Description Practice Location Reason(s) For Visit Diagnoses Date Provider Providers Copied on Encounter [facility], [address] [address], [place], [place], [id number], tel:[phone] [facility] No Information [address]. [address] [place] [address], [id number] , [place]. tel:[phone] Inpt Cons Moderate [facility], [address] [address], [place], [place], [id number], tel:[phone] [facility] No Information [address] [place] [address], [id number] , [place]. tel:[phone] Referring Provider: Maggie Solis, [address] [place], [address]. tel:[phone] Family History Family Member Type Diagnosis Age At Onset No Information Payers Payer name Insurance type Covered constitution party ID Authoriza tion(s) No Information Social History Type Description Quantity Date Captured Comments Sex Male Smoking Status No Information Chief Complaint And Reason For Visit No Information Reason For Referral Reason For Referral No Information Plan Of Treatment Date Type Action Status Appointment Sebastian Glass BOOKED History Of Present Illness Encounter Date Complaint History Of Prese nt Illness No Information Functional Status Date Functional Assessmen t No Information Instructions Date Instruction Additional Infor mation No Information Assessments Type Assessment Date No Information Patient Care Teams Name Effective Dates (start - stop) Status Members No Information
--- OUTSIDE RECORDS SUMMARY | 2025-02-22 18:53 | XMS_ITS | Clinical Summary ---
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 S/P exploratory laparotomy 05/30/2014 Overview (01/06/2025): S/P exploratory laparotomy, lysis of adhesions Cirrhosis of liver 02/18/2012 Malnutrition of moderate degree 01/17/2012 Hepatitis 01/15/2012 Resolved Problems Problem Noted Date Diagnosed Date Resolved Date Septic shock 01/06/2025 01/06/2025 Small bowel obstruction 05/28/201412/21 Encounters Date Type Department Care Team Description 02/07/2025 Home Care Visit Pending Sale To [facility] [address] [place] [address], [place] [address] Nav Amin, PT PT - OASIS DISCHARGE 02/07/2025 Home Care Visit Pending Sale To [facility] [address] [place] [address], [place] [address] Meg Stack RN CARE COORDINATION 02/07/2025 Lab Requisition [facility] [phone] Jocelynn Resendez MD 02/06/2025 Lab Requisition [facility] [phone] Jocelynn Resendez MD 01/30/2025 Home Care Visit Pending Sale To [facility] [address] [place] [address], [place] [address] Meg Stack, SARAN CARE COORDINATION 01/28/2025 Home Care Visit Pending Sale To [facility] [address] [place] [address], [place] [address] Meg Stack, SECURITY RESEARCHER NOTE 01/24/2025 12:30 PM CDT Home Care Visit Pending Sale To [facility] [address] [place] [address], [place] [address] Nav Amin, PT PT - INITIAL ASSESSMENT 01/23/2025 11:00 AM CDT Home Care Visit [place] [id number] [place] [address], [place] [address] Vania Castillo, SARAN SN - HOME VISIT 01/22/2025 Home Care Visit Pending Sale To [facility] [address] [place] [address], [place] [address] Bev Sherman, SARAN CARE COORDINATION 01/21/2025 Plan of Care Documentation [address] [place] [address] 01/19/2025 12:00 PM CDT Home Care Visit [place] [id number] [place] [address], [place] [address] Bev Sherman, RN SN - OASIS START OF CARE 01/18/2025 Home Care Visit Pending [facility] To [facility] [address] [place] [address] Heide Lowery, RN CARE COORDINATION 01/15/2025 Home Care Visit Pending Sale To [facility] [address] [place] [address] Meg Stack, SARAN CARE COORDINATION 01/10/2025 Travel 01/05/2025 7:26 AM CDT - 01/13/2025 4:23 PM CDT Hospital Encounter [facility] [address] [place] [address] Abiodun Cummins MD Stephenson, Dinorah Cardona MD Residents, [facility], Dick De La Fuente MD [facility], [facility] Hospitalists Sony, MD Rosalinda Powell, ESTEBAN [facility]ew [facility]arjinder, Danica Davis MD Alcohol abuse (Primary Dx); [...] on file Legal Sex Male 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 [place] [address], [place] * PATH NON CARAMEL MAKER CYTOLOGY [[id number]] (02/05/2025 12:12 PM CDT) Case Report Medical Cytology Report Case: [id number] Authorizing Provider: Jocelynn Resendez MD Collected: 02/05/2025 1212 Ordering Location: [facility] Received: 02/07/2025 0929 Pathologist: Cherie Mays MD Specimen: Peritoneal Fluid 02/07/2025 4:48 PM CDT [facility] Final Diagnosis PERITONEAL FLUID, CYTOLOGIC MATERIAL: 1. Mild acute inflammation 2. Negative for malignancy in this sample 02/07/2025 4:48 PM CDT [facility] at 1648 CDT Clinical Information Ascites 02/07/2025 4:48 PM CDT [facility] Gross Description A) SOURCE: Peritoneal [...] than 72 hours. 02/07/2025 4:48 PM CDT [facility] Microscopic Description Specimen adequacy: Adequate for interpretation. All slides were reviewed. The microscopic appearance substantiates the diagnosis. 02/07/2025 4:48 PM CDT [facility] Additional Information Cytology is screened at [facility] - [address], [place] [address] and [facility] - [address], [place] [address] and [facility] - [address] [facility] [place] [address] Interpreted at [facility] - [address], [place] [address] 02/07/2025 4:48 PM CDT [facility] Body Fluid PERITONEAL FLUID SPECIMEN / Unknown 02/05/2025 12:12 PM CDT 02/07/2025 9:29 AM CDT Jocelynn Resendez MD PATHOLOGY/CYTOLOGY Final R esult Performing Organization Address [facility] Co de Phone Number [facility] [address] [address], [place] * POTASSIUM (01/13/2025 10:04 AM CDT) Only the most recent of8 resultswithin the time period is included. Pathologist [facility] POTASSIUM 4.4 3.5 - 5.1 mmol/L 01/13/2025 11:30 AM CDT [facility] Blood BLOOD SPECIMEN / Unknown Venipuncture / Unknown 01/13/2025 10:04 AM CDT 01/13/2025 10:18 AM CDT Danica Cornejo MD CHEMISTRY F inal Result Performing Organization Address [facility] de Phone Number [facility] [address] [address], [place] * (ABNORMAL) SODIUM (01/13/2025 5:51 AM CDT) Only the most recent of4 resultswithin the time period is included. Pathologist [facility] SODIUM 128(L) 136 - 145 mmol/L 01/13/2025 6:32 AM CDT [facility] Blood BLOOD SPECIMEN / Unknown Butterfly / Unknown 01/13/2025 5:51 AM CDT 01/13/2025 6:08 AM CDT Danica Cornejo MD CHEMISTRY F inal Result Performing Organization Address [facility] Co de Phone Number [facility] [address] [address], [place] * CREATININE (01/13/2025 5:51 AM CDT) Only the most recent of3 resultswithin the time period is included. Pathologist [facility] eGFR >90 >90 mL/min/1.7 3m2 01/13/2025 6:31 AM CDT [facility] Comment:As of 2021, eG FR is calculated by the CKD-EPI creatinine equation without race adjustment. eGFR can be influenced by muscle mass, exercise, and diet. The reported eGFR is an estimation only and is only applicable if the renal function is stable. CREATININE 0.74 0.70 - 1.20 mg/dL 01/13/2025 6:31 AM CDT [facility] Blood BLOOD SPECIMEN / Unknown Butterfly / Unknown 01/13/2025 5:51 AM CDT 01/13/2025 6:08 AM CDT Danica Cornejo MD CHEMISTRY F inal Result [facility] [address] [place] [address], * (ABNORMAL) INR AM (01/12/2025 5:52 AM CDT) Only the most recent of5 resultswithin the time period is included. INR 1.3(H) <1.3 01/12/2025 6:21 AM CDT [facility] PROTIME 14.5(H) 10.6 - 12.4 sec 01/12/2025 6:21 AM CDT [facility] Blood BLOOD SPECIMEN / Unknown Venipuncture / Unknown 01/12/2025 5:52 AM CDT 01/12/2025 6:09 AM CDT Narrative [facility] - 01/12/2025 6:21 AM CDT Therapeutic [...] HEMATOLOGY F inal Result Performing Organization Address City/[facility]/ZIP Co de Phone Number [facility] [address] [place] [address], * MAGNESIUM (01/12/2025 5:52 AM CDT) Only the most recent of10 resultswithin the time period is included. MAGNESIUM 1.6 1.6 - 2.6 mg/dL 01/12/2025 6:34 AM CDT [facility] Blood BLOOD SPECIMEN / Unknown Venipuncture / Unknown 01/12/2025 5:52 AM CDT 01/12/2025 6:09 AM CDT Doni NOEL CHEMISTRY Shanna l Result Performing Organization Address [facility] Co de Phone Number [facility] [address] [place] [address], [place] * (ABNORMAL) Hepatic function panel AM (01/12/2025 5:52 AM CDT) Only the most recent of4 resultswithin the time period is included. ALBUMIN 2.5(L) 4.0 - 4.9 g/dL 01/12/2025 6:34 AM CDT [facility] PROTEIN,TOTAL 5.5(L) 6.0 - 8.0 g/dL 01/12/2025 6:34 AM CDT [facility] BILIRUBIN,TOTAL 1.9(H) 0.0 - 1.2 mg/dL 01/12/2025 6:34 AM CDT [facility] BILIRUBIN,DIRECT 1.3(H) 0.0 - 0.2 mg/dL 01/12/2025 6:34 AM CDT [facility] BILIRUBIN,INDIRE CT 0.6 0.2 - 0.8 mg/dL 01/12/2025 6:34 AM CDT [facility] ALK PHOSPHATASE 286(H) 40 - 129 IU/L 01/12/2025 6:34 AM CDT [facility] ALT (SGPT) 42 10 - 50 IU/L 01/12/2025 6:34 AM CDT [facility] AST (SGOT) 85(H) 10 - 50 IU/L 01/12/2025 6:34 AM CDT [facility] Blood BLOOD SPECIMEN / Unknown Venipuncture / Unknown 01/12/2025 5:52 AM CDT 01/12/2025 6:09 AM CDT us Danica Cornejo MD CHEMISTRY F inal Result Performing Organization Address City/[facility]/ZIP Co de Phone Number [facility] [address] [place] [address], [place] * HBSAG (HBS) (01/11/2025 5:37 AM CDT) HBSAG Nonreactive Nonreactive 01/11/2025 6:26 AM CDT [facility] Blood BLOOD SPECIMEN / Unknown Venipuncture / Unknown 01/11/2025 5:37 AM CDT 01/11/2025 5:52 AM CDT us Kirill Pandya MD SEND OUTS Final Result Performing Organization Address [facility]/ZIP Co de Phone Number [facility] [address] [place] [address], [place] * ANTI HCV (01/11/2025 5:37 AM CDT) HEPATITIS C ANTIBODY Non-Reacti ve Non-React dylan 01/11/2025 6:32 AM CDT [facility] Comment:Please note, per www [...] Kirill Pandya MD SEND OUTS Final Result [facility] [address] [place] [address], [place] * SCAN CORRESP-LABORATORY RESULTS (01/10/2025 12:26 [...] 01/10/2025 10:00 AM CDT 1. Bibasilar atelectasis, nlef-kbzxrtp-ticq-right. Patchy opacities anterior to the atelectasis probably inflammatory. Effusions, jquw-powrzzn-svkg-right. The right effusion has improved since the [...] Moderate diffuse ascites IMPRESSION: 1. Bibasilar atelectasis, zvip-mtiifqc-pawm-right. Patchy opacitiesanterior to the atelectasis probably inflammatory. Effusions,hssx-ehdtrat-zeuy-right. The right effusion has improved since the [...] CULTURE No Growth. 01/15/2025 8:11 AM CDT [facility] Blood BLOOD SPECIMEN / Unknown Butterfly / Unknown 01/10/2025 7:04 AM CDT 01/10/2025 7:12 AM CDT Narrative [facility] - 01/15/2025 8:11 AM CDT Low volume blood culture received; possible false negative culture. Maurisio Arreola MD MICROBIOLOGY Final Result [facility] [address] [place] [address], [place] * US THORACENTESIS INCl IMAGE GUIDE RIGHT (01/09/2025 1:49 PM CDT) Anatomical Region Laterality Modality CHEST, THORAX Ultrasound Impressions 01/09/2025 2:17 PM CDT Successful ultrasound guided therapeutic and diagnostic thoracentesis, with removal of 990 mLs of fluid from the Right pleural space. Shannon Barragan PA-C [facility] Interventional Radiology Fifty Six Protocol A. Pre-procedure verification complete yes 1-relevant [...] IMMEDIATE POST PROCEDURE NOTE 01/09/2025 Sebastian Glass [id number] INFORMED CONSENT: In my discussion, prior [...] CULTURE No Growth. 01/15/2025 10:30 AM CDT [facility] GRAM STAIN No Epithelial cells 01/15/2025 10:30 AM CDT [facility] GRAM STAIN No RBCs 01/15/2025 10:30 AM CDT [facility] GRAM STAIN No PMNs 01/15/2025 10:30 AM CDT [facility] GRAM STAIN No organisms seen 01/15/2025 10:30 AM CDT [facility] Body Fluid (Pleural) Non-Blood / Unknown 01/09/2025 1:18 PM CDT 01/09/2025 1:44 PM CDT Doni Tellez MBBS MICROBIOLOGY Shanna l Result [facility] [address] [place] [address], [place] * BODY FLUID CELL COUNT/DIF (01/09/2025 1:18 PM CDT) Only the most recent of2 resultswithin the time period is included. BODY FLUID SOURCE Pleural Fluid 01/09/2025 5:32 PM CDT [facility] Comment:Right BODY FLUID COLOR Yellow 01/09/2025 5:32 PM CDT [facility] BODY FLUID CLARITY Clear 01/09/2025 5:32 PM CDT [facility] TOTAL NUCLEATED CELLS, BF 219 /cu mm 01/09/2025 5:32 PM CDT [facility] RED BLOOD COUNT, BODY FLUID <2,000 /cu mm 01/09/2025 5:32 PM CDT [facility] % NEUTROPHILS, BODY FLUID 85 % 01/09/2025 5:32 PM CDT [facility] % LYMPHOCYTES, BODY FLUID 11 % 01/09/2025 5:32 PM CDT [facility] % MONO/MACRO, BODY FLUID 3 % 01/09/2025 5:32 PM CDT [facility] % MESOTHELIAL CELLS, BODY FLUID 1 % 01/09/2025 5:32 PM CDT [facility] Body Fluid PLEURAL FLUID SPECIMEN / Unknown Non-Blood / Unknown 01/09/2025 1:18 PM CDT 01/09/2025 1:44 PM CDT Doni ORELLANA BODY FLUID Shanna l Result [facility] [address] [place] [address], [place] * PROTEIN,BODY FLUID (01/09/2025 1:18 PM CDT) Only the most recent of2 resultswithin the time period is included. SPECIMEN SOURCE Right Pleural Fluid 01/09/2025 3:16 PM CDT [facility] PROTEIN,BODY FLUID 1.6 g/dL 01/09/2025 3:16 PM CDT [facility] Comment:No Reference Range D efined. Body Fluid PLEURAL FLUID SPECIMEN / Unknown Non-Blood / Unknown 01/09/2025 1:18 PM CDT 01/09/2025 1:44 PM CDT Narrative [facility] - 01/09/2025 3:16 PM CDT Pleural: [...] Test developed & performance characteristics determined by [facility], [place], [place] consistent with CLIA requirements. Not cleared or approved by [place] FDA. Doni ORELLANA BODY FLUID Shanna l Result [facility] [address] [place] [address], [place] * PH,BODY FLUID (01/09/2025 1:18 PM CDT) PH,BODY FLUID 7.57 01/09/2025 3:20 PM CDT [facility] Specimen Source Pleural 01/09/2025 3:20 PM CDT [facility] Body Fluid PLEURAL FLUID SPECIMEN / Unknown Non-Blood / Unknown 01/09/2025 1:18 PM CDT 01/09/2025 1:44 PM CDT Doni NOEL BODY FLUID Shanna l Result Performing Organization Address [facility] Co de Phone Number [facility] [address] [place] [address], [place] * LD,BODY FLUID (01/09/2025 1:18 PM CDT) Only the most recent of2 resultswithin the time period is included. SPECIMEN SOURCE Right Pleural Fluid 01/09/2025 3:29 PM CDT [facility] LD,BODY FLUID 128 IU/L 01/09/2025 3:29 PM CDT [facility] Body Fluid PLEURAL FLUID SPECIMEN / Unknown Non-Blood / Unknown 01/09/2025 1:18 PM CDT 01/09/2025 1:[address] [facility] - 01/09/2025 3:29 PM CDT Pleural: [...] Test developed & performance characteristics determined by [facility] [place], [place] consistent with CLIA requirements. Not cleared or approved by [place] FDA. Doni Evangelistayesica Tellez [facility] BODY FLUID Shanna l Result Performing Organization Address City/[facility] Co de Phone Number [facility] [address] [place] [address], [place] * GLUCOSE,BODY FLUID (01/09/2025 1:18 PM CDT) Only the most recent of2 resultswithin the time period is included. SPECIMEN SOURCE Right Pleural Fluid 01/09/2025 3:16 PM CDT [facility] GLUCOSE,BODY FLUID 90 mg/dL 01/09/2025 3:16 PM CDT [facility] Comment:No Reference Range D efined. Body Fluid PLEURAL FLUID SPECIMEN / Unknown Non-Blood / Unknown 01/09/2025 1:18 PM CDT 01/09/2025 1:44 PM CDT Narrative [facility] - 01/09/2025 3:16 PM CDT Pleural: [...] Test developed & performance characteristics determined by [facility] [place] consistent with CLIA requirements. Not cleared or approved by [place] FDA. Doni NOEL BODY FLUID Shanna l Result [facility] [address] [place] [address], * AMYLASE,BODY FLUID (01/09/2025 1:18 PM CDT) SPECIMEN SOURCE Right Pleural Fluid 01/09/2025 3:16 PM CDT [facility] AMYLASE,BODY FLUID 34 IU/L 01/09/2025 3:16 PM CDT [facility] Comment:No Reference Range D efined. Body Fluid PLEURAL FLUID SPECIMEN / Unknown Non-Blood / Unknown 01/09/2025 1:18 PM CDT 01/09/2025 1:44 PM CDT Narrative [facility] - 01/09/2025 3:16 PM CDT Peritoneal: [...] Test developed & performance characteristics determined by [place] consistent with CLIA requirements. Not cleared or approved by [place] FDA. Doni Ramirezerasmopanchito [facility] BODY FLUID Shanna l Result Performing Organization Address City/[facility]/ZIP Co de Phone Number [facility] [address] [place] [address], * ANAEROBIC CULTURE (01/09/2025 1:18 PM CDT) Only the most recent of2 resultswithin the time period is included. Pathologist [facility] CULTURE No anaerobes isolated 01/14/2025 11:43 AM CDT [facility] Other PLEURAL FLUID SPECIMEN / Unknown Non-Blood / Unknown 01/09/2025 1:18 PM CDT 01/09/2025 1:44 PM CDT [facility] Ramirezerasmopanchito [facility] MICROBIOLOGY Shanna l Result Performing Organization Address [facility] de Phone Number [facility] [address] [place] [address], * (ABNORMAL) CBC no diff AM (01/09/2025 6:38 AM CDT) Only the most recent of4 resultswithin the time period is included. WHITE BLOOD COUNT 10.3 4.5 - 11.0 thou/cu mm 01/09/2025 7:08 AM CDT [facility] RED BLOOD COUNT 2.92(L) 4.30 - 5.90 mil/cu mm 01/09/2025 7:08 AM CDT [facility] HEMOGLOBIN 9.2(L) 13.5 - 17.5 g/dL 01/09/2025 7:08 AM T [facility] HEMATOCRIT 27.8(L) 37.0 - 53.0 % 01/09/2025 7:08 AM CDT [facility] MCV 95 80 - 100 fL 01/09/2025 7:08 AM CDT [facility] MCH 31.5 26.0 - 34.0 pg 01/09/2025 7:08 AM CDT [facility] MCHC 33.1 32.0 - 36.0 g/dL 01/09/2025 7:08 AM CDT [facility] RDW 17.1(H) 11.5 - 15.5 % 01/09/2025 7:08 AM CDT [facility] PLATELET COUNT 270 140 - 440 thou/cu mm 01/09/2025 7:08 AM CDT [facility] MPV 11.1(H) 6.5 - 11.0 fL 01/09/2025 7:08 AM CDT [facility] NRBC 0.0 % 01/09/2025 7:08 AM CDT [facility] ABS NRBC 0.0 thou /cu mm 01/09/2025 7:08 AM CDT [facility] Blood BLOOD SPECIMEN / Unknown Venipuncture / Unknown 01/09/2025 6:38 AM CDT 01/09/2025 6:46 AM CDT us Rafi Gallegos MD HEMATOLOGY Final Result Performing Organization Address City/[facility]/ZIP Co de Phone Number [facility] [address] [place] [address], * (ABNORMAL) PHOSPHORUS (01/09/2025 6:38 AM CDT) Only the most recent of7 resultswithin the time period is included. PHOSPHORUS 2.2(L) 2.5 - 4.5 mg/dL 01/09/2025 7:19 AM CDT [facility] Blood BLOOD SPECIMEN / Unknown Venipuncture / Unknown 01/09/2025 6:38 AM CDT 01/09/2025 6:46 AM CDT Stormy Aguilar MD CHEMISTRY Final Resu lt Performing Organization Address City/[facility]/ZIP Co de Phone Number [facility] [address] [address], [place] * (ABNORMAL) Basic metabolic panel TODAY (01/09/2025 6:38 AM CDT) Only the most recent of4 resultswithin the time period is included. SODIUM 135(L) 136 - 145 mmol/L 01/09/2025 7:19 AM T [facility] POTASSIUM 3.3(L) 3.5 - 5.1 mmol/L 01/09/2025 7:19 AM T [facility] CHLORIDE 105 98 - 107 mmol/L 01/09/2025 7:19 AM T [facility] CO2,TOTAL 19(L) 22 - 29 mmol/L 01/09/2025 7:19 AM T [facility] ANION GAP 11 5 - 18 01/09/2025 7:19 AM T [facility] GLUCOSE 87 70 - 99 mg/dL 01/09/2025 7:19 AM T [facility] CALCIUM 8.0(L) 8.8 - 10.4 mg/dL 01/09/2025 7:19 AM T [facility] Comment: Reference ranges for this test were updated on 2024 to reflect our healthy population more accurately. Reference range changes are not retroactively applied to results, but previous results using the same methodology can be interpreted in the context of the new reference range. BUN 6 6 - 20 mg/dL 01/09/2025 7:19 AM T [facility] CREATININE 0.59(L) 0.70 - 1.20 mg/dL 01/09/2025 7:19 AM T [facility] BUN/CREAT RATIO 10 10 - 20 7:19 AM T [facility] eGFR >90 >90 mL/min/1. 73m2 01/09/2025 7:19 AM T [facility] Comment:As of 2021, eG [...] us Rafi Gallegos MD CHEMISTRY Final Result [facility] [address] [place] [address], [place] * ECHO TTE COMPLETE WO CONTRAST [...] Tech: MBL/ARG Referring MD: MAURISIO ARREOLA Site: [facility] Reading Location: [facility] Patient Location: Inpatient. Procedure: 2D, Color Doppler [...] . This study was interpreted by an [facility] accredited facility. Final Procedure Note Deann Coon MD - 01/08/2025 ECHOCARDIOGRAM SEBASTIAN GLASS : 1965 59 years Study Date: 01/08/2025 1:34:35 PM Gender: M BP: 109/71 mmHg Height: 185.00 cm BSA: 1.85 m Weight: 64.00 kg Tech: MBL/ARG Referring MD: MAURISIO ARREOLA Site: [facility] Reading Location: [facility] IP Patient Location: [...] <4.0 <=6.4 % 01/08/2025 7:13 PM CDT [facility] Blood BLOOD SPECIMEN / Unknown Non-Lab Venipuncture / Unknown 01/08/2025 5:10 AM CDT 01/08/2025 5:29 AM CDT Narrative [facility] - 01/08/2025 7:13 PM CDT (<5.7%) Normal (5.7% to 6.4%) Indicates prediabetes (>=6.5%) Confirms diabetes Falsely low levels may be seen with: Recent Transfusion, Recent Significant Blood Loss, Hemolytic Diseases, or Falsely elevated levels may be seen with: Untreated Anemias, Splenectomy us Stormy Cardoza MD CHEMISTRY Final Result [facility] [facility] [address] [place] [address], * TSH AM (01/08/2025 5:10 AM CDT) TSH 2.73 0.27 - 4.20 uIU/mL 01/08/2025 6:04 AM CDT [facility] Blood BLOOD SPECIMEN / Unknown Non-Lab Venipuncture / Unknown 01/08/2025 5:10 AM CDT 01/08/2025 5:29 AM CDT Narrative [facility] - 01/08/2025 6:04 AM CDT In Adults, TSH values between 5.00 and 10.00 uIU/ml do not necessarily indicate the presence of Hypothyroidism. Correlation with clinical findings such as presence of goiter and/or Thyroperoxidase (TPO) Antibody may be helpful. For more information please refer to CALIN 2004; 291: 228-238. Stormy Cardoza MD CHEMISTRY Final Result Performing Organization Address City/[facility]/ZIP Co de Phone Number [facility] [address] [address], [place] * LD serum (ADD ON) (01/08/2025 5:10 AM CDT) Only the most recent of2 resultswithin the time period is included. LD,TOTAL 195 135 - 225 IU/L 01/10/2025 7:41 PM CDT [facility] Blood BLOOD SPECIMEN / Unknown Non-Lab Venipuncture / Unknown 01/08/2025 5:10 AM CDT 01/08/2025 5:29 AM CDT Doni NOELBS CHEMISTRY Shanna l Result Performing Organization Address [facility] Co de Phone Number [facility] [address] [place] [address], [place] * Vitamin B12 level AM (01/08/2025 5:10 AM CDT) Pathologist [facility] VITAMIN B12 470 232 - 1,245 pg/mL 01/08/2025 6:34 AM CDT [facility] Blood BLOOD SPECIMEN / Unknown Non-Lab Venipuncture / Unknown 01/08/2025 5:10 AM CDT 01/08/2025 5:29 AM CDT Narrative [facility] - 01/08/2025 6:34 AM CDT Biotin supplements may cause clinically significant interference for this test assay. If interference is suspected, it is strongly recommended that biotin is discontinued for at least one week prior to retesting. Stormy Cardoza MD CHEMISTRY Final Result Performing Organization Address City/[facility]/ZIP Co de Phone Number [facility] [address] [place] [address], [place] * GLUCOSE METER (01/07/2025 9:32 PM CDT) Only the most recent of12 resultswithin the time period is included. GLUCOSE METER 82 65 - 100 mg/dL 01/07/2025 11:11 PM CDT [facility] Blood BLOOD SPECIMEN / Unknown 01/07/2025 9:32 PM CDT 01/07/2025 11:11 PM CDT us Dick Romero MD CHEMISTRY Final Result [facility] [address] [place] [address], * SCAN-CARDIAC STRIP (01/07/2025 7:15 PM CDT) us Scanner OTHER Final Result * RESPIRATORY PANEL MULTIPLEX PCR (01/07/2025 5:22 PM CDT) Pathologist [facility] Adenovirus NOT Detected 01/07/2025 6:40 PM CDT [facility] Coronavirus 229E NOT Detected 01/07/2025 6:40 PM CDT [facility] Coronavirus HKU1 NOT Detected 01/07/2025 6:40 PM CDT [facility] Coronavirus NL63 NOT Detected 01/07/2025 6:40 PM CDT [facility] Coronavirus OC43 NOT Detected 01/07/2025 6:40 PM CDT [facility] Human Metapneumovirus NOT Detected 01/07/2025 6:40 PM CDT [facility] Human Rhinovirus/Enterovi gary NOT Detected 01/07/2025 6:40 PM CDT [facility] Influenza A NOT Detected 01/07/2025 6:40 PM CDT [facility] Influenza B NOT Detected 01/07/2025 6:40 PM CDT [facility] Parainfluenza Virus 1 NOT Detected 01/07/2025 6:40 PM CDT [facility] Parainfluenza Virus 2 NOT Detected 01/07/2025 6:40 PM CDT [facility] Parainfluenza Virus 3 NOT Detected 01/07/2025 6:40 PM CDT [facility] Parainfluenza Virus 4 NOT Detected 01/07/2025 6:40 PM CDT [facility] Respiratory Syncytial Virus NOT Detected 01/07/2025 6:40 PM CDT [facility] SARS-Cov-2 NOT Detected 01/07/2025 6:40 PM CDT [facility] Bordetella pertussis NOT Detected 01/07/2025 6:40 PM CDT [facility] Bordetella Parapertussis NOT Detected 01/07/2025 6:40 PM CDT [facility] Chlamydophila pneumoniae NOT Detected 01/07/2025 6:40 PM CDT [facility] Mycoplasma pneumoniae NOT Detected 01/07/2025 6:40 PM CDT [facility] Nasopharyngeal NASOPHARYNGEAL SWAB / Unknown Non-Blood / Unknown 01/07/2025 5:22 PM CDT 01/07/2025 5:33 PM CDT Narrative [facility] - 01/07/2025 6:40 PM CDT All PCR tests are subject to false negative results due to variability in viral/bacterial load and collection technique. This test does NOT detect MERS ( Respiratory Syndrome) or SARS-1 (Severe Acute Respiratory Syndrome). Rafi Gallegos MD MICROBIOLOGY Final Result [facility] [address] [place] [address], * [place] PARACENTESIS W IMAGING (01/07/2025 12:30 PM CDT) Anatomical Region Laterality Modality CHEST, Lung, THORAX Ultrasound Narrative 01/07/2025 12:38 PM CDT RADIOLOGY IMMEDIATE POST PROCEDURE NOTE 01/07/2025 Sebastian Glass [id number] INFORMED CONSENT: In my discussion, prior [...] 200 mLs of fluid. Jami Perdue PA-C [facility] Interventional Radiology Fifty Six Protocol A. Pre-procedure verification complete yes 1-relevant [...] SPECIMEN SOURCE ascites 01/07/2025 1:50 PM CDT [facility] ALBUMIN,BODY FLUID 0.6 g/dL 01/07/2025 1:50 PM CDT [facility] Comment:No Reference Range D efined. Body Fluid ASCITIC FLUID SPECIMEN / Unknown Non-Blood / Unknown 01/07/2025 12:17 PM CDT 01/07/2025 12:35 PM CDT Narrative [facility] - 01/07/2025 1:50 PM CDT Peritoneal: SAAG >/= 1.1 g/dL indicates portal Hypertension. Pleural: SEAG > 1.2 g/dL is consistent with a transudative process and may be more accurate in patients receiving diuretic therapy. Test developed & performance characteristics determined by [place], [place] consistent with CLIA requirements. Not cleared or approved by [place] FDA. Rafi Gallegos MD BODY FLUID Final Result Performing Organization Address City/[facility] Co de Phone Number [facility] [address] [place] [address], * (ABNORMAL) LACTATE ARTERIAL (01/07/2025 3:52 AM CDT) LACTATE,ARTERI AL 2.2(HH) 0.5 - 1.6 mmol/L 01/07/2025 4:19 AM CDT [facility] Blood BLOOD SPECIMEN / Unknown Non-Lab Venipuncture / Unknown 01/07/2025 3:52 AM CDT 01/07/2025 3:59 AM CDT Abiodun Cummins MD CHEMISTRY Final Resu lt Performing Organization Address [facility] Co de Phone Number [facility] [address] [place] [address], * VANCOMYCIN (01/07/2025 3:52 AM CDT) VANCOMYCIN 16.3 ug/mL 01/07/2025 4:24 AM CDT [facility] Comment:No Reference Range D efined. DATE OF LAST DOSE,RANDOM 01/06/2025 01/07/2025 4:24 AM CDT [facility] TIME OF LAST DOSE,RANDOM 5:26 PM 01/07/2025 4:24 AM CDT [facility] Blood BLOOD SPECIMEN / Unknown Non-Lab Venipuncture / Unknown 01/07/2025 3:52 AM CDT 01/07/2025 3:59 AM CDT Dinorah Raymundo MD CHEMISTRY F inal Result Performing Organization Address City/[facility]/ZIP Co de Phone Number [facility] [address] [address], [place] * [facility] DRAW ONLY (01/07/2025 3:52 AM CDT) Only the most recent of3 resultswithin the time period is included. CALCIUM,IONIZE D 1.23 1.15 - 1.27 mmol/L 01/07/2025 4:05 AM CDT [facility] Blood BLOOD SPECIMEN / Unknown Non-Lab Venipuncture / Unknown 01/07/2025 3:52 AM CDT 01/07/2025 4:00 AM CDT Abiodun Cummins MD CHEMISTRY Final Resu lt Performing Organization Address [facility] Co de Phone Number [facility] [address] [place] [address], [place] * SCAN-CARDIAC STRIP (01/06/2025 11:25 PM CDT) Scanner OTHER Final Result * LACTATE VENOUS (01/06/2025 9:06 PM CDT) Only the most recent of11 resultswithin the time period is included. LACTATE,VENOUS 2.0 0.5 - 2.0 mmol/L 01/06/2025 9:50 PM CDT [facility] Blood BLOOD SPECIMEN / Unknown Line/Port / Unknown 01/06/2025 9:06 PM CDT 01/06/2025 9:23 PM CDT Abiodun Cummins MD CHEMISTRY Final Resu lt Performing Organization Address [facility] Co de Phone Number [facility] [address] [address], [place] * CT CHEST ABDOMEN PELVIS WO [...] >200 ug Elast./g 01/09/2025 2:[address] [facility] (CET) Comment: Severe Pancreatic Insufficiency: <100 Moderate Pancreatic Insufficiency: 100 - 200 Normal: >200 Stool STOOL SPECIMEN / Unknown Non-Blood / Unknown 01/06/2025 4:40 PM CDT 01/06/2025 4:48 PM CDT Narrative [facility] ([facility]ET) - 01/09/2025 2:07 AM CDT Performed at: [facility]r [employer] [id number] Course Developer: Tashi Vigil MD, Phone: [phone] us Rafi Gallegos MD MICROBIOLOGY Final Result [facility] ([facility]ET) [address] [place] [address], [place] * XR Chest 1 view portable [...] - 4.9 g/dL 01/06/2025 12:33 PM CDT [facility] Blood BLOOD SPECIMEN / Unknown Non-Lab Venipuncture / Unknown 01/06/2025 11:52 AM CDT 01/06/2025 11:59 AM CDT us Rafi Gallegos MD CHEMISTRY Final Result [facility] [address] [place] [address], [place] * SCAN-CARDIAC STRIP (01/06/2025 8:00 AM CDT) us Scanner OTHER Final Result * SCAN-CARDIAC STRIP (01/05/2025 7:15 PM CDT) us Scanner OTHER Final Result * (ABNORMAL) BLOOD CULTURE (01/05/2025 9:15 AM CDT) Only the most recent of2 resultswithin the time period is included. CULTURE RESULT(AA) 01/10/2025 12:02 PM CDT [facility] CULTURE Aerobic Bottle growing Enterococcus faecalis 01/10/2025 12:02 PM CDT [facility] Comment:See susceptibility o n other culture. Blood BLOOD SPECIMEN / Unknown Venipuncture / Unknown 01/05/2025 9:15 AM CDT 01/05/2025 9:24 AM CDT us Abiodun Cummins MD MICROBIOLOGY Final Resu lt Performing Organization Address [facility] Co de Phone Number [facility] [address] [place] [address], [place] * (ABNORMAL) BLOOD GAS,VENOUS (01/05/2025 9:02 AM CDT) PH, VENOUS 7.32 7.32 - 7.43 01/05/2025 9:13 AM CDT [facility] PCO2, VENOUS 29(L) 41 - 51 mmHg 01/05/2025 9:13 AM CDT [facility] PO2, VENOUS 36 35 - 40 mmHg 01/05/2025 9:13 AM CDT [facility] HCO3,VENOUS 15(L) 22 - 29 mmol/L 01/05/2025 9:13 AM CDT [facility] BASE EXCESS, VENOUS, POCT -9.8(L) -2.0 - 3.0 01/05/2025 9:13 AM CDT [facility] O2 SATURATION, VENOUS 59(L) 70 - 75 % 01/05/2025 9:13 AM CDT [facility] PATIENT TEMPERATURE 37.0 Degrees C 01/05/2025 9:13 AM CDT [facility] Blood VENOUS BLOOD SPECIMEN / Unknown Venipuncture / Unknown 01/05/2025 9:02 AM CDT 01/05/2025 9:10 AM CDT us Abiodun Cummins MD CHEMISTRY Final Resu lt Performing Organization Address [facility]/ZIP Co de Phone Number [facility] [address] [place] [address], * (ABNORMAL) RETICULOCYTES (01/05/2025 9:02 AM CDT) Pathologist [facility] RETIC% 5.9(H) 0.5 - 1.5 % 01/05/2025 9:20 AM CDT [facility] RETIC (ABSOLUTE) 0.16(H) 0.03 - 0.08 mil/cu mm 01/05/2025 9:20 AM CDT [facility] Blood BLOOD SPECIMEN / Unknown Venipuncture / Unknown 01/05/2025 9:02 AM CDT 01/05/2025 9:10 AM CDT us Abiodun Cummins MD HEMATOLOGY Final Resu lt [facility] [address] [place] [address], * (ABNORMAL) BLOOD CULTURE MULTIPLEX PCR (01/05/2025 9:01 AM CDT) Pathologist [facility] Organism(s) Detected Enterococcus faecalis(AA) No organism targets detected., Invalid 01/07/2025 5:33 AM CDT [facility] Resistance Gene(s) None detected None detected 01/07/2025 5:33 AM CDT [facility] CTX-M (ESBL-resistance gene) N/A 01/07/2025 5:33 AM CDT [facility] IMP (carbapenem-resistan ce gene) N/A NOT Detected, N/A 01/07/2025 5:33 AM CDT [facility] KPC (carbapenem-resistan ce gene) N/A NOT Detected, N/A 01/07/2025 5:33 AM CDT [facility] mcr-1 (colistin-resistance gene) N/A 01/07/2025 5:33 AM CDT [facility] mecA/C (methicillin-resista nce gene) N/A 01/07/2025 5:33 AM CDT [facility] mecA/C and MREJ (methicillin-resista nce gene) N/A 01/07/2025 5:33 AM CDT [facility] NDM (carbapenem-resistan ce gene) N/A NOT Detected, N/A 01/07/2025 5:33 AM CDT [facility] OXA-48 like (carbapenem-resistan ce gene) N/A NOT Detected, N/A 01/07/2025 5:33 AM CDT [facility] van A/B (vancomycin-resistan ce genes) NOT Detected 01/07/2025 5:33 AM CDT [facility] VIM (carbapenem-resistan ce gene) N/A NOT Detected, N/A 01/07/2025 5:33 AM CDT [facility] Enterococcus faecalis Detected 01/07/2025 5:33 AM CDT [facility] Enterococcus faecium NOT Detected 5:33 AM CDT [facility] Listeria monocytogenes NOT Detected 01/07/2025 5:33 AM CDT [facility] Staphylococcus NOT Detected 01/08/20 5:33 AM CDT [facility] Staphlococcus aureus NOT Detected 5:33 AM CDT [facility] Staphylococcus epidermidis NOT Detected 01/07/2025 5:33 AM CDT [facility] Staphylococcus lugdunensis NOT Detected 01/07/2025 5:33 AM CDT [facility] Streptococcus NOT Detected 5:33 AM CDT [facility] Streptococcus agalactiae (Group B) NOT Detected 01/07/2025 5:33 AM CDT [facility] Streptococcus pneumoniae NOT Detected 01/07/2025 5:33 AM CDT [facility] Streptococcus pyogenes (Group A) NOT Detected 01/07/2025 5:33 AM CDT [facility] Acinetobacter calcoaceticus-mayra jasmina complex NOT Detected 01/07/2025 5:33 AM CDT [facility] Enterobacteriaceae NOT Detected 12/21 5:33 AM CDT [facility] Enterobacter cloacae complex NOT Detected 01/07/2025 5:33 AM CDT [facility] Escherichia coli NOT Detected 2024 5:33 AM CDT [facility] Klebsiella oxytoca NOT Detected 12/21 5:33 AM CDT [facility] Klebsiella pneumoniae group NOT Detected 01/07/2025 5:33 AM CDT [facility] Proteus NOT Detected 01/07/2025 5:33 AM CDT [facility] Serratia marcescens NOT Detected 5:33 AM CDT [facility] Haemophilus influenzae NOT Detected 01/07/2025 5:33 AM CDT [facility] Neisseria meningitidis NOT Detected 01/07/2025 5:33 AM CDT [facility] Pseudomonas aeruginosa NOT Detected 01/07/2025 5:33 AM CDT [facility] Melinda albicans NOT Detected 2024 5:33 AM CDT [facility] Melinda glabrata NOT Detected 2024 5:33 AM CDT [facility] Melinda krusei NOT Detected 01/08/20 5:33 AM CDT [facility] Melinda parapsilosis NOT Detected 5:33 AM CDT [facility] Melinda tropicalis NOT Detected 12/21 5:33 AM CDT [facility] Bacteroides fragilis group NOT Detected 01/07/2025 5:33 AM CDT [facility] Klebsiella aerogenes NOT Detected 5:33 AM CDT [facility] Salmonella NOT Detected 01/07/2025 5:33 AM CDT [facility] Stenotrophomonas maltophilia NOT Detected 01/07/2025 5:33 AM CDT [facility] Melinda auris NOT Detected 5:33 AM CDT [facility] Cryptococcus neoformans/gattii NOT Detected 01/07/2025 5:33 AM CDT [facility] Blood BLOOD SPECIMEN / Unknown Venipuncture / Unknown 01/05/2025 9:01 AM CDT 01/05/2025 9:24 AM CDT Narrative [facility] - 01/07/2025 5:33 AM CDT Note: [...] Abiodun Cummins MD MICROBIOLOGY Final Resu lt [facility] [address] [place] [address], * (ABNORMAL) TROPONIN T (HS) ONE TIME (01/05/2025 9:01 AM CDT) Pathologist [facility] TROPONIN T HS 22(H) 6-15 ng/L ng/L 01/05/2025 9:55 AM CDT [facility] Blood BLOOD SPECIMEN / Unknown Venipuncture / Unknown 01/05/2025 9:01 AM CDT 01/05/2025 9:11 AM CDT Narrative [facility] - 01/05/2025 9:55 AM CDT hs-cTnT [...] Abiodun Cummins MD CHEMISTRY Final Resu lt [facility] [address] [place] [address], [place] * (ABNORMAL) CBC WITH AUTO DIFFERENTIAL (01/05/2025 9:01 AM CDT) [facility] WHITE BLOOD COUNT 26.8(H) 4.5 - 11.0 thou/cu mm 01/05/2025 9:21 AM CDT [facility] RED BLOOD COUNT 2.82(L) 4.30 - 5.90 mil/cu mm 01/05/2025 9:21 AM CDT [facility] HEMOGLOBIN 8.9(L) 13.5 - 17.5 g/dL 01/05/2025 9:21 AM CDT [facility] HEMATOCRIT 27.3(L) 37.0 - 53.0 % 01/05/2025 9:21 AM [facility] MCV 97 80 - 100 fL 01/05/2025 9:21 AM [facility] MCH 31.6 26.0 - 34.0 pg 01/05/2025 9:21 AM [facility] MCHC 32.6 32.0 - 36.0 g/dL 01/05/2025 9:21 AM [facility] RDW 17.4(H) 11.5 - 15.5 % 01/05/2025 9:21 AM [facility] PLATELET COUNT 173 140 - 440 thou/cu mm 01/05/2025 9:21 AM [facility] MPV 10.6 6.5 - 11.0 fL 01/05/2025 9:21 AM [facility] NRBC 0.0 % 01/05/2025 9:21 AM [facility] ABS NRBC 0.0 thou /cu mm 01/05/2025 9:21 AM [facility] % NEUT 90.8 % 01/05/2025 9:21 AM [facility] % LYMPH 1.9 % 01/05/2025 9:21 AM [facility] % MONO 5.1 % 01/05/2025 9:21 AM [facility] % EOS 0.3 % 01/05/2025 9:21 AM [facility] % BASO 0.3 % 01/05/2025 9:21 AM [facility] % IMMATURE GRAN (METAS,MYELOS,NE OS) 1.6 % 01/05/2025 9:21 AM [facility] ABSOLUTE NEUTROPHILS 24.3(H) 1.7 - 7.0 thou/cu mm 01/05/2025 9:21 AM [facility] ABSOLUTE LYMPHOCYTES 0.5(L) 0.9 - 2.9 thou/cu mm 01/05/2025 9:21 AM CDT [facility] ABSOLUTE MONOCYTES 1.4(H) <0.9 thou/cu mm 01/05/2025 9:21 AM CDT [facility] ABSOLUTE EOSINOPHILS 0.1 <0.5 thou/cu mm 01/05/2025 9:21 AM CDT [facility] ABSOLUTE BASOPHILS 0.1 <0.3 thou/cu mm 01/05/2025 9:21 AM CDT [facility] ABSOLUTE IMMATURE GRANULOCYTES(MET ,MYELOS,PROS) 0.4(H) <0.3 thou/cu mm 01/05/2025 9:21 AM CDT [facility] Blood BLOOD SPECIMEN / Unknown Venipuncture / Unknown 01/05/2025 9:01 AM CDT 01/05/2025 9:10 AM CDT us Abiodun Cummins MD HEMATOLOGY Final Resu lt [facility] [address] [place] [address], * (ABNORMAL) IRON PLUS IRON BINDING CAP (01/05/2025 9:01 AM CDT) IRON 61 61 - 157 ug/dL 01/05/2025 9:49 AM CDT [facility] UIBC (UNSATURATED) 54(L) 112 - 347 ug/dL 01/05/2025 9:49 AM CDT [facility] IRON BINDING CAPACITY 115(L) 250 - 400 ug/dL 01/05/2025 9:49 AM CDT [facility] IRON,% SATURATION 53(H) 14 - 50 % 01/05/2025 9:49 AM CDT [facility] Blood BLOOD SPECIMEN / Unknown Venipuncture / Unknown 01/05/2025 9:01 AM CDT 01/05/2025 9:11 AM CDT Abiodun Cummins MD CHEMISTRY Final Resu lt Performing Organization Address City/[facility]/ZIP Co de Phone Number [facility] [address] [place] [address], [place] * FERRITIN (01/05/2025 9:01 AM CDT) [facility] FERRITIN 264.0 30.0 - 400.0 ng/mL 01/05/2025 11:51 AM CDT [facility] Blood BLOOD SPECIMEN / Unknown Venipuncture / Unknown 01/05/2025 9:01 AM CDT 01/05/2025 9:11 AM CDT Abiodun Cummins MD CHEMISTRY Final Resu lt Performing Organization Address [facility] Co de Phone Number [facility] [address] [place] [address], [place] * (ABNORMAL) CK TOTAL (01/05/2025 9:01 AM CDT) [facility] CK,TOTAL 389(H) 39 - 308 IU/L 01/05/2025 9:55 AM CDT [facility] Blood BLOOD SPECIMEN / Unknown Venipuncture / Unknown 01/05/2025 9:01 AM CDT 01/05/2025 9:11 AM CDT Abiodun Cummins MD CHEMISTRY Final Resu lt Performing Organization Address City/[facility]/ZIP Co de Phone Number [facility] [address] [place] [address], [place] * SCAN-CARDIAC STRIP (01/05/2025 8:04 AM CDT) Scanner OTHER Final Result * EKG 12 LEAD (01/05/2025 7:52 AM CDT) [facility] Interpretation Sinus rhythm with 1st degree A-V [...] NOW QTc 429 ms BEYOND NOW P [place] 37 degrees BEYOND NOW R P[place] -32 degrees BEYOND NOW T [place] 202 degrees BEYOND NOW 01/05/2025 7:52 AM CDT 01/06/2025 2:28 PM CDT Abiodun Cummins MD EKG ORD Final Resu lt Performing Organization Address City/[facility]/ZIP Co de Phone Number [place], [place] * MRSA/SA PCR (01/05/2025 7:48 AM CDT) MRSA DNA PCR Negative Negative 01/05/2025 11:10 AM CDT [facility] STAPHYLOCOCCUS AUREUS PCR Negative Negative 01/05/2025 11:10 AM CDT [facility] Other SPECIMEN FROM INTERNAL NOSE / Unknown Non-Blood / Unknown 01/05/2025 7:48 AM CDT 01/05/2025 7:55 AM CDT Narrative [facility] - 01/05/2025 11:10 AM CDT Test result does not preclude MRSA or SA nasal colonization. Abiodun Cummins MD MICROBIOLOGY Final Resu lt Performing Organization Address City/[facility]/ZIP Co de Phone Number [facility] [address] [place] [address], * (ABNORMAL) DRUG SCREEN RAPID URINE INHOUSE (01/05/2025 7:48 AM CDT) [facility] METABOLITES,FLACO L Non-negative , consider further testing if indicated(A) Not Detected 01/05/2025 8:14 AM CDT [facility] PCP,QUAL Not Detected Not Detected 01/05/2025 8:14 AM CDT [facility] COCAINE,QUAL Not Detected Not Detected 01/05/2025 8:14 AM CDT [facility] METHAMPHETAMINE , QUALITATIVE Not Detected Not Detected 01/05/2025 8:14 AM CDT [facility] OPIATES,QUAL Not Detected Not Detected 01/05/2025 8:14 AM CDT [facility] AMPHETAMINE, QUALITATIVE Not Detected Not Detected 01/05/2025 8:14 AM CDT [facility] BENZODIAZEPINES ,QUAL Not Detected Not Detected 01/05/2025 8:14 AM CDT [facility] TRICYCLICS,QUAL Not Detected Not Detected 01/05/2025 8:14 AM CDT [facility] METHADONE, QUALITATIVE Not Detected Not Detected 01/05/2025 8:14 AM CDT [facility] BARBITURATES,QU AL Not Detected Not Detected 01/05/2025 8:14 AM CDT [facility] OXYCODONE, QUALITATIVE Not Detected Not Detected 01/05/2025 8:14 AM CDT [facility] BUPRENORPHINE, QUALITATIVE Not Detected Not Detected 01/05/2025 8:14 AM CDT [facility] Urine URINE SPECIMEN / Unknown Non-Blood / Unknown 01/05/2025 7:48 AM CDT 01/05/2025 7:55 AM CDT [facility] - 01/05/2025 8:14 AM CDT Please [...] URINE Final Resu lt Performing Organization Address [facility] Co de Phone Number [facility] [address] [place] [address], [place] * (ABNORMAL) URINALYSIS MICROSCOPIC (01/05/2025 7:48 AM CDT) RBC >100(A) 0-2, None Seen /HPF 01/05/2025 8:05 AM CDT [facility] WBC 11-25(A) 0-2, 3-5, None Seen /HPF 01/05/2025 8:05 AM CDT [facility] BACTERIA None Seen None Seen, Rare, Few Bacteria/ HPF 01/05/2025 8:05 AM CDT [facility] EPITHELIAL CELLS None Seen None Seen, Few Epi/HPF 01/05/2025 8:05 AM CDT [facility] HYALINE CASTS 0-2 0-2, 3-5 /LPF 01/05/2025 8:05 AM CDT [facility] Urine URINE SPECIMEN / Unknown Non-Blood / Unknown 01/05/2025 7:48 AM CDT 01/05/2025 7:55 AM CDT Abiodun Cummins MD URINE Final Resu lt Performing Organization Address [facility]/ZIP Co de Phone Number [facility] [address] [place] [address], [place] * (ABNORMAL) UA W/ SEDIMENT EXAM REFLEXED PER CRITERIA (01/05/2025 7:48 AM CDT) COLOR Yellow Yellow Color 01/05/2025 8:05 AM CDT [facility] CLARITY Clear Clear Clarity 01/05/2025 8:05 AM CDT [facility] SPECIFIC GRAVITY,URINE >=1.030(A) 1.010, 1.015, 1.020, 1.025 01/05/2025 8:05 AM T [facility] PH,URINE 5.5 6.0, 7.0, 8.0, 5.5, 6.5, 7.5, 8.5 01/05/2025 8:05 AM T [facility] UROBILINOGEN,QU ALITATIVE Normal Normal EU/dl 01/05/2025 8:05 AM T [facility] PROTEIN, URINE 30(A) Negative mg/dL 01/05/2025 8:05 AM T [facility] GLUCOSE, URINE Negative Negative mg/dL 01/05/2025 8:05 AM T [facility] KETONES,URINE Negative Negative mg/dL 01/05/2025 8:05 AM T [facility] BILIRUBIN,URINE Abnormal(A) Negative 01/06/20 8:05 AM [facility] Comment:A variety of metabol ites and/or medications may result in a positive bilirubin result. Clinical correlation is recommended. OCCULT BLOOD,URINE Large(A) Negative 01/05/2025 8:05 AM T [facility] NITRITE Negative Negative 01/05/2025 8:05 AM [facility] LEUKOCYTE ESTERASE Moderate(A) Negative 01/05/2025 8:05 AM T [facility] Urine URINE SPECIMEN / Unknown Non-Blood / Unknown 01/05/2025 7:48 AM CDT 01/05/2025 7:55 AM CDT us Abiodun Cummins MD URINE Final Resu lt [facility] [address] [place] [address], [place] from Last 3 Months Insurance [facility] MEDICARE PART A HB ONLY HC MEDICARE PPS [facility] HC UCARE MEDICARE PDGM Advance [...] Comments Code Status Discussion: Other Care Teams Hydroelectric Station Operator Relationship Specialty Start Date End Date Maggie Fierro MD [address] [place] [address] PCP - General Internal Medicine 01/08/25 Becki Santos(?) AXIS Care Coord [facility] Connect+ 01/01/25
--- OUTSIDE RECORDS SUMMARY | 2025-02-22 18:53 | XMS_ITS | Encounter Summary ---
Author Organization [employer] Address [address] [place] [address] Care Team Providers Care Fertilizer Applicator Name Role Phone Gabe Zheng MD Primary Care Provider [phone] Reason for Visit * Reason Comments UPDATE Encounter Details Date Type Department Care Team (Late st Contact Info) Description 01/14/2025 Telephone [place] [id number] Family Medicine [facility] [place] [address] Gabe Zheng MD [address] [place] [address] UPDATE Social History Tobacco Use [...] RN - 01/17/2025 11:16 AM CDT Diane medical care manager calling back [phone]. Patient does not need a f/u with Norm, he is seeing Dr Fierro at [facility] for follow up. * Kala Baxter RN - 01/17/2025 10:10 AM CDT Attempted to reach Diane. Left message to call back at [phone] (Need more clarity- does patient have discharge appt scheduled with [facility] or should one be scheduled with Dr Zheng?) * Meri Merida RN - 01/16/2025 9:19 AM CDT Left message with Diane medical care manager again- is pt having a discharge appointment with [facility] or does he need one with Dr. Zheng? * Aileen Clay RN - 01/16/2025 8:55 AM CDT Diane, medical care manager with [facility] calling back. Diane confirms that the patient is enrolled with [facility]. Contact information for Diane: [phone] * Aileen Hancock RN - 01/15/2025 5:01 PM CDT Called Diane. Left message to call back to [phone]. Please inquire if patient is enrolled with [facility]. * Anne Serrano RN - 01/14/2025 4:30 PM CDT Attempted to call Diane- care coordination with [facility], no answer, generic voicemail left to call back nurse line [phone] * Shannon Farrell - 01/14/2025 4:26 PM CDT Other Questions/Concerns/FYI Is this a symptom? No What is your question or concern? Would like pcp to now pt has been discharged from [facility] 01/13/25 Have you recently been seen for [...] on filedocumented in this encounter Care Teams Fertilizer Applicator Relationship Specialty Start Date End Date Gabe Zheng MD [address] [place] [address] PCP - General Family Practice 01/16/25 documented as of this encounter
--- OUTSIDE RECORDS SUMMARY | 2025-02-22 18:53 | XMS_ITS | Encounter Summary ---
Author Organization [employer] Address [address] [place] [address] Care Team Providers Care Preschool Teacher Name Role Phone Gabe Zheng MD Primary Care Provider [phone] Encounter Details Date Type Department Care Team (Late st Contact Info) Description 06/04/2013 Correspondence [facility] [address] [place], [place] [address] Kelvin Hayes MD PRE PLACEMENT EXAM Social [...] on filedocumented in this encounter Care Teams Preschool Teacher Relationship Specialty Start Date End Date Gabe Zheng MD [address] [place] [address] PCP - General Family Practice 01/16/25 documented as of this encounter
--- OUTSIDE RECORDS SUMMARY | 2025-02-22 18:53 | XMS_ITS | Encounter Summary ---
Author Organization [employer] Address [address] [place] [address] Care Team Providers Care Painter Foreman Name Role Phone Gabe Zheng MD Primary Care Provider [phone] Reason for Visit * Reason Comments Scheduling Question Encounter Details Date Type Department Care Team (Late st Contact Info) Description 12/20/2024 Telephone [facility] [address] Ophthalmology [address] [place] [facility] [place] [address] Trevon Troncoso MD [address] [place] [address] Scheduling Question Social History Tobacco [...] pt I would talk with the call welcome center attendant and have her look to see if [...] today. [facility] so I am forwarding this request to them. 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
--- OUTSIDE RECORDS SUMMARY | 2025-02-22 18:53 | XMS_ITS | Clinical Summary ---
Author Organization [facility] Address [address] [place] [address] Care Team Providers Care Industrial Seamstress Name Role Phone Gabe Zheng MD Primary Care Provider [phone] Source Comments You are receiving this document as you are listed as the primary care provider,follow-up provider, or the patient has been referred to you for consultation.This is in compliance with the Medicare andHolzer Hospitalcaid EHR Incentive Program,which states Providers who transition their patient to another setting of careor provider of care or refers their patient to another provider of care shouldprovide summary care record for each transition of care or referral. 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 [address] Family Medicine [address] [facility] [place] [address] Gabe Zheng MD UPDATE 12/20/[address] [facility] [address] Ophthalmology [address] [facility] [place] [address] Trevon Troncoso MD Scheduling Question from Last 3 Months Immunizations Immunization Administration Dates Next Due Hdcv - Rabies Vaccine 03/21/2002, 002,02/26/2002,2001 HepB Adult (Engerix-B, 20+ y rs, 3 dose series) 06/27/2013,01/16/2013,12/08/2012 Influenza (Flucelvax), Prese rv Free QIV 02/20/2020 Influenza IIV4 (Quadrivalent ) 0.5mL ([id number]) 04/02/2021 Moderna Monovalent 12+ 12/12/2020,10/07/2020 TB Skin [...] type HIV ANTIBODY Routine 05/08/2010 11:35 AM SHRINK PIT OPERATOR HEPATITIS C ANTIBODY, WITH REFLEX (ANTI-HCV) Routine 05/08/2010 11:35 AM SHRINK PIT OPERATOR from Last 3 Months or Most Recently Relevant to Health Maintenance Results * Lipid Panel and Direct LDL(If Needed) (09/25/2018 4:02 PM CDT) Cholesterol 147 0 - 199 mg/dL 09/25/2018 4:34 PM CDT [facility] Triglyceride 59 <=149 mg/dL 09/25/2018 4:34 PM CDT [facility] 3850 LABOR[facility]ORY HDL Cholesterol 43 >=40 mg/dL 9 4:34 PM CDT [place] [address] [facility] LDL, Calculated 92 <130 mg/dL 9 4:34 PM CDT [place] [address] [facility] Non HDL Chol, Calculated 104 <=159 mg/dL 09/25/2018 4:34 PM CDT [place] [address] [facility] Cholesterol/HDL Ratio 3.4 09/25/2018 4:34 PM CDT [place] [address] [facility] Blood Venipuncture / Unknown 09/25/2018 4:02 PM CDT 09/25/2018 4:02 PM CDT Gabe Zheng MD LAB_1 Final Result Performing Organization Address [facility] de Phone Number [place] [address] [facility] [address] [place] [address], [facility] [phone] * Prostatic Specific Antigen (Screen) (09/25/2018 4:02 PM CDT) Prostatic Specific Antigen 0.3 0.0 - 4.0 ng/mL 09/25/2018 7:24 PM CDT [facility] Blood Venipuncture / Unknown 09/25/2018 4:02 PM CDT 09/25/2018 4:02 PM CDT Narrative [facility] - 09/25/2018 7:24 PM CDT The [employer] PSA Chemiluminescent immunoassay is used. Results obtained with different test methods or kits cannot be used interchangeably. Gabe Zheng MD LAB_1 Final Result Performing Organization Address [facility] Co de Phone Number [facility] [address] [place], [place] [address] * HIV ANTIBODY (05/08/2010 11:35 AM SHRINK PIT OPERATOR) HIV 1/HIV 2 Non-React No normal range HP CONVERSION 05/08/2010 11:3 5 AM SHRINK PIT OPERATOR Gabe Zheng MD LAB_1 Final Result Performing Organization Address [facility] Co de Phone Number HP CONVERSION * Hepatitis C Antibody, with Reflex (05/08/2010 11:35 AM SHRINK PIT OPERATOR) Hepatitis C Antibody Non-React No normal range HP CONVERSION 05/08/2010 11:3 5 AM SHRINK PIT OPERATOR Gabe Zheng MD LAB_1 Final Result HP CONVERSION from Last 3 Months or Most Recently Relevant to Health Maintenance Insurance [facility] MEDICARE Advance Directives * Full Code (Latest [...] 2:04 AM 02/06/2015 1:21 PM Care Teams Industrial Seamstress Relationship Specialty Start Date End Date Gabe Zheng MD [address] [place] [address] PCP - General Family Practice 01/16/25
[2025-02-22 18:59] VITALS: BP 138/79; PULSE 100; RESP 18; TEMP 36.7; O2SAT 99; BMI 18.5
--- NOTE | 2025-02-22 19:15 | ED.GENADULT ---
HPI - General Adult General Chief complaint: Skin/Abscess/Foreign Body Stated complaint: Stiches bleeding Time Seen by Provider: 02/22/25 18:54 Source: patient Mode of arrival: ambulatory Limitations: no limitations History of Present Illness HPI narrative: 59-year-old male postop day 1 status post a paracentesis comes in today with oozing from his paracentesis site. Denies other symptoms or concerns. Patient had Dermabond placed at the site of the paracentesis and then presented to the ER later in the same day complaining of continued leaking. At that time 2 sutures were placed at the site of entry. Related Data Home Medications ?Medication ?Instructions ?Recorded ?Confirmed metronidazole topical DAILY 06/07/23 02/04/25 folic acid 1 mg tablet 1 mg PO QDAY 01/22/25 02/04/25 furosemide 20 mg tablet 20 mg PO QDAY 01/22/25 02/04/25 gabapentin 300 mg capsule 300 mg PO TID 01/22/25 02/04/25 tbfbrvjm-cnn-qacae acid 0.4 1 tab PO QDAY 01/22/25 02/04/25 mg-lycopene 300 mcg-lutein 250 mcg tablet (CertaVite Senior) ondansetron 4 mg disintegrating 4 mg PO Q8H PRN 01/22/25 02/04/25 tablet pantoprazole 40 mg tablet,delayed 40 mg PO QDAY 01/22/25 02/04/25 release spironolactone 50 mg tablet 50 mg PO QDAY 01/22/25 02/04/25 thiamine HCl (vitamin B1) 100 mg 100 mg PO QDAY 01/22/25 02/04/25 tablet Previous Rx's ?Medication ?Instructions ?Recorded tizanidine 4 mg tablet 4 mg PO 3XD PRN muscle cramps #20 06/24/23 tabs amoxicillin 875 mg-potassium 1 tab PO BID #14 tabs 01/28/25 clavulanate 125 mg tablet cyclobenzaprine 5 mg tablet 5 mg PO TID PRN muscle spasm #14 01/28/25 tabs Allergies Allergy/AdvReac Type Severity Reaction Status Date / Time No Known Drug Allergies Allergy Verified 02/22/25 19:01 Review of Systems Status of ROS: Reports: 6 or more systems reviewed and unremarkable except as noted in History and below [facility] Medical History History of facial fracture ?Z87.81 - Personal history of (healed) traumatic fracture (ICD-10) History of renal calculi ?Z87.442 - Personal history of urinary calculi (ICD-10) Surgical History History of eye surgery ?Z98.890 - Other specified postprocedural states (ICD-10) History of partial gastrectomy (1992) ?Z90.3 - Acquired absence of stomach [part of] (ICD-10) History of colonoscopy (03/19/13) ?Z98.890 - Other specified postprocedural states (ICD-10) History of resection of small bowel ?Z90.49 - Acquired absence of other specified parts of digestive tract (ICD-10) Family History Grandmother Heart disease Diabetes Father Stroke, Onset Age: 49 Mother Breast cancer, Onset Age: 74 Uncle Diabetes Social History What is your current living situation?: I presently have a place to live Problems where you live: no known problems Problems where you live details: They haven't repairs yet In the past 12 months, utilities in danger of being shut off: no In past 12 months, lack of transportation kept you from medical appts, meetings, work, or getting things needed for daily living: yes In the past 12 mos, have been you worried that your food would run out before you had money to buy more?: never true In the past 12 mos, the food you bought just didn't last and you didn't have money to buy more?: never true Smoking Status: Former smoker What tobacco products do you use: cigarettes Smoking packs per day: 0.5 Smoking cigarettes per day: 10.0 Years smoked: 41 Smoking pack-years: 20.50 Smoking quit date/years: <= 15 years ago Do you use any of these nicotine containing products: None Second hand tobacco smoke exposure: No How often do you have a drink containing alcohol: never How many standard drinks containing alcohol do you have on a typical day: 10 or more How often do you have six or more drinks on one occasion: Never AUDIT-C Alcohol total score: 4 Non-prescribed substance use: marijuana (any form) How often does anyone, including family, friends and others, physically hurt you: never How often does anyone, including family, friends and others, insult or talk down to you: frequently How often does anyone, including family, friends and others, threaten you with harm: never How often does anyone, including family, friends and others, scream or curse at you: sometimes Health Related Social Needs: transportation insecurity (Z59.82) and Other personal risk factors, not elsewhere classified (Z91.89) Exam Narrative: Exam Narrative: Patient has a leaking paracentesis site that is currently sutured, leaking appears to be coming through the suture holes Const: Vital Signs, click to edit/add: Vital Signs - 24 hr 02/22/25 18:59 Temperature 98.0 F Pulse Rate [Right Pulse Oximeter] 100 Respiratory Rate 18 Blood Pressure [Ri ght Upper Arm] 138/79 Pulse Oximetry 99 Oxygen Delivery Me thod Room Air Course Course ED Course: I consulted with Dr. Barnard and afterwards I was able to tent the skin around the sutures and placed Dermabond over it. We then put a pressure dressing in place. Vital Signs Vital signs: Initial Vital Signs Temperature 98.0 F 02/22/25 18:59 Temperature Source Temporal Artery Scan 02/22/25 18:59 Pulse Rate 100 02/22/25 18:59 Respiratory Rate 18 02/22/25 18:59 Blood Pressure 138/79 02/22/25 18:59 Blood Pressure Mean 98 02/22/25 18:59 Blood Pressure Position Standing 02/22/25 18:59 Pulse Oximetry 99 02/22/25 18:59 Oxygen Delivery Method Room Air 02/22/25 18:59 Vital Signs Temperature 98.0 F 02/22/25 18:59 Pulse Rate 100 02/22/25 18:59 Respiratory Rate 18 02/22/25 18:59 Blood Pressure 138/79 02/22/25 18:59 Pulse Oximetry 99 02/22/25 18:59 Oxygen Delivery Method Room Air 02/22/25 18:59 Temperature 98.0 F 02/22/25 18:59 Pulse Rate 100 02/22/25 18:59 Respiratory Rate 18 02/22/25 18:59 Blood Pressure 138/79 02/22/25 18:59 Pulse Oximetry 99 02/22/25 18:59 Oxygen Delivery Method Room Air 02/22/25 18:59 Medical Decision Making MDM Narrative Medical decision making narrative: Leaking paracentesis site. Treated per above. Patient will follow-up with primary care for suture removal in 2 weeks if it does not continue to leak or he will call the surgery clinic on Tuesday if he has continued leakage through the weekend. Discharge Plan Discharge Clinical Impression: Ascites due to alcoholic cirrhosis Patient Disposition: Home, Self-Care Condition: Improved Additional Instructions: Follow-up with your primary care provider in 2 weeks to have your sutures removed if the leakage stops or call the surgery clinic on Tuesday morning if the leakage continues through the weekend. Return to the emergency department for abdominal pain or fevers. Prescriptions: No Action metronidazole topical DAILY amoxicillin-pot clavulanate 875-125 mg tablet 1 tab PO BID Qty: 14 0RF cyclobenzaprine 5 mg tablet 5 mg PO TID PRN (Reason: muscle spasm) Qty: 14 0RF tizanidine 4 mg tablet 4 mg PO 3XD PRN (Reason: muscle cramps) Qty: 20 0RF furosemide 20 mg tablet 20 mg PO QDAY folic acid 1 mg tablet 1 mg PO QDAY CertaVite Senior 0.4 mg-300 mcg- 250 mcg tablet 1 tab PO QDAY thiamine HCl (vitamin B1) 100 mg tablet 100 mg PO QDAY pantoprazole 40 mg tablet,delayed release (DR/EC) 40 mg PO QDAY spironolactone 50 mg tablet 50 mg PO QDAY gabapentin 300 mg capsule 300 mg PO TID ondansetron 4 mg tablet,disintegrating 4 mg PO Q8H PRN Follow Up/Referrals: Maggie Fierro MD [Primary Care Provider, Internal Medicine] Stand Alone Forms: [facility] Info Instructions
[2025-02-22 19:29] VITALS: BP 135/74; PULSE 98; RESP 18; TEMP 36.7; O2SAT 99
[2025-02-22 19:30] VITALS: BP 135/74; PULSE 98; RESP 18; TEMP 36.7
--- OUTSIDE RECORDS SUMMARY | 2025-02-22 19:53 | XMS_ITS | CCD ---
Author Organization Unknown Care Team Providers Care Tenant Relations Coordinator Name Role Phone Brick [place], [place] Primary Care Provider Unava ilable Unavailable Chronic Care Management Unavaila ble Summary Purpose [employer] Insurance Providers Payer name Policy type / Coverage type Covered republican ID Effective Begin Date Effective End Date [facility] Commercial Insurance [id number] Unknown Unkn own Family History Family History data not found Medication Administered No Medication Administered data Reason For Visit No Reason For Visit data
--- OUTSIDE RECORDS SUMMARY | 2025-02-22 19:53 | XMS_ITS | CCD ---
Author Organization Unknown Care Team Providers Care Interactive Digital Media Specialist Name Role Phone [place], [place] Primary Care Provider Unava ilable Unavailable Chronic Care Management Unavaila ble Summary Purpose [employer] Insurance Providers Payer name Policy type / Coverage type Covered green party ID Effective Begin Date Effective End Date [facility] Commercial Insurance [id number] Unknown Unkn own Family History Family History data not found Medication Administered No Medication Administered data Reason For Visit No Reason For Visit data
== END 2025-02-22 19:30 | disposition home or self-care (01) ==
LOC: ED 19:21
PROVIDERS: Emergency Provider Family Medicine; PCP Internal Medicine
DX: T81.89XA Other complications of procedures, not elsewhere classified, initial encounter (principal); K70.31 Alcoholic cirrhosis of liver with ascites
CPT/HCPCS: 99283; 99284

== ENCOUNTER 2025-02-25 12:44 | Outpatient (CLI) | payer MEDICARE, MEDICAID, SELFPAY | END 2025-02-25 12:45 | disposition home or self-care (01) | LOC: WOUND 12:45 | PROVIDERS: PCP Internal Medicine; Visit Provider Physician Assistant Surgical | DX: I87.311 Chronic venous hypertension (idiopathic) with ulcer of right lower extremity (principal); I87.2 Venous insufficiency (chronic) (peripheral); L97.812 Non-pressure chronic ulcer of other part of right lower leg with fat layer exposed; I34.0 Nonrheumatic mitral (valve) insufficiency; K70.31 Alcoholic cirrhosis of liver with ascites; F17.200 Nicotine dependence, unspecified, uncomplicated; F10.20 Alcohol dependence, uncomplicated | CPT/HCPCS: 11042 ==

== ENCOUNTER 2025-03-04 15:09 | Outpatient (CLI) | payer MEDICARE, MEDICAID, SELFPAY | END 2025-03-04 15:10 | disposition home or self-care (01) | LOC: WOUND 15:15 | PROVIDERS: PCP Internal Medicine; Visit Provider Family Medicine | DX: I87.311 Chronic venous hypertension (idiopathic) with ulcer of right lower extremity (principal); I87.2 Venous insufficiency (chronic) (peripheral); L97.812 Non-pressure chronic ulcer of other part of right lower leg with fat layer exposed; I34.0 Nonrheumatic mitral (valve) insufficiency; K70.31 Alcoholic cirrhosis of liver with ascites; F17.200 Nicotine dependence, unspecified, uncomplicated; F10.20 Alcohol dependence, uncomplicated | CPT/HCPCS: 11042 ==

== ENCOUNTER 2025-03-09 13:01 | Inpatient (IN) | payer MEDICARE, MEDICAID, SELFPAY ==
[2025-03-09 13:16] VITALS: BP 112/77; PULSE 131; RESP 18; TEMP 37.4; O2SAT 97; BMI 15.8
--- NOTE | 2025-03-09 14:06 | ED.ABDPAIN ---
HPI - Abdominal Pain General Date Seen: 03/09/25 Chief Complaint: Abdominal Pain Stated Complaint: Needs fluid drained Time Seen by Provider: 03/09/25 13:27 Source: patient, family, RN notes reviewed and old records reviewed Mode of arrival: ambulatory Limitations: no limitations History of Present Illness HPI narrative: Patient is a 59-year-old gentleman who presents here for evaluation of his ascites, he has noted over the past week or so he has increased swelling of his abdomen to a point where it hot hard for him to breathe. He has noted no increased abdominal pain but he has pain all over which seems to be a complaint he has had before. He does have liver failure, ascites secondary to alcoholic cirrhosis, seen by Gastroenterology, up in the [facility], on March 05 which is 4 days ago. I have been able to review that note, he has been managing his discomfort with both ibuprofen and heating pad, he has been to the ER here least before for leaking from his ascites site. Denies any fevers or chills, he has had cough, but tells me that he does smoke. That is chronic. No history of falls or trauma although he has fallen in the past. Been taking his medications Related Data Home Medications ?Medication ?Instructions ?Recorded ?Confirmed metronidazole topical DAILY 06/07/23 02/04/25 folic acid 1 mg tablet 1 mg PO QDAY 01/22/25 02/04/25 furosemide 20 mg tablet 20 mg PO QDAY 01/22/25 02/04/25 gabapentin 300 mg capsule 300 mg PO TID 01/22/25 02/04/25 lyzqnsnl-esa-vsocp acid 0.4 1 tab PO QDAY 01/22/25 02/04/25 mg-lycopene 300 mcg-lutein 250 mcg tablet (CertaVite Senior) ondansetron 4 mg disintegrating 4 mg PO Q8H PRN 01/22/25 02/04/25 tablet pantoprazole 40 mg tablet,delayed 40 mg PO QDAY 01/22/25 02/04/25 release spironolactone 50 mg tablet 50 mg PO QDAY 01/22/25 02/04/25 thiamine HCl (vitamin B1) 100 mg 100 mg PO QDAY 01/22/25 02/04/25 tablet Previous Rx's ?Medication ?Instructions ?Recorded tizanidine 4 mg tablet 4 mg PO 3XD PRN muscle cramps #20 02/02/24 tabs amoxicillin 875 mg-potassium 1 tab PO BID #14 tabs 01/28/25 clavulanate 125 mg tablet cyclobenzaprine 5 mg tablet 5 mg PO TID PRN muscle spasm #14 01/28/25 tabs Allergies Allergy/AdvReac Type Severity Reaction Status Date / Time No Known Drug Allergies Allergy Verified 02/22/25 19:01 [facility] Medical History History of facial fracture ?Z87.81 - Personal history of (healed) traumatic fracture (ICD-10) History of renal calculi ?Z87.442 - Personal history of urinary calculi (ICD-10) Surgical History History of eye surgery ?Z98.890 - Other specified postprocedural states (ICD-10) History of partial gastrectomy (1992) ?Z90.3 - Acquired absence of stomach [part of] (ICD-10) History of colonoscopy (03/19/13) ?Z98.890 - Other specified postprocedural states (ICD-10) History of resection of small bowel ?Z90.49 - Acquired absence of other specified parts of digestive tract (ICD-10) Family History Grandmother Heart disease Diabetes Father Stroke, Onset Age: 49 Mother Breast cancer, Onset Age: 74 Uncle Diabetes Social History What is your current living situation?: I presently have a place to live Problems where you live: no known problems Problems where you live details: They haven't repairs yet In the past 12 months, utilities in danger of being shut off: no In past 12 months, lack of transportation kept you from medical appts, meetings, work, or getting things needed for daily living: yes In the past 12 mos, have been you worried that your food would run out before you had money to buy more?: never true In the past 12 mos, the food you bought just didn't last and you didn't have money to buy more?: never true Smoking Status: Former smoker What tobacco products do you use: cigarettes Smoking packs per day: 0.5 Smoking cigarettes per day: 10.0 Years smoked: 41 Smoking pack-years: 20.50 Smoking quit date/years: <= 15 years ago Do you use any of these nicotine containing products: None Second hand tobacco smoke exposure: No How often do you have a drink containing alcohol: never How many standard drinks containing alcohol do you have on a typical day: 10 or more How often do you have six or more drinks on one occasion: Never AUDIT-C Alcohol total score: 4 Non-prescribed substance use: marijuana (any form) How often does anyone, including family, friends and others, physically hurt you: never How often does anyone, including family, friends and others, insult or talk down to you: frequently How often does anyone, including family, friends and others, threaten you with harm: never How often does anyone, including family, friends and others, scream or curse at you: sometimes service: Yes Health Related Social Needs: transportation insecurity (Z59.82) and Other personal risk factors, not elsewhere classified (Z91.89) Exam Const: Vital Signs, click to edit/add: Vital Signs - 24 hr 03/09/25 13:16 03/09/25 17:22 Temperature 99.4 F 98.5 F Pulse Rate [Pulse Oximeter] 131 H 113 H Respiratory Rate 18 18 Blood Pressure [Ri ght Upper Arm] 112/77 110/68 Pulse Oximetry 97 98 Oxygen Delivery Me thod Room Air Room Air Course Course ED Course: I discussed with the patient, he is better and his examination is better after I took off 4 and mL, this did show greater than 600 wbcs, and also some blood. Paracentesis was done in the right lower quadrant where he had previous ones done. Greater than 250 WBC is indicative possible SBP. I spoke to the inpatient hospitalist, will likely admit to the hospital for antibiotics. Until culture results come back Reevaluation(s) Time of Reevaluation #1: 18:03 Reevaluation #1: Patient remains stable, at this point I had the hospitalist see him, he would like to review peruse the [facility] chart, as he was hospitalized there for Enterococcus septicemia. And just make sure that he has Rocephin will cover it, as Rocephin is that targeted antibiotic for SBP. May require instead ampicillin. I think this is reasonable, as the patient is septic . Might the we will admit to hospital for antibiotics and further care. Vital Signs Vital signs: Initial Vital Signs Temperature 99.4 F 03/09/25 13:16 Temperature Source Temporal Artery Scan 03/09/25 13:16 Pulse Rate 131 H 03/09/25 13:16 Respiratory Rate 18 03/09/25 13:16 Blood Pressure 112/77 03/09/25 13:16 Blood Pressure Mean 88 03/09/25 13:16 Blood Pressure Position Supine 03/09/25 13:16 Pulse Oximetry 97 03/09/25 13:16 Oxygen Delivery Method Room Air 03/09/25 13:16 Vital Signs Temperature 99.4 F 03/09/25 13:16 Pulse Rate 131 H 03/09/25 13:16 Respiratory Rate 18 03/09/25 13:16 Blood Pressure 112/77 03/09/25 13:16 Pulse Oximetry 97 03/09/25 13:16 Oxygen Delivery Method Room Air 03/09/25 13:16 Temperature 98.5 F 03/09/25 17:22 Pulse Rate 113 H 03/09/25 17:22 Respiratory Rate 18 03/09/25 17:22 Blood Pressure 110/68 03/09/25 17:22 Pulse Oximetry 98 03/09/25 17:22 Oxygen Delivery Method Room Air 03/09/25 17:22 MDM - Abdominal Pain Lab Data Labs: Lab Results 03/09/25 03/09/25 03/09/25 Range/Units 13:20 14:05 16:29 WBC 12.91 H (4.50-11.00) K/uL RBC 3.33 L (4.30-5.90) m/uL Hgb 9.4 L (13.5-17.5) gm/dL Hct 28.1 L (37.0-53.0) % MCV 84 (80-100) fL MCH 28 (26-34) pg MCHC 34 (32-36) gm/dL RDW Coeff of Lucian 14.4 (11.5-15.5) % Plt Count 571 H (140-440) K/uL Neut % (Auto) 76.5 H (42.0-72.0) % Lymph % (Auto) 12.9 L (20-44) % [place] % (Auto) 9.7 (0.0-11.0) % Eos % (Auto) 0.2 (0.0-7.0) % Baso % (Auto) 0.2 (0.0-3.0) % Neut # (Auto) 9.90 H (1.7-7.0) K/uL Lymph # (Auto) 1.70 (0.90-2.90) K/uL [place] # (Auto) 1.30 H (0.00-0.90) K/UL Eos # (Auto) 0.00 (0.00-0.50) K/uL Baso # (Auto) 0.00 (0.00-0.30) K/uL Abs Immat Gran (auto) 0.10 (0.00-0.30) K/uL Imm/Tot Granulo (auto) 0.5 % INR 1.18 H (0.91-1.10) APTT 35 H (23-33) Seconds Sodium 126 L (135-149) mmol/L Potassium 3.7 (3.6-5.1) mmol/L Chloride 92 L (96-114) mmol/L Carbon Dioxide 28 (20-32) mmol/L Anion Gap 6 L (7-15) mEq/L BUN 16 (7-30) mg/dL Creatinine 0.7 (0.5-1.5) mg/dL Estimated Creat Clear 87.48 Estimated GFR 106 ml/min Glucose 119 H (60-115) mg/dL Lactate 2.1 H (0.5-1.9) mmol/L Calcium 9.3 (8.4-10.6) mg/dL Total Bilirubin 1.5 (0.1-1.5) mg/dL Direct Bilirubin 0.9 H (0.0-0.5) mg/dL AST 38 H (12-35) U/L ALT 14 (4-50) U/L Alkaline Phosphatase 219 H (40-150) U/L Total Protein 7.0 (6.0-8.3) g/dL Albumin 2.7 L (3.3-5.0) g/dL Lipase 137 (23-300) U/L Procalcitonin 0.98 H (<0.50) ng/mL Urine Color Yellow (Yellow) Urine Appearance Slightly Cloudy A (Clear) Urine pH 5.5 (5.0-8.5) Ur Specific [place] 1.020 (1.000-1.030) Urine Protein Trace A (Negative) Urine Glucose (UA) Negative (Negative) Urine Ketones Negative (Negative) Urine Blood 3+ A (Negative) Urine Nitrite Negative (Negative) Urine Bilirubin 1+ A (Negative) Urine Urobilinogen 1.0 (0.2-1.0) Ur Leukocyte Esterase Negative (Negative) Urine RBC >100 A (0-2) Urine WBC 0-2 (0-5) Ur Squamous Epith Cells None (None-Few) Other Sediment Few A (None) Urine Bacteria Few A (None) Urine Yeast Few A (None) Fluid Volume 70 Fluid Color Xanthochromic A Fluid Appearance Clear Fluid WBC 657 Cells/uL Fluid RBC 1000 Cells/uL Fluid Polynuclear WBCs 70 % Fluid Mononuclear WBCs 30 % Fluid Glucose 83 mg/dL Fluid Total Protein < 2.0 gm/dL Fluid Albumin < 1.0 gm/dL Fluid LDH 156 U/L Fluid Amylase 49 U/L Ethyl Alcohol < 0.01 (0.01-0.03) % Discharge Plan Discharge Clinical Impression: SBP (spontaneous bacterial peritonitis), Abdominal ascites, Alcoholic cirrhosis, Acute hyponatremia Patient Disposition: Admitted As Observation Procedures Paracentesis Pre procedure diagnosis: Rule out SBP Post procedure diagnosis: Rule in SBP Site marking: site marked Verification/time out: correct patient, correct site, correct procedure and time out performed Name of person performing procedure: Ramon Serna Indication: possible spontaneous bacterial peritonitis Imaging guidance used?: Yes Procedure: diagnostic paracentesis Bedside Ultrasound Used: yes, Ascites confirmed and location marked Preparation: sterile prep and drape Anesthesia: lidocaine 1% and with Epi Amount of anesthesia used (mL): 3 Amount of fluid obtained (mL): 400 Fluid: clear and sent to lab for analysis Size of Needle Used: 18 Post Procedure Exam: awake, alert, normal BP and normal HR Estimated blood loss (if any): none Complications: none Patient Tolerated Procedure: well Additional Comments: Ultrasound confirmed, picture obtained
[2025-03-09 14:10] LABS: Lactate* 2.1 mmol/L (0.5-1.9)
[2025-03-09 14:12] LABS: Hematocrit* 28.1 % (37.0-53.0); Hemoglobin* 9.4 gm/dL (13.5-17.5); Immature Granulocytes Abs Auto 0.10 K/uL (0.00-0.30); Immature Granulocytes Pct Auto 0.5 %; Lymphocytes Absolute Auto 1.70 K/uL (0.90-2.90); Mean Corpuscular HGB Conc 34 gm/dL (32-36); Mean Corpuscular Hemoglobin 28 pg (26-34); Mean Corpuscular Volume 84 fL (80-100); RDW Coefficient of Variation % 14.4 % (11.5-15.5); Red Blood Count* 3.33 m/uL (4.30-5.90); White Blood Count* 12.91 K/uL (4.50-11.00)
[2025-03-09 14:13] LABS: Slide Review Reflex No
[2025-03-09 14:29] LABS: Albumin* 2.7 g/dL (3.3-5.0); Chloride* 92 mmol/L (96-114)
[2025-03-09 14:30] LABS: Potassium* 3.7 mmol/L (3.6-5.1); Sodium* 126 mmol/L (135-149)
[2025-03-09 14:32] LABS: Alanine Aminotransferase* 14 U/L (4-50); Alkaline Phosphatase* 219 U/L (40-150); Anion Gap 6 mEq/L (7-15); Aspartate Amino Transferase* 38 U/L (12-35); Bilirubin Direct* 0.9 mg/dL (0.0-0.5); Bilirubin Total* 1.5 mg/dL (0.1-1.5); Blood Urea Nitrogen* 16 mg/dL (7-30); Carbon Dioxide* 28 mmol/L (20-32); Creatinine* 0.7 mg/dL (0.5-1.5); Est. Creatinine Clearance* 87.48; Estimated Glomerular Filt Rate 106 ml/min; INR 1.18 (0.91-1.10); Prothrombin Time 15.9 Seconds; Total Protein* 7.0 g/dL (6.0-8.3)
[2025-03-09 14:33] LABS: Calcium* 9.3 mg/dL (8.4-10.6); Glucose* 119 mg/dL (60-115)
[2025-03-09 14:34] LABS: Ethanol* < 0.01 % (0.01-0.03)
[2025-03-09 14:50] LABS: Procalcitonin* 0.98 ng/mL (<0.50)
[2025-03-09 15:31] LABS: Appearance Urine Slightly Cloudy (Clear)
[2025-03-09 15:49] LABS: Other Sediment Urine Few
[2025-03-09 17:02] LABS: BF Clarity* Clear; BF Total Volume* 70; Mononuclear WBC Body Fluid* 30 %; Polynuclear WBC Body Fluid* 70 %; RBC, Body Fluid* 1000 Cells/uL; WBC, Body Fluid* 657 Cells/uL
[2025-03-09 17:11] LABS: Albumin Body Fluid* < 1.0 gm/dL; Amylase Body Fluid* 49 U/L; Body Fluid Total Protein* < 2.0 gm/dL; Glucose Body Fluid* 83 mg/dL; LDH Body Fluid* 156 U/L
[2025-03-09 17:22] VITALS: BP 110/68; PULSE 113; RESP 18; TEMP 36.9; O2SAT 98
--- NOTE | 2025-03-09 18:39 | PM.IMHP1 ---
Assessment and Plan Assessment and plan (1) Sepsis: Problem comment: Patient has sepsis with elevated lactate, tachycardia, leukocytosis, clinically apparent poor perfusion. Treat for bacterial peritonitis and monitor for other illness. Note recent hospitalization at the end of December 2024 at [facility] for Enterococcus faecalis bacteremia Status: Acute (2) SBP (spontaneous bacterial peritonitis): Status: Acute (3) Alcoholic cirrhosis: Status: Acute (4) Abdominal ascites: Status: Acute (5) Alcoholism: Problem comment: Abstinent since December 2024 Status: Chronic (6) Alcohol-induced polyneuropathy: Status: Chronic (7) Nicotine dependence: Status: Chronic (8) Mitral regurgitation: Problem comment: Moderate to severe MR by echo December 2024 Status: Acute (9) Hematuria: Problem comment: Present during hospital stay in December 2024. Persistent. No outpatient urology arrangements so far. Status: Acute (10) Malnutrition: Problem comment: Severe malnutrition with marked sarcopenia. Approximately 4 kg weight loss in the last 4 months. 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 Treat with IV albumin, IV Zosyn, close monitoring of sepsis. Continue to address multiple other medical problems as noted above. Total Time Spent Total Time Spent: Total time spent today is 90 minutes in coordination of care, reviewing outside records and discussing with patient and other providers management of sepsis. Hospitalist- H&P: HPI History of Present Illness Date Seen: 03/09/25 Chief complaint: Needs fluid drained Narrative: Sebastian Glass is a 59 year old male with ascites secondary to alcoholic cirrhosis presents with recent abdominal pain. He reports it is causing him to have some shortness of breath and and difficulty walking secondary to pain. Recent medical history is significant for him being hospitalized at [facility] with septic shock requiring pressors secondary to Enterococcus faecalis bacteremia. Hospitalized from January 05 01/13/2025. 02/21/2025 he underwent therapeutic paracentesis with Dr. Resendez without complications. 03/01/2025 he saw metropolitan editor with [facility] for follow-up of his hospitalization and medication management. He is not aware of any fever. No shortness of breath. He does have hematuria which was present during his hospitalization at [place] as well. He has not arranged recommended urology follow-up. He has been able to eat and drink and has access to adequate food though he reports a poor appetite. He reports abstinence from alcohol since hospitalization in December. Review of Systems Narrative: He reports chronic generalized pain including his back and abdomen as well as in his legs. He notes that he has had marked muscle wasting and he feels like his arms and legs are quite weak and sometimes is difficult for him to walk. 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3 - Acquired absence of stomach [part of] (ICD-10) History of colonoscopy (03/19/13) ?Z98.890 - Other specified postprocedural states (ICD-10) History of resection of small bowel ?Z90.49 - Acquired absence of other specified parts of digestive tract (ICD-10) Family History Grandmother Heart disease Diabetes Father Stroke, Onset Age: 49 Mother Breast cancer, Onset Age: 74 Uncle Diabetes Social History (Updated 03/09/25 @ 18:57 by Blanco Cody MD) Narrative: He lives alone at [facility]. Previously has had hospitalizations with alcohol and alcohol withdrawal including alcohol withdrawal seizures. Has been abstinent from alcohol since hospitalization in December. Smoke cigarettes. Uses cannabis. Lives alone. Healthcare power of civil litigation attorney would be 1 of 3 people: Friend Jess was present today, mother who lives in [place] or his ex- Jennifer who lives in [place]. Code status is full. What is your current living situation?: I presently have a place to live Problems where you live: no known problems Problems where you live details: They haven't repairs yet In the past 12 months, utilities in danger of being shut off: no In past 12 months, lack of transportation kept you from medical appts, meetings, work, or getting things needed for daily living: yes In the past 12 mos, have been you worried that your food would run out before you had money to buy more?: never true In the past 12 mos, the food you bought just didn't last and you didn't have money to buy more?: never true Smoking Status: Former smoker What tobacco products do you use: cigarettes Smoking packs per day: 0.5 Smoking cigarettes per day: 10.0 Years smoked: 41 Smoking pack-years: 20.50 Smoking quit date/years: <= 15 years ago Do you use any of these nicotine containing products: None Second hand tobacco smoke exposure: No How often do you have a drink containing alcohol: never How many standard drinks containing alcohol do you have on a typical day: 10 or more How often do you have six or more drinks on one occasion: Never AUDIT-C Alcohol total score: 4 Non-prescribed substance use: marijuana (any form) How often does anyone, including family, friends and others, physically hurt you: never How often does anyone, including family, friends and others, insult or talk down to you: frequently How often does anyone, including family, friends and others, threaten you with harm: never How often does anyone, including family, friends and others, scream or curse at you: sometimes service: Yes Health Related Social Needs: transportation insecurity (Z59.82) and Other personal risk factors, not elsewhere classified (Z91.89) Meds Home Medications and Allergies Home Medications ?Medication ?Instructions ?Recorded ?Confirmed ?Type metronidazole topical DAILY 06/07/23 02/04/25 History tizanidine 4 mg tablet 4 mg PO 3XD PRN muscle cramps #20 06/24/23 02/04/25 Rx tabs folic acid 1 mg tablet 1 mg PO QDAY 01/22/25 02/04/25 History furosemide 20 mg tablet 20 mg PO QDAY 01/22/25 02/04/25 History gabapentin 300 mg capsule 300 mg PO TID 01/22/25 02/04/25 History juffzjhu-kjl-spgga acid 0.4 1 tab PO QDAY 01/22/25 02/04/25 History mg-lycopene 300 mcg-lutein 250 mcg tablet (CertaVite Senior) ondansetron 4 mg disintegrating 4 mg PO Q8H PRN 01/22/25 02/04/25 History tablet pantoprazole 40 mg tablet,delayed 40 mg PO QDAY 01/22/25 02/04/25 History release spironolactone 50 mg tablet 50 mg PO QDAY 01/22/25 02/04/25 History thiamine HCl (vitamin B1) 100 mg 100 mg PO QDAY 01/22/25 02/04/25 History tablet amoxicillin 875 mg-potassium 1 tab PO BID #14 tabs 01/28/25 02/04/25 Rx clavulanate 125 mg tablet cyclobenzaprine 5 mg tablet 5 mg PO TID PRN muscle spasm #14 01/28/25 02/04/25 Rx tabs Allergies Allergy/AdvReac Type Severity Reaction Status Date / Time No Known Drug Allergies Allergy Verified 02/22/25 19:01 Exam Narrative: Exam Narrative: He is alert and appears in no obvious distress. He gives his own history but is relatively vague/uncertain about details of recent medical events, medical history and medications. Head is without apparent trauma. Eyes normal. Oropharynx with dry mucous membranes. He has upper dentures and lower teeth with moderate amount of dental decay. Neck is supple without mass or adenopathy. No jugular venous distension. Respirations are clear to auscultation without wheezing rales rhonchi. Cardiovascular: S1, S2, regular rate and rhythm. Abdomen: Abdomen is mildly distended. Bowel sounds are present. He has mild diffuse tenderness. There is a suture in the right lateral abdomen consistent with a paracentesis site. External genitalia notable for small amount of dried blood at the urethral meatus. He moves all 4 extremities. He has marked cachexia with marked loss of skeletal muscle mass. Hands and feet with sluggish capillary refill and are mildly cool to touch. Const: Vital Signs, click to edit/add: Vital Signs - 24 hr 03/09/25 13:16 03/09/25 17:22 Temperature 99.4 F 98.5 F Pulse Rate [Pulse Oximeter] 131 H 113 H Respiratory Rate 18 18 Blood Pressure [Ri ght Upper Arm] 112/77 110/68 Pulse Oximetry 97 98 Oxygen Delivery Me thod Room Air Room Air Documenting provider has reviewed patient's vital signs: yes Hospitalist - H&P: Result Labs Labs: Short CBC 03/09/25 Range/Units 14:05 WBC 12.91 H (4.50-11.00) K/uL Hgb 9.4 L (13.5-17.5) gm/dL Hct 28.1 L (37.0-53.0) % Plt Count 571 H (140-440) K/uL BMP 03/09/25 14:05 Sodium 126 L Potassium 3.7 Chloride 92 L Carbon Dioxide 28 BUN 16 Creatinine 0.7 Glucose 119 H Calcium 9.3 Liver Function 03/09/25 Range/Units 14:05 Total Bilirubin 1.5 (0.1-1.5) mg/dL Direct Bilirubin 0.9 H (0.0-0.5) mg/dL AST 38 H (12-35) U/L ALT 14 (4-50) U/L Alkaline Phosphatase 219 H (40-150) U/L Albumin 2.7 L (3.3-5.0) g/dL Urine 03/09/25 Range/Units 13:20 Urine Color Yellow (Yellow) Urine Appearance Slightly Cloudy A (Clear) Urine pH 5.5 (5.0-8.5) Ur Specific [place] 1.020 (1.000-1.030) Urine Protein Trace A (Negative) Urine Glucose (UA) Negative (Negative)
[2025-03-09 19:00] VITALS: BP 118/78; PULSE 116; RESP 18; O2SAT 95; BMI 16.2
--- NOTE | 2025-03-09 19:39 | PC.NURSE ---
Nursing Care Hours: 1012-8730 Pt arrived to unit in w/c, alert and oriented. SBA to bed. BP and oral temp stable, tachy on pulse ox. Tele set up, forms signed. Pt is cold intolerant, bear hugger in place. Pt settled in for oncoming nurse.
[2025-03-09] MEDS: LACTULOSE 20 GM/30 ML PO (19:53)
[2025-03-09] MEDS: ALBUMIN HUMAN 25% 25 GM/100 ML VIAL IVPB (19:53)
[2025-03-09] MEDS: GABAPENTIN 300 MG CAPSULE PO (20:49)
[2025-03-09] MEDS: PIPERACILLIN/TAZOBACTAM 3.375 GM in 0.9 % SODIUM CHLORIDE Mini-bag 100 ML IVPB (21:11)
[2025-03-09] MEDS: SODIUM CHLORIDE 0.9 % (FLUSH) 10 ML SYRINGE 5 ML IVF (21:11)
[2025-03-09] MEDS: NICOTINE 7 MG PATCH 1 PATCH TRANSDERMA (21:24)
[2025-03-09 22:10] VITALS: BP 106/66; PULSE 120; RESP 18; TEMP 36.7; O2SAT 96
[2025-03-09] MEDS: ACETAMINOPHEN 325 MG TABLET 650 MG PO (22:20)
[2025-03-09 23:00] VITALS: PULSE 116; RESP 18
[2025-03-09 23:22] VITALS: PULSE 107
[2025-03-10] VITALS (10 sets, daily range): BP systolic 95–116; BP diastolic 65–80; PULSE 97–111; RESP 16–20; TEMP 36.3–37.1; O2SAT 94–98
[2025-03-10] MEDS: PIPERACILLIN/TAZOBACTAM 3.375 GM in 0.9 % SODIUM CHLORIDE Mini-bag 100 ML IVPB ×4 (02:18→20:27)
[2025-03-10 06:11] LABS: Hematocrit* 21.9 % (37.0-53.0); Immature Granulocytes Pct Auto 0.5 %; Mean Corpuscular HGB Conc 34 gm/dL (32-36); Mean Corpuscular Hemoglobin 29 pg (26-34); Mean Corpuscular Volume 84 fL (80-100); RDW Coefficient of Variation % 14.2 % (11.5-15.5); Red Blood Count* 2.60 m/uL (4.30-5.90); White Blood Count* 11.41 K/uL (4.50-11.00)
[2025-03-10 06:39] LABS: Hemoglobin* 7.4 gm/dL (13.5-17.5); Immature Granulocytes Abs Auto 0.10 K/uL (0.00-0.30); Lymphocytes Absolute Auto 2.10 K/uL (0.90-2.90)
[2025-03-10 06:40] LABS: Slide Review Reflex No
[2025-03-10 06:48] LABS: Chloride* 94 mmol/L (96-114); Potassium* 3.2 mmol/L (3.6-5.1); Sodium* 126 mmol/L (135-149)
[2025-03-10 06:51] LABS: Anion Gap 4 mEq/L (7-15); Blood Urea Nitrogen* 13 mg/dL (7-30); Calcium* 8.7 mg/dL (8.4-10.6); Carbon Dioxide* 28 mmol/L (20-32); Creatinine* 0.7 mg/dL (0.5-1.5); Est. Creatinine Clearance* 87.48; Estimated Glomerular Filt Rate 106 ml/min; Glucose* 115 mg/dL (60-115)
--- NOTE | 2025-03-10 06:56 | PC.NURSE ---
Pt alert and oriented x3. Afebrile. Pt reports 7/10 pain in back, pain managed with PRN Tylenol. Pt reports his back pain is chronic and his baseline pain is around 6-7/10. Pt is up SBA/A1 with walker and gait belt, voiding, and tolerating a regular diet. VSS.
[2025-03-10 08:27] LABS: Immature Reticulocyte Fraction 28.3 % (2.3-13.4); Reticulocyte Hemoglobin Equivi 24.8 pg (29.0-35.0); Reticulocytes Absolute 0.07 # (0.03-0.08)
[2025-03-10 08:58] LABS: Hematocrit* 24.3 % (37.0-53.0); Hemoglobin* 8.2 gm/dL (13.5-17.5); Immature Granulocytes Pct Auto 0.4 %; Mean Corpuscular HGB Conc 34 gm/dL (32-36); Mean Corpuscular Hemoglobin 28 pg (26-34); Mean Corpuscular Volume 84 fL (80-100); RDW Coefficient of Variation % 14.4 % (11.5-15.5); Red Blood Count* 2.89 m/uL (4.30-5.90); White Blood Count* 11.42 K/uL (4.50-11.00)
[2025-03-10 08:59] LABS: Iron* 16 ug/dL (49-181)
[2025-03-10 09:01] LABS: Immature Granulocytes Abs Auto 0.00 K/uL (0.00-0.30); Lymphocytes Absolute Auto 2.20 K/uL (0.90-2.90); Slide Review Reflex No
[2025-03-10 09:09] LABS: Percent Iron Saturation 15 % (20-50); Total Iron Binding Capacity 112 ug/dL (261-462)
[2025-03-10] MEDS: MULTIVITAMIN/MINERALS 1 TABLET 1 TAB PO (09:51)
[2025-03-10] MEDS: FUROSEMIDE 20 MG TABLET 40 MG PO (09:51)
[2025-03-10] MEDS: FOLIC ACID 1 MG TABLET PO (09:52)
[2025-03-10] MEDS: SPIRONOLACTONE 25 MG TABLET 100 MG PO (09:52)
[2025-03-10] MEDS: LACTULOSE 20 GM/30 ML PO (09:53)
[2025-03-10] MEDS: THIAMINE 100 MG TABLET PO (09:53)
[2025-03-10] MEDS: OMEPRAZOLE 20 MG CAPSULE DR 40 MG PO (09:53)
[2025-03-10] MEDS: SODIUM CHLORIDE 0.9 % (FLUSH) 10 ML SYRINGE 5 ML IVF ×2 (09:54→20:28)
--- NOTE | 2025-03-10 15:37 | PM.IMPN1 ---
Assessment and Plan Assessment and plan (1) Sepsis: Problem comment: - Patient has sepsis with elevated lactate, tachycardia, leukocytosis, clinically apparent poor perfusion. Treat for bacterial peritonitis and monitor for other illness. Note recent hospitalization at the end of December 2024 at [facility] for Enterococcus faecalis bacteremia. Status: Acute (2) SBP (spontaneous bacterial peritonitis): Problem comment: - covered with Zosyn for now. Await results of peritoneal fluid culture. Status: Acute (3) Alcoholic cirrhosis: Status: Acute (4) Abdominal ascites: Status: Acute (5) Alcoholism: Problem comment: Abstinent since December 2024 Status: Chronic (6) Alcohol-induced polyneuropathy: Status: Chronic (7) Nicotine dependence: Status: Chronic (8) Mitral regurgitation: Problem comment: Moderate to severe MR by echo December 2024 Status: Acute (9) Hematuria: Problem comment: Present during hospital stay in December 2024. Persistent. No outpatient urology arrangements so far. Status: Acute (10) Malnutrition: Problem comment: Severe malnutrition with marked sarcopenia. Approximately 4 kg weight loss in the last 4 months. 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 He reports it is causing him to have some shortness of breath and and difficulty walking secondary to pain. Recent medical history is significant for him being hospitalized at [facility] with septic shock requiring pressors secondary to Enterococcus faecalis bacteremia. Hospitalized from January 05 01/13/2025. 02/21/2025 he underwent therapeutic paracentesis with Dr. Resendez without complications. 03/01/2025 he saw uncrater with [facility] for follow-up of his hospitalization and medication management. He is not aware of any fever. No shortness of breath. He does have hematuria which was present during his hospitalization at [facility] as well. He has not arranged recommended urology follow-up. He has been able to eat and drink and has access to adequate food though he reports a poor appetite. He reports abstinence from alcohol since hospitalization in December.? 03/10/2025: Abdominal discomfort is positional. He states it is worse if he sits or stands. He was able to get some sleep last night. Tolerating IV antibiotics. Denies overt blood loss. Acknowledges no alcohol consumption since he quit in December of 2024. Not very interested in eating today. The 1st couple of questions he asks me are as follows: When am I going to ? How long FL going to live? I answer him by asking the question, what do you think? He answers by telling me, it feels like I am going to soon. I tell him that multiple organ systems in his body are decreasing in their ability to function and keep him alive as they used to, but we do not know the answer to his questions about living and dying. We discuss possible plans of care and he asked us to continue to treat him as we presently are with antibiotics. Ongoing discussions regarding plan of care would likely benefit patient with his thoughts and ideas about proceeding with his care. Exam Narrative: Exam Narrative: Examine him in his hospital room. Cachectic appearance with protuberant bones in face, neck, clavicles, chest, back. Bloated abdomen with ascites. Thin upper and lower extremities with massive muscle atrophy. Lungs clear to auscultation with decreased breath sounds in bases. Heart tones with regular rhythm. Heart rate of about 100. Murmur of mitral regurgitation noted. No gallop or rub. Protuberant abdomen with active bowel sounds. Subjective discomfort to palpation without rebound or guarding. No focal motor neurologic deficits. Does not have icterus or jaundice. No cyanosis. Const: Vital Signs, click to edit/add: Vital Signs - 24 hr 03/09/25 17:22 03/09/25 19:00 03/09/25 19:00 Temperature 98.5 F Pulse Rate Pulse Rate [Pulse Oximeter] 113 H 116 H Respiratory Rate 18 18 Blood Pressure [Le ft Arm] 118/78 Blood Pressure [Ri ght Arm] Blood Pressure [Ri ght Upper Arm] 110/68 Pulse Oximetry 98 95 95 Oxygen Delivery Me thod Room Air Room Air Room Air 03/09/25 22:10 03/09/25 23:00 03/09/25 23:22 Temperature 98.1 F Pulse Rate 107 H Pulse Rate [Pulse Oximeter] 120 H 116 H Respiratory Rate 18 18 Blood Pressure [Le ft Arm] 106/66 Blood Pressure [Ri ght Arm] Blood Pressure [Ri ght Upper Arm] Pulse Oximetry 96 Oxygen Delivery Me thod Room Air 03/10/25 02:23 03/10/25 07:40 03/10/25 08:30 Temperature 98.7 F Pulse Rate 104 H Pulse Rate [Pulse Oximeter] 111 H 111 H Respiratory Rate 16 16 Blood Pressure [Le ft Arm] 112/71 Blood Pressure [Ri ght Arm] Blood Pressure [Ri ght Upper Arm] Pulse Oximetry 96 Oxygen Delivery Me thod Room Air 03/10/25 08:30 03/10/25 11:00 Temperature 97.3 F L Pulse Rate Pulse Rate [Pulse Oximeter] 103 H 108 H Respiratory Rate 18 20 Blood Pressure [Le ft Arm] 109/71 Blood Pressure [Ri ght Arm] 103/70 Blood Pressure [Ri ght Upper Arm] Pulse Oximetry 96 94 Oxygen Delivery Me thod Room Air Room Air Labs Labs: Laboratory Results - last 24 hr 03/09/25 03/09/25 03/09/25 13:20 14:05 16:29 WBC RBC Hgb Hct MCV MCH MCHC RDW Coeff of Lucian Plt Count Neut % (Auto) Lymph % (Auto) [place] % (Auto) Eos % (Auto) Baso % (Auto) Neut # (Auto) Lymph # (Auto) [place] # (Auto) Eos # (Auto) Baso # (Auto) Abs Immat Gran (auto) Imm/Tot Granulo (auto) Absolute Retic Percent Retic Immature Retic Fraction Retic Hgb Equivalent Sodium Potassium Chloride Carbon Dioxide Anion Gap BUN Creatinine Estimated Creat Clear Estimated GFR Glucose Lactate 2.1 H Calcium Iron TIBC % Saturation C-Reactive Protein Urine Color Yellow Urine Appearance Slightly Cloudy A Urine pH 5.5 Ur Specific [place] 1.020 Urine Protein Trace A Urine Glucose (UA) Negative Urine Ketones Negative Urine Blood 3+ A Urine Nitrite Negative Urine Bilirubin 1+ A Urine Urobilinogen 1.0 Ur Leukocyte Esterase Negative Urine RBC >100 A Urine WBC 0-2 Ur Squamous Epith Cells None Other Sediment Few A Urine Bacteria Few A Urine Yeast Few A Fluid Volume 70 Fluid Color Xanthochromic A Fluid Appearance Clear Fluid WBC 657 Fluid RBC 1000 Fluid Polynuclear WBCs 70 Fluid Mononuclear WBCs 30 Fluid Glucose 83 Fluid Total Protein < 2.0 Fluid Albumin < 1.0 Fluid LDH 156 Fluid Amylase 49 Lab Acknowledgement Blood Type Antibody Screen 03/10/25 03/10/25 03/10/25 05:48 07:50 07:52 WBC 11.41 H RBC 2.60 L Hgb 7.4 L* Hct 21.9 L MCV 84 MCH 29 MCHC 34 RDW Coeff of Lucian 14.2 Plt Count 451 H Neut % (Auto) 66.0 Lymph % (Auto) 18.8 L [place] % (Auto) 12.9 H Eos % (Auto) 1.7 Baso % (Auto) 0.1 Neut # (Auto) 7.50 H Lymph # (Auto) 2.10 [place] # (Auto) 1.50 H Eos # (Auto) 0.20 Baso # (Auto) 0.00 Abs Immat Gran (auto) 0.10 Imm/Tot Granulo (auto) 0.5 Absolute Retic 0.07 Percent Retic 2.9 H Immature Retic Fraction 28.3 H Retic Hgb Equivalent 24.8 L Sodium 126 L Potassium 3.2 L Chloride 94 L Carbon Dioxide 28 Anion Gap 4 L BUN 13 Creatinine 0.7 Estimated Creat Clear 87.48 Estimated GFR 106 Glucose 115 Lactate Calcium 8.7 Iron 16 L TIBC 112 L % Saturation 15 L C-Reactive Protein 7.7 H Urine Color Urine Appearance Urine pH Ur Specific [place] Urine Protein Urine Glucose (UA) Urine Ketones Urine Blood Urine Nitrite Urine Bilirubin Urine Urobilinogen Ur Leukocyte Esterase Urine RBC Urine WBC Ur Squamous Epith Cells Other Sediment Urine Bacteria Urine Yeast Fluid Volume Fluid Color Fluid Appearance Fluid WBC Fluid RBC Fluid Polynuclear WBCs Fluid Mononuclear WBCs Fluid Glucose Fluid Total Protein Fluid Albumin Fluid LDH Fluid Amylase Lab Acknowledgement Test Added Test Added Blood Type A Positive Antibody Screen NEGATIVE 03/10/25 03/10/25 07:53 08:52 WBC 11.42 H RBC 2.89 L Hgb 8.2 L Hct 24.3 L MCV 84 MCH 28 MCHC 34 RDW Coeff of Lucian 14.4 Plt Count 476 H Neut % (Auto) 66.5 Lymph % (Auto) 19.7 L [place] % (Auto) 11.4 H Eos % (Auto) 1.8 Baso % (Auto) 0.2 Neut # (Auto) 7.60 H Lymph # (Auto) 2.20 [place] # (Auto) 1.30 H Eos # (Auto) 0.20 Baso # (Auto) 0.00 Abs Immat Gran (auto) 0.00 Imm/Tot Granulo (auto) 0.4 Absolute Retic Percent Retic Immature Retic Fraction Retic Hgb Equivalent Sodium Potassium Chloride Carbon Dioxide Anion Gap BUN Creatinine Estimated Creat Clear Estimated GFR Glucose Lactate Calcium Iron TIBC % Saturation C-Reactive Protein Urine Color Urine Appearance Urine pH Ur Specific [place] Urine Protein Urine Glucose (UA) Urine Ketones Urine Blood Urine Nitrite Urine Bilirubin Urine Urobilinogen Ur Leukocyte Esterase Urine RBC Urine WBC Ur Squamous Epith Cells Other Sediment Urine Bacteria Urine Yeast Fluid Volume Fluid Color Fluid Appearance Fluid WBC Fluid RBC Fluid Polynuclear WBCs Fluid Mononuclear WBCs Fluid Glucose Fluid Total Protein Fluid Albumin Fluid LDH Fluid Amylase Lab Acknowledgement Test Added Blood Type Antibody Screen
[2025-03-10] MEDS: ACETAMINOPHEN 325 MG TABLET 650 MG PO (18:57)
--- NOTE | 2025-03-10 19:53 | PC.NURSE ---
Nursing Care Hours: [id number] Pt this shift calm and cooperative, alert and oriented. VSS. Pain treated per eMAR. Pt using Moustapha Hugger all shift. One void in hat contained bright red blood in morning otherwise pt using urinal in bed and all urine for rest of shift has no evidence of blood. Limited food intake d/t pt reports bad taste. Snacking through out shift. Pt asked x2 how long do I have left to live? beginning of shift. End of shift pt states I just want to be let alone to croak. Pt rested well this shift and refused to sit in chair for meals.
[2025-03-10] MEDS: GABAPENTIN 300 MG CAPSULE PO (21:19)
[2025-03-10] MEDS: NICOTINE 7 MG PATCH 1 PATCH TRANSDERMA (21:21)
[2025-03-11] VITALS (7 sets, daily range): BP systolic 92–116; BP diastolic 58–78; PULSE 94–111; RESP 14–19; TEMP 36.3–37.2; O2SAT 98–99; BMI 16.5
[2025-03-11] MEDS: PIPERACILLIN/TAZOBACTAM 3.375 GM in 0.9 % SODIUM CHLORIDE Mini-bag 100 ML IVPB ×4 (02:27→19:40)
[2025-03-11] MEDS: ACETAMINOPHEN 325 MG TABLET 650 MG PO ×2 (02:28→12:52)
[2025-03-11 07:10] LABS: Hematocrit* 25.3 % (37.0-53.0); Hemoglobin* 8.5 gm/dL (13.5-17.5); Immature Granulocytes Pct Auto 0.6 %; Mean Corpuscular HGB Conc 34 gm/dL (32-36); Mean Corpuscular Hemoglobin 28 pg (26-34); Mean Corpuscular Volume 84 fL (80-100); RDW Coefficient of Variation % 14.4 % (11.5-15.5); Red Blood Count* 3.00 m/uL (4.30-5.90); White Blood Count* 13.13 K/uL (4.50-11.00)
[2025-03-11 07:13] LABS: Immature Granulocytes Abs Auto 0.10 K/uL (0.00-0.30); Lymphocytes Absolute Auto 2.40 K/uL (0.90-2.90); Slide Review Reflex No
[2025-03-11 07:25] LABS: Chloride* 93 mmol/L (96-114); Sodium* 127 mmol/L (135-149)
[2025-03-11 07:28] LABS: Blood Urea Nitrogen* 10 mg/dL (7-30); Creatinine* 0.7 mg/dL (0.5-1.5); Est. Creatinine Clearance* 91.35; Estimated Glomerular Filt Rate 106 ml/min
[2025-03-11 07:29] LABS: Anion Gap 6 mEq/L (7-15); Calcium* 8.4 mg/dL (8.4-10.6); Carbon Dioxide* 28 mmol/L (20-32); Glucose* 112 mg/dL (60-115)
[2025-03-11 07:39] LABS: Potassium* 2.8 mmol/L (3.6-5.1)
--- NOTE | 2025-03-11 08:05 | PC.NURSE ---
Addendum entered by Irina De RN 03/11/25 08:17: Pt had an IV place in right upper arm that infiltrated, IV removed catheter intact. Right arm elevated on pillow with warm blanket wrapped around it. The current IV is the 22G in left upper arm. Original Note: Pt alert and oriented x3. Afebrile. Pt reports 7/10 pain in back, pain managed with PRN Tylenol. Pt reported feeling itchy, called and updated MD Spear ([facility]), orders placed for PRN diphenhydramine. Pt up SBA/A1 with walker and gait belt. Pt had IV leak during night, IV catheter discontinued catheter intact. Several attempts made new IV 22G in left upper arm.
[2025-03-11] MEDS: SPIRONOLACTONE 25 MG TABLET 100 MG PO (09:18)
[2025-03-11] MEDS: SODIUM CHLORIDE 0.9 % (FLUSH) 10 ML SYRINGE 5 ML IVF ×2 (09:18→19:55)
[2025-03-11] MEDS: MULTIVITAMIN/MINERALS 1 TABLET 1 TAB PO (09:18)
[2025-03-11] MEDS: OMEPRAZOLE 20 MG CAPSULE DR 40 MG PO (09:18)
[2025-03-11] MEDS: LACTULOSE 20 GM/30 ML PO (09:18)
[2025-03-11] MEDS: GABAPENTIN 300 MG CAPSULE PO (09:18)
[2025-03-11] MEDS: THIAMINE 100 MG TABLET PO (09:19)
[2025-03-11] MEDS: FUROSEMIDE 20 MG TABLET 40 MG PO (09:19)
[2025-03-11] MEDS: FOLIC ACID 1 MG TABLET PO (09:19)
[2025-03-11] MEDS: POTASSIUM BICARB 25 MEQ EFFERVESCENT TAB PO ×4 (09:19→14:55)
--- NOTE | 2025-03-11 09:25 | P.IMPN_ITS ---
Assessment and Plan Assessment and plan (1) Sepsis: Problem comment: - admission clinical picture consistent with sepsis: elevated lactate, tachycardia, leukocytosis, clinically apparent poor perfusion - SBP most likely source; on Zosyn (03/09/25), current blood cultures and paracentesis culture NGTD - notable history of recent hospitalization at the end of December 2024 at [facility] for Enterococcus faecalis bacteremia Status: Acute (2) SBP (spontaneous bacterial peritonitis): Problem comment: - covered with Zosyn for now, see above Status: Acute (3) Abdominal ascites: Problem comment: - continue Furosemide and Spironolactone Status: Acute (4) Hypokalemia: Problem comment: - replace and follow closely given Spironolactone use Status: Acute (5) Alcoholism: Problem comment: - abstinent since December 2024 Status: Chronic (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 Approximately 4 kg weight loss in the last 4 months. 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 He has a history of septic shock 2/2 E faecalis bacteremia (hospitalized at [facility] from 01/05-01/13) Paracentesis completed in the emergency room on 03/09; upon admission empiric Zosyn was initiated. Blood cultures from admission exhibit no growth to date; gram stain from paracentesis currently negative. David is tolerating IV antibiotics, continues to have a poor appetite. Potassium this morning is 2.8; replacing orally. He remains on a fluid restriction for hyponatremia and ascites. Blood pressure notably low; likely iatrogenic from diuretics. He is asymptomatic. Tachycardia from admission has resolved. He has a few requests today: - he would like to change his gabapentin 300 mg BID to prn rather than scheduled - would like to trial Vistaril for prn itching, pain, and insomnia - requesting discontinuation of telemetry given irritation from stickers (discussed risks and benefits of removing given electrolyte disturbances, he is agreeable) - discussed goals of care further as he is considering DNR status. Confirmed that he would not want to live on life support for any length of time We discussed reassuring culture results and likelihood for discharge home tomorrow with close PCP and GI follow-up if his potassium corrects and remains stable. Exam Narrative: Exam Narrative: GEN: Awake and sitting up in bed, cachectic, chronically ill HEENT: EOMIs bilaterally, no scleral icterus CV: RRR, harsh holosystolic murmur heard best in left midclavicular line R: No wheezing, decreased bibasilar breath sounds Abdomen: + ascites, + fluid wave, no significant tenderness to palpation, tolerates exam well Ext: Extremities are thin Neuro: Nonfocal Psych: Appropriate Const: Vital Signs, click to edit/add: Vital Signs - 24 hr 03/10/25 11:00 03/10/25 15:00 03/10/25 15:00 Temperature 97.6 F Pulse Rate Pulse Rate [Pulse Oximeter] 108 H 108 H 110 H Respiratory Rate 20 20 20 Blood Pressure [Le ft Arm] Blood Pressure [Ri ght Arm] 103/70 116/80 Pulse Oximetry 94 97 Oxygen Delivery Me thod Room Air Room Air 03/10/25 15:30 03/10/25 20:10 03/10/25 21:21 Temperature 97.8 F Pulse Rate 111 H Pulse Rate [Pulse Oximeter] 103 H 102 H Respiratory Rate 18 18 Blood Pressure [Le ft Arm] 97/68 Blood Pressure [Ri ght Arm] 110/70 Pulse Oximetry 95 98 Oxygen Delivery Me thod Room Air Room Air 03/10/25 22:00 03/10/25 22:00 03/10/25 23:10 Temperature 97.7 F Pulse Rate 100 Pulse Rate [Pulse Oximeter] 97 97 Respiratory Rate 18 18 Blood Pressure [Le ft Arm] 95/65 Blood Pressure [Ri ght Arm] Pulse Oximetry 98 Oxygen Delivery Me thod Room Air 03/11/25 03:00 03/11/25 07:00 03/11/25 07:00 Temperature 97.6 F 97.5 F L Pulse Rate 101 H Pulse Rate [Pulse Oximeter] 96 94 Respiratory Rate 18 18 Blood Pressure [Le ft Arm] 92/58 L Blood Pressure [Ri ght Arm] 95/59 L Pulse Oximetry 98 99 Oxygen Delivery Me thod Room Air Room Air Labs Labs: Laboratory Results - last 24 hr 03/10/25 03/11/25 05:48 07:00 WBC 13.13 H RBC 3.00 L Hgb 8.5 L Hct 25.3 L MCV 84 MCH 28 MCHC 34 RDW Coeff of Lucian 14.4 Plt Count 532 H Neut % (Auto) 67.1 Lymph % (Auto) 18.1 L [place] % (Auto) 11.4 H Eos % (Auto) 2.4 Baso % (Auto) 0.4 Neut # (Auto) 8.80 H Lymph # (Auto) 2.40 [place] # (Auto) 1.50 H Eos # (Auto) 0.30 Baso # (Auto) 0.10 Abs Immat Gran (auto) 0.10 Imm/Tot Granulo (auto) 0.6 Sodium 127 L Potassium 2.8 L* Chloride 93 L Carbon Dioxide 28 Anion Gap 6 L BUN 10 Creatinine 0.7 Estimated Creat Clear 91.35 Estimated GFR 106 Glucose 112 Calcium 8.4 TIBC 112 L % Saturation 15 L C-Reactive Protein 7.1 H Blood Type A Positive Antibody Screen NEGATIVE
--- NOTE | 2025-03-11 10:50 | P.NUTASMT_ITS ---
Hospital Nutrition Assessment Patient Data Patient Gender: Male Patient Age: 59 Height: 185.42 cm Weight: 56.784 kg Body Mass Index: 16.5 Weight Calculations [place] Body Weight (lbs): 184.00 [place] Body Weight (kg): 83.46 Percent of [place] Body Weight: 68 Adjusted Body Weight (lbs): 169.30 Adjusted Body Weight (kg): 76.79 Basal Energy Expenditure (BEE): 1375.21 Basal Energy Expenditure (BEE) Adjusted Weight: 1650.29 Activity/Stress Factors Injury Factor/Activity Factor Value: 1.3 Total Energy Requirements Kcal requirements (current wt): 1787.773 Kcal requirements (adj wt): 2145.377 Protein Need (current wt): 1.3 Total Protein (current wt): 73.819 Protein Need (adj wt): 1.3 Total Protein (adj wt): 99.827 Fluid Need (current wt): 30 Total Fluid (current wt): 1703.520 Fluid Need (adj wt): 30 Total Fluid (adj wt): 2303.70 Nutrition Assessment Diet Order: Regular Food Modified for Dysphagia: 7-Regular Liquid Modified for Dysphagia: 0-Thin Diet Order Comment: 1500 mL fluid restriction Allergies: NKFA Appetite Prior to Admission: Poor Appetite and Intake: Minimal intakes since admit, 0-25%. Supplements and/or snacks: Other - see comment Comment: Patient reports drinking low carb, high protein supplements at home Hx Appetite Changes: Yes (Very more recently) Hx Weight Loss: Yes (Loss of ~5-3 kg within 1 to 1.5 months, this wt loss is borderline sig.) Hx Weight Gain: No Nausea: No Vomiting: No Diarrhea: No Hx Constipation: No Chewing Difficulty: No Diagnosis/Symptom or Procedure: Sepsis, SBP (spontaneous bacterial peritonitis) Clinical History: Medical history includes but not limited to ascites secondary to alcoholic cirrhosis, septic shock secondary to Enterococcus faecalis bacteremia from 01/05- (hospitalized at [facility]). Pt has a history of alcoholism, abstinent since December 2024. Therapeutic paracentesis 02/21/2025. He saw quality improvement coordinator (rn) with [facility] on 03/01/2025 for follow-up of his hospitalization and medication management. Current Living Situation: Lives alone. Medications Medications: reviewed. Lab Results Lab Results: reviewed. Education Dietary Topic: High Calorie/High Protein Topic Comment: Offered patient diet education related to weight loss and high calorie/high protein diet. Patient declined education at this time, however he did accept educational materials. We briefly reviewed foods to include and foods to avoid. Recommended he continue drinking oral nutrition supplements at this time. Response to Teaching: Verbalize Understanding and Reinforcement Needed Teaching Methods: Verbal, Handout and Reinforcement Teaching Recipient: Patient Assessment/Plan PES Statement: Unintentional weight loss related to poor appetite and oral intakes as evidenced by weight loss of 3-5 kg within 1 to 1.5 months (percent loss about 4.8-7.9%). Nutritional Assessment Summary: RDN with MD consult for concern for malnutri tion. RDN visited with patient whom reports a low appetite for months now. He has experienced weight loss. He was unsure of amount lost, however he reports his sweat pants don't stay on his waist anymore. He eats whole fat dairy products. He drinks 1-2 oral nutrition supplements daily (30 grams of protein, about 160 kcals per bottle). His oral intakes since admit have been minimal. He is unsure of his usual body weight. Weight history is limited. 11/01/2024 - 58.287 kg 01/23/2025 - 61.689 kg *loss of 4.9 kg/7.9% from current body weight 02/04/2025 - 61.348 kg *loss of 3 kg/4.8% from current body weight RDN offered patient supplements, such as Ensure Enlive and Premier Protein. He was interested in receiving premier protein BID. This will provide 240 kcals and 60 grams protein daily. Concern for risk of malnutrition due to patient's weight loss, and intake and appetite. Discharge Plan-Living Situation: TBD Goals: Adequate oral intakes of 50%+ meals and supplements. Plan/Recommendation: Regular diet with fluid restriction per MD order. Offer Premier Protein of Ensure Enlive BID or more. RDN will continue to monitor and follow-up prn. Malnutrition Assessment Current Energy Intake: Less Than 75% Estimated Timeframe Of Energy Intake: Greater Than Or Equal To 3 Months Weight Changes: >5% In 1 Month (loss of 3 kg/4.8% from current body weight ) Recommended Malnutrition Diagnosis: Severe Protein-Calorie Malnutrition In The Context: Acute Injury/Illness Based On: Weight Loss and Inadequate Energy Intakes
[2025-03-11 14:32] LABS: Potassium* 4.4 mmol/L (3.6-5.1)
--- NOTE | 2025-03-11 15:38 | PC.NURSE ---
End of shift report [id number]: Patient drowsy throughout the shift. Itching reported, well managed with PRN medications. Appetite poor, patient ate less than 10% of foods offered. Abdomen is large, round and tender. Bowel sounds active x 4 quadrants.
[2025-03-11] MEDS: NICOTINE 7 MG PATCH 1 PATCH TRANSDERMA (20:35)
--- NOTE | 2025-03-11 21:46 | PC.NURSE ---
Patient up with Stand by assist and gait belt. Patient utilizing external catheter, clear ac output. PIV in Left upper arm patent. He is alert and oriented but difficult to understand at times. Patients appetite is poor, Nicotine patch to left shoulder. Patient sleepy during shift.
[2025-03-12] MEDS: PIPERACILLIN/TAZOBACTAM 3.375 GM in 0.9 % SODIUM CHLORIDE Mini-bag 100 ML IVPB ×2 (02:37→07:39)
[2025-03-12 02:38] VITALS: BP 101/65; PULSE 102; RESP 18; TEMP 36.4; O2SAT 95
--- NOTE | 2025-03-12 06:44 | PC.NURSE ---
End of shift:?Pt pleasant, alert and oriented though drowsy throughout shift.?Speech garbled and soft spoken at times. VSS. Abdomen distended, firm and tender. Bowel sounds active x4. Stitches to the RUQ, C/D/I. External cath in use, pt tolerated well. Pt independent in the room. Nicotine patch to the right shoulder. Pt in bed, appears to be resting, call light within reach. ?
[2025-03-12 07:03] LABS: Hematocrit* 26.0 % (37.0-53.0); Hemoglobin* 8.7 gm/dL (13.5-17.5); Immature Granulocytes Pct Auto 0.6 %; Mean Corpuscular HGB Conc 34 gm/dL (32-36); Mean Corpuscular Hemoglobin 28 pg (26-34); Mean Corpuscular Volume 85 fL (80-100); RDW Coefficient of Variation % 14.6 % (11.5-15.5); Red Blood Count* 3.06 m/uL (4.30-5.90); White Blood Count* 11.59 K/uL (4.50-11.00)
[2025-03-12 07:04] LABS: Albumin* 2.5 g/dL (3.3-5.0); Chloride* 94 mmol/L (96-114)
[2025-03-12 07:05] LABS: Potassium* 4.0 mmol/L (3.6-5.1)
[2025-03-12 07:07] LABS: Alanine Aminotransferase* 14 U/L (4-50); Alkaline Phosphatase* 149 U/L (40-150); Aspartate Amino Transferase* 40 U/L (12-35); Bilirubin Total* 1.2 mg/dL (0.1-1.5); Blood Urea Nitrogen* 9 mg/dL (7-30); Carbon Dioxide* 27 mmol/L (20-32); Creatinine* 0.7 mg/dL (0.5-1.5); Est. Creatinine Clearance* 90.61; Estimated Glomerular Filt Rate 106 ml/min
[2025-03-12 07:08] LABS: Calcium* 8.0 mg/dL (8.4-10.6); Glucose* 100 mg/dL (60-115); Total Protein* 6.1 g/dL (6.0-8.3)
[2025-03-12 07:25] LABS: Anion Gap 10 mEq/L (7-15); Sodium* 131 mmol/L (135-149)
[2025-03-12 07:30] VITALS: BP 111/70; PULSE 108; RESP 18; TEMP 36.8; O2SAT 97
[2025-03-12 07:57] LABS: Immature Granulocytes Abs Auto 0.10 K/uL (0.00-0.30); Lymphocytes Absolute Auto 2.80 K/uL (0.90-2.90); Slide Review Reflex Yes
[2025-03-12 07:58] LABS: Slide Review Acceptable Review (Acceptable)
[2025-03-12] MEDS: LACTULOSE 20 GM/30 ML PO (08:50)
[2025-03-12] MEDS: OMEPRAZOLE 20 MG CAPSULE DR 40 MG PO (08:50)
[2025-03-12] MEDS: FUROSEMIDE 20 MG TABLET 40 MG PO (08:50)
[2025-03-12] MEDS: MULTIVITAMIN/MINERALS 1 TABLET 1 TAB PO (08:50)
[2025-03-12] MEDS: SPIRONOLACTONE 25 MG TABLET 100 MG PO (08:50)
[2025-03-12] MEDS: FOLIC ACID 1 MG TABLET PO (08:50)
[2025-03-12] MEDS: THIAMINE 100 MG TABLET PO (08:50)
[2025-03-12] MEDS: SODIUM CHLORIDE 0.9 % (FLUSH) 10 ML SYRINGE 5 ML IVF (08:50)
[2025-03-12] MEDS: ONDANSETRON 2 MG/ML inj 4 MG IVP (08:58)
[2025-03-12] MEDS: ACETAMINOPHEN 325 MG TABLET 650 MG PO (08:58)
--- NOTE | 2025-03-12 10:48 | PM.DS1 ---
DS: Providers Provider Date Seen: 03/12/25 Date of admission: 03/09/25 19:04 Primary care physician: Maggie Fierro MD Admitting Clinician: Blanco Cody MD Consults: Nutrition, SW, PT/OT Attending Physician on discharge: Didi Giles MD Date of Discharge: 03/12/25 DS: Diagnosis Discharge Diagnosis (1) SBP (spontaneous bacterial peritonitis): Status: Acute Problem details: - covered with Zosyn during stay - fluid culture + for E COLI on day of discharge. Reviewed with Dr. Gusman of ID on 03/12/25; recommends Levaquin as an outpatient to complete 5 day course of therapy (2) Sepsis: Status: Acute Problem details: - admission clinical picture consistent with sepsis: elevated lactate, tachycardia, leukocytosis, clinically apparent poor perfusion - SBP most likely source; on Zosyn (03/09/25), blood cultures NGTD during stay (+ paracentesis culture for E Coli as noted above) - notable history of recent hospitalization at the end of December 2024 at [facility] for Enterococcus faecalis bacteremia (3) Abdominal ascites: Status: Acute Problem details: - continue Furosemide and Spironolactone (spironolactone increased from 50 -->100mg during stay) (4) Hypokalemia: Status: Acute Problem details: - replace and follow, normal upon discharge (5) Alcoholism: Status: Chronic Problem details: - abstinent since December 2024 (6) Alcohol-induced polyneuropathy: Status: Chronic Problem details: - on gabapentin 300 mg TID prn (7) Alcoholic cirrhosis: Status: Acute Problem details: - MELD 20 (8) Nicotine dependence: Status: Chronic Problem details: - on patch during stay (9) Mitral regurgitation: Status: Acute Problem details: - Moderate to severe MR by echo December 2024 (10) Hematuria: Status: Acute Problem details: - noted during hospital stay in December 2024, also noted on admission UA 03/09/25 - No outpatient urology arrangements so far, outpatient f/u for this (11) Malnutrition: Status: Acute Problem details: - Severe malnutrition with marked sarcopenia. Approximately 4 kg weight loss in the last 4 months. 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 He has a history of septic shock 2/2 E faecalis bacteremia (hospitalized at [facility] from 01/05-01/13). Paracentesis completed in the emergency room on 03/09; upon admission empiric Zosyn was initiated. VS improved during stay, tolerated IV antibiotics and increase in Spironolactone dosing. Blood cultures from admission exhibited no growth during stay; paracentesis culture ultimately grew out E Coli. Infectious Disease consulted, recommend full 5 day course of antibiotic therapy upon discharge. Levaquin sent to preferred pharmacy. Medically appropriate for discharge with close PCP f/u on 03/12/25. Time Spent with Patient Time attestation: Total time spent providing and/or coordinating discharge services: Time spent: Greater than 30 minutes Specific discharge activities: Patient education, medication reconciliation, multidisciplinary team discussion/collaboration Exam Narrative: Exam Narrative: GEN: Awake and answering questions appropriately, sitting up in bed. Appears cachectic and chronically weak HEENT: EOMIs bilaterally, no scleral icterus CV: RRR, harsh holosystolic murmur, heard best left midclavicular line R: Lungs clear without wheezing Abdomen: Tolerates palpation without rebound or guarding. + ascites, + fluid wave Ext: Extremities are thin Neuro: No focal deficits Psych: Appropriate, flat affect Const: Vital Signs, click to edit/add: Vital Signs - 24 hr 03/11/25 11:00 03/11/25 15:00 03/11/25 15:00 Temperature 97.4 F L 97.8 F Pulse Rate [Pulse Oximeter] 109 H 101 H 101 H Respiratory Rate 16 14 14 Blood Pressure [Ri ght Arm] 101/78 99/67 Pulse Oximetry 99 98 Oxygen Delivery Me thod Room Air 03/11/25 19:00 03/11/25 23:00 03/11/25 23:15 Temperature 98.9 F 98.0 F Pulse Rate [Pulse Oximeter] 111 H 109 H 109 H Respiratory Rate 19 18 18 Blood Pressure [Ri ght Arm] 106/75 116/74 Pulse Oximetry 99 98 Oxygen Delivery Me thod Room Air Room Air 03/12/25 02:38 03/12/25 07:30 03/12/25 07:30 Temperature 97.6 F 98.2 F Pulse Rate [Pulse Oximeter] 102 H 108 H 108 H Respiratory Rate 18 18 18 Blood Pressure [Ri ght Arm] 101/65 111/70 Pulse Oximetry 95 97 Oxygen Delivery Me thod Room Air Room Air DS: Data Data Completed and Pending Labs on day of discharge: Labs from last 24 hours 03/12/25 03/11/25 06:00 14:10 WBC 11.59 H RBC 3.06 L Hgb 8.7 L Hct 26.0 L MCV 85 MCH 28 MCHC 34 RDW Coeff of Lucian 14.6 Plt Count 531 H Neut % (Auto) 61.8 Lymph % (Auto) 23.8 [place] % (Auto) 11.4 H Eos % (Auto) 2.0 Baso % (Auto) 0.4 Neut # (Auto) 7.20 H Lymph # (Auto) 2.80 [place] # (Auto) 1.30 H Eos # (Auto) 0.20 Baso # (Auto) 0.00 Abs Immat Gran (auto) 0.10 Imm/Tot Granulo (auto) 0.6 Diff Slide Review Acceptable Review Sodium 131 L Potassium 4.0 4.4 Chloride 94 L Carbon Dioxide 27 Anion Gap 10 BUN 9 Creatinine 0.7 Estimated Creat Clear 90.61 Estimated GFR 106 Glucose 100 Calcium 8.0 L Magnesium 1.6 Total Bilirubin 1.2 AST 40 H ALT 14 Alkaline Phosphatase 149 C-Reactive Protein 6.4 H Total Protein 6.1 Albumin 2.5 L Preliminary micro results at discharge 03/09/25 16:29 Body Fluid Culture - Preliminary Peritoneal Fluid Escherichia coli 03/09/25 14:05 Blood Culture - Preliminary Blood NO GROWTH AFTER 48 HOURS 03/09/25 14:05 Blood Culture - Preliminary Blood NO GROWTH AFTER 48 HOURS Discharge Plan Discharge Disposition: Home, Self-Care Date of Admission: 03/09/25 19:04 Attending Provider on Discharge: Didi Giles Consulting Providers: Gayatri Gusman Primary Care Provider: Maggie Fierro Condition: Improved Anticipated Discharge Date/Time: 03/12/25 10:37 Discharge Medications: New spironolactone 25 mg Tablet 100 mg PO DAILY Qty: 60 0RF Rx Instructions: please note dose increase from 50 -->100mg daily. levofloxacin 500 mg tablet 500 mg PO Q24H 3 Days Qty: 3 0RF Continued furosemide 40 mg tablet 40 mg PO DAILY tizanidine 4 mg tablet 4 mg PO 3XD PRN (Reason: muscle cramps) Qty: 20 0RF folic acid 1 mg tablet 1 mg PO QDAY CertaVite Senior 0.4 mg-300 mcg- 250 mcg tablet 1 tab PO QDAY thiamine HCl (vitamin B1) 100 mg tablet 100 mg PO QDAY pantoprazole 40 mg tablet,delayed release (DR/EC) 40 mg PO QDAY gabapentin 300 mg capsule 300 mg PO TID ondansetron 4 mg tablet,disintegrating 4 mg PO Q8H PRN Discontinued spironolactone 50 mg tablet 50 mg PO QDAY Discharge Orders: Discharge Order (Routine); Ordered 03/12/25 Ordered By: Didi Giles Additional Instructions: Medication changes: - you have three more days of antibiotics to take (sent to [facility] - take once/day with food) - we have INCREASED your Spironolactone from 50mg every morning to 100mg every morning. A new prescription is at [facility] You are always going to have some fluid buildup in your abdomen because of your cirrhosis. If you feel that you're having more pain or difficulty breathing because of this, call Dr. Fierro's office and see if they can arrange a PARACENTESIS. Best to do this scheduled, rather than in an emergent setting. Good idea to continue to limit your fluids to about 1500mL/day. Activity Level: No strenuous activity Discharge Diet: 1500 ml Fluid Restriction Follow Up Appointments: Maggie Fierro MD [Primary Care Provider, Internal Medicine] Referral Note: 3-5 days for hospital f/u, BMP, discuss future paracentesis, hematuria [facility] Inst[facility]
[2025-03-12 11:00] VITALS: BP 110/70; PULSE 110; RESP 18; TEMP 36.5; O2SAT 98
--- NOTE | 2025-03-12 12:26 | PC.SOCIAL ---
Social Service Consult: print finishing worker met with the pt and provided supportive listening. Pt states that he has been told that he is dying. Pt recently had a close friend that from alcohol use related medical issues which gave him more insight and actually helped him make the decision to quit drinking. Pt had some resource questions related to food and getting his taxes done for free or at a lower cost. print finishing worker gave the pt information on the food shelf([facility]) and [facility] that assists with taxes during tax season for low income individuals at no cost. Pt was thankful for the information. Social work to follow-up if needed.
--- NOTE | 2025-03-12 13:34 | PC.NURSE ---
Discharge: Patient pleasant and cooperative, A&O. VSS, afebrile. SpO2 maintained above 90% on RA. Pt reports abdominal pain this shift, managed with PRN medication, see MAR. IV removed with tip intact. Nicotine patch removed and discarded. Discharge instructions provided, all questions answered. D/C to home.
== END 2025-03-12 13:00 | disposition home or self-care (01) | DRG 871 ==
LOC: ED 17:33 → MEDSURG 18:42
PROVIDERS: Family Medicine; Internal Medicine; Admitting Provider Family Medicine; Emergency Provider Family Medicine; PCP Internal Medicine; Visit Provider Family Medicine
DX: A41.9 Sepsis, unspecified organism (principal); E43 Unspecified severe protein-calorie malnutrition; K65.2 Spontaneous bacterial peritonitis; N02.9 Recurrent and persistent hematuria with unspecified morphologic changes; G72.1 Alcoholic myopathy; Z68.1 Body mass index [BMI] 19.9 or less, adult; K70.31 Alcoholic cirrhosis of liver with ascites; G62.1 Alcoholic polyneuropathy; F10.21 Alcohol dependence, in remission; R63.4 Abnormal weight loss; Z59.82 Transportation insecurity; E87.6 Hypokalemia; B96.20 Unspecified Escherichia coli [E. coli] as the cause of diseases classified elsewhere; I34.0 Nonrheumatic mitral (valve) insufficiency; F17.210 Nicotine dependence, cigarettes, uncomplicated; Z91.89 Other specified personal risk factors, not elsewhere classified; Z90.3 Acquired absence of stomach [part of]
CPT/HCPCS: 49083; 36415; 51798; 80048; 80053; 80076; 81001; 82042; 82077; 82150; 82945; 83540; 83550; 83605; 83615; 83690; 83735; 84132; 84145; 84157; 85025; 85045; 85610; 85730; 86140; 86850; 86900; 86901; 87040; 87070; 87086; 87205; 89051; 97161; 97165; 97530; 97535; 99284; 99285; A9153; A9270; J2405; J2543; P9047; S4990

== ENCOUNTER 2025-03-15 13:41 | Outpatient (CLI) | payer MEDICARE, MEDICAID, SELFPAY ==
[2025-03-15 14:30] VITALS: BP 121/84; PULSE 121; RESP 18; O2SAT 98
[2025-03-15 15:19] VITALS: BP 111/74; PULSE 105; RESP 18; O2SAT 99
[2025-03-15 15:23] VITALS: BP 119/77; PULSE 105; RESP 16; O2SAT 99
[2025-03-15 15:28] VITALS: BP 123/84; PULSE 104; RESP 16; O2SAT 99
[2025-03-15 15:33] VITALS: BP 114/81; BP 127/76; PULSE 103; PULSE 105; RESP 16; RESP 18; O2SAT 100
--- NOTE | 2025-03-15 17:23 | P.PCN_ITS ---
Procedure Note Date Seen: 03/15/25 Will [facility] bill your pro fee for this procedure?: Yes Pre-op diagnosis: Abdominal ascites secondary to cirrhosis Post-op diagnosis: same Procedure: Paracentesis, ultrasound-guided Procedure Description: After discussion of the risks and benefits the patient was placed supine. Ultrasound guidance was used to identify the largest pocket of ascites with no evidence of underlying bowel and no abdominal varices, in the right lower quadrant. Once this was done the site was marked. The area was prepped and draped in the usual sterile fashion. Local anesthetic was used to anesthetize the skin and subcutaneous tissue down to the peritoneum. Once the peritoneum was encountered, the needle was advanced into the abdomen. This was confirmed by the aspiration of serous fluid. A skin damian was made with an 11 blade. The paracentesis catheter was advanced into the abdominal cavity while aspirating. Once the abdominal fluid was aspirated confirming entrance into the abdomen, the needle was removed and the sheath advanced. 5000 mL of fluid were then aspirated. Patient tolerated procedure well with no evidence of hypotension. The ultrasound was used to confirm successful aspiration with significantly reduced intra-abdominal fluid. The catheter was then removed. The incision was closed with an interrupted 4-0 Monocryl stitch, Exofin and and Steri-Strips applied over the skin site. Patient tolerated the procedure well. Estimated blood loss 1 mL Anesthesia: local Surgeon: Carmencita Barnard MD Pathology: none sent Condition: stable Disposition: no change
== END 2025-03-15 15:46 | disposition home or self-care (01) ==
LOC: US 13:41
PROVIDERS: PCP Internal Medicine; Visit Provider Surgery
DX: K70.31 Alcoholic cirrhosis of liver with ascites (principal)
CPT/HCPCS: 49083

== ENCOUNTER 2025-03-18 15:16 | Outpatient (CLI) | payer MEDICARE, MEDICAID, SELFPAY | END 2025-03-18 15:17 | disposition home or self-care (01) | LOC: WOUND 15:16 | PROVIDERS: PCP Internal Medicine; Visit Provider Physician Assistant Surgical | DX: I87.311 Chronic venous hypertension (idiopathic) with ulcer of right lower extremity (principal); I87.2 Venous insufficiency (chronic) (peripheral); L97.812 Non-pressure chronic ulcer of other part of right lower leg with fat layer exposed; I34.0 Nonrheumatic mitral (valve) insufficiency; K70.31 Alcoholic cirrhosis of liver with ascites; F17.200 Nicotine dependence, unspecified, uncomplicated; F10.20 Alcohol dependence, uncomplicated | CPT/HCPCS: 11042 ==

== ENCOUNTER 2025-03-26 13:07 | Outpatient (CLI) | payer MEDICARE, MEDICAID, SELFPAY | END 2025-03-26 13:08 | disposition home or self-care (01) | LOC: WOUND 13:08 | PROVIDERS: PCP Internal Medicine; Visit Provider Nurse Practitioner Family | DX: Z09 Encounter for follow-up examination after completed treatment for conditions other than malignant neoplasm (principal); Z87.2 Personal history of diseases of the skin and subcutaneous tissue; I87.2 Venous insufficiency (chronic) (peripheral); I34.0 Nonrheumatic mitral (valve) insufficiency; K70.31 Alcoholic cirrhosis of liver with ascites; F17.200 Nicotine dependence, unspecified, uncomplicated; F10.20 Alcohol dependence, uncomplicated | CPT/HCPCS: G0463 ==

== ENCOUNTER 2025-04-11 13:39 | Outpatient (CLI) | payer MEDICARE, MEDICAID, SELFPAY ==
[2025-04-11 13:54] VITALS: BP 115/82; PULSE 92; RESP 16; O2SAT 100
--- NOTE | 2025-04-11 14:56 | P.GSPN_ITS ---
Subjective Subjective Date Seen: 04/11/25 Interval history: 60-year-old male with alcoholic cirrhosis presented for paracentesis. Patient wanted to come for paracentesis to be ?back to normal and have less fluid. He has been taking his spironolactone and Lasix. He is able to eat regular food, having bowel movements several times a day. He denies abdominal pain. An ultrasound was brought onto the field and there was ascites in the abdomen but patient's abdominal wall was not taut. Several attempts were made at exploring fluid on the right side of the abdominal wall with 15 gauge needle with local anesthetic to find a window where paracentesis catheter could be placed but sma ll bowel was nearby. After multiple attempts at finding a safe window, the procedure was aborted. The skin was not incised and the larger catheter was never advanced into the abdomen. Patient was instructed to continue taking his spironolactone and Lasix and follow up with gastroenterology as scheduled. Exam Const: Vital Signs, click to edit/add: Vital Signs - 24 hr 04/11/25 13:54 Pulse Rate [Left P ulse Oximeter] 92 Respiratory Rate 16 Blood Pressure [Ri ght Arm] 115/82 Pulse Oximetry 100 Oxygen Delivery Me thod Room Air
== END 2025-04-11 14:40 | disposition home or self-care (01) ==
LOC: US 13:39
PROVIDERS: PCP Internal Medicine; Visit Provider Surgery
DX: K70.31 Alcoholic cirrhosis of liver with ascites (principal)
CPT/HCPCS: 76705